=== PATIENT | female | born 1990 | race Caucasian/White ===

== ENCOUNTER 2016-03-01 14:30 | Emergency (ER) | payer OTHER ==
[2016-03-01 15:14] VITALS: BP 120/77
--- NOTE | 2016-03-01 15:40 | UC ---
Abdominal Pain Female HPI - HPI Summary HPI Summary: Generalized abd pain and cramping starting 3 days ago; vomited 5 or 6 times that first day, all "dark, bloody and gunky." Pt describes small dark brown specks like worms in her vomit. Also had 5-10 episodes of orange diarrhea that day. Vomiting and diarrhea continued for the next two days, with 3-4 episodes of hematemesis and at least 5 episodes of diarrhea per day. Today feeling much better, no vomiting or diarrhea, and abdominal pain is resolved. - History of Current Complaint Chief Complaint: UCGI Stated Complaint: ABDOMINAL PAIN Time Seen by Provider: 03/01/16 15:15 Hx Obtained From: Patient Hx Last Menstrual Period: 01/30/16 ?: No Onset/Duration: Sudden Onset, Lasting Days Timing: Constant Severity Initially: Moderate Severity Currently: None Location: Diffuse Radiates: No Character: Aching, Cramping Aggravating Factor(s): Nothing Alleviating Factor(s): Nothing Associated Signs and Symptoms: Positive: Nausea, Vomiting, Diarrhea Allergies/Adverse Reactions: Allergies Allergy/AdvReac Type Severity Reaction Status Date / Time Bee Venom Allergy Severe Anaphylatic Verified 03/01/16 15:05 Shock Tree Nuts Allergy Severe Rash and Verified 03/01/16 15:05 tongue swelling Amoxicillin Allergy Intermediate Rash Verified 03/01/16 15:05 Home Medications: Home Medications LORazepam TAB(*) [Ativan TAB(*)] 03/01/16 [History] Lisdexamfetamine Dimesylate [Vyvanse] 03/01/16 [History] PMH/Surg Hx/FS Hx/Imm Hx Respiratory History Of: Reports: Asthma - WILL BRING INHALERS, Pneumonia GI/ History Of: Reports: Ulcer Neurological History Of: Reports: Seizures Psychological History Of: Reports: Anxiety - ON MEDS, Depression - ON MEDS, Bipolar Disorder - Surgical History Surgical History: Yes Surgery Procedure, Year, and Place: Tonsillectomy 2004, [facility] - Family History Known Family History: Positive: Other - Schizophrenia, depression, alcohol abuse Family History: LEVEL 5 CAVEAT: UNABLE TO OBTAIN FHx - Social History Occupation: Disabled Lives: Alone Alcohol Use: None Alcohol Amount: stopped in december Substance Use Type: Marijuana Substance Use Comment - Amount & Last Used: RARELY Smoking Status (MU): Light Every Day Tobacco Smoker Type: Cigarettes Amount Used/How Often: PACK A DAY Length of Time of Smoking/Using Tobacco: 6YRS Have You Smoked in the Last Year: Yes Household Exposure Type: Cigarettes - Immunization History Most Recent Influenza Vaccination: 2013 Most Recent Tetanus Shot: unknown Most Recent Pneumonia Vaccination: none Review of Systems Constitutional: Chills Skin: Negative Eyes: Negative ENT: Negative Respiratory: Negative Cardiovascular: Negative Gastrointestinal: Abdominal Pain, Vomiting, Diarrhea Genitourinary: Negative Motor: Negative Neurovascular: Negative Musculoskeletal: Negative Neurological: Negative Psychological: Negative All Other Systems Reviewed And Are Negative: Yes Physical Exam Triage Information Reviewed: Yes Appearance: Well-Appearing, No Pain Distress, Well-Nourished Vital Signs: Initial Vital Signs Temp 99.4 F 03/01/16 15:08 Pulse 94 03/01/16 15:08 Resp 16 03/01/16 15:08 BP 120/77 03/01/16 15:08 Pulse Ox 99 03/01/16 15:08 Vital Signs Reviewed: Yes Eye Exam: Normal, Other - lower inner lids pink Eyes: Positive: Conjunctiva Clear ENT Exam: Normal ENT: Positive: Normal ENT inspection, Hearing grossly normal, Pharynx normal, TMs normal Neck exam: Normal Neck: Positive: Supple, Nontender, No Lymphadenopathy Respiratory Exam: Normal Respiratory: Positive: Chest non-tender, Lungs clear, Normal breath sounds, No respiratory distress, No accessory muscle use Cardiovascular: Positive: RRR - 90s on exam, No Murmur Abdomen Description: Positive: Nontender, No Organomegaly, Soft. Negative: CVA Tenderness (R), CVA Tenderness (L), Distended, Guarding, McBurney's Point Tenderness, Peritoneal Signs Bowel Sounds: Positive: Present Musculoskeletal Exam: Normal Neurological Exam: Normal Neurological: Positive: Alert, Muscle Tone Normal Psychological Exam: Other - poor eye contact, pt is very fidgity Skin Exam: Normal Abd Pain Female Course/Dx - Differential Dx/Diagnosis Provider Diagnoses: gastroenteritis. upper GI bleed Discharge - Discharge Plan Condition: Guarded Disposition: AGAINST MEDICAL ADVICE Patient Education Materials: Gastrointestinal Bleeding (ED), Gastroenteritis ( ED) Referrals: Asya Rivera MD [Primary Care Provider] - Additional Instructions: As we discussed, I cannot say whether you have had a dangerous amount of bleeding on physical exam alone, nor can I say whether you have an ongoing bleed in your stomach or intestines. If you have continued bleeding, this can be life-threatening in a short amount of time. I strongly encourage you to go to the hospital tonight for testing and blood work. If you don't go tonight, please call 911 at any time if you faint or have lightheadedness, heart palpatations, or severe abdominal pain.
== END 2016-03-01 15:44 | disposition left against medical advice (07) ==
LOC: UCEAST 14:30
DX: K52.9 Noninfective gastroenteritis and colitis, unspecified (principal); Z88.0 Allergy status to penicillin; F17.210 Nicotine dependence, cigarettes, uncomplicated
CPT/HCPCS: 99212; G0463

== ENCOUNTER 2016-06-21 14:30 | Emergency (ER) | payer OTHER ==
[2016-06-21 15:50] VITALS: BP 122/75
--- NOTE | 2016-06-21 16:17 | UC ---
Cardiac HPI - HPI Summary HPI Summary: Has had nasal congestion and cough for about two weeks, still coughing a lot. 3 days ago rolled over on couch and coughed and felt sudden stabbing pain in R later ribs near axilla. Has been feeling it with certain coughs and movements since then, and today the pain has moved more anterior. Pt wants to feel better and wants pain to go away. Asthma has been flaring lately, using albuterol 3-4 times per day, hasn't filled her rx for advair recently. - History of Current Complaint Chief Complaint: UCRespiratory Stated Complaint: RIB PAIN Time Seen by Provider: 06/21/16 15:52 Hx Obtained From: Patient Onset/Duration: Sudden Onset Timing: Constant Initial Severity: Moderate Current Severity: Moderate Chest Pain Location: Right Lateral Character: Sharp/Stabbing Aggravating: Position, Deep Breaths Alleviating: Rest, Position Associated Signs & Symptoms: Positive: SOB - wheezing, Cough. Negative: Numbness, Tingling, Weakness, Dizziness, Back Pain, Abdominal Pain - Allergy/Home Medications Allergies/Adverse Reactions: Allergies Allergy/AdvReac Type Severity Reaction Status Date / Time Bee Venom Allergy Severe Anaphylatic Verified 06/21/16 15:42 Shock Tree Nuts Allergy Severe Rash and Verified 06/21/16 15:42 tongue swelling Amoxicillin Allergy Intermediate Rash Verified 06/21/16 15:42 Home Medications: Home Medications Ibuprofen [Ibuprofen 200 MG] 400 mg PO Q6H PRN 06/21/16 [History Confirmed 06/21] PMH/Surg Hx/FS Hx/Imm Hx Respiratory History Of: Reports: Asthma, Pneumonia GI/ History Of: Reports: Ulcer Neurological History Of: Reports: Seizures Psychological History Of: Reports: Anxiety - ON MEDS, Depression - ON MEDS, Bipolar Disorder - Surgical History Surgical History: Yes Surgery Procedure, Year, and Place: Tonsillectomy 2004, [facility] - Family History Known Family History: Positive: Other - Schizophrenia, depression, alcohol abuse - Social History Alcohol Use: None Alcohol Amount: stopped in december Substance Use Type: None Substance Use Comment - Amount & Last Used: RARELY Smoking Status (MU): Light Every Day Tobacco Smoker Type: Cigarettes Amount Used/How Often: PACK A DAY Length of Time of Smoking/Using Tobacco: 6YRS Have You Smoked in the Last Year: Yes Household Exposure Type: Cigarettes - Immunization History Most Recent Influenza Vaccination: 2013 Most Recent Tetanus Shot: unknown Most Recent Pneumonia Vaccination: none Review of Systems Constitutional: Negative Skin: Negative Eyes: Negative ENT: Negative Respiratory: Cough, Other - R ribs pain with cough Cardiovascular: Negative Gastrointestinal: Negative Genitourinary: Negative Motor: Negative Neurovascular: Negative Musculoskeletal: Negative Neurological: Negative Psychological: Negative All Other Systems Reviewed And Are Negative: Yes Physical Exam Triage Information Reviewed: Yes Appearance: Well-Appearing, Well-Nourished, Pain Distress - with certain movements and coughing Vital Signs: Initial Vital Signs Temp 98.3 F 06/21/16 15:45 Pulse 71 06/21/16 15:45 Resp 16 06/21/16 15:45 BP 122/75 06/21/16 15:45 Pulse Ox 99 06/21/16 15:45 Vital Signs Reviewed: Yes Eye Exam: Normal Eyes: Positive: Conjunctiva Clear ENT: Positive: Hearing grossly normal, Nasal congestion, TMs normal Dental Exam: Normal Neck exam: Normal Neck: Positive: Supple, Nontender, No Lymphadenopathy Respiratory: Positive: Lungs clear, Normal breath sounds, No respiratory distress. Negative: Chest non-tender - R chest wall pain with palpation and coughs Cardiovascular Exam: Normal Cardiovascular: Positive: RRR, No Murmur Musculoskeletal Exam: Normal Musculoskeletal: Positive: Strength Intact, ROM Intact Neurological Exam: Normal Neurological: Positive: Alert Psychological Exam: Normal Skin Exam: Normal - Clinical Impression Provider Diagnoses: R chest wall pain Discharge - Discharge Plan Condition: Stable Disposition: HOME Prescriptions: Acetaminop/Codeine 30 MG TAB* [Tylenol/Codeine 30 MG TAB*] 1 - 2 tab PO BEDTIME PRN #10 tab MDD 2 PRN Reason: cough, pain Cyclobenzaprine TAB* [Flexeril 10 MG TAB*] 5 - 10 mg PO BID PRN #20 tab PRN Reason: Pain Indomethacin CAP* [Indocin CAP*] 50 mg PO TID PRN #30 cap PRN Reason: Pain Patient Education Materials: Chest Wall Pain (ED) Referrals: Asya Rivera MD [Primary Care Provider] - Additional Instructions: If you still have significant pain after a week, I recommend you see someone trained in osteopathic manipulation for your pain (this would include an osteopath or a chiropractor). If you develop fever or trouble breathing, please come back right away. PLEASE FILL YOUR PRESCRIPTION FOR ADVAIR AND START USING IT AGAIN!
== END 2016-06-21 16:30 | disposition home or self-care (01) ==
LOC: UCEAST 14:30
DX: R07.89 Other chest pain (principal); F31.9 Bipolar disorder, unspecified; F41.9 Anxiety disorder, unspecified; J45.909 Unspecified asthma, uncomplicated; Z88.0 Allergy status to penicillin
CPT/HCPCS: 99212; G0463

== ENCOUNTER → 2016-07-14 18:06 | Emergency (ER) | payer OTHER ==
[~2016-07-14 18:06] MED LIST: HYDROcodone/ACETAMIN 5-325 MG* 1 TAB PO ONE; LORazepam INJ* 2 MG/ML 1 ML VIAL IM ONE; LORazepam INJ* 2 MG/ML 1 ML VIAL ONE
[2016-07-14 18:40] VITALS: BP 139/72
--- NOTE | 2016-07-14 19:47 | RAD ---
Indication: Head injury. CT of the brain was performed without IV contrast. Ventricular structures are midline. No midline shift is noted. The extra-axial spaces are unremarkable. There is no evidence of intracranial mass or hemorrhage. No other high or low density lesions are identified. When compared to previous exam of October 03, 2013 no significant change is noted. There may BE low lying cerebellar tonsils noted. Mastoid air cells and paranasal sinuses are otherwise unremarkable. IMPRESSION: No intracranial mass or hemorrhage is noted.
--- NOTE | 2016-07-14 19:51 | RAD ---
Indication: Neck injury. CT of the cervical spine was obtained in the axial plane. Sagittal and coronal reconstructed images were obtained. Mastoid air cells and paranasal sinuses are unremarkable. The C1 ring is intact. No fractures noted. The remainder of the vertebral bodies appear normal in height. No evidence of compression fracture is noted. Disc spaces are well-preserved. Spinal canal appears to be intact. Lung apices are grossly unremarkable. IMPRESSION: No fracture of the cervical spine is noted.
--- NOTE | 2016-07-14 21:13 | RAD ---
Indication: Left shoulder pain and injury. 4 views of left shoulder demonstrates no fracture. No other bone or joint abnormality is identified. IMPRESSION: Unremarkable left shoulder.
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
== END | disposition home or self-care (01) ==
LOC: ED 18:06
DX: S09.90XA Unspecified injury of head, initial encounter (principal); S50.312A Abrasion of left elbow, initial encounter; S40.212A Abrasion of left shoulder, initial encounter; S80.212A Abrasion, left knee, initial encounter; S80.211A Abrasion, right knee, initial encounter; S00.91XA Abrasion of unspecified part of head, initial encounter; V19.9XXA Pedal cyclist (driver) (passenger) injured in unspecified traffic accident, initial encounter; Y93.9 Activity, unspecified; Y92.9 Unspecified place or not applicable; Y99.9 Unspecified external cause status; F17.210 Nicotine dependence, cigarettes, uncomplicated
CPT/HCPCS: 70450; 72125; 96372; 99282; J2060

== ENCOUNTER 2016-07-22 09:13 | Emergency (ER) | payer OTHER ==
[2016-07-22 09:34] VITALS: BP 124/72
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
== END 2016-07-22 09:59 | disposition home or self-care (01) ==
LOC: UCEAST 09:13
DX: M25.512 Pain in left shoulder (principal); S80.212A Abrasion, left knee, initial encounter; S80.211A Abrasion, right knee, initial encounter; S50.312A Abrasion of left elbow, initial encounter; X58.XXXA Exposure to other specified factors, initial encounter; Y93.9 Activity, unspecified; Y92.9 Unspecified place or not applicable; G40.909 Epilepsy, unspecified, not intractable, without status epilepticus; J45.909 Unspecified asthma, uncomplicated; F41.9 Anxiety disorder, unspecified; F31.9 Bipolar disorder, unspecified; Z88.1 Allergy status to other antibiotic agents; Z91.030 Bee allergy status; Z91.018 Allergy to other foods; F17.210 Nicotine dependence, cigarettes, uncomplicated
CPT/HCPCS: 99211; G0463

== ENCOUNTER 2016-10-11 17:59 | Inpatient (IN) | payer MEDICAID, OTHER ==
[2016-10-11 19:12] LABS: Urine Bacteria Absent (Absent); Urine Bilirubin Negative (Negative); Urine Glucose Negative (Negative); Urine Nitrite Negative (Negative)
[2016-10-11 19:18] LABS: Benzodiazepine Urine Screen None Detected (None Detect)
[2016-10-11 20:04] LABS: Hematocrit 39 % (35-47); Mean Corpuscular HGB Conc 33 g/dl (31-36); Mean Corpuscular Hemoglobin 31 pg (27-31); Mean Corpuscular Volume 94 fL (80-97); Mean Platelet Volume 9 um3 (7.4-10.4); Red Blood Count 4.17 10^6/ul (4.0-5.4); Red Cell Distribution Width 13 % (10.5-15); White Blood Count 7.2 10^3/ul (3.5-10.8)
[2016-10-11 20:22] LABS: ALT 8 U/L (7-52); AST 15 U/L (13-39); Albumin 4.6 g/dL (3.2-5.2); Alkaline Phosphatase 40 U/L (34-104); Anion Gap 6 mmol/L (2-11); BUN/Creatinine Ratio 12.3 (8-20); Blood Urea Nitrogen 9 mg/dL (6-24); CO2 Carbon Dioxide 27 mmol/L (22-32); Calcium 9.1 mg/dL (8.6-10.3); Chloride 105 mmol/L (101-111); EGFR African American 123.9 (>60); EGFR Non-African American 96.4 (>60); Globulin 2.2 g/dL (2-4); Glucose 75 mg/dL (70-100); Potassium 3.4 mmol/L (3.5-5.0); Sodium 138 mmol/L (133-145); Total Protein 6.8 g/dL (6.4-8.9)
[2016-10-11 20:48] LABS: Acetaminophen < 15 mcg/mL; Alcohol < 10 mg/dL (<10); Salicylate < 2.50 mg/dL (<30)
[2016-10-11] MEDS ORDERED: Mouth Piece, Nicotine* 1 EACH CARTRIDGE ONE (20:55)
[2016-10-11] MEDS ORDERED: Nicotine Inhaler* 10 MG AMP ONE (20:56)
[2016-10-11 20:58] LABS: TSH (Thyroid Stimulating Horm) 1.48 mcIU/mL (0.34-5.60)
[2016-10-11] MEDS ORDERED: Mouth Piece, Nicotine* 1 EACH CARTRIDGE INH ONE (21:00)
[2016-10-11] MEDS ORDERED: Nicotine Inhaler* 10 MG AMP INH ONE (21:00)
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
[2016-10-12] MEDS ORDERED: diPHENhydraMINE PO* 50 MG PO ONE (02:15)
[2016-10-12] MEDS ORDERED: diPHENhydraMINE PO* 50 MG ONE (02:18)
[2016-10-12] MEDS ORDERED: Mouth Piece, Nicotine* 1 EACH CARTRIDGE INH ONE (10:45)
[2016-10-12] MEDS: Venlafaxine EXT RELEASE CAP* 75 MG PO SCH (11:32)
[2016-10-12] MEDS: Nicotine Inhaler* 10 MG AMP INH PRN ×2 (11:32→15:47)
[2016-10-12] MEDS: Nicotine GUM* 2 MG PO PRN (11:33)
[2016-10-12] MEDS ORDERED: Mouth Piece, Nicotine* 1 EACH CARTRIDGE ONE (15:48)
[2016-10-12] MEDS: traZODone TAB* 50 MG TAB PO SCH (20:34)
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
[2016-10-13] MEDS: Venlafaxine EXT RELEASE CAP* 75 MG PO SCH (08:40)
[2016-10-13] MEDS: Nicotine Inhaler* 10 MG AMP INH PRN ×3 (08:41→17:44)
[2016-10-13] MEDS: Nicotine GUM* 2 MG PO PRN ×3 (08:41→17:44)
--- NOTE | 2016-10-13 11:01 | PN ---
Subjective - Subjective Subjective: Patient reports she feels "sad, I think." She expressed being worried that she will "never be successful at anything." She endorses hopelessness/helplessness and guilt. She reports that her primary sense of failure comes from relationships. Patient reports she isn't good enough for stable people and that she tends to push others away when uncomfortable sharing her feelings. Notified of nml EKG and would like to restart vyvanse for adhd and propranolol for anxiety. Multiple staff noted she playfully attempts to leave locked doors when people are coming and going. She states she wants to "go outside." Encouraged to remain safe and will reassess staff pass in treatment team tomorrow. Objective - Appearance Appearance: Thin Framed Dysmorphic Features: Yes Hygiene: Normal Grooming: Fairly Well Kept - Behavior Psychomotor Activities: Abnormal-Increased - hyperactivity Exhibits Abnormal Movement: Yes - Attitude and Relatedness Attitude and Relatedness: Cooperative Eye Contact: Fair - Speech Quality: Unpressured Latencies: Normal Quantity: Appropriate - Mood Patient's Decription of Mood: "Sad" - Affect Observed Affect: Depressed Affect Consistent with: Dysphoria - Thought Process Patient's Thought Process: Coherent, Circumstantial Thought Content: Yes Passive Wish, Yes Suicidal Planning, Yes Paranoid Ideation, No Homicidal Ideation - Sensorium Experiencing Hallucinations: No, Sensorium is Clear Type of Hallucinations: Visual: No, Auditory: No, Command: No - Level of Consciousness Level of Consciousness: Alert Orientation: Yes Intact, Yes Orientated to Time, Yes Orientated to Place, Yes Orientated to Person - Impulse Control Impulse Control: Poor - Insight and Judgement Insight and Judgement: Fair - Group Participation Particating in Group Activities: Yes - Medication Management Medication Management Adherence: Yes Assessment - Assessment Merits Inpatient Hospitalization: For Immediate Safety, For Stabilization, Pending Safe DC Plan Inpatient DSM-IV Dx: I: major depressive d/o, severe, recurrent; social phobia; ADHD, combined presentation; alcohol use d/o, in early remission; cannabis use d /o. II: deferred. III: hx TBI, seizures, asthma, tourette's. IV: stressors r/ t social isolation, impact of substance use, legal involvement. V: 50 Clinical Impression: Marion Giron" is a 26yo female with a history of MDD and polysubstance use. She is expressing active SI and depressive sx. She is frustrated with herself for poor relationship skills and lack of sense of success in society. She merits hospitalization for immediate safety and stabilization. Plan - Plan Treatment Plan: Name: MARION DOS SANTOS Birthdate: 1990 [id number] Continue effexor XR and trazodone. EKG NSR, will start propranolol 20mg BID prn anxiety and vyvanse 20mg qam for ADHD. Decrease observation to q30 min and continue therapeutic milieu, individual and group psychoeducation. Medications: Current Medications Nicotine (Nicotine Inhaler*) 10 mg INH Q2H PRN PRN Reason: CRAVING Last Admin: 10/13/16 08:41 Dose: 10 mg Nicotine Polacrilex (Nicotine Gum*) 2 mg PO Q2H PRN PRN Reason: CRAVING Last Admin: 10/13/16 08:41 Dose: 2 mg Trazodone HCl (Desyrel Tab*) 75 mg PO BEDTIME ALEX Last Admin: 10/12/16 20:34 Dose: 75 mg Venlafaxine HCl (Effexor Xr Cap*) 75 mg PO DAILY ALEX Last Admin: 10/13/16 08:40 Dose: 75 mg
[2016-10-13] MEDS: Sulfamethox/Trimethoprim DS 800/160* TAB PO SCH ×2 (12:15→20:28)
[2016-10-13] MEDS: Propranolol TAB* 20 MG PO PRN (12:16)
--- NOTE | 2016-10-13 15:55 | PN ---
[facility]: Group Therapy Note - Service Type Service Type: [id number] Group Psychotherapy - Group Participation Patient Participating in Group: Yes Level of Group Participation: Attentive, Spontaneously Participate Relatedness to Group: Well Related
[2016-10-13] MEDS: traZODone TAB* 50 MG TAB PO SCH (20:28)
[2016-10-14] MEDS: Lisdexamfetamine(NF) 10 MG CAP PO SCH (07:31)
[2016-10-14] MEDS: Venlafaxine EXT RELEASE CAP* 75 MG PO SCH (07:31)
[2016-10-14] MEDS: Nicotine Inhaler* 10 MG AMP INH PRN ×2 (07:31→13:52)
[2016-10-14] MEDS: Propranolol TAB* 20 MG PO PRN (07:35)
[2016-10-14] MEDS: Sulfamethox/Trimethoprim DS 800/160* TAB PO SCH ×2 (09:20→21:14)
[2016-10-14] MEDS ORDERED: hydrOXYzine HCL TAB* 50 MG PO PRN (13:53)
--- NOTE | 2016-10-14 14:01 | PN ---
Subjective - Subjective Service Type: 62941 Hosp care 15 min low complexity Subjective: Patient presents as dysphoric and reports her mood as laltiy." She expresses frustrations with living in [place], being on probation and poor relationship skills. She states that her feelings are hurt when others [peers] talk about her. She endorses depressed mood, hopelessness/helplessness. She reports vague SI. She reports much improvement in executive functioning due to vyvanse. she reports wanting to continue despite increase in tics. Will utilize guanfacine for tics and impulse control. She requests zyrtec for seasonal allergies and endorses continued anxiety. She is receptive to suggestion of prn hydroxyzine for both of the above. Objective - Appearance Appearance: Thin Framed Dysmorphic Features: Yes Hygiene: Normal Grooming: Well Kept - Behavior Psychomotor Activities: Abnormal-Increased - tics: mouth, neck and facial; grunts Exhibits Abnormal Movement: Yes - Attitude and Relatedness Attitude and Relatedness: Cooperative Eye Contact: Poor - Speech Quality: Unpressured Latencies: Normal Quantity: Appropriate - Mood Patient's Decription of Mood: "Sad" - Affect Observed Affect: Depressed Affect Consistent with: Dysphoria - Thought Process Patient's Thought Process: Coherent, Goal Directed Thought Content: Yes Passive Wish, Yes Suicidal Planning, No Homicidal Ideation, No Paranoid Ideation - Sensorium Experiencing Hallucinations: No, Sensorium is Clear Type of Hallucinations: Visual: No, Auditory: No, Command: No - Level of Consciousness Level of Consciousness: Alert Orientation: No Intact, No Orientated to Time, No Orientated to Place, No Orientated to Person - Impulse Control Impulse Control: Impaired - Insight and Judgement Insight and Judgement: Good - Group Participation Particating in Group Activities: Yes - Medication Management Medication Management Adherence: Yes Assessment - Assessment Merits Inpatient Hospitalization: For Immediate Safety, For Stabilization, Consolidate Improvements, For Discharge Planning Inpatient DSM-IV Dx: I: major depressive d/o, severe, recurrent; social phobia; ADHD, combined presentation; alcohol use d/o, in early remission; cannabis use d /o. II: deferred. III: hx TBI, seizures, asthma, tourette's. IV: stressors r/ t social isolation, impact of substance use, legal involvement. V: 50 Clinical Impression: Marion Giron" is a 26yo female with a history of MDD and polysubstance use. She is expressing active SI and depressive sx. She is frustrated with herself for poor relationship skills and lack of sense of success in society. She merits hospitalization for immediate safety and stabilization. Plan - Plan Treatment Plan: Name: MARION DOS SANTOS Birthdate: 1990 [id number] Continue previous medications, increase effexor XR to 87.5mg. Add guanfacine for tourrette's and impulse control. Add hydroxyzine prn for anxiety and seasonal allergies. Continue effexor XR and trazodone. Continue 30min checks, allow staff pass and comfort room use. Continue therapeutic milieu, individual and group psychoeducation. Continued Medication Management: Different Medication Medications: Current Medications Guanfacine HCl (Tenex Tab*) 1 mg PO BID [facility] Hydroxyzine HCl (Atarax Tab*) 50 mg PO Q6H PRN PRN Reason: AGITATION/ANXIETY Lisdexamfetamine Dimesylate (Vyvanse(Nf)) 20 mg PO DAILY [facility] Last Admin: 10/14/16 07:31 Dose: 20 mg Nicotine (Nicotine Inhaler*) 10 mg INH Q2H PRN PRN Reason: CRAVING Last Admin: 10/14/16 13:52 Dose: 10 mg Nicotine Polacrilex (Nicotine Gum*) 2 mg PO Q2H PRN PRN Reason: CRAVING Last Admin: 10/13/16 17:44 Dose: 2 mg Propranolol HCl (Inderal Tab*) 20 mg PO BID PRN PRN Reason: ANXIETY Last Admin: 10/14/16 07:35 Dose: 20 mg Trazodone HCl (Desyrel Tab*) 75 mg PO BEDTIME [facility] Last Admin: 10/13/16 20:28 Dose: 75 mg Trimethoprim/Sulfamethoxazole (Bactrim Ds 800/160 Tab*) 1 tab PO BID [facility] Last Admin: 10/14/16 09:20 Dose: 1 tab Venlafaxine HCl (Effexor Xr Cap*) 87.5 mg PO DAILY [facility] - Discharge Plan Discharge Plan: Outpatient Follow Up Outpatient Program: [facility]
[2016-10-14] MEDS ORDERED: EPINEPHrine AMP 1 MG/ML SUBCUT PRN (16:18)
[2016-10-14] MEDS: guanFACINE TAB* 1 MG PO SCH (21:12)
[2016-10-14] MEDS: traZODone TAB* 50 MG TAB PO SCH (21:12)
[2016-10-15] MEDS: Lisdexamfetamine(NF) 10 MG CAP PO SCH (10:23)
[2016-10-15] MEDS: Sulfamethox/Trimethoprim DS 800/160* TAB PO SCH ×2 (10:23→21:07)
[2016-10-15] MEDS: guanFACINE TAB* 1 MG PO SCH ×2 (10:24→21:07)
[2016-10-15] MEDS: Venlafaxine EXT RELEASE CAP* 75 MG PO SCH (10:24)
[2016-10-15] MEDS: Venlafaxine EXT RELEASE CAP* 37.5 MG PO SCH (10:26)
[2016-10-15] MEDS: Nicotine Inhaler* 10 MG AMP INH PRN ×3 (10:41→21:10)
[2016-10-15] MEDS: Ibuprofen TAB* 600 MG PO PRN (12:56)
[2016-10-15] MEDS: Propranolol TAB* 20 MG PO PRN (12:56)
[2016-10-15] MEDS: Nicotine GUM* 2 MG PO PRN ×2 (12:57→16:19)
[2016-10-15] MEDS ORDERED: Bisacodyl SUPP* 10 MG SUPP PR ONE (17:30)
[2016-10-15] MEDS: traZODone TAB* 50 MG TAB PO SCH (21:07)
[2016-10-16] MEDS: Lisdexamfetamine(NF) 10 MG CAP PO SCH (09:37)
[2016-10-16] MEDS: Venlafaxine EXT RELEASE CAP* 75 MG PO SCH (09:37)
[2016-10-16] MEDS: Sulfamethox/Trimethoprim DS 800/160* TAB PO SCH ×2 (09:37→20:56)
[2016-10-16] MEDS: Venlafaxine EXT RELEASE CAP* 37.5 MG PO SCH (09:38)
[2016-10-16] MEDS: guanFACINE TAB* 1 MG PO SCH ×2 (09:39→20:56)
[2016-10-16] MEDS ORDERED: Mouth Piece, Nicotine* 1 EACH CARTRIDGE ONE (09:40)
[2016-10-16] MEDS: Nicotine GUM* 2 MG PO PRN (09:40)
[2016-10-16] MEDS: Nicotine Inhaler* 10 MG AMP INH PRN ×4 (09:40→16:38)
[2016-10-16] MEDS: Ibuprofen TAB* 600 MG PO PRN (11:30)
--- NOTE | 2016-10-16 13:26 | PN ---
Subjective - Subjective Service Type: 76066 Hosp care 15 min low complexity Subjective: Marion reports of ongoing depression, crying all the time, feeling angry a lot and suicidal. Thought about suicide this morning. Sleeping much better on current meds. Says her current meds are helping and her crying has been a lot less. Eating better as well. Somewhat guarded but not evidence of paranoia. Unable to support self with current finances and has been a source of stress. Objective - Appearance Appearance: Thin Framed Dysmorphic Features: No Hygiene: Normal Grooming: Well Kept - Behavior Psychomotor Activities: Abnormal-Increased Exhibits Abnormal Movement: Yes - Attitude and Relatedness Attitude and Relatedness: Guarded Eye Contact: Fair - Speech Quality: Unpressured Latencies: Normal Quantity: Terse - Mood Patient's Decription of Mood: "Angry" - Affect Observed Affect: Depressed Affect Consistent with: Dysphoria - Thought Process Patient's Thought Process: Coherent, Goal Directed Thought Content: Yes Passive Wish, No Suicidal Planning, No Homicidal Ideation, No Paranoid Ideation - Sensorium Experiencing Hallucinations: No, Sensorium is Clear Type of Hallucinations: Visual: No, Auditory: No, Command: No - Level of Consciousness Level of Consciousness: Alert Orientation: Yes Intact, Yes Orientated to Time, Yes Orientated to Place, Yes Orientated to Person - Impulse Control Impulse Control: Intact - Insight and Judgement Insight and Judgement: Poor - Group Participation Particating in Group Activities: No - Medication Management Medication Management Adherence: Yes Assessment - Assessment Merits Inpatient Hospitalization: For Immediate Safety, For Stabilization, Pending Safe DC Plan Inpatient DSM-IV Dx: I: major depressive d/o, severe, recurrent; social phobia; ADHD, combined presentation; alcohol use d/o, in early remission; cannabis use d /o. II: deferred. III: hx TBI, seizures, asthma, tourette's. IV: stressors r/ t social isolation, impact of substance use, legal involvement. V: 50 Clinical Impression: Appears to be improving on current meds. Plan - Plan Treatment Plan: Name: MARION DOS SANTOS Birthdate: 1990 [id number] Continued Medication Management: Continue Outpt Medication Medications: Current Medications Guanfacine HCl (Tenex Tab*) 1 mg PO BID [facility] Last Admin: 10/16/16 09:39 Dose: Not Given Hydroxyzine HCl (Atarax Tab*) 50 mg PO Q6H PRN PRN Reason: AGITATION/ANXIETY Last Admin: 10/14/16 17:25 Dose: 50 mg Ibuprofen (Motrin Tab*) 600 mg PO Q6H PRN PRN Reason: PAIN Last Admin: 10/16/16 11:30 Dose: 600 mg Lisdexamfetamine Dimesylate (Vyvanse(Nf)) 20 mg PO DAILY [facility] Last Admin: 10/16/16 09:37 Dose: 20 mg Nicotine (Nicotine Inhaler*) 10 mg INH Q2H PRN PRN Reason: CRAVING Last Admin: 10/16/16 11:32 Dose: 10 mg Nicotine Polacrilex (Nicotine Gum*) 2 mg PO Q2H PRN PRN Reason: CRAVING Last Admin: 10/16/16 09:40 Dose: 2 mg Propranolol HCl (Inderal Tab*) 20 mg PO BID PRN PRN Reason: ANXIETY Last Admin: 10/15/16 12:56 Dose: 20 mg Trazodone HCl (Desyrel Tab*) 75 mg PO BEDTIME [facility] Last Admin: 10/15/16 21:07 Dose: 75 mg Trimethoprim/Sulfamethoxazole (Bactrim Ds 800/160 Tab*) 1 tab PO BID [facility] Last Admin: 10/16/16 09:37 Dose: 1 tab Venlafaxine HCl (Effexor Xr Cap*) 75 mg PO DAILY [facility] Last Admin: 10/16/16 09:37 Dose: 75 mg Venlafaxine HCl (Effexor Xr Cap*) 37.5 mg PO DAILY [facility] Last Admin: 10/16/16 09:38 Dose: 37.5 mg - Discharge Plan Discharge Plan: Outpatient Follow Up Outpatient Program: [facility]
[2016-10-16] MEDS ORDERED: Magnesium Hydroxide LIQ* 30 ML UDC PO PRN (13:51)
[2016-10-16] MEDS: Propranolol TAB* 20 MG PO PRN (14:36)
[2016-10-16] MEDS: traZODone TAB* 50 MG TAB PO SCH (20:56)
[2016-10-17] MEDS: Lisdexamfetamine(NF) 10 MG CAP PO SCH (08:26)
[2016-10-17] MEDS: Sulfamethox/Trimethoprim DS 800/160* TAB PO SCH ×2 (08:26→20:37)
[2016-10-17] MEDS: Venlafaxine EXT RELEASE CAP* 75 MG PO SCH (08:26)
[2016-10-17] MEDS: guanFACINE TAB* 1 MG PO SCH ×2 (08:26→20:37)
[2016-10-17] MEDS: Cetirizine* 10 MG TAB PO SCH (08:26)
[2016-10-17] MEDS: Nicotine Inhaler* 10 MG AMP INH PRN ×4 (08:27→18:39)
[2016-10-17] MEDS: Venlafaxine EXT RELEASE CAP* 37.5 MG PO SCH (08:28)
[2016-10-17] MEDS: Ibuprofen TAB* 600 MG PO PRN ×2 (08:28→20:38)
--- NOTE | 2016-10-17 11:18 | PN ---
Subjective - Subjective Subjective: Patient presents as dysphoric. She reports milieu is a source of stress and that other patients are engaging in emotional bullying. Per staff, she broke a cd in the comfort room and superficially cut herself on her left forearm. She reports to me that "it got to be too much" in regards to interactions from peers. She continues to endorse hopelessness in regards to psychosocial stressors. Patient reports lightheadness likely r/t propranolol. She states hydroxyzine is not helpful and that she does not like gabapentin. Objective - Appearance Appearance: Thin Framed Dysmorphic Features: Yes Hygiene: Normal Grooming: Well Kept - Behavior Psychomotor Activities: Normal Exhibits Abnormal Movement: No - Attitude and Relatedness Attitude and Relatedness: Withdrawn Eye Contact: Poor - Speech Quality: Unpressured Latencies: Normal Quantity: Appropriate - Mood Patient's Decription of Mood: "Fine" - Affect Observed Affect: Depressed Affect Consistent with: Dysphoria - Thought Process Patient's Thought Process: Circumstantial - interactions with others Thought Content: No Passive Wish, No Suicidal Planning, No Homicidal Ideation, No Paranoid Ideation - Sensorium Experiencing Hallucinations: No, Sensorium is Clear Type of Hallucinations: Visual: No, Auditory: No, Command: No - Level of Consciousness Level of Consciousness: Alert Orientation: Yes Intact, Yes Orientated to Time, Yes Orientated to Place, Yes Orientated to Person - Impulse Control Impulse Control: Tenuous - Insight and Judgement Insight and Judgement: Fair - Group Participation Particating in Group Activities: Yes - Medication Management Medication Management Adherence: Yes Assessment - Assessment Merits Inpatient Hospitalization: For Immediate Safety, For Stabilization, Consolidate Improvements, For Discharge Planning Inpatient DSM-IV Dx: I: major depressive d/o, severe, recurrent; social phobia; ADHD, combined presentation; alcohol use d/o, in early remission; cannabis use d /o. II: deferred. III: hx TBI, seizures, asthma, tourette's. IV: stressors r/ t social isolation, impact of substance use, legal involvement. V: 50 Clinical Impression: Marion Giron" is a 26yo female with a history of MDD and polysubstance use. She expresses desire for discharge but is demonstrating depressive sx and is hesitant to return to outpatient services. She merits hospitalization for immediate safety and stabilization. Plan - Plan Treatment Plan: Name: MARION DOS SANTOS Birthdate: 1990 [id number] Continue previous medications. Hold propranolol due to hypotension. Continue hydroxyzine prn for anxiety and seasonal allergies. Continue q15 min checks and hold staff pass and comfort room use. Continue therapeutic milieu, individual and group psychoeducation. Continued Medication Management: Different Medication Medications: Current Medications Cetirizine HCl (Zyrtec*) 10 mg PO QAM [facility] Last Admin: 10/17/16 08:26 Dose: 10 mg Guanfacine HCl (Tenex Tab*) 1 mg PO BID [facility] Last Admin: 10/17/16 08:26 Dose: 1 mg Hydroxyzine HCl (Atarax Tab*) 50 mg PO Q6H PRN PRN Reason: AGITATION/ANXIETY Last Admin: 10/14/16 17:25 Dose: 50 mg Ibuprofen (Motrin Tab*) 600 mg PO Q6H PRN PRN Reason: PAIN Last Admin: 10/17/16 08:28 Dose: 600 mg Lisdexamfetamine Dimesylate (Vyvanse(Nf)) 20 mg PO DAILY [facility] Last Admin: 10/17/16 08:26 Dose: 20 mg Magnesium Hydroxide (Milk Of Magnesia Liq*) 30 ml PO DAILY PRN PRN Reason: CONSTIPATION Nicotine (Nicotine Inhaler*) 10 mg INH Q2H PRN PRN Reason: CRAVING Last Admin: 10/17/16 08:27 Dose: 10 mg Nicotine Polacrilex (Nicotine Gum*) 2 mg PO Q2H PRN PRN Reason: CRAVING Last Admin: 10/16/16 09:40 Dose: 2 mg Propranolol HCl (Inderal Tab*) 20 mg PO BID PRN PRN Reason: ANXIETY Last Admin: 10/16/16 14:36 Dose: 20 mg Trazodone HCl (Desyrel Tab*) 75 mg PO BEDTIME [facility] Last Admin: 10/16/16 20:56 Dose: 75 mg Trimethoprim/Sulfamethoxazole (Bactrim Ds 800/160 Tab*) 1 tab PO BID [facility] Last Admin: 10/17/16 08:26 Dose: 1 tab Venlafaxine HCl (Effexor Xr Cap*) 75 mg PO DAILY [facility] Last Admin: 10/17/16 08:26 Dose: 75 mg Venlafaxine HCl (Effexor Xr Cap*) 37.5 mg PO DAILY [facility] Last Admin: 10/17/16 08:28 Dose: 37.5 mg - Discharge Plan Discharge Plan: Outpatient Follow Up Outpatient Program: [facility]
[2016-10-17] MEDS: Nicotine GUM* 2 MG PO PRN ×2 (11:21→18:39)
--- NOTE | 2016-10-17 13:23 | PN ---
MHU: Group Therapy Note - Service Type Service Type: [id number] Group Psychotherapy - Cognitive Behavioral Group Therapy ( CBT):Patient was attentive and participatory in CBT programming this morning, and remained in good behavioral control. Patient expressed positive insights regarding relevant treatment interventions and goals.
[2016-10-17] MEDS: traZODone TAB* 50 MG TAB PO SCH (20:37)
[2016-10-18 08:11] VITALS: BP 100/46
[2016-10-18] MEDS: Sulfamethox/Trimethoprim DS 800/160* TAB PO SCH (09:16)
[2016-10-18] MEDS: Cetirizine* 10 MG TAB PO SCH (09:16)
[2016-10-18] MEDS: Lisdexamfetamine(NF) 10 MG CAP PO SCH (09:17)
[2016-10-18] MEDS: Venlafaxine EXT RELEASE CAP* 75 MG PO SCH (09:17)
[2016-10-18] MEDS: guanFACINE TAB* 1 MG PO SCH (09:18)
[2016-10-18] MEDS: Venlafaxine EXT RELEASE CAP* 37.5 MG PO SCH (09:18)
[2016-10-18] MEDS: Nicotine GUM* 2 MG PO PRN (11:24)
[2016-10-18] MEDS: Nicotine Inhaler* 10 MG AMP INH PRN (11:24)
[2016-10-18] MEDS: Propranolol TAB* 20 MG PO PRN (11:25)
--- NOTE | 2016-10-18 11:26 | PN ---
MHU: Group Therapy Note - Service Type Service Type: [id number] Group Psychotherapy - Cognitive Behavioral Group Therapy ( CBT):Patient was attentive and participatory in CBT programming this morning, and remained in good behavioral control. Patient expressed positive insights regarding relevant treatment interventions and goals.
[2016-10-18] MEDS ORDERED: Mirtazapine TAB* 15 MG PO PRN (13:02)
--- NOTE | 2016-10-18 15:59 | DS ---
CC: [facility], Dr. Robbins and Zoran Del Cid* DATE OF ADMISSION: 10/12/2016. DATE OF DISCHARGE: 10/18/2016. SUPERVISING PSYCHIATRIST: Dr. Howard Motley* (dictated by KIKO Henry) . DISCHARGE DIAGNOSES: AXIS I: Major depressive disorder, moderate, recurrent; ADHD, combined presentation; alcohol use disorder in early remission; marijuana use disorder. AXIS II: Deferred. AXIS III: No active medical problem. AXIS IV: Stressors related to interpersonal relationships, housing, financial strain, and transportation. AXIS V: 55. CONDITION AT TIME OF DISCHARGE: Improved. Meeta reports eagerness for discharge. She denies suicidal ideation. She needs SIB urges. 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 She states that she needs to have an evaluation from [facility] in [place] in order to do so. She states that she has friends who can help her with transportation. She also has a case checker, Matilde, who is willing to help, pending availability. The patient also reports she is eager to see her dog, Vicki, who is being cared for by her friend currently. Meeta is hesitant to return to the [facility] group at [facility]. She agrees to discuss this further with staff there. She will be seeing Dr. Robbins within the next month. MENTAL STATUS EXAM: The patient is a thin-framed, well-groomed female, apparent age. She is cooperative with interview. She is alert and oriented times three. Concentration is good. Memory is 3/3. Her mood is "okay." Affect constricted. Speech is soft and articulate. Her formal thought is logical, goal-directed, coherent. Content of thought is negative for AH, VH, SI or HI. She denies SIB urges. Her insight is fair. Judgment is fair. Fund of knowledge is good. INSTRUCTIONS GIVEN TO THE PATIENT: Medications are as follows: Cetirizine 10 mg p.o. q.a.m.; Guanfacine 1 mg p.o. b.i.d.; Hydroxyzine 50 mg p.o. q.6 hours prn anxiety or agitation; Vyvanse 20 mg p.o. q.a.m.; Venlafaxine 75 mg p.o. q.a.m. and 37.5 mg p.o. q.a.m. for a total of 112.5 mg daily; Propranolol 20 mg daily prn anxiety. Trazodone was discontinued and will be replaced by Mirtazapine 15 mg p.o. at bedtime. She will continue her course of Bactrim DS 800/160 p.o. b.i.d. times 5 more days. These prescriptions were electronically sent to the [facility] in [place] per patient's request. Her diet is regular. Her activity is ambulation as tolerated. She declined tobacco cessation assistance. There are no pending labs or diagnostic studies at the time of discharge. As stated above, she will follow-up with [facility] and she also has case management. HOSPITAL COURSE: A. Reason for admission: The patient presented to the emergency room due to increasing depression, anxiety, and medication noncompliance. She had thoughts of suicide with a plan to jump off of a bridge. B. Psychiatric treatment rendered: The patient was admitted to the Behavioral Services Unit on voluntary status. She was full code status. She was placed on 15 minute checks for safety. Outpatient medications were reinstated including Effexor XR 75 mg and Trazodone 75 mg. She was agreeable to obtain an EKG and this was normal sinus rhythm. Then trialed Vyvanse 20 mg for ADHD and Propranolol for social anxiety. She responded well to these medications. She is noted to have an increase in motor tics and does have a history of Tourette' s disorder. She was agreeable to Guanfacine 1 mg b.i.d. for both ADHD symptoms and tic disorder. Marion was present on the unit, participated in groups. She expressed much frustration with other female peers. She identified that they were bullying her. She was also frustrated at her perception of some people malingering. On Monday the , during the evening shift, the patient was utilizing the comfort room and she broke a CD disc, scratched herself on her left forearm. Over the weekend, once this was noticed, she was placed back again on 15 minute checks and comfort room use was on hold. She was given a behavioral chain analysis and continued to be assessed for safety. The past two days she has defined SIB urges or SI. She attributed her self-injury due to the milieu. Due to apparent increasing stressors related to hospitalization , it was decided by treatment team that she is appropriate for discharge. Meeta reported restless leg syndrome related to Trazodone. She agreed to discontinue this medication and trial Mirtazapine upon discharge. She reported much improvement in executive functioning and agreed to continue Vyvanse and Guanfacine. Her adherence to Effexor will be questionable. She states understanding of potential side effects of abrupt withdraw of this medication. Her case checker, Matilde, was present on the unit to pick her up and take her home. Meeta states that she is planning to spend time with a friend who is caring for her dog and may ask this person to transport her to [place] for the [facility] assessment. FAUZIA QUEVEDO NP [id number]/[facility] #: [id number] ZENAIDA
== END 2016-10-18 13:45 | disposition home or self-care (01) | DRG 751 ==
LOC: ED 17:59 → BSU 10-12 06:39
PROVIDERS: ADMIT Psychiatry & Neurology Psychiatry; ATTEND Psychiatry & Neurology Psychiatry
DX: F33.1 Major depressive disorder, recurrent, moderate (principal); R45.851 Suicidal ideations; F95.2 Tourette's disorder; F90.2 Attention-deficit hyperactivity disorder, combined type; F12.10 Cannabis abuse, uncomplicated; F17.210 Nicotine dependence, cigarettes, uncomplicated; J45.909 Unspecified asthma, uncomplicated; G40.909 Epilepsy, unspecified, not intractable, without status epilepticus; Z79.899 Other long term (current) drug therapy; Z81.8 Family history of other mental and behavioral disorders; Z87.820 Personal history of traumatic brain injury; Z91.14 Patient's other noncompliance with medication regimen; F10.10 Alcohol abuse, uncomplicated
CPT/HCPCS: 36415; 80053; 80307; 80320; 80329; 81003; 81015; 84443; 84702; 85025; 87086; 90853; 93005; 99222; 99231; 99238; A9270-GY; G0480

== ENCOUNTER 2017-05-15 11:36 | Day surgery (SDC) | payer MEDICAID ==
[~2017-05-15 11:36] MED LIST changes: +Buffered Lidocaine 0.9% SYRIN* 5 ML/SYR SYRINGE INTRADERM ONE; -HYDROcodone/ACETAMIN 5-325 MG* 1 TAB PO ONE; -LORazepam INJ* 2 MG/ML 1 ML VIAL IM ONE; -LORazepam INJ* 2 MG/ML 1 ML VIAL ONE; +Sodium Citrate/Citric Acid* 15 ML UDC PO ONE
[2017-05-15] MEDS ORDERED: Sodium Citrate/Citric Acid* 15 ML UDC ONE ×2 (11:50)
[2017-05-15] MEDS ORDERED: Clindamycin 900 MG IVPREMIX(* 900 MG/50 ML SDV IV ONE ×2 (11:50)
[2017-05-15] MEDS ORDERED: Buffered Lidocaine 0.9% SYRIN* 5 ML/SYR SYRINGE ONE ×2 (11:51)
[2017-05-15] MEDS ORDERED: Bupivacaine 0.25% SDV* 30 ML ONE (15:53)
[2017-05-15] MEDS ORDERED: Lidocaine 1% MPF wEPI 200,000* 30 ML SDV ONE ×2 (15:53)
[2017-05-15] MEDS ORDERED: fentaNYL* 50 MCG/ML 2 ML VIAL (100 MCG VIAL) ONE ×2 (16:12)
[2017-05-15] MEDS ORDERED: Midazolam* 1 MG/ML 2 ML VIAL (2 MG) ONE ×4 (16:12→17:15)
[2017-05-15] MEDS ORDERED: ROPIVACAINE 5 MG/ML 30 ML BTL (0.5%) ONE ×2 (16:12)
[2017-05-15] MEDS ORDERED: Propofol* 10 MG/ML 20 ML BTL IV PUSH ONE ×4 (16:13→18:17)
[2017-05-15] MEDS ORDERED: Phenylephrine INJ* 10 MG/ML 1 ML VIAL (10 MG) ONE ×2 (19:13→19:33)
[2017-05-15] MEDS ORDERED: fentaNYL* 50 MCG/ML 2 ML VIAL (100 MCG VIAL) IV PRN (20:12)
[2017-05-15] MEDS ORDERED: DiMENhydriNATE IV* 50 MG/ML VIAL IV PUSH PRN (20:12)
[2017-05-15] MEDS ORDERED: Ketorolac INJ* 30 MG/ML 1 ML VIAL IV PRN (20:12)
[2017-05-15] MEDS ORDERED: Naloxone* 0.4 MG/ML 1 ML VIAL IV PRN (20:12)
[2017-05-15 20:44] VITALS: BP 111/65
[2017-05-15] MEDS ORDERED: DiMENhydriNATE IV* 50 MG/ML VIAL ONE ×2 (20:46)
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
== END 2017-05-15 21:24 | disposition home or self-care (01) ==
LOC: OR 11:36
PROVIDERS: ATTEND Orthopaedic Surgery Hand Surgery
DX: S46.012A Strain of muscle(s) and tendon(s) of the rotator cuff of left shoulder, initial encounter (principal); X58.XXXA Exposure to other specified factors, initial encounter; F90.9 Attention-deficit hyperactivity disorder, unspecified type; J45.909 Unspecified asthma, uncomplicated; Z88.1 Allergy status to other antibiotic agents; F17.200 Nicotine dependence, unspecified, uncomplicated
CPT/HCPCS: 81025; A9270-GY; J1240; J2001; J2250; J2704; J2795; J3010

== ENCOUNTER 2017-06-09 21:09 | Emergency (ER) | payer MEDICAID ==
[2017-06-09 22:07] LABS: ABS Basophils 0 10^3/ul (0-0.2); ABS Eosinophils 0 10^3/ul (0-0.6); ABS Lymphocytes 2.7 10^3/ul (1.0-4.8); ABS Monocytes 0.6 10^3/ul (0-0.8); ABS Neutrophils 5.3 10^3/ul (1.5-7.7); ABS Nucleated RBC 0 10^3/ul; Eosinophil % 0.4 % (0-6); Hematocrit 38 % (35-47); Hemoglobin 13.2 g/dl (12.0-16.0); Lymphocyte % 31.4 % (25-47); Mean Corpuscular HGB Conc 34 g/dl (31-36); Mean Corpuscular Hemoglobin 32 pg (27-31); Mean Corpuscular Volume 94 fL (80-97); Nucleated Red Blood Cells % 0; Platelet Count 304 10^3/ul (150-450); Red Cell Distribution Width 13 % (10.5-15); White Blood Count 8.7 10^3/ul (3.5-10.8)
[2017-06-09 22:29] LABS: EGFR Non-African American 87.3 (>60)
[2017-06-10 02:43] VITALS: BP 0/0
--- NOTE | 2017-06-10 04:32 | ED ---
Navjot Christie Tecjoon, scribed for Jaswinder Benites MD on 06/09/17 at 2205 . Psychiatric Complaint - HPI Summary HPI Summary: This patient is a 27 year old female presenting to [facility] with a psychiatric complaint for the past few weeks. Patient presents voluntarily for a MHE. Patient states that shes feeling overwhelmed and is unsure where to turn. Patient states that her medications arent helping and are exacerbating the problems. Patient states that SI is a lingering thought, but does not have any specific plans. Patient denies HI. Patient has a hx of Tourettes, ADHD, anxiety, depression. - History Of Current Complaint Chief Complaint: EDMentalHealth Time Seen by Provider: 06/09/17 21:46 Hx Obtained From: Patient Hx Last Menstrual Period: "Last week" Onset/Duration: Still Present Timing: Constant Severity Currently: Moderate Character: Anxious Aggravating Factor(s): Nothing Alleviating Factor(s): Nothing Has Suicidal: Reports: Thoughts. Denies: With A Plan Has Homicidal: Denies: Thoughts - Allergies/Home Medications Allergies/Adverse Reactions: Allergies Allergy/AdvReac Type Severity Reaction Status Date / Time Tree Nuts Allergy Severe Rash and Verified 06/09/17 21:34 tongue swelling amoxicillin Allergy Rash Verified 06/09/17 21:34 bee venom protein (honey bee) Allergy anaphylactic Verified 06/09/17 21:34 shock Home Medications: Home Medications Amino Acids [Amino Acid] 1 each PO DAILY 06/09/17 [History Confirmed 06/09/17] Dextroamphetamine/Amphetamine [Mydayis 25 mg] 1 cap PO QAM 06/09/17 [History Confirmed 06/09/17] Fluticasone HFA 110 mcg(NF) [Flovent HFA 110 mcg(NF)] 1 puff INH BID 06/09/17 [ History Confirmed 06/09/17] Ibuprofen TAB* [Motrin TAB* 800 MG] 800 mg PO TID PRN 06/09/17 [History Confirmed 06/09/17] Ipratropium 0.5MG/2.5ML NEB* [Atrovent 0.5 MG NEB.VERONICA*] 0.5 mg INH Q6H PRN 06/09 [History Confirmed 06/09/17] Melatonin (NF) [Meladox] 5 mg PO DAILY 06/09/17 [History Confirmed 06/09/17] cloNIDine TAB* [Catapres 0.1 MG TAB*] 0.1 mg PO BID 06/09/17 [History Confirmed 06/09/17] PMH/Surg Hx/FS Hx/Imm Hx Previously Healthy: No Endocrine/Hematology History: Denies: Hx Diabetes Cardiovascular History: Reports: Hx Hypotension - s/p O/D of clonidine. Denies: Hx Hypertension, Hx Pacemaker/ICD, Other Cardiovascular Problems/ Disorders Respiratory History: Reports: Hx Asthma - ROUTINE AND PRN INHALER FOR, Hx Pneumonia GI History: Reports: Hx Ulcer - HX OF IN THE PAST Denies: Other GI Disorders History: Denies: Hx Renal Disease Musculoskeletal History: Reports: Hx Back Problems - Chronic lower back pain Sensory History: Reports: Hx Contacts or Glasses - GLASSES Denies: Hx Hearing Aid Opthamlomology History: Reports: Hx Contacts or Glasses - GLASSES Neurological History: Reports: Hx Headaches, Hx Seizures - HX OF - LAST 5 YEARS AGO, Other Neuro Impairments/Disorders - TOURETTE'S SYNDROME Psychiatric History: Reports: Hx Anxiety - ON MEDICATION FOR/ AND SEES A THERAPIST, Hx Attention Deficit Hyperactivity Disorder, Hx Depression - ON MEDICATION FOR/ AND SEES A THERAPIST, Hx Panic Disorder, Hx Post Traumatic Stress Disorder, Hx Inpatient Treatment, Hx Community Mental Health Tx, Hx Bipolar Disorder, Hx Suicide Attempt, Hx of Violent Episodes Against Others, Hx Substance Abuse - ETOH Denies: Hx Eating Disorder - Surgical History Surgery Procedure, Year, and Place: Tonsillectomy 2004, [facility]. LEFT INDEX FINGER REPAIR 11/2015 Hx Anesthesia Reactions: No - Immunization History Date of Tetanus Vaccine: unk Date of Influenza Vaccine: unk Infectious Disease History: No Infectious Disease History: Denies: History Other Infectious Disease, Traveled Outside the in Last 30 Days - Family History Known Family History: Positive: Other - Schizophrenia, depression, alcohol abuse - Social History Alcohol Use: None Alcohol Amount: stopped in december Hx Substance Use: Yes Substance Use Type: Reports: Marijuana Substance Use Comment - Amount & Last Used: yesterday, unknown amount Hx Tobacco Use: Yes Smoking Status (MU): Current Some Day Smoker Type: Cigarettes Amount Used/How Often: X 11 YEARS Length of Time of Smoking/Using Tobacco: 6YRS Have You Smoked in the Last Year: Yes Review of Systems Negative: Fever Psychological: Other - SI Positive: Anxious, Other - hostile All Other Systems Reviewed And Are Negative: Yes Physical Exam - Summary Physical Exam Summary: Appearance: Well appearing, no pain distress Skin: warm, dry, reflects adequate perfusion Head/face: normal Eyes: EOMI, MICHELLE ENT: normal Neck: supple, non-tender Respiratory: CTA, breath sounds present Cardiovascular: RRR, pulses symmetrical Abdomen: non-tender, soft Bowel Sounds: present Musculoskeletal: LUE shoulder immobilizer, 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0) g/dl Hct 38 (35-47) % MCV 94 (80-97) fL MCH 32 H (27-31) pg MCHC 34 (31-36) g/dl RDW 13 (10.5-15) % Plt Count 304 (150-450) 10^3/ul MPV 8.0 (7.4-10.4) um3 Neut % (Auto) 60.8 (38-83) % Lymph % (Auto) 31.4 (25-47) % Walker % (Auto) 6.8 (0-7) % Eos % (Auto) 0.4 (0-6) % Baso % (Auto) 0.6 (0-2) % Absolute Neuts (auto) 5.3 (1.5-7.7) 10^3/ul Absolute Lymphs (auto) 2.7 (1.0-4.8) 10^3/ul Absolute Monos (auto) 0.6 (0-0.8) 10^3/ul Absolute Eos (auto) 0 (0-0.6) 10^3/ul Absolute Basos (auto) 0 (0-0.2) 10^3/ul Absolute Nucleated RBC 0 10^3/ul Nucleated RBC % 0 Sodium 137 L (139-145) mmol/L Potassium 3.3 L (3.5-5.0) mmol/L Chloride 100 L (101-111) mmol/L Carbon Dioxide 30 (22-32) mmol/L Anion Gap 7 (2-11) mmol/L BUN 5 L (6-24) mg/dL Creatinine 0.79 (0.51-0.95) mg/dL Est GFR ( Amer) 112.3 (>60) Est GFR (Non-Af Amer) 87.3 (>60) BUN/Creatinine Ratio 6.3 L (8-20) Glucose 84 (70-100) mg/dL Calcium 9.4 (8.6-10.3) mg/dL Total Bilirubin 0.40 (0.2-1.0) mg/dL AST 16 (13-39) U/L ALT 11 (7-52) U/L Alkaline Phosphatase 38 (34-104) U/L Total Protein 7.2 (6.4-8.9) g/dL Albumin 4.9 (3.2-5.2) g/dL Globulin 2.3 (2-4) g/dL Albumin/Globulin Ratio 2.1 (1-3) TSH 4.20 (0.34-5.60) mcIU/mL Beta HCG, Quant < 0.60 mIU/mL Salicylates < 2.50 (<30) mg/dL Acetaminophen < 15 mcg/mL Serum Alcohol < 10 (<10) mg/dL Result Diagrams: 06/09/17 21:58 06/09/17 21:58 Lab Statement: Any lab studies that have been ordered have been reviewed, and results considered in the medical decision making process. Course/Dx - Course Course Of Treatment: pt very difficult at times with staff. Cleared medically and crisis eval performed. Pt wants meds adjusted, but she was cleared for discharge home by psychiatrist. She denies SI at d/c. She still would like meds adjusted but is referred by to her treating doctors, as crisis informed her that adjustments would have to be made by her tx psychiatrist. - Differential Dx/Clinical Impression Provider Diagnosis: Adjustment disorder with anxiety, Mood disorder, Tourette's Discharge - Sign-Out/Discharge Documenting (check all that apply): Discharge - Discharge Plan Condition: Stable Disposition: HOME Patient Education Materials: Mood Disorders (ED) Referrals: Asya Rivera MD [Primary Care Provider] - The documentation as recorded by the Navjot barber Tecjoon accurately reflects the service I personally performed and the decisions made by me, Jaswinder Benites MD.
== END 2017-06-10 00:30 | disposition home or self-care (01) ==
LOC: ED 21:09
DX: F41.9 Anxiety disorder, unspecified (principal); F39 Unspecified mood [affective] disorder; F95.2 Tourette's disorder; Z72.0 Tobacco use
CPT/HCPCS: 36415; 80053; 80320; 80329; 84443; 84702; 85025; 99285; G0480

== ENCOUNTER 2017-06-10 10:43 | Inpatient (IN) | payer MEDICAID ==
--- NOTE | 2017-06-10 11:28 | ED ---
Psychiatric Complaint - HPI Summary HPI Summary: Patient here with suicidal ideations. She reports she was seen here in ED last night and does not feel her evaluation went very well. She is back today as her intermittent suicidal ideations have settled in on her thoughts of [place] [facility] she [facility]. She states multiple factors have lead up to her feeling this way - she does not elaborate. Her chart indicates previous attempts and multiple mental health d/o's including ETOH abuse, anxiety, depression. She also has Tourette's syndrome. Recently, she had surgery on her left side rotator cuff 1 month ago w/ Dr. Stern - reports she's only taking ibuprofen at this time for pain control - has reduced from 800mg to 600mg. Other than SI, no medical complaints. - History Of Current Complaint Hx Obtained From: Patient, Family/Docent Coordinator - mom is present but does not contribute to HPI Hx Last Menstrual Period: "Last week" <Cinthya Luna - Last Filed: 06/12/17 07:20> <Sreedhar Bautista - Last Filed: 06/12/17 08:09> - History Of Current Complaint Chief Complaint: EDMentalHealth Time Seen by Provider: 06/10/17 10:55 - Allergies/Home Medications Allergies/Adverse Reactions: Allergies Allergy/AdvReac Type Severity Reaction Status Date / Time Tree Nuts Allergy Severe Rash and Verified 06/10/17 10:50 tongue swelling amoxicillin Allergy Rash Verified 06/10/17 10:50 bee venom protein (honey bee) Allergy anaphylactic Verified 06/10/17 10:50 shock PMH/Surg Hx/FS Hx/Imm Hx Previously Healthy: Yes Endocrine/Hematology History: Denies: Hx Diabetes Cardiovascular History: Reports: Hx Hypotension - s/p O/D of clonidine. Denies: Hx Hypertension, Hx Pacemaker/ICD, Other Cardiovascular Problems/ Disorders Respiratory History: Reports: Hx Asthma - ROUTINE AND PRN INHALER FOR, Hx Pneumonia GI History: Reports: Hx Ulcer - HX OF IN THE PAST Denies: Other GI Disorders History: Denies: Hx Renal Disease Musculoskeletal History: Reports: Hx Back Problems - Chronic lower back pain, Hx Tendonitis - Lt rotator cuff surgery w/ Dr. Stern 05/24/2017 Sensory History: Reports: Hx Contacts or Glasses - GLASSES Denies: Hx Hearing Aid Opthamlomology History: Reports: Hx Contacts or Glasses - GLASSES Neurological History: Reports: Hx Headaches, Hx Seizures - HX OF - LAST 5 YEARS AGO, Other Neuro Impairments/Disorders - TOURETTE'S SYNDROME Psychiatric History: Reports: Hx Anxiety - ON MEDICATION FOR/ AND SEES A THERAPIST, Hx Attention Deficit Hyperactivity Disorder, Hx Depression - ON MEDICATION FOR/ AND SEES A THERAPIST, Hx Panic Disorder, Hx Post Traumatic Stress Disorder, Hx Inpatient Treatment, Hx Community Mental Health Tx, Hx Bipolar Disorder, Hx Suicide Attempt, Hx of Violent Episodes Against Others, Hx Substance Abuse - ETOH Denies: Hx Eating Disorder - Surgical History Surgery Procedure, Year, and Place: Tonsillectomy 2004, [facility]. LEFT INDEX FINGER REPAIR 11/2015 Hx Anesthesia Reactions: No - Immunization History Date of Tetanus Vaccine: unk Date of Influenza Vaccine: unk Infectious Disease History: No Infectious Disease History: Denies: History Other Infectious Disease, Traveled Outside the in Last 30 Days - Family History Known Family History: Positive: Other - Schizophrenia, depression, alcohol abuse - Social History Lives: With Family Alcohol Use: None Alcohol Amount: stopped in december Hx Substance Use: Yes Substance Use Type: Reports: Marijuana Substance Use Comment - Amount & Last Used: yesterday, unknown amount Hx Tobacco Use: Yes Smoking Status (MU): Current Some Day Smoker Type: Cigarettes Amount Used/How Often: X 11 YEARS Length of Time of Smoking/Using Tobacco: 6YRS Have You Smoked in the Last Year: Yes <Cinthya Luna - Last Filed: 06/12/17 07:20> Review of Systems Negative: Chest Pain Negative: Shortness Of Breath Negative: Abdominal Pain Positive: no symptoms reported Positive: Arthralgia, Myalgia - Lt shoulder s/p surgery - improving Skin: Negative Neurological: Negative Psychological: Other - SI w/ plan All Other Systems Reviewed And Are Negative: Yes <Cinthya Luna - Last Filed: 06/12/17 07:20> Physical Exam Triage Information Reviewed: Yes Vital Signs On Initial Exam: Initial Vitals Temp Pulse Resp BP Pulse Ox 97.7 F 79 16 113/78 99 06/10/17 10:46 06/10/17 10:46 06/10/17 10:46 06/10/17 10:46 06/10/17 10:46 Vital Signs Reviewed: Yes Appearance: Positive: Well-Appearing, Thin Skin: Positive: Warm, Skin Color Reflects Adequate Perfusion, Dry Head/Face: Positive: Normal Head/Face Inspection Eyes: Positive: Normal, EOMI, Conjunctiva Clear ENT: Positive: Normal ENT inspection, Hearing grossly normal, Pharynx normal - mucosa moist Respiratory/Lung Sounds: Positive: Clear to Auscultation, Breath Sounds Present Cardiovascular: Positive: Normal, RRR, S1, S2. Negative: Murmur, Rub Abdomen Description: Positive: Nontender, Soft Bowel Sounds: Positive: Present Musculoskeletal: Positive: Strength/ROM Intact, Limited @ - Lt UE (wearing sling ) Neurological: Positive: Alert, Oriented to Person Place, Time, CN Intact II-III , Other - occasional jerking movements Psychiatric: Positive: Other - SI w/ plan -calm, cooperative, walks about the room and appears curious/distracted by need to move <Cinthya Luna - Last Filed: 06/12/17 07:20> Vital Signs On Initial Exam: Initial Vitals Temp Pulse Resp BP Pulse Ox 97.7 F 79 16 113/78 99 06/10/17 10:46 06/10/17 10:46 06/10/17 10:46 06/10/17 10:46 06/10/17 10:46 <Sreedhar Bautista - Last Filed: 06/12/17 08:09> Diagnostics - Vital Signs Vital Signs Temp Pulse Resp BP Pulse Ox 06/10/17 10:46 97.7 F 79 16 113/78 99 <Cinthya Luna - Last Filed: 06/12/17 07:20> - Vital Signs Vital Signs Temp Pulse Resp BP Pulse Ox 06/10/17 10:46 97.7 F 79 16 113/78 99 - Laboratory Lab Results: Lab Results 06/10/17 06/10/17 Range/Units 11:14 11:14 Urine Color Yellow Urine Appearance Clear Urine pH 7.0 (5-9) Ur Specific [place] 1.003 L (1.010-1.030) Urine Protein Negative (Negative) Urine Ketones Negative (Negative) Urine Blood 1+ A (Negative) Urine Nitrate Negative (Negative) Urine Bilirubin Negative (Negative) Urine Urobilinogen Negative (Negative) Ur Leukocyte Esterase Negative (Negative) Urine WBC (Auto) Absent (Absent) Urine RBC (Auto) Trace(0-2/hpf) (Absent) Ur Squamous Epith Cells Present A (Absent) Urine Bacteria Absent (Absent) Urine Glucose Negative (Negative) Urine Opiates Screen None detected (None Detect) Ur Barbiturates Screen None detected (None Detect) Ur Phencyclidine Scrn None detected (None Detect) Ur Amphetamines Screen Presumptive positive A (None Detect) U Benzodiazepines Scrn None detected (None Detect) Urine Cocaine Screen None detected (None Detect) U Cannabinoids Screen Presumptive positive A (None Detect) Lab Statement: Any lab studies that have been ordered have been reviewed, and results considered in the medical decision making process. <Sreedhar Bautista - Last Filed: 06/12/17 08:09> Course/Dx - Course Course Of Treatment: MHE informed me pt will be admitted here to [facility]. <Cinthya Luna - Last Filed: 06/12/17 07:20> <Sreedhar Bautista - Last Filed: 06/12/17 08:09> - Differential Dx/Clinical Impression Provider Diagnosis: Suicidal ideation Discharge - Sign-Out/Discharge Documenting (check all that apply): Discharge - Billing Disposition and Condition Condition: STABLE [place] [facility] [place] <Cinthya Luna - Last Filed: 06/12/17 07:20> - Billing Disposition and Condition Condition: STABLE Disposition: [facility] [place] <Sreedhar Bautista - Last Filed: 06/12/17 08:09> - Discharge Plan Condition: Stable Disposition: ADMITTED TO [facility]
[2017-06-10 11:32] LABS: Urine Appearance Clear; Urine Blood 1+ (Negative); Urine Color Yellow; Urine Ketones Negative (Negative); Urine Protein Negative (Negative); Urine Specific Gravity 1.003 (1.010-1.030); Urine Urobilinogen Negative (Negative)
[2017-06-10] MEDS ORDERED: Mouth Piece, Nicotine* 1 EACH CARTRIDGE INH PRN (11:46)
[2017-06-10] MEDS ORDERED: Mouth Piece, Nicotine* 1 EACH CARTRIDGE ONE (11:51)
[2017-06-10] MEDS: Nicotine Inhaler* 10 MG AMP INH ONE (11:54)
[2017-06-10] MEDS ORDERED: Ibuprofen TAB* 600 MG PO ONE (13:46)
[2017-06-10] MEDS ORDERED: Nicotine Inhaler* 10 MG AMP ONE (16:17)
[2017-06-10] MEDS ORDERED: LORazepam TAB(*) 1 MG ONE (21:10)
[2017-06-10] MEDS ORDERED: Haloperidol TAB* 2 MG ONE (21:11)
[2017-06-10] MEDS: cloNIDine TAB* 0.1 MG PO SCH (22:44)
[2017-06-10] MEDS: Divalproex DR TAB(*) 500 MG PO SCH (22:44)
[2017-06-10] MEDS: Mometasone 220 MCG MDI INH SCH (23:48)
[2017-06-11] MEDS: Albuterol HFA INHALER* 8 gm MDI INH SCH ×2 (07:27→11:01)
[2017-06-11] MEDS ORDERED: Ibuprofen TAB* 800 MG PO ONE (07:50)
[2017-06-11] MEDS: Ibuprofen TAB* 800 MG PO PRN ×3 (08:24→20:53)
[2017-06-11] MEDS: cloNIDine TAB* 0.1 MG PO SCH ×2 (08:25→20:50)
[2017-06-11] MEDS: Divalproex DR TAB(*) 500 MG PO SCH (08:26)
[2017-06-11] MEDS ORDERED: Albuterol HFA INHALER* 8 gm MDI INH PRN (15:30)
[2017-06-11] MEDS ORDERED: Mouth Piece, Nicotine* 1 EACH CARTRIDGE ONE (15:41)
[2017-06-11] MEDS ORDERED: Nicotine Inhaler* 10 MG AMP ONE (15:42)
[2017-06-11] MEDS: Nicotine Inhaler* 10 MG AMP INH ONE (15:43)
[2017-06-11] MEDS ORDERED: Haloperidol TAB* 1 MG PO ONE (15:46)
[2017-06-11] MEDS: Nicotine Inhaler* 10 MG AMP INH PRN (17:38)
[2017-06-11] MEDS: Mometasone 220 MCG MDI INH SCH (18:58)
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
[2017-06-11] MEDS: OXcarbazepine TAB(*) 300 MG PO SCH (20:51)
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
[2017-06-12] MEDS: Albuterol HFA INHALER* 8 gm MDI INH SCH (01:00)
[2017-06-12] MEDS ORDERED: Haloperidol TAB* 1 MG PO SCH (09:00)
[2017-06-12] MEDS: cloNIDine TAB* 0.1 MG PO SCH ×2 (09:49→19:48)
[2017-06-12] MEDS: Nicotine Inhaler* 10 MG AMP INH PRN ×3 (09:49→18:39)
[2017-06-12] MEDS: OXcarbazepine TAB(*) 300 MG PO SCH ×2 (09:49→19:48)
[2017-06-12] MEDS: Ibuprofen TAB* 800 MG PO PRN (09:50)
[2017-06-12] MEDS ORDERED: LORazepam TAB(*) 0.5 MG PO ONE (13:00)
[2017-06-12] MEDS: Nicotine GUM* 2 MG PO PRN ×2 (13:34→18:40)
--- NOTE | 2017-06-12 15:57 | PN ---
Subjective - Subjective Date of Service: 06/12/17 Service Type: 86281 Hosp care 35 min high complexity Subjective: Yadira is having a difficult time today. She feels unheard and is struggling with the diagnosis of bipolar disorder that was given to her this weekend. My suspicion is that PTSD is a more fitting diagnosis, although there could possibly be underlying bipolar disorder. Objective - Appearance Appearance: Healthy Appearing Dysmorphic Features: No Hygiene: Normal Grooming: Fairly Well Kept - Behavior Psychomotor Activities: Abnormal-Increased Exhibits Abnormal Movement: Yes - Attitude and Relatedness Attitude and Relatedness: Needy Eye Contact: Good - Speech Quality: Pressured Latencies: Normal Quantity: Copious - Mood Patient's Decription of Mood: "Terrible" - Affect Observed Affect: Labile Affect Consistent with: Dysphoria - Thought Process Patient's Thought Process: Coherent Thought Content: No Passive Wish, No Suicidal Planning, No Homicidal Ideation, No Paranoid Ideation - Sensorium Experiencing Hallucinations: No, Sensorium is Clear Type of Hallucinations: Visual: No, Auditory: No, Command: No - Level of Consciousness Level of Consciousness: Agitated Orientation: Yes Intact, Yes Orientated to Time, Yes Orientated to Place, Yes Orientated to Person - Impulse Control Impulse Control: Poor - Insight and Judgement Insight and Judgement: Impaired - Additional Observations Comments: Yadira is irritable and volatile. She feels unheard and is in pain due to recent surgery. Assessment - Assessment Merits Inpatient Hospitalization: For Immediate Safety Inpatient DSM-V Dx: F43.12 Clinical Impression: Yadira is a 27-y.o. woman who is highly reactive and under significant stress that she is generally unable to handle at this time. Plan - Plan Treatment Plan: Name: KARINE DOS SANTOS Birthdate: 1990 [id number] Medications: Current Medications Albuterol (Ventolin Hfa Inhaler*) 1 puff INH QID PRN PRN Reason: SHORTNESS OF BREATH Clonidine HCl (Catapres Tab*) 0.1 mg PO BID [facility] Last Admin: 06/12/17 09:49 Dose: 0.1 mg Device (Nicotine Mouth Piece*) 1 each INH .USE WITH NICOTROL PRN PRN Reason: CRAVING Last Admin: 06/10/17 11:54 Dose: 1 each Haloperidol (Haldol Tab*) 1 mg PO BEDTIME [facility] Ibuprofen (Motrin Tab*) 800 mg PO TID PRN PRN Reason: PAIN Last Admin: 06/12/17 09:50 Dose: 800 mg Mometasone Furoate (Asmanex 220 Mcg Mdi *) 1 puff INH QPM [facility] Last Admin: 06/11/17 18:58 Dose: 1 puff Nicotine (Nicotine Inhaler*) 10 mg INH Q2H PRN PRN Reason: CRAVING Last Admin: 06/12/17 13:18 Dose: 10 mg Nicotine Polacrilex (Nicotine Gum*) 2 mg PO Q2H PRN PRN Reason: CRAVING Last Admin: 06/12/17 13:34 Dose: 2 mg Oxcarbazepine (Trileptal Tab(*)) 300 mg PO BID [facility] Last Admin: 06/12/17 09:49 Dose: 300 mg - Discharge Plan Discharge Plan: Outpatient Follow Up Outpatient Program: [facility] Additional Comments: Yadira will discuss her stressors and difficulties. We may hold a family meeting with her mother, with whom she is having significant conflicts.
[2017-06-12] MEDS: Mometasone 220 MCG MDI INH SCH (18:37)
[2017-06-12] MEDS: LORazepam TAB(*) 1 MG PO SCH (19:48)
[2017-06-12] MEDS: Haloperidol TAB* 1 MG PO SCH (19:48)
[2017-06-13] MEDS: Nicotine Inhaler* 10 MG AMP INH PRN ×3 (07:37→16:57)
[2017-06-13] MEDS: Ibuprofen TAB* 800 MG PO PRN ×2 (07:38→13:56)
[2017-06-13] MEDS: ARNICARE TOPICAL PRN (08:54)
[2017-06-13] MEDS: OXcarbazepine TAB(*) 300 MG PO SCH ×3 (09:56→20:23)
[2017-06-13] MEDS: cloNIDine TAB* 0.1 MG PO SCH ×3 (09:56→20:21)
--- NOTE | 2017-06-13 13:46 | PN ---
Subjective - Subjective Date of Service: 06/13/17 Service Type: 10513 Hosp care 35 min high complexity Subjective: Yadira is having a difficult day. She has been in the [place] shouting and kicking things, generally because things are not going the way she wants them to. She advocated for a family meeting and then when her mom arrived disagreed with her mother and shouted at her. Objective - Appearance Appearance: Thin Framed Dysmorphic Features: No Hygiene: Normal Grooming: Disheveled - Behavior Psychomotor Activities: Abnormal-Increased Exhibits Abnormal Movement: Yes - Attitude and Relatedness Attitude and Relatedness: Child Like Eye Contact: Good - Speech Quality: Pressured Latencies: Normal Quantity: Copious - Mood Patient's Decription of Mood: "Upset" - Affect Observed Affect: Labile Affect Consistent with: Dysphoria - Thought Process Patient's Thought Process: Tangential Thought Content: Yes Passive Wish, Yes Suicidal Planning, No Homicidal Ideation, No Paranoid Ideation - Sensorium Experiencing Hallucinations: No, Sensorium is Clear Type of Hallucinations: Visual: No, Auditory: No, Command: No - Level of Consciousness Level of Consciousness: Agitated Orientation: Yes Intact, Yes Orientated to Time, Yes Orientated to Place, Yes Orientated to Person - Impulse Control Impulse Control: Impaired - Insight and Judgement Insight and Judgement: Poor - Group Participation Particating in Group Activities: Yes - Medication Management Medication Management Adherence: Yes - Additional Observations Comments: Yadira is irritable and volatile. She feels unheard and is in pain due to recent surgery. Today has been a difficult day and she has been loud, labile, tearful at times while also occasionally offering smiles and a small amount of laughter. Assessment - Assessment Merits Inpatient Hospitalization: For Immediate Safety Inpatient DSM-V Dx: F43.12 Clinical Impression: Yadira is a 27-y.o. woman who is highly reactive and under significant stress that she is generally unable to handle at this time. She believes the world would be better off without her. She is not able to be dissuaded. Plan - Plan Treatment Plan: Name: KARINE DOS SANTOS Birthdate: 1990 [id number] Continued Medication Management: Continue Outpt Medication Medications: Current Medications Albuterol (Ventolin Hfa Inhaler*) 1 puff INH QID PRN PRN Reason: SHORTNESS OF BREATH Clonidine HCl (Catapres Tab*) 0.1 mg PO BID [facility] Last Admin: 06/13/17 11:30 Dose: 0.1 mg Device (Nicotine Mouth Piece*) 1 each INH .USE WITH NICOTROL PRN PRN Reason: CRAVING Last Admin: 06/10/17 11:54 Dose: 1 each Haloperidol (Haldol Tab*) 1 mg PO BEDTIME [facility] Last Admin: 06/12/17 19:48 Dose: 1 mg Ibuprofen (Motrin Tab*) 800 mg PO TID PRN PRN Reason: PAIN Last Admin: 06/13/17 07:38 Dose: 800 mg Lorazepam (Ativan Tab(*)) 1 mg PO BEDTIME ALEX Last Admin: 06/12/17 19:48 Dose: 1 mg Lorazepam (Ativan Tab(*)) 0.5 mg PO Q4H PRN PRN Reason: AGITATION Mometasone Furoate (Asmanex 220 Mcg Mdi *) 1 puff INH QPM [facility] Last Admin: 06/12/17 18:37 Dose: 1 puff Nicotine (Nicotine Inhaler*) 10 mg INH Q2H PRN PRN Reason: CRAVING Last Admin: 06/13/17 07:37 Dose: 10 mg Nicotine Polacrilex (Nicotine Gum*) 2 mg PO Q2H PRN PRN Reason: CRAVING Last Admin: 06/12/17 18:40 Dose: 2 mg Arnicare Cream 1 dose TOPICAL QID PRN PRN Reason: PAIN Last Admin: 06/13/17 08:54 Dose: 1 dose Oxcarbazepine (Trileptal Tab(*)) 300 mg PO BID [facility] Last Admin: 06/13/17 11:30 Dose: 300 mg - Discharge Plan Discharge Plan: Outpatient Follow Up Outpatient Program: [facility] Additional Comments: Yadira will discuss her stressors and difficulties. We will hold a family meeting with her mother tomorrow 06/13/2017 at 12:30, with whom she is having significant conflicts. Also invited is Selma Mosqueda, her nurse and therapist at [facility]. Yadira vehemently denies wanting to go to [facility].
[2017-06-13] MEDS: Mometasone 220 MCG MDI INH SCH (16:56)
[2017-06-13] MEDS: Nicotine GUM* 2 MG PO PRN (16:57)
[2017-06-13] MEDS: LORazepam TAB(*) 1 MG PO SCH (20:20)
[2017-06-13] MEDS: Haloperidol TAB* 1 MG PO SCH (20:21)
[2017-06-14] MEDS: OXcarbazepine TAB(*) 300 MG PO SCH ×2 (08:14→20:00)
[2017-06-14] MEDS: cloNIDine TAB* 0.1 MG PO SCH ×2 (08:14→19:59)
[2017-06-14] MEDS: Nicotine Inhaler* 10 MG AMP INH PRN ×3 (08:21→15:54)
[2017-06-14] MEDS: Nicotine GUM* 2 MG PO PRN ×3 (09:47→18:25)
[2017-06-14] MEDS: ARNICARE TOPICAL PRN (10:00)
--- NOTE | 2017-06-14 11:17 | PN ---
MHU: Group Therapy Note - Service Type Service Type: 08183 Group Psychotherapy - Cognitive Behavioral Group Therapy ( CBT):Patient attended CBT programming this morning and presented with flat affect that did not vary with discussion. Although responsive to direct prompts to respond to questions, patient did not engage in spontaneous conversation. Afterwards, Marion expressed resentment about being singled out of the group in context of discussion addressing impulisivity. She personalized this discussion to the point of becoming angry and resentful of this screenplay writer, exhibiting mild behavioral agitation.
[2017-06-14] MEDS: Ibuprofen TAB* 800 MG PO PRN ×2 (14:14→18:24)
[2017-06-14] MEDS: LORazepam TAB(*) 0.5 MG PO PRN (15:54)
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
[2017-06-14] MEDS: Mometasone 220 MCG MDI INH SCH (17:48)
[2017-06-14] MEDS: Haloperidol TAB* 1 MG PO SCH (19:59)
[2017-06-14] MEDS: LORazepam TAB(*) 1 MG PO SCH (19:59)
--- NOTE | 2017-06-14 20:14 | RAD ---
INDICATION: Increased pain and edema right hand. TECHNIQUE: 4 views of the right hand were obtained. FINDINGS: The bones are in normal alignment. No fracture is seen. Joint spaces appear maintained. IMPRESSION: NO EVIDENCE FOR FRACTURE.
[2017-06-15] MEDS: Nicotine Inhaler* 10 MG AMP INH PRN ×2 (08:54→16:30)
[2017-06-15] MEDS: Ibuprofen TAB* 800 MG PO PRN (08:57)
[2017-06-15] MEDS: OXcarbazepine TAB(*) 300 MG PO SCH ×2 (09:09→11:08)
[2017-06-15] MEDS: cloNIDine TAB* 0.1 MG PO SCH ×2 (09:09→11:05)
[2017-06-15] MEDS: ARNICARE TOPICAL PRN (10:07)
[2017-06-15] MEDS: Nicotine GUM* 2 MG PO PRN ×2 (11:07→17:19)
--- NOTE | 2017-06-15 13:11 | PN ---
MHU: Group Therapy Note - Service Type Service Type: 16157 Group Psychotherapy - Cognitive Behavioral Group Therapy ( CBT):Patient was attentive and participatory in CBT programming this morning, and remained in good behavioral control. Patient expressed positive insights regarding relevant treatment interventions and goals.
[2017-06-15] MEDS: FLUoxetine CAP* 20 MG PO SCH (13:31)
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
[2017-06-15] MEDS: LORazepam TAB(*) 0.5 MG PO PRN (17:19)
[2017-06-15] MEDS: Mometasone 220 MCG MDI INH SCH (17:20)
[2017-06-16] MEDS: cloNIDine TAB* 0.1 MG PO SCH ×2 (00:40→10:04)
[2017-06-16] MEDS: OXcarbazepine TAB(*) 300 MG PO SCH ×3 (00:40→13:10)
[2017-06-16] MEDS: LORazepam TAB(*) 1 MG PO SCH (00:40)
[2017-06-16] MEDS: Haloperidol TAB* 1 MG PO SCH (00:40)
[2017-06-16 07:51] VITALS: BP 111/74
[2017-06-16] MEDS: FLUoxetine CAP* 20 MG PO SCH (10:04)
[2017-06-16] MEDS: Nicotine Inhaler* 10 MG AMP INH PRN (10:06)
[2017-06-16] MEDS: ARNICARE TOPICAL PRN (13:02)
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
== END 2017-06-16 15:45 | disposition home or self-care (01) | DRG 755 ==
LOC: ED 10:43 → BSU 14:47
PROVIDERS: ADMIT Psychiatry & Neurology Psychiatry; ATTEND Psychiatry & Neurology Psychiatry
DX: F43.12 Post-traumatic stress disorder, chronic (principal); R45.851 Suicidal ideations; F95.2 Tourette's disorder; M54.5 Low back pain; J45.909 Unspecified asthma, uncomplicated; M25.512 Pain in left shoulder; F10.10 Alcohol abuse, uncomplicated; F12.10 Cannabis abuse, uncomplicated; Z87.820 Personal history of traumatic brain injury; Z81.8 Family history of other mental and behavioral disorders; Z88.1 Allergy status to other antibiotic agents; Z91.030 Bee allergy status; Z91.018 Allergy to other foods; F17.210 Nicotine dependence, cigarettes, uncomplicated
CPT/HCPCS: 36415; 80307; 81003; 81015; 90853; 99222; 99233; 99238; 99284; A9270-GY

== ENCOUNTER 2017-06-24 00:02 | Inpatient (IN) | payer MEDICAID ==
[2017-06-24 00:54] LABS: ABS Basophils 0 10^3/ul (0-0.2); ABS Eosinophils 0.1 10^3/ul (0-0.6); ABS Monocytes 0.7 10^3/ul (0-0.8); ABS Neutrophils 6.6 10^3/ul (1.5-7.7); ABS Nucleated RBC 0 10^3/ul; Eosinophil % 0.6 % (0-6); Hematocrit 36 % (35-47); Hemoglobin 12.4 g/dl (12.0-16.0); Lymphocyte % 28.7 % (25-47); Mean Corpuscular HGB Conc 34 g/dl (31-36); Mean Corpuscular Hemoglobin 32 pg (27-31); Mean Corpuscular Volume 93 fL (80-97); Mean Platelet Volume 7.9 um3 (7.4-10.4); Nucleated Red Blood Cells % 0; Platelet Count 257 10^3/ul (150-450); Red Blood Count 3.85 10^6/ul (4.0-5.4); Red Cell Distribution Width 12 % (10.5-15); White Blood Count 10.5 10^3/ul (3.5-10.8)
[2017-06-24 01:04] LABS: Urine Appearance Cloudy; Urine Blood Negative (Negative); Urine Color Yellow; Urine Ketones Negative (Negative); Urine Protein Negative (Negative); Urine Specific Gravity 1.012 (1.010-1.030); Urine Urobilinogen Negative (Negative)
[2017-06-24 01:10] LABS: EGFR Non-African American 88.6 (>60)
[2017-06-24] MEDS ORDERED: Acetaminophen TAB* 325 MG PO PRN (05:17)
[2017-06-24] MEDS ORDERED: Al Hydrox/Mg Hydrox/Simet LIQ* 30 ML UDC PO PRN (05:17)
[2017-06-24] MEDS ORDERED: Ipratropium 0.5MG/2.5ML NEB* 0.5 MG/2.5 ML NEB.SOLN INH PRN (05:21)
[2017-06-24] MEDS ORDERED: Albuterol HFA INHALER* 8 gm MDI INH PRN (05:28)
[2017-06-24] MEDS ORDERED: Haloperidol TAB* 1 MG PO ONE (08:30)
[2017-06-24] MEDS: FLUoxetine CAP* 10 MG PO SCH (08:30)
[2017-06-24] MEDS: Vitamin THERAPEUTIC TAB PO SCH (08:30)
[2017-06-24] MEDS: [UNRECOGNIZED DRUG - OTHER] PO SCH (08:30)
[2017-06-24] MEDS ORDERED: Haloperidol INJ IV/IM* 5 MG/ML AMP IM PRN (08:30)
[2017-06-24] MEDS ORDERED: Haloperidol INJ IV/IM* 5 MG/ML AMP ONE (08:39)
[2017-06-24] MEDS ORDERED: Haloperidol TAB* 1 MG ONE (08:39)
--- NOTE | 2017-06-24 08:54 | ED ---
New Christie Tiffany, scribed for Chanel Gonzalez MD on 06/24/17 at 0038 . Psychiatric Complaint - HPI Summary HPI Summary: The patient is a 27 year old female voluntarily presenting to [facility] accompanied by mother with a chief complaint of suicidal ideation since today. Symptoms aggravated by "general everyday encounters." Symptoms alleviated by nothing. Patient reports left shoulder pain rated 5/10 in severity. Also reports a plan to commit suicide by jumping [place] the [place]. States that people are "making her crazy." Uses marijuana daily, denies EtOH. Pt was recently DC'd from [facility]. - History Of Current Complaint Chief Complaint: EDMentalHealth Time Seen by Provider: 06/24/17 00:24 Hx Obtained From: Patient, Family/Speech And Language Tutor - mother Hx Last Menstrual Period: "Last week" ?: No Onset/Duration: Still Present Timing: Constant Severity Initially: Moderate Severity Currently: Moderate Character: Depressed - suicidal Aggravating Factor(s): Drug Use, Other - "general everyday encounters" Alleviating Factor(s): Nothing Associated Signs And Symptoms: Positive: Sleep Disturbance, Social Withdrawal Related History: Positive For: Prior Psychiatric Issues Has Suicidal: Reports: Thoughts, With A Plan - Jumping into [place] - Risk Factor(s) Completed Suicide Risk Factors: White [place]uvian, Past Suicide Attempt - Allergies/Home Medications Allergies/Adverse Reactions: Allergies Allergy/AdvReac Type Severity Reaction Status Date / Time Tree Nuts Allergy Severe Rash and Verified 06/24/17 00:34 tongue swelling amoxicillin Allergy Rash Verified 06/24/17 00:34 bee venom protein (honey bee) Allergy anaphylactic Verified 06/24/17 00:34 shock PMH/Surg Hx/FS Hx/Imm Hx Previously Healthy: No Endocrine/Hematology History: Denies: Hx Diabetes Cardiovascular History: Denies: Hx Hypertension, Hx Pacemaker/ICD, Other Cardiovascular Problems/ Disorders Respiratory History: Reports: Hx Asthma - ROUTINE AND PRN INHALER FOR, Hx Pneumonia GI History: Reports: Hx Ulcer - HX OF IN THE PAST Denies: Other GI Disorders History: Denies: Hx Renal Disease Musculoskeletal History: Reports: Hx Back Problems - Chronic lower back pain, Hx Tendonitis - Lt rotator cuff surgery w/ Dr. Stern 05/24/2017, Other Musculoskeletal History - shoulder surg Sensory History: Reports: Hx Contacts or Glasses - GLASSES Denies: Hx Hearing Aid Opthamlomology History: Reports: Hx Contacts or Glasses - GLASSES Neurological History: Reports: Hx Headaches, Hx Seizures - HX OF - LAST 5 YEARS AGO, Other Neuro Impairments/Disorders - TOURETTE'S SYNDROME Psychiatric History: Reports: Hx Anxiety - ON MEDICATION FOR/ AND SEES A THERAPIST, Hx Attention Deficit Hyperactivity Disorder, Hx Depression - ON MEDICATION FOR/ AND SEES A THERAPIST, Hx Panic Disorder, Hx Post Traumatic Stress Disorder, Hx Inpatient Treatment, Hx Community Mental Health Tx, Hx Bipolar Disorder, Hx Suicide Attempt, Hx of Violent Episodes Against Others, Hx Substance Abuse - ETOH, marijuana Denies: Hx Eating Disorder - Surgical History Surgery Procedure, Year, and Place: Tonsillectomy 2004, [facility]. LEFT INDEX FINGER REPAIR 11/2015. L shoulder on May 15, 2017 Hx Anesthesia Reactions: No - Immunization History Date of Tetanus Vaccine: unk Date of Influenza Vaccine: unk Infectious Disease History: No Infectious Disease History: Denies: History Other Infectious Disease, Traveled Outside the in Last 30 Days - Family History Known Family History: Positive: Other - Schizophrenia, depression, alcohol abuse - Social History Alcohol Use: None Alcohol Amount: stopped in december 2015 Hx Substance Use: Yes Substance Use Type: Reports: Marijuana - Every evening Hx Tobacco Use: Yes Smoking Status (MU): Current Some Day Smoker Type: Cigarettes Amount Used/How Often: X 11 YEARS Length of Time of Smoking/Using Tobacco: 6YRS Have You Smoked in the Last Year: Yes Review of Systems Constitutional: Negative Cardiovascular: Negative Respiratory: Negative Gastrointestinal: Negative Positive: Other - Left shoulder pain rated 5/10 Skin: Negative Neurological: Negative Positive: Other - Suicidal ideation with a plan All Other Systems Reviewed And Are Negative: Yes Physical Exam - Summary Physical Exam Summary: Appearance: well-appearing, mild pain distress, Well-nourished. Patient was cooperative. Her thoughts were coherent. She has multiple tattoos and piercings. Still voicing SI Skin: Warm, color reflects adequate perfusion Head: Normal Head/Face inspection, atraumatic Eyes: Conjunctiva clear, PERRL, EOMI ENT: Normal inspection Neck: Supple, no nodes, no JVD. Respiratory: Lungs clear, Normal breath sounds, no respiratory distress Cardio: RRR, No murmur, pulses normal, brisk capillary refill Abdomen: soft, nontender Bowel sounds: present Musculoskeletal: Strength Intact/ ROM intact. No calf tenderness. No edema. Psychological: depressed, intermittent eye contact Neuro: Alert, muscle tone normal, no focal deficit Triage Information Reviewed: Yes Vital Signs On Initial Exam: Initial Vitals Temp Pulse Resp BP Pulse Ox 98.5 F 76 16 119/69 100 06/24/17 00:05 06/24/17 00:05 06/24/17 00:05 06/24/17 00:05 06/24/17 00:05 Vital Signs Reviewed: Yes Diagnostics - Vital Signs Vital Signs Temp Pulse Resp BP Pulse Ox 06/24/17 00:05 98.5 F 76 16 119/69 100 - Laboratory Lab Results: Lab Results 06/23/17 06/23/17 06/24/17 Range/Units 23:45 23:45 00:52 WBC 10.5 (3.5-10.8) 10^3/ul RBC 3.85 L (4.0-5.4) 10^6/ul Hgb 12.4 (12.0-16.0) g/dl Hct 36 (35-47) % MCV 93 (80-97) fL MCH 32 H (27-31) pg MCHC 34 (31-36) g/dl RDW 12 (10.5-15) % Plt Count 257 (150-450) 10^3/ul MPV 7.9 (7.4-10.4) um3 Neut % (Auto) 63.5 (38-83) % Lymph % (Auto) 28.7 (25-47) % Johnston % (Auto) 6.8 (0-7) % Eos % (Auto) 0.6 (0-6) % Baso % (Auto) 0.4 (0-2) % Absolute Neuts (auto) 6.6 (1.5-7.7) 10^3/ul Absolute Lymphs (auto) 3.0 (1.0-4.8) 10^3/ul Absolute Monos (auto) 0.7 (0-0.8) 10^3/ul Absolute Eos (auto) 0.1 (0-0.6) 10^3/ul Absolute Basos (auto) 0 (0-0.2) 10^3/ul Absolute Nucleated RBC 0 10^3/ul Nucleated RBC % 0 Sodium 137 L (139-145) mmol/L Potassium 3.7 (3.5-5.0) mmol/L Chloride 103 (101-111) mmol/L Carbon Dioxide 28 (22-32) mmol/L Anion Gap 6 (2-11) mmol/L BUN 11 (6-24) mg/dL Creatinine 0.78 (0.51-0.95) mg/dL Est GFR ( Amer) 113.9 (>60) Est GFR (Non-Af Amer) 88.6 (>60) BUN/Creatinine Ratio 14.1 (8-20) Glucose 85 (70-100) mg/dL Calcium 9.2 (8.6-10.3) mg/dL Total Bilirubin 0.40 (0.2-1.0) mg/dL AST 15 (13-39) U/L ALT 9 (7-52) U/L Alkaline Phosphatase 33 L (34-104) U/L Total Protein 6.1 L (6.4-8.9) g/dL Albumin 4.3 (3.2-5.2) g/dL Globulin 1.8 L (2-4) g/dL Albumin/Globulin Ratio 2.4 (1-3) TSH 3.47 (0.34-5.60) mcIU/mL Beta HCG, Quant < 0.60 mIU/mL Urine Color Urine Appearance Urine pH (5-9) Ur Specific [place] (1.010-1.030) Urine Protein (Negative) Urine Ketones (Negative) Urine Blood (Negative) Urine Nitrate (Negative) Urine Bilirubin (Negative) Urine Urobilinogen (Negative) Ur Leukocyte Esterase (Negative) Urine Glucose (Negative) Salicylates < 2.50 (<30) mg/dL Urine Opiates Screen None detected (None Detect) Acetaminophen < 15 mcg/mL Ur Barbiturates Screen None detected (None Detect) Ur Phencyclidine Scrn None detected (None Detect) Ur Amphetamines Screen Presumptive positive A (None Detect) U Benzodiazepines Scrn None detected (None Detect) Urine Cocaine Screen None detected (None Detect) U Cannabinoids Screen Presumptive positive A (None Detect) Serum Alcohol < 10 (<10) mg/dL 06/24/17 Range/Units 00:52 WBC (3.5-10.8) 10^3/ul RBC (4.0-5.4) 10^6/ul Hgb (12.0-16.0) g/dl Hct (35-47) % MCV (80-97) fL MCH (27-31) pg MCHC (31-36) g/dl RDW (10.5-15) % Plt Count (150-450) 10^3/ul MPV (7.4-10.4) um3 Neut % (Auto) (38-83) % Lymph % (Auto) (25-47) % Johnston % (Auto) (0-7) % Eos % (Auto) (0-6) % Baso % (Auto) (0-2) % Absolute Neuts (auto) (1.5-7.7) 10^3/ul Absolute Lymphs (auto) (1.0-4.8) 10^3/ul Absolute Monos (auto) (0-0.8) 10^3/ul Absolute Eos (auto) (0-0.6) 10^3/ul Absolute Basos (auto) (0-0.2) 10^3/ul Absolute Nucleated RBC 10^3/ul Nucleated RBC % Sodium (139-145) mmol/L Potassium (3.5-5.0) mmol/L Chloride (101-111) mmol/L Carbon Dioxide (22-32) mmol/L Anion Gap (2-11) mmol/L BUN (6-24) mg/dL Creatinine (0.51-0.95) mg/dL Est GFR ( Amer) (>60) Est GFR (Non-Af Amer) (>60) BUN/Creatinine Ratio (8-20) Glucose (70-100) mg/dL Calcium (8.6-10.3) mg/dL Total Bilirubin (0.2-1.0) mg/dL AST (13-39) U/L ALT (7-52) U/L Alkaline Phosphatase (34-104) U/L Total Protein (6.4-8.9) g/dL Albumin (3.2-5.2) g/dL Globulin (2-4) g/dL Albumin/Globulin Ratio (1-3) TSH (0.34-5.60) mcIU/mL Beta HCG, Quant mIU/mL Urine Color Yellow Urine Appearance Cloudy Urine pH 7.0 (5-9) Ur Specific [place] 1.012 (1.010-1.030) Urine Protein Negative (Negative) Urine Ketones Negative (Negative) Urine Blood Negative (Negative) Urine Nitrate Negative (Negative) Urine Bilirubin Negative (Negative) Urine Urobilinogen Negative (Negative) Ur Leukocyte Esterase Negative (Negative) Urine Glucose Negative (Negative) Salicylates (<30) mg/dL Urine Opiates Screen (None Detect) Acetaminophen mcg/mL Ur Barbiturates Screen (None Detect) Ur Phencyclidine Scrn (None Detect) Ur Amphetamines Screen (None Detect) U Benzodiazepines Scrn (None Detect) Urine Cocaine Screen (None Detect) U Cannabinoids Screen (None Detect) Serum Alcohol (<10) mg/dL Result Diagrams: 06/23/17 23:45 06/23/17 23:45 Lab Statement: Any lab studies that have been ordered have been reviewed, and results considered in the medical decision making process. - EKG 01:06 Cardiac Rate: NL EKG Rhythm: Sinus Rhythm - [address] Segment: Non-Specific Ectopy: None EKG Interpretation: nml AVIVCT, nml QTc, and nml axis EKG Comparison: No Significant Change - No changes from 10/12/16 Re-Evaluation - Re-Evaluation First Eval Re-Evaluation Time: 01:40 Change: Unchanged Comment: remains cooperative. Mother is with her. Course/Dx - Course Course Of Treatment: Allergies noted. High blood pressure noted. Patients medications reviewed this visit. Patient is medically cleared for [facility] at 01:41. At 02:55, Song from Mental Health said Dr. Mike will admit the patient for suicidal ideation. Patient and mother are agreeable to this plan. - Differential Dx/Clinical Impression Differential Diagnosis/HQI/PQRI: Positive: Bipolar Disorder, Depression, Suicidal Ideation Provider Diagnosis: Suicidal ideation Discharge - Sign-Out/Discharge Documenting (check all that apply): Discharge/Admit/Transfer - admit [facility] - Discharge Plan Condition: Stable Disposition: [facility] - Billing Disposition and Condition Condition: STABLE Disposition: [facility] The documentation as recorded by the New barber Tiffany accurately reflects the service I personally performed and the decisions made by , Chanel Gonzalez MD.
[2017-06-24] MEDS ORDERED: Ibuprofen TAB* 800 MG PO PRN (15:28)
[2017-06-24] MEDS ORDERED: OLANzapine TAB*ODT* 5 MG ONE (15:43)
[2017-06-24] MEDS: Nicotine Inhaler* 10 MG AMP INH PRN (15:50)
[2017-06-24] MEDS ORDERED: Mouth Piece, Nicotine* 1 EACH CARTRIDGE INH ONE (16:00)
[2017-06-24] MEDS ORDERED: Mometasone 220 MCG MDI INH SCH (18:00)
--- NOTE | 2017-06-24 19:43 | HP ---
HISTORY AND PHYSICAL: DATE OF ADMISSION: 06/24/17 IDENTIFYING DATA: Marion is a 27-year-old mentally disabled female who was just discharg ed from this unit last week, presented to the emergency room, brought in by local police for evaluati on of suicidal ideation and plan. CHIEF COMPLAINT: "I just did not want to be alive anymore at that time." HISTORY OF PRESENT ILLNESS: The patient with known history of multiple prior psychiatric hospitaliza tions with her last hospitalization here on 06/10/17 was discharged back to her home in [place]. Last night, she was picked up by the local police because she was disorganized in her behavior and threatened [place]. During the assessment, she reported that she has been e xperiencing trouble with everybody in the community. Since her discharge from here, she was extremel y anxious and having ups and downs in her mood and was planning to kill herself. Her stressors as e mentions are mostly emotional, financial, and inability to cope with the society in general. She t hinks because of her awkwardness, people in general do not like her. Since her admission early in morning on the unit, she had exhibited some disorganized behavior and early in the morning, she was pounding on the doors and guan requiring stat medication. Otherwise, she is denying any psychotic s ymptoms including delusions or hallucinations. She is ambivalent about self-harm at this time, altho ugh she just reported to the ER doctor and the vulcanizing press operator that she wanted to kill herself by jumping o [place] the [place]. PAST PSYCHIATRIC HISTORY: Remarkable for numerous hospitalizations since April 2013. She was hospit alized here on 06/10/17 and many other times before that. She also has a history of being hospitaliz ed at [facility]. She was diagnosed with ADHD, depression, bip olar disorder, anxiety disorder, substance use disorder, and so on. She was tried on numerous medica tions including Ritalin, Adderall, bupropion, Strattera, doxepin, Remeron, Cymbalta, Zoloft, Depakote , Abilify, Antabuse, Campral, naltrexone and so on. She has a history of overdose and self-mutilatio n. Her current psychiatric followup is at [facility] and she sees Dr. Mikal muhammad. PAST MEDICAL AND SURGICAL HISTORY: Remarkable for low back pain, history of minor head injuries, hea daches, and chronic asthma. She had shoulder rotator cuff repair early this month. FAMILY PSYCHIATRIC HISTORY: According to the patient, her grandfather was diagnosed with schizophren ia and had received ECT. She also reports that her mother had numerous nervous breakdowns and her si ster, Riana, has anorexia nervosa. SOCIAL AND PERSONAL HISTORY: Marion lives in her own apartment in [facility] and has a do g. 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 She has an extensive history of drug and alcohol use, especially use of marijuana on daily basis. PHYSICAL EXAMINATION GENERAL APPEARANCE: At the time of evaluation, Marion was not in any physical distress. Her appea lynne was appropriately dressed, neatly groomed, thin-framed female who was a little restle ss, but cooperative with the evaluation and examination. VITAL SIGNS: Her vitals show a blood pressure of 119/69, pulse 76, respirations 16, temperature 98.5 degrees Fahrenheit. HEENT: Head: Normocephalic/atraumatic. Eyes: Conjunctivae clear. EOMI, PERRLA. Nose: Clear. Ea rs: Clean with intact tympanic membranes bilaterally. NECK: Supple with midline trachea. No lymph nodes or enlarged thyroid gland. No JVD. CHEST: Lungs are clear. Breath sounds clear bilaterally. CARDIOVASCULAR: Heart rate regular with S1 and S2 only. No murmurs. ABDOMEN: Flat, but soft. No tenderness or organomegaly. Bowel sounds present. MUSCULOSKELETAL: Intact range of movement. STRENGTH: Adequate. LABORATORY DATA: Labs included CBC with differential, CMP, urinalysis, and tox screen. CBC shows a WBC count of 10.5, hemoglobin 12.4, hematocrit 36, platelet count 257, rest unremarkable. CMP shows a sodium of 137, potassium 3.7, chloride 103, carbon dioxide 28, BUN 11, creatinine 0.78. GFR 88.6. test negative. Tox screen negative for salicylates, acetaminophen, and serum alcohol. Ur inalysis unremarkable. No report on UDS available at this time. However, she reports of daily marij uana use. MENTAL STATUS EXAMINATION: Marion is a thin-framed, short stature white female who is appropriatel y dressed, fairly groomed with fair personal hygiene. She makes intermittent eye contact, fidgety an d restless, but cooperated with the interview throughout. Her speech is moderately pressured. There are visible abnormal jerky movements of upper torso mainly. Describes her mood as upset. Observed affect is dysphoric. Denies any delusions, hallucinations, or homicidal ideations. However, ambival ent about will to live, but denies any active plan to hurt herself at this time. Her intelligence ap peared to be average as evidenced by her vocabulary and fund of knowledge. Memory functions are inta ct in all spheres. Attention, concentration also appears to be intact. Insight and judgement impair ed. SUMMARY: This 27-year-old mentally disabled female with different prior psychiatric hospit alizations and multiple inpatient hospitalizations was brought in to the emergency room by the police in the context of a suicidal threat by attempting to jump [place] the [place]. DIAGNOSTIC IMPRESSION: MENTAL HEALTH DIAGNOSIS: 1. Unspecified mood disorder, rule out bipolar disorder. 2. History of attention-deficit hyperactivity disorder. 3. Substance use disorder, mainly alcohol use disorder and cannabis use disorder. PHYSICAL HEALTH DIAGNOSES: 1. History of head injury. 2. Seizure disorder. 3. Asthma. 4. Tourette syndrome. TREATMENT PLAN: Marion will remain hospitalized on the behavioral science unit for her protection and stabilization of acute symptoms. Her code status will remain full while on the unit. Supportive milieu, individual and group therapy will be initiated and she will be encouraged to attend. I will continue all her discharge medications except for stimulants at this time and we will defer that to her assigned psychiatrist here. However, I have a little reservation about prescribing her any stimu lant as that could be a destabilizing factor given the fact that she has a history of substance use d isorder as well as her mood dysregulation. Marion might do better with one or the other major mood stabilizers if she is willing to take it. However, this will be up to her assigned psychiatrist on the unit to adjust or add any medications as required. [id number]/[facility] #: [id number]
[2017-06-24] MEDS: cloNIDine TAB* 0.1 MG PO SCH (20:15)
[2017-06-24] MEDS: CMCS: Melatonin (NF) 3 MG TAB PO SCH (20:15)
[2017-06-24] MEDS: LORazepam TAB(*) 0.5 MG PO PRN (20:23)
[2017-06-24] MEDS: Mometasone 220 MCG MDI INH SCH (21:09)
[2017-06-25] MEDS: Nicotine Inhaler* 10 MG AMP INH PRN (09:07)
[2017-06-25] MEDS: cloNIDine TAB* 0.1 MG PO SCH (09:08)
[2017-06-25] MEDS: FLUoxetine CAP* 10 MG PO SCH (09:08)
[2017-06-25] MEDS: Vitamin THERAPEUTIC TAB PO SCH (09:08)
[2017-06-25] MEDS: [UNRECOGNIZED DRUG - OTHER] PO SCH (09:10)
[2017-06-25] MEDS ORDERED: Haloperidol INJ IV/IM* 5 MG/ML AMP ONE (11:52)
[2017-06-25] MEDS ORDERED: Haloperidol TAB* 5 MG ONE (11:52)
[2017-06-25] MEDS ORDERED: OLANzapine TAB*ODT* 5 MG ONE (12:45)
[2017-06-26] MEDS: Nicotine Inhaler* 10 MG AMP INH PRN ×4 (07:29→19:08)
[2017-06-26] MEDS: OLANzapine TAB*ODT* 5 MG PO SCH (08:58)
[2017-06-26] MEDS: FLUoxetine CAP* 10 MG PO SCH (08:58)
[2017-06-26] MEDS: [UNRECOGNIZED DRUG - OTHER] PO SCH (08:58)
[2017-06-26] MEDS: Vitamin THERAPEUTIC TAB PO SCH (08:58)
[2017-06-26] MEDS: cloNIDine TAB* 0.1 MG PO SCH ×3 (08:58→20:08)
--- NOTE | 2017-06-26 14:32 | PN ---
Subjective - Subjective Date of Service: 06/26/17 Service Type: 05518 Hosp care 35 min high complexity Subjective: Yadira had a difficult weekend, displaying many disruptive behaviors and apparently irritating and engaging negatively with others. Rather than taking a punitive approach, Renee Landaverde, Yadira, and I developed a behavior modification plan to offer incentives to remaining in control. Objective - Appearance Appearance: Healthy Appearing Dysmorphic Features: No Hygiene: Normal Grooming: Fairly Well Kept - Behavior Psychomotor Activities: Abnormal-Increased Exhibits Abnormal Movement: Yes - Attitude and Relatedness Attitude and Relatedness: Cooperative Eye Contact: Fair - Speech Quality: Pressured Latencies: Normal Quantity: Appropriate - Mood Patient's Decription of Mood: "Okay" - Affect Observed Affect: Expansive Affect Consistent with: Dysphoria - Thought Process Patient's Thought Process: Coherent Thought Content: No Passive Wish, No Suicidal Planning, No Homicidal Ideation, No Paranoid Ideation - Sensorium Experiencing Hallucinations: No, Sensorium is Clear Type of Hallucinations: Visual: No, Auditory: No, Command: No - Level of Consciousness Level of Consciousness: Alert Orientation: Yes Intact, Yes Orientated to Time, Yes Orientated to Place, Yes Orientated to Person - Impulse Control Impulse Control: Impaired - Insight and Judgement Insight and Judgement: Fair - Group Participation Particating in Group Activities: Yes - Medication Management Medication Management Adherence: Yes - Additional Observations Comments: Yadira is exhibiting abnormal movements as a result of Tourette's disorder. Her hair is not as well kept as usual. Assessment - Assessment Merits Inpatient Hospitalization: For Immediate Safety Inpatient DSM-V Dx: F33.1 Clinical Impression: Yadira's moods shift and she is impulsive. She may not meet full diagnostic criteria for bipolar disorder. Plan - Plan Treatment Plan: Name: KARINE DOS SANTOS Birthdate: 1990 [id number] Medications: Current Medications Acetaminophen (Tylenol Tab*) 650 mg PO Q4H PRN PRN Reason: PAIN or TEMP > 101 F Al Hydrox/Mg Hydrox/Simethicone (Maalox Plus*) 30 ml PO Q4H PRN PRN Reason: INDIGESTION Albuterol (Ventolin Hfa Inhaler*) 1 puff INH TID PRN PRN Reason: SHORTNESS OF BREATH Clonidine HCl (Catapres Tab*) 0.1 mg PO BID ALEX Last Admin: 06/26/17 08:58 Dose: 0.1 mg Fluoxetine HCl (Prozac Cap*) 10 mg PO QAM [facility] Last Admin: 06/26/17 08:58 Dose: 10 mg Ibuprofen (Motrin Tab*) 800 mg PO TID PRN PRN Reason: PAIN Last Admin: 06/26/17 08:57 Dose: 800 mg Ipratropium Franklin (Atrovent 0.5 Mg Neb.Stephanie*) 0.5 mg INH Q6H PRN PRN Reason: SOB/WHEEZING Lorazepam (Ativan Tab(*)) 0.5 mg PO BEDTIME PRN PRN Reason: ANXIETY Last Admin: 06/24/17 20:23 Dose: 0.5 mg Melatonin (Melatonin (Nf)) 3 mg PO BEDTIME [facility] Last Admin: 06/26/17 00:00 Dose: Not Given Mometasone Furoate (Asmanex 220 Mcg Mdi *) 1 puff INH QPM [facility] Last Admin: 06/26/17 00:00 Dose: Not Given Multivitamins (Theragran Tab*) 1 tab PO DAILY [facility] Last Admin: 06/26/17 08:58 Dose: 1 tab Nicotine (Nicotine Inhaler*) 10 mg INH Q2H PRN PRN Reason: CRAVING Last Admin: 06/26/17 12:10 Dose: 10 mg Nicotine Polacrilex (Nicotine Gum*) 2 mg PO Q2H PRN PRN Reason: CRAVING Amino Acid (Supplement) 1 dose PO DAILY [facility] Last Admin: 06/26/17 08:58 Dose: Not Given Olanzapine (Zyprexa * Tab Odt) 5 mg PO DAILY [facility] Last Admin: 06/26/17 08:58 Dose: Not Given - Discharge Plan Discharge Plan: Outpatient Follow Up Outpatient Program: [facility] Additional Comments: Yadira is willing to continue trying Zyprexa at night with the understanding that this may prove to be a temporary solution to her impulsivity problem.
[2017-06-26] MEDS: Nicotine GUM* 2 MG PO PRN ×2 (15:48→19:09)
[2017-06-26] MEDS: CMCS: Melatonin (NF) 3 MG TAB PO SCH ×2 (20:08)
[2017-06-26] MEDS: LORazepam TAB(*) 0.5 MG PO PRN (20:08)
[2017-06-26] MEDS: Mometasone 220 MCG MDI INH SCH ×2 (22:24)
[2017-06-27 08:23] VITALS: BP 140/70
[2017-06-27] MEDS: Vitamin THERAPEUTIC TAB PO SCH (09:27)
[2017-06-27] MEDS: OLANzapine TAB*ODT* 5 MG PO SCH (09:27)
[2017-06-27] MEDS: FLUoxetine CAP* 10 MG PO SCH (09:27)
[2017-06-27] MEDS: cloNIDine TAB* 0.1 MG PO SCH (09:27)
[2017-06-27] MEDS: [UNRECOGNIZED DRUG - OTHER] PO SCH (09:28)
[2017-06-27] MEDS: Nicotine GUM* 2 MG PO PRN (09:29)
[2017-06-27] MEDS: Nicotine Inhaler* 10 MG AMP INH PRN (09:30)
--- NOTE | 2017-06-27 11:35 | PN ---
MHU: Group Therapy Note - Service Type Service Type: [id number] Group Psychotherapy - Cognitive Behavioral Group Therapy ( CBT):Patient was attentive and participatory in CBT programming this morning, and remained in good behavioral control. Patient expressed positive insights regarding relevant treatment interventions and goals.
--- NOTE | 2017-06-27 22:52 | DS ---
DISCHARGE SUMMARY: DATE OF ADMISSION: 06/24/17 DATE OF DISCHARGE: 06/27/17 PROVIDER: Arlen Baca NP in Psychiatry. SUPERVISING PHYSICIAN: Dr. Howard Motley.* (DICTATED BY ARLEN BACA NP ) MENTAL HEALTH DIAGNOSES: Include: 1. Mood disorder, not otherwise specified. 2. Attention deficit hyperactivity disorder. 3. Anxiety disorder. 4. Tourette's syndrome. PHYSICAL HEALTH DIAGNOSES: Include: 1. History of head injury. 2. Seizure disorder. 3. Asthma. CONDITION AT THE TIME OF DISCHARGE: Improved, psychiatrically cleared, more stable. Participated in groups, social with some peers. Her mom, Bee, was agreeable to discharge. She has done well here psychiatrically once the weekend was over and more structure was in place. She tolerated Zyprexa well. She will attend [facility]. MENTAL STATUS EXAM: At the time of discharge, the patient is calm, cooperative , makes fair eye contact, alert and oriented x3. Her grooming is adequate. Her speech is pressured. Thought processes are logical. She is not psychotic. She is not delusional. She denies AH, VH, SI, and HI. Insight and judgment are fair. Impulse control is fair. She is willing to follow up and she is urged to do so. DISCHARGE INSTRUCTIONS TO THE PATIENT: A. Medications: 1. Albuterol inhaler t.i.d. p.r.n. shortness of breath. 2. Clonidine 0.1 b.i.d. 3. Fluoxetine 20 mg q.a.m. 4. Ibuprofen 800 mg t.i.d. p.r.n. pain in shoulder. 5. Ipratropium bromide 0.5 mg inhaled q.6 hours p.r.n. shortness of breath or wheezing. 6. Lorazepam 0.5 mg p.o. at bedtime p.r.n. anxiety and insomnia. 7. Melatonin 3 mg p.o. at bedtime. 8. Mometasone 1 puff. 9. Nicotine gum 2 mg p.o. q.2 hours p.r.n. craving. 10. Zyprexa ODT 5 mg p.o. daily q.h.s. B. Diet is regular. C. Activities: As tolerated. Please stop smoking. You have a referral to the Smokers' Quitline at 000-564-1585. There are add-on tests pending at the time of discharge, which are hemoglobin A1c and a lipid panel. D. Followup care: There are appointments with [facility]. She is going back to [place] on and will have an appointment with Dr. Robbins following that. E. Substance abuse followup: Substance abuse treatment and medication were offered. HOSPITAL COURSE: Part A: The patient with a known history of multiple prior psychiatric hospitalizations with her last hospitalization here on 06/10/17, was discharged back to her home in [place]. Last night, she was picked by the local police because she was disorganized in her behavior and threatened to jump [place] the [place]. During the assessment, she reported that she has been experiencing trouble with everybody in the community. Since her discharge from here, she was extremely anxious and having ups and downs in her mood and was planning to kill herself. Her stressors as she mentioned are mostly emotional, financial, and inability to cope with the society in general. She thinks because of her awkwardness, people in general do not like her. Since her admission early in the morning on the unit, she had exhibited some disorganized behavior and early in the morning, she was pounding on the doors and guan requiring stat medication. Otherwise, she is denying any psychotic symptoms including delusions or hallucinations. She is ambivalent about self- harm at this time, although she just reported to the ER doctor and the airdox fitter that she wants to kill herself by jumping off the [place] in [place]. Part B: Psychiatric treatment was rendered. The patient was admitted to the adult behavioral unit and placed on 15-minute checks for safety. Johnny did not do well on the unit on the weekend, but did improve from Monday in to Monday. She did attend groups. She interacted with some peers well. She tolerated the additional Zyprexa that we started. She had self stopped the medication we started at last admission, which was Trileptal. She has add-on tests for her HA1c and her lipid panel. I did meet with her mother and her mother is agreeable along with Johnny and with me that discharge is appropriate. It is important to note that some of her behaviors are very likely due to a lack of impulse control perhaps resulting from a series of head injury she had in her earlier 20s and according to her mom that continued to occur when she does things like jumping off of stuff for fun or riding her bicycle in a reckless fashion. She does smoke cannabis, but it does not seem that that substance is causing the mood disorder. It seems like that might be inherent to Johnny's biology. She is improved over the time when she arrived and she is still easily agitated and overwhelmed. Nevertheless, due to her ability to improve on the outside better than on the inside of this unit once her immediate crisis is over, we are discharging her to her mother and to go home. ARLEN BACA, [place]ERRA [id number]/[facility] #: [id number] ZENAIDA
== END 2017-06-27 13:00 | disposition home or self-care (01) | DRG 753 ==
LOC: ED 00:02 → BSU 02:40
PROVIDERS: ADMIT Psychiatry & Neurology Psychiatry; ATTEND Psychiatry & Neurology Psychiatry
DX: F39 Unspecified mood [affective] disorder (principal); F33.1 Major depressive disorder, recurrent, moderate; R45.851 Suicidal ideations; F90.1 Attention-deficit hyperactivity disorder, predominantly hyperactive type; F41.9 Anxiety disorder, unspecified; F95.2 Tourette's disorder; G40.909 Epilepsy, unspecified, not intractable, without status epilepticus; J45.909 Unspecified asthma, uncomplicated; F17.210 Nicotine dependence, cigarettes, uncomplicated; F12.10 Cannabis abuse, uncomplicated; Z81.8 Family history of other mental and behavioral disorders; Z87.828 Personal history of other (healed) physical injury and trauma
CPT/HCPCS: 36415; 80053; 80061; 80307; 80320; 80329; 81003; 83036; 84443; 84702; 85025; 90853; 93005; 99222; 99233; 99238; 99285; A9270-GY; G0480; J1630

== ENCOUNTER 2017-12-07 09:25 | Day surgery (SDC) | payer MEDICAID, OTHER ==
[~2017-12-07 09:25] MED LIST changes: +Clindamycin 900 MG/D5W BAG(*) 900 MG/50 ML BAG IVPB ONE; +Dexamethasone IV* 4 MG/ML 1 ML (4 MG) IV SLOW PU ONE; +Dexamethasone IV* 4 MG/ML 1 ML (4 MG) ONE; +Famotidine IV* 10 MG/ML 2 ML (20 mg) IV ONE; +Famotidine IV* 10 MG/ML 2 ML (20 mg) ONE; -Sodium Citrate/Citric Acid* 15 ML UDC PO ONE
[2017-12-07] MEDS ORDERED: Lidocaine 2% PF * 5 ML VIAL ONE (09:27)
[2017-12-07] MEDS ORDERED: fentaNYL* 50 MCG/ML 2 ML VIAL (100 MCG VIAL) ONE (09:27)
[2017-12-07] MEDS ORDERED: Propofol* 10 MG/ML 20 ML BTL IV PUSH ONE (09:27)
[2017-12-07] MEDS ORDERED: Midazolam* 1 MG/ML 5 ML VIAL (5 MG) ONE (09:28)
[2017-12-07] MEDS ORDERED: DiMENhydriNATE IV* 50 MG/ML VIAL IV PUSH PRN (09:35)
[2017-12-07] MEDS ORDERED: Acetaminophen TAB* 325 MG PO PRN (09:35)
[2017-12-07] MEDS ORDERED: fentaNYL* 50 MCG/ML 2 ML VIAL (100 MCG VIAL) IV PRN (09:35)
[2017-12-07] MEDS ORDERED: Naloxone* 0.4 MG/ML 1 ML VIAL IV PRN (09:35)
[2017-12-07] MEDS ORDERED: oxyCODONE/Acetamin 5/325 MG* TAB PO PRN (09:35)
[2017-12-07] MEDS ORDERED: Bupivacaine 0.25% SDV* 30 ML ONE (10:21)
[2017-12-07] MEDS ORDERED: EPHEDrine (Pressors)* 50 MG/ML VIAL ONE (10:26)
[2017-12-07] MEDS ORDERED: Succinylcholine* 20 MG/ML 10 ML VIAL ONE (10:28)
[2017-12-07 11:55] VITALS: BP 123/68
--- NOTE | 2017-12-08 05:17 | OP ---
OPERATIVE REPORT: DATE OF OPERATION: 12/07/17 - SCOTTIE DATE OF : [birth year] SURGEON: Ilia Stern MD CONSUMER EXPERIENCE CONSULTANT: COLE Caban ANESTHESIOLOGIST: Dr. Poole. ANESTHESIA: General. PRE-OP DIAGNOSIS: Left index finger proximal phalanx, symptomatic hardware, status post ORIF on 12/21/15. POST-OP DIAGNOSIS: Left index finger proximal phalanx, symptomatic hardware, status post ORIF on 12/21/15. OPERATIVE PROCEDURE: Removal of deep left index finger plate and screws, proximal phalanx. INDICATIONS: Marion had this fracture fixed 12/21/15. It healed well. She has full motion. The plate bothers her particularly with weather changes. We talked about risks and benefits including risk of stiffness. She wants to proceed. ESTIMATED BLOOD LOSS: 2 mL. COMPLICATIONS: None. FINDINGS: See above and below. DESCRIPTION OF PROCEDURE: Marion was seen in the preoperative holding area. The correct side, site, and procedure were identified. We came back to the operating room where the arm was prepped and draped in the usual fashion. A time-out was performed. I began by exsanguinating the arm with the Esmarch and the tourniquet was inflated to 250 mmHg. I reopened the prior curvilinear incision over the dorsum of the left index finger. Full thickness flaps were raised off the peritenon. The extensor tendon was incised along the prior longitudinal split. The 4-0 Prolene sutures that were there were removed. The plate was exposed. The 2 screws proximal and 2 screws distal were removed and the plate was removed. I then turned by attention to the lag screw, which was a little overgrown. The osteotome was used to remove the overgrown bone. I removed the bone out of the head of the screw so that I could see the cruciform grooves for the screwdriver. The lag screw was then removed. Everything was looking good at this point. All the rough bony edges were removed with a rongeur. The extensor tendon was reapproximated with 4-0 Prolene suture with the knots buried. Skin was closed with 4-0 nylon. The wounds were dressed. A digital block was performed with 0.25% Marcaine and Alumafoam splint was applied. Tourniquet was deflated. The finger pinked up immediately. She was taken to the recovery room in stable condition. [id number]/[facility] #: [id number] ZENAIDA
--- NOTE | 2017-12-12 13:00 | RAD ---
INDICATION: Removal of fixation plate COMPARISONS: None relevant TECHNIQUE: Fluoroscopy was provided for a surgical procedure. Total fluoroscopy time is: 13 seconds FINDINGS: Spot images demonstrate postsurgical change to the second proximal phalanx IMPRESSION: FLUOROSCOPY WAS PROVIDED FOR A SURGICAL PROCEDURE CPT II Codes: G9500
== END 2017-12-07 11:58 | disposition home or self-care (01) ==
LOC: OREAST 09:25
PROVIDERS: ATTEND Orthopaedic Surgery Hand Surgery
DX: T84.84XA Pain due to internal orthopedic prosthetic devices, implants and grafts, initial encounter (principal); Y83.1 Surgical operation with implant of artificial internal device as the cause of abnormal reaction of the patient, or of later complication, without mention of misadventure at the time of the procedure; Z72.0 Tobacco use; J45.909 Unspecified asthma, uncomplicated; D64.9 Anemia, unspecified; F95.2 Tourette's disorder; F31.9 Bipolar disorder, unspecified
CPT/HCPCS: 76000; 81025; 88300; J0330; J1100; J2250; J2704; J3010

== ENCOUNTER 2018-01-02 14:19 | Inpatient (IN) | payer OTHER ==
--- OUTSIDE RECORDS SUMMARY | 2018-01-02 14:46 | XMS REPORT ---
:1990 Author Organization [facility] Care Team Providers Name Role Phone Anibal Sinha Unavailable Unavailable PROBLEMS Unknown Problems ALLERGIES Substance Reaction Event Type Date Status Bees anaphylaxis Non Drug Allergy Sep, Active Amoxicillin Unknown Non Drug Allergy Sep, Active ENCOUNTERS Encounter Location Date Diagnosis [place] [id number] Feb, [address] [address] 08 Feb, [address] [address] Sep, [address] [address] Sep, [address] [address] Sep, [address] [address] Jul, [address] [address] Jul, IMMUNIZATIONS No Known Immunizations SOCIAL HISTORY Never Assessed REASON FOR REFERRAL FUNCTIONAL STATUS PLAN OF CARE VITAL SIGNS MEDICATIONS Medication Instructions Dosage Frequency Start Date End Date Duration Status Ativan Active EPINEPHrine Active (Anaphylaxis) Albuterol Active Zyprexa Active Prozac Active PROCEDURES Procedure Date Ordered Result Body Site RESIN COMPOS - 2 SURFACES POSTERIOR Oct 10, 2017 Occ Guard by Report Oct 10, 2017 RESULTS No Results REASON FOR VISIT Insurance Providers [facility] Health Member Patient Patient Patient Patient Patient Subscriber Subscriber Subscriber Group Insurance Plan Plan Plan Plan ID Relationship Address Phone Name Date of ID Name Date of No Type Insurance Insurance Insurance Coverage to Subscriber Address Phone Name Dates Guy [phone] Guy Schultz [id number] Medicaid [place] [address] Medicaid [facility] [id number] Medical Medicaid [id number] [phone] Medicaid self [place] [id number] [address]rap [facility] [address] [place] [address] Guy [phone] Rennert self [place] [id number] Medicaid [id number] [place] [address] [employer] MEDICAL (GENERAL) HISTORY Type Description Date Medical History asthma Medical History depression Medical History mood disorder Medical History anxiety
--- OUTSIDE RECORDS SUMMARY | 2018-01-02 14:46 | XMS REPORT ---
:1990 Author Organization [facility] Care Team Providers Name Role Phone Anibal Sinha Unavailable Unavailable PROBLEMS Unknown Problems ALLERGIES No Information ENCOUNTERS Encounter Location Date Diagnosis [address] [address] 08 Feb, [address] [address] 08 Feb, [address] [address] Sep, [address] [address] Sep, [address] [address] 07 Sep, [address] [address] Jul, [address] [address] Jul, IMMUNIZATIONS No Known Immunizations SOCIAL HISTORY Never Assessed REASON FOR REFERRAL FUNCTIONAL STATUS PLAN OF CARE VITAL SIGNS MEDICATIONS Medication Instructions Dosage Frequency Start Date End Date Duration Status Ativan Active Albuterol Active EPINEPHrine Active (Anaphylaxis) Prozac Active Zyprexa Active PROCEDURES Procedure Date Ordered Result Body Site Complete Contract Procedure Oct 17, 2017 RESULTS No Results REASON FOR VISIT [facility] Insurance Providers [facility] Member Patient Patient Patient Patient Patient Subscriber Subscriber Subscriber Group Insurance Plan Plan Plan Plan ID Relationship Address Phone Name Date of ID Name Date of No Type Insurance Insurance Insurance Coverage to Subscriber Address Phone Name Dates Medicaid [id number] [phone] Medicaid self [place] [id number] Wrap [facility] [address] [place] [address] Guy [phone] Gene [employer] self [place] [id number] Medicaid [place] 47 Medicaid [facility] [id number] Medical Gene [employer]ry [phone] Guy self [place] [id number] Medicaid [id number] Medicaid [facility] [address] [place] MEDICAL (GENERAL) HISTORY Type Description Date Medical History asthma Medical History depression Medical History mood disorder Medical History anxiety
--- OUTSIDE RECORDS SUMMARY | 2018-01-02 14:46 | XMS REPORT ---
:1990 Author Organization [facility] Care Team Providers Name Role Phone Anibal Sinha Unavailable Unavailable PROBLEMS Unknown Problems ALLERGIES No Information ENCOUNTERS Encounter Location Date Diagnosis [address] [address] 08 Feb, [address] [address] 08 Feb, [address] [address] Sep, [address] [address] 14 Sep, [address] [address] 07 Sep, [address] [address] Jul, [address] [address] Jul, IMMUNIZATIONS No Known Immunizations SOCIAL HISTORY Never Assessed REASON FOR REFERRAL FUNCTIONAL STATUS PLAN OF CARE VITAL SIGNS MEDICATIONS Medication Instructions Dosage Frequency Start Date End Date Duration Status EPINEPHrine Active (Anaphylaxis) Ativan Active Prozac Active Zyprexa Active Albuterol Active PROCEDURES Procedure Date Ordered Result Body Site PANORAMIC FILM SEE ALSO CODE [id number] Oct 03, 2017 RESIN COMPOS - 3 SURFACES POSTERIOR Oct 03, 2017 RESULTS No Results REASON FOR VISIT Insurance Providers [facility] Health Member Patient Patient Patient Patient Patient Subscriber Subscriber Subscriber Group Insurance Plan Plan Plan Plan ID Relationship Address Phone Name Date of ID Name Date of No Type Insurance Insurance Insurance Coverage to Subscriber Address Phone Name Dates Guy [phone] Guy neli Schultz [id number] Medicaid [place] [address] [place] [address] Medical Medicaid [address] [phone] Medicaid self [place] [id number] Wrap [facility] [address] [place] [address] Guy [phone] Guy self [place] [id number] Medicaid [id number] Medicaid [place] [facility] [id number] [employer] MEDICAL (GENERAL) HISTORY Type Description Date Medical History asthma Medical History depression Medical History mood disorder Medical History anxiety
--- OUTSIDE RECORDS SUMMARY | 2018-01-02 14:46 | XMS REPORT ---
:1990 External Reference #:[id number] [facility] Address [address] [place] [address] Phone [phone] Care Team Providers Name Role Phone Tera Moser MD Primary Care Physician Unavailable Payers Type Date Identification Numbers Payment Provider Subscriber Commercial Policy Number: [id number] Guy Ruizw PayID: [id number] [address] [place] [address] Commercial Expires: Policy Number: [employer] Karine Rey Presley 2017 [id number] Medicaid PayID: [id number] [address] [address] [place] [address] Medigap Part B Effective: Policy Number: [employer] Presley 2015 [id number] Ppo/Epo Expires: 2016 Group Number: [id number] [address] PayID: [id number] [place] [address] Medigap Part B Effective: Policy Number: Inc[employer] Aisha [employer]Presley 2006 [id number] Expires: 2015 Group Number: CST [id number] PayID: [place] [address] Problems Date Description Provider Status Onset: 06/23/2008 Attention deficit hyperactivity Joselo Fried, Active disorder, predominantly inattentive M.D.,FACP type Onset: 06/23/2008 Extrinsic asthma without status Joselo Fried Active asthmaticus Homer,FACP Onset: 06/23/2008 Anemia due to chronic blood loss Joselo Fried Active Homer,FACP Onset: 06/23/2008 Vitamin D deficiency Joselo Fried Active Homer,FACP Onset: 12/21/2015 Disp fx of prox phalanx of l idx Ilia Stern MD Active fngr, 7thD Onset: 05/17/2016 Repeated concussion Rosalinda Villareal M.D. Active Onset: 05/17/2016 Rickie de la Tourette's syndrome Rosalinda Villareal M.D. Active Onset: 05/17/2016 Adult attention deficit Rosalinda Villareal M.D. Active hyperactivity disorder Onset: 01/27/2017 Closed traumatic dislocation Ilia Stern MD Active acromioclavicular joint Onset: 01/27/2017 Glenoid labrum tear Ilia Stern MD Active Onset: 03/21/2017 Traumatic rupture of rotator cuff Ilia Stern MD Active Family History Date Family Member(s) Problem(s) Comments General Heart Disease General Cancer Father Mental Illness PTSD, schizophrenia First Sister Epilepsy Paternal Uncles Diabetes, Non Insulin Dependent Text Input 3 cousins in same family, with type 1 diabetes Social History Type Date Description Comments Marital Status Significant Other boyfriend, not sexually active Lives With Alone General no kids, never Cigarette Use currently smokes 1/2 Pack since age 14 Daily ETOH Use Denies alcohol use Recreational Drug Use Regularly uses Marijuana daily Smoking Heavy tobacco smoker (more than 10 cigarettes/day) Exercise Type/Frequency Exercises regularly Currently Active Patient is currently not has been in past sexually active Allergies, Adverse Reactions, Alerts Date Description Reaction Status Severity Comments 06/23/2008 Amoxicillin active rash Medications Medication Date Status Form Strength Qnty SIG Indications Ordering Provider Tramadol HCL 12/07 Active Tablets 50mg 30tab 1-2 s tablets Jarred by jesus MARIANO every 6 hours as needed pain Sling And Swathe 05/16 Active Misc 1unit Dispense Ilia Shoulderimmobil s 1 Small Jarred or Osvaldo MARIANO to fit patient. Ibuprofen 05/16 Active Tablets 800mg 90tab take one s tablet by jesus Stern MD three times a day as needed for pain Ipratropium Active Solution 0.5-2.5(3 prn Unknown Gibson/Albuterol / )mg/3ML Sulfate Symbicort Active Ativan Active Prozac Active Unknown Mydayis Active Hydrocodone-Acetamin 05/15 Hx Tablets 5-325mg 30tab 1 or 2 Ilia s tabs by Jarrde, - mouth 05/15 every - hours as needed for pain Tramadol HCL 05/15 Hx Tablets 50mg 42tab 1-2 s tablets Stern, - by mouth 06/26 every 6 hours as needed pain. max 6 per day Percocet 05/15 Hx Tablets 5-325mg 30tab 1-2 tabs s every -, - hours as 06/26 for pain. max of 6 tabs per day [place] 12/09 Hx Tablets 5-325mg 30tab one to s two tabs Stern, - by mouth 05/16 every - hours as needed pain Adderall XR 06/23 Hx Caps ER 30mg 90cap 1 tab bid Joselo 24HR Carmen Roy M.D.,[facility] 08/11 Ferrousul 06/23 Hx Tablets 325mg 30tab 1 po qd 280.0 Carmen Hernandez M.D.,[facility] 08/11 Vitamin D 06/23 Hx Capsules 1000Unit 90cap po qd 268.9 Joselo Carmen Borrego M.D.,[facility] 08/11 Albuterol Hx Aerosol 90mcg/Act 1unit 2 puffs s prn - 12/05 Ativan Hx Tablets 1mg 1 by / mouth - twice a 12/05 day needed anxiety Effexor XR Hx Caps ER 75mg 1 by /0000 24HR mouth - every day 12/05 Prozac Hx Capsules 10mg 1 by Unknown /0000 mouth - every day 12/05 Vyvanse 00/00 Hx Capsules 40mg 1 by Unknown /0000 mouth - every day 11/27 Omeprazole 00/00 Hx Capsules 10mg 1 by Unknown /0000 DR mouth - every day 12/05 Lexapro 00/ Hx 20mg 1/2 tab Unknown / qam and 1 - tab qpm 11/27 Clonidine HCL 00/00 Hx Unknown /0000 - 05/16 Adderall 00/00 Hx Tablets 10mg 1 by Unknown /0000 mouth qpm - 11/27 Melatonin 00 Hx Capsules 5mg 1 by Unknown /0000 mouth - every 11/27 night Advil 00 Hx Capsules 200mg as needed Unknown / - 11/27 Gabapentin 00 Hx Tablets 600mg tid Rosendo, /0000 Carmen Long MD 11/27 Medications Administered in Office Medication Date Status Form Strength Qnty SIG Indications Ordering Provider Celestone 3 mg Administered Injection Ilia and 3mg 017 MD Jarred Vital Signs Date Vital Result Comment 12/20/2017 Height 65 inches 5'5" Weight 125.00 lb Heart Rate 75 /min BP Systolic 122 mmHg BP Diastolic 79 mmHg Respiratory Rate 16 /min BMI (Body Mass Index) 20.8 kg/m2 11/14/2017 Height 65 inches 5'5" Weight 120.00 lb Heart Rate 72 /min Respiratory Rate 16 /min Body Temperature 99.4 F Pain Level 0 BMI (Body Mass Index) 20.0 kg/m2 08/18/2017 Height 65 inches 5'5" Heart Rate 75 /min BP Systolic 108 mmHg BP Diastolic 70 mmHg Respiratory Rate 16 /min Body Temperature 98.4 F Pain Level 4 06/27/2017 Height 65 inches 5'5" Weight 120.00 lb Heart Rate 68 /min BP Systolic 110 mmHg BP Diastolic 65 mmHg Body Temperature 97.8 F Pain Level 4 BMI (Body Mass Index) 20.0 kg/m2 05/26/2017 Height 65 inches 5'5" Heart Rate 76 /min BP Systolic 128 mmHg BP Diastolic 80 mmHg Respiratory Rate 16 /min Body Temperature 98.3 F Pain Level 7 05/05/2017 Height 65 inches 5'5" Weight 121.00 lb Heart Rate 79 /min BP Systolic 110 mmHg BP Diastolic 74 mmHg Respiratory Rate 14 /min Body Temperature 97.9 F Pain Level 5 BMI (Body Mass Index) 20.1 kg/m2 03/21/2017 Height 65 inches 5'5" Weight 135.00 lb Heart Rate 82 /min Respiratory Rate 14 /min Body Temperature 98.5 F Pain Level 3 BMI (Body Mass Index) 22.5 kg/m2 01/27/2017 Height 65 inches 5'5" Weight 135.00 lb per pt Heart Rate 80 /min reg BP Systolic Sitting 114 mmHg Rue, reg cuff BP Diastolic Sitting 80 mmHg Rue, reg cuff Respiratory Rate 16 /min Body Temperature 99.2 F tympanic Pain Level 7 left shoulder BMI (Body Mass Index) 22.5 kg/m2 07/27/2016 Height 65 inches 5'5" Weight 135.00 lb Heart Rate 103 /min BP Systolic 134 mmHg BP Diastolic 83 mmHg Respiratory Rate 16 /min BMI (Body Mass Index) 22.5 kg/m2 05/17/2016 Height 65 inches 5'5" Weight 140.00 lb Heart Rate 76 /min BP Systolic Sitting 118 mmHg BP Diastolic Sitting 80 mmHg Respiratory Rate 14 /min BMI (Body Mass Index) 23.3 kg/m2 01/12/2016 Height 65 inches 5'5" Weight 135.00 lb Pain Level 0 BMI (Body Mass Index) 22.5 kg/m2 12/21/2015 Heart Rate 71 /min BP Systolic 128 mmHg BP Diastolic 81 mmHg Pain Level 5 12/07/2015 Height 65 inches 5'5" Weight 135.00 lb Heart Rate 70 /min BP Systolic 124 mmHg BP Diastolic 56 mmHg BMI (Body Mass Index) 22.5 kg/m2 09/02/2015 Height 65 inches 5'5" Weight 135.00 lb Respiratory Rate 16 /min Pain Level 3 BMI (Body Mass Index) 22.5 kg/m2 08/13/2015 Height 65 inches 5'5" Weight 135.00 lb Heart Rate 79 /min BP Systolic 119 mmHg BP Diastolic 79 mmHg Pain Level 6 BMI (Body Mass Index) 22.5 kg/m2 06/23/2008 Height 64 inches 5'4" Weight 136.00 lb Heart Rate 84 /min BP Systolic Sitting 110 mmHg BP Diastolic Sitting 60 mmHg BMI (Body Mass Index) 23.3 kg/m2 Height Percentile 46 % Weight Percentile 71st Results Test Date Test Result H/L Range Note Laboratory test 12/07/2017 Surgical Pathology SEE RESULT BELOW 1, 2 finding Laboratory test 05/17/2016 TSH (Thyroid Stim 0.76 mcIU/mL 0.34-5.60 3 finding Horm) Free T4 (Free Thyroxine) 0.69 ng/dL 0.61-1.12 4 Vitamin B12 437 pg/mL 180-914 5 Folic Acid (Folate) 9.22 ng/mL >3.99 6 Urine Microscopic 04/27/2013 Urine WBC None Seen None Seen Urine RBC 2+ (>3-10 /hpf) None Seen Urine Mucus Present /lpf Absent Urine Epithelial Cells 1+ Squamous /hpf None Seen Bacteria Urine None Seen None Seen Laboratory test 04/27/2013 Urine Negative Negative 7 finding Urine Drug SCR ED & 04/27/2013 Amphetamine Ur Screen None Detected None Detect Pain Clinic Barbiturates Urine Screen None Detected None Detect Benzodiazepine Urine Screen None Detected None Detect Urine Cannabinoids Screen Presumptive Posi <SEE NOTE> None Detect 8 Urine Cocaine Screen None Detected None Detect Urine Opiates Screen None Detected None Detect Urine Phencyclidine Screen None Detected None Detect 9 Laboratory test finding 04/27/2013 Acetaminophen < 15 g/mL 10 Alcohol 61 mg/dL High <10 Salicylate < 2.50 mg/dL <30 Urinalysis 04/27/2013 Urine Color Yellow Urine Appearance Clear Urine Specific [place] 1.020 1.010-1.030 Urine Esterase Negative Negative Urine Nitrate Negative Negative Urine Urobilinogen Negative E.U./dL Negative Urine Protein Negative mg/dL Negative Urine pH 5.0 5-9 Urine Blood Trace Negative Urine Ketones Negative mg/dL Negative Urine Bilirubin Negative Negative Urine Glucose Negative mg/dL Negative Laboratory test finding 04/27/2013 TSH (Thyroid Stimulating 3.03 IU/mL 0.34-5.60 Horm) Comp Metabolic Panel 04/27/2013 Sodium 140 mmol/L 133-145 Potassium 4.1 mmol/L 3.7-5.6 Chloride 106 mmol/L 101-111 Co2 Carbon Dioxide 26 mmol/L 22-32 Anion Gap 8 mmol/L 2-11 Glucose 75 mg/dL 70-100 Blood Urea Nitrogen 12 mg/dL 6-24 Creatinine 0.82 mg/dL 0.51-0.95 BUN/Creatinine Ratio 14.6 8-20 Calcium 9.6 mg/dL 8.6-10.3 Total Protein 7.4 g/dL 6.4-8.9 Albumin 5.2 g/dL 3.2-5.2 Globulin 2.2 g/dL 2-4 Albumin/Globulin Ratio 2.4 1-3 Total Bilirubin 0.30 mg/dL 0.2-1.0 Alkaline Phosphatase 43 U/L 34-104 Alt 13 U/L 7-52 Ast 22 U/L 13-39 Egfr Non- 86.4 >60 Egfr 111.1 >60 11 CBC Auto Diff 04/27/2013 White Blood Count 7.6 10^3/uL 4.8-10.8 Red Blood Count 4.46 10^6/uL 4.0-5.4 Hemoglobin 14.4 g/dL 12.0-16.0 Hematocrit 42 % 35-47 Mean Corpuscular Volume 94 fL 80-97 Mean Corpuscular Hemoglobin 32 pg High 27-31 Mean Corpuscular HGB Conc 35 g/dL 31-36 Red Cell Distribution Width 13 % 10.5-15 Platelet Count 261 10^3/uL 150-450 Mean Platelet Volume 8 um3 7.4-10.4 Abs Neutrophils 5.0 10^3/uL 1.5-7.7 Abs Lymphocytes 2.2 10^3/uL 1.0-4.8 Abs Monocytes 0.4 10^3/uL 0-0.8 Abs Eosinophils 0 10^3/uL 0-0.6 Abs Basophils 0 10^3/uL 0-0.2 Abs Nucleated RBC 0 10^3/uL Granulocyte % 66.0 % 38-83 Lymphocyte % 28.4 % 25-47 Monocyte % 4.8 % 1-9 Eosinophil % 0.4 % 0-6 Basophil % 0.4 % 0-2 Nucleated Red Blood Cells % 0 Laboratory test finding 06/23/2008 Hemoglobin A1c 4.9 Low 5-7 1 [id number] 2 SEE RESULT BELOW Name: KARINE DOS SANTOS : [address]: Ilia Stern MD Acct: [id number] Unit: [id number] AGE: 27 Location: [facility] Re12/07/17 SEX: F Status: [facility] [place] SPEC: [id number] PRANAV: 12/07/[address] [facility] [address]: lIia Stern MD REQ: [id number] RECD: 12/07/17 STATUS: SOUT _ ORDERED: LEVEL 1 COMMENTS: [id number] FINAL DIAGNOSIS Index finger, left, hardware removal: Foreign body (orthopedic hardware) (gross diagnosis) PRE-OPERATIVE DIAGNOSIS Painful hardware left index finger; 1 plate, 5 screws GROSS DESCRIPTION The specimen is received fresh labeled, Explanted Hardware Left Index Finger : 1 Plate and 5 Screws, and consists of a 2.8 by up to 0.7 x 0.1 cm wolff metallic irregular to elongated plate with multiple circular holes. Received separately in the same container are three silver and two gold metallic threaded Hooks-headed screws ranging from 0.6 x 0.2 cm to 1.0 x 0.2 cm. Per established hospital medical staff protocol, no tissue is submitted. Gross only. Signed by and Reported on: Zenobia Das MD 12/08/17 1341 END OF REPORT DEPARTMENT OF PATHOLOGY, [address] [place] [address] John Huff M.D. Director [facility] # [id number] 3 Copy Result to: TERA MOSER ([id number]) 4 Copy Result to: TERA MOSER ([id number]) 5 Normal Range 180 to 914 Indeterminate Range 145 to 180 Deficient Range <145 6 Copy Result to: TERA MOSER ([id number]) 7 If is still suspected, please repeat test after 48 to 72 hours. This test detects intact HCG only and is indicated for the early detection of . 8 Presumptive Positive 9 The urine specimen was tested at the listed cutoffs: Drug class test level (ng/ml) Amphetamines 300 Barbituates 200 Benzodiazepine metabolites 200 Cocaine metabolites 300 Cannabinoids 25 Opiates 200 Pcp 25 This is a screening procedure. Positive results are not confirmed. Specimen was received without chain of custody. Results should be used for medical purposes only. 10 Therapeutic concentration: <50 ug/mL Toxic concentration: >120 ug/mL 11 Because ethnic data is not always readily available, this report includes an eGFR for both -Americans and non- Americans. The National Kidney Disease Education Program (NKDEP) does not endorse the use of the MDRD equation for patients that are not between the ages of 18 and 70, are , have extremes of body size, muscle mass, or nutritional status, or are non- or non-. According to the National Kidney Foundation, irrespective of diagnosis, the stage of the disease is based on the level of kidney function: Stage Description GFR(mL/min/1.73 m(2)) 1 Kidney damage with normal or decreased GFR 90 2 Kidney damage with mild decrease in GFR 60-89 3 Moderate decrease in GFR 30-59 4 Severe decrease in GFR 15-29 5 Kidney failure <15 (or dialysis) Procedures Date CPT Code Description Status 12/07/2017 Removal Implant Deep Wire,Screw Nail,[place] Or Plate Completed 12/07/2017 Removal Implant Deep Wire,Screw Nail,[place] Or Plate Completed 05/15/2017 36317 Arthroscopy Shoulder Debridement Limited Completed 05/15/2017 17946 Arthroscopy Shoulder Debridement Limited Completed 05/15/2017 77993 Repair Ruptured Musculotendinous Cuff Open, Chronic Completed 05/15/2017 26715 Repair Ruptured Musculotendinous Cuff Open, Chronic Completed 01/27/2017 58573 Inject/Drain Joint/Bursa Major W/O US Completed 10/13/2016 37322 EKG, Interpretation Only Completed 12/10/2015 44555 Open TX Of Phalngeal Shaft FX Completed 12/10/2015 54912 Open TX Of Phalngeal Shaft FX Completed 11/23/2015 22710 Closed TX Phalanx finger/thumb shaft w/o manipulation Completed 11/19/2015 14342 EKG, Interpretation Only Completed Encounters Type Date Location Provider CPT E/M Dx Office Visit 11/14/2017 [place] [address] S46.092D 2:00p [facility] T84.84xD Office Visit 08/18/2017 1:00p [place] [address] S46.092D [facility] Office Visit 06/11/2017 8:20a [facility] Samantha Crump, [address] M25.512 [facility] F90.9 Office Visit 03/21/2017 3:00p [place] [address] S46.092A [facility] Office Visit 01/27/2017 2:15p [place] [address] S43.102A [facility] S43.432A Office Visit 07/27/2016 1:00p [place] [address] S43.102A [facility] Office Visit 05/17/2016 11:00a [facility] Rosalinda Villareal, [address] F31.9 Services Of Sofi [facility] F90.9 F95.2 S06.0x9D Office Visit 12/07/2015 9:45a [facility] [place] [facility], [address] S62.611A [facility] Office Visit 11/20/2015 1:26p [facility] Ass, Rehan Story, [address]1530 T46.5x2A Hospitalists F31.9 F90.2 Office Visit 11/19/2015 1:26p [facility] 82651 T46.5x2A issa Mondragon II, M.D. Hospitalists F90.2 F31.9 Office Visit 09/02/2015 1:00p [facility] Ilia Rousseau, [address] S93.401D Of Re [facility] Office Visit 08/13/2015 10:00a [facility] Ilia Rousseau, [address]9079 S93.401A Of Julian [facility] Office Visit 06/23/2008 11:00a DO Not Use [facility], [address] 250.03 Kandace Coronel,[facility] 314.00 493.00 280.0 268.9 Plan of Care Future Appointment(s):01/17/2018 10:15 am - Ilia Stern MD at [facility]12/20/2017 - Ilia Stern MDT84.84xA Pain due to internal orthopedic prosth dev/laura, inForeign Therapy:Physical TherapyFollow up:Follow up : 4 weeks
[2018-01-02 15:09] LABS: ABS Basophils 0 10^3/ul (0-0.2); ABS Eosinophils 0 10^3/ul (0-0.6); ABS Lymphocytes 2.4 10^3/ul (1.0-4.8); ABS Monocytes 0.5 10^3/ul (0-0.8); ABS Neutrophils 4.4 10^3/ul (1.5-7.7); ABS Nucleated RBC 0 10^3/ul; Eosinophil % 0.6 % (0-6); Hematocrit 39 % (35-47); Hemoglobin 13.2 g/dl (12.0-16.0); Lymphocyte % 32.6 % (25-47); Mean Corpuscular HGB Conc 34 g/dl (31-36); Mean Corpuscular Hemoglobin 32 pg (27-31); Mean Corpuscular Volume 93 fL (80-97); Mean Platelet Volume 7.8 fL (7.4-10.4); Nucleated Red Blood Cells % 0.1; Platelet Count 270 10^3/ul (150-450); Red Blood Count 4.16 10^6/ul (4.00-5.40); Red Cell Distribution Width 13 % (10.5-15); White Blood Count 7.4 10^3/ul (3.5-10.8)
[2018-01-02 15:35] LABS: EGFR Non-African American 84.8 (>60)
[2018-01-02 15:47] LABS: Urine Appearance Clear; Urine Blood Negative (Negative); Urine Color Yellow; Urine Ketones Trace (Negative); Urine Protein Negative (Negative); Urine Specific Gravity 1.019 (1.010-1.030); Urine Urobilinogen Negative (Negative)
[2018-01-02] MEDS ORDERED: Mouth Piece, Nicotine* 1 EACH CARTRIDGE INH ONE (16:00)
[2018-01-02] MEDS: Nicotine Inhaler* 10 MG AMP INH PRN ×3 (16:05→21:29)
--- NOTE | 2018-01-02 17:15 | ED ---
Psychiatric Complaint - HPI Summary HPI Summary: Patient is a 27-year-old female with history of anxiety and depression presenting to the ED with few weeks of worsening suicidal ideation. She denies any homicidal ideation or self-harm or cutting. Patient states she met with her counselor today and her counselor sent her to the ED for further evaluation. She endorsed the thought of planning to kill herself by hanging from her wrists and a barn and/or dying by fire. She admits this to her counselor, however on arrival, she is denying this. She is stating she is not having homicidal or suicidal thoughts, however her impulses have been worsening and she feels she does not want to do something she will regret. She remains on her Ativan and Prozac as prescribed. She has good outpatient follow-up. She denies any physical symptoms and or recent illness. - History Of Current Complaint Chief Complaint: EDMentalHealth Time Seen by Provider: 01/02/18 14:38 Hx Obtained From: Patient Hx Last Menstrual Period: "Last week" ?: No Onset/Duration: Sudden Onset Timing: Constant Severity Initially: Moderate Severity Currently: Moderate Character: Depressed, Anxious Aggravating Factor(s): Nothing Alleviating Factor(s): Nothing Associated Signs And Symptoms: Positive: Negative Related History: Positive For: Prior Psychiatric Issues Has Suicidal: Reports: Thoughts - Risk Factor(s) Completed Suicide Risk Factors: Negative - Allergies/Home Medications Allergies/Adverse Reactions: Allergies Allergy/AdvReac Type Severity Reaction Status Date / Time Tree Nuts Allergy Severe Rash and Verified 01/02/18 14:41 tongue swelling amoxicillin Allergy Rash Verified 01/02/18 14:41 bee venom protein (honey bee) Allergy Anaphylatic Verified 01/02/18 14:42 Shock PMH/Surg Hx/FS Hx/Imm Hx Previously Healthy: Yes Endocrine/Hematology History: Reports: Hx Anemia Denies: Hx Diabetes Cardiovascular History: Reports: Hx Hypotension - s/p O/D of clonidine. Denies: Hx Hypertension, Hx Pacemaker/ICD, Other Cardiovascular Problems/ Disorders Respiratory History: Reports: Hx Asthma, Hx Pneumonia GI History: Reports: Hx Ulcer - reports couple years ago Denies: Other GI Disorders History: Reports: Other Problems/Disorders - hx of frequent UTI's - last 4 months ago Denies: Hx Renal Disease Musculoskeletal History: Reports: Hx Back Problems - Chronic lower back pain, Hx Tendonitis - Lt rotator cuff surgery w/ Dr. Stern 05/24/2017, Other Musculoskeletal History - left shoulder rotator cuff repaired, left index finger fx Sensory History: Reports: Hx Contacts or Glasses - glasses Denies: Hx Hearing Aid Opthamlomology History: Reports: Hx Contacts or Glasses - glasses Neurological History: Reports: Hx Headaches, Hx Seizures - reports last one in 2014, Other Neuro Impairments/Disorders - tourette's, adhd, reports concussions x5, ptsd Psychiatric History: Reports: Hx Anxiety, Hx Attention Deficit Hyperactivity Disorder, Hx Depression, Hx Panic Disorder, Hx Post Traumatic Stress Disorder, Hx Inpatient Treatment, Hx Community Mental Health Tx, Hx Bipolar Disorder, Hx Suicide Attempt, Hx of Violent Episodes Against Others, Hx Substance Abuse - ETOH, marijuana Denies: Hx Eating Disorder - Surgical History Surgery Procedure, Year, and Place: Tonsil[place] 2004, [place], [place] [facility] [place] [facility] [place] Anesthesia Reactions: No - Immunization History Date of Tetanus Vaccine: unk Date of Influenza Vaccine: unk Hx Pertussis Vaccination: No Immunizations Up to Date: Yes Infectious Disease History: No Infectious Disease History: Denies: History Other Infectious Disease, Traveled Outside the in Last 30 Days - Family History Known Family History: Positive: Other - Schizophrenia, depression, alcohol abuse - Social History Occupation: Employed Full-time Lives: With Family Alcohol Use: None Alcohol Amount: hx alcohol abuse in past - reports none in one year 10 months Hx Substance Use: Yes Substance Use Type: Reports: Marijuana Substance Use Comment - Amount & Last Used: reports marijuana 3x week - hx drug abuse in past - reports last used 2013 Hx Tobacco Use: Yes Smoking Status (MU): Former Smoker Type: Cigarettes Amount Used/How Often: reports 2 cigs a day currently, down from 1/2-1ppd for 10 yrs Length of Time of Smoking/Using Tobacco: 6YRS Have You Smoked in the Last Year: Yes Review of Systems Constitutional: Negative Negative: Fever, Chills, Fatigue, Skin Diaphoresis Negative: Palpitations, Chest Pain Negative: Shortness Of Breath, Cough Genitourinary: Negative Positive: no symptoms reported, see HPI Negative: Arthralgia, Myalgia Skin: Negative Neurological: Negative Positive: Anxious, Depressed All Other Systems Reviewed And Are Negative: Yes Physical Exam Triage Information Reviewed: Yes Vital Signs On Initial Exam: Initial Vitals Temp Pulse Resp BP Pulse Ox 98.0 F 87 15 127/76 100 01/02/18 14:38 01/02/18 14:38 01/02/18 14:38 01/02/18 14:38 01/02/18 14:38 Vital Signs Reviewed: Yes Appearance: Positive: Well-Appearing, Well-Nourished Skin: Positive: Warm, Skin Color Reflects Adequate Perfusion Head/Face: Positive: Normal Head/Face Inspection Eyes: Positive: EOMI, MICHELLE, Conjunctiva Clear Neck: Positive: Supple, No Lymphadenopathy Respiratory/Lung Sounds: Positive: Clear to Auscultation, Breath Sounds Present Cardiovascular: Positive: RRR, Pulses are Symmetrical in both Upper and Lower Extremities Musculoskeletal: Positive: Normal, Strength/ROM Intact Neurological: Positive: Speech Normal Psychiatric: Positive: Anxious, Depressed AVPU Assessment: Alert Diagnostics - Vital Signs Vital Signs Temp Pulse Resp BP Pulse Ox 01/02/18 16:59 98.9 F 82 16 126/72 99 01/02/18 14:38 98.0 F 87 15 127/76 100 - Laboratory Lab Results: Lab Results 01/02/18 01/02/18 01/02/18 Range/Units 15:03 15:03 15:30 WBC 7.4 (3.5-10.8) 10^3/ul RBC 4.16 (4.00-5.40) 10^6/ul Hgb 13.2 (12.0-16.0) g/dl Hct 39 (35-47) % MCV 93 (80-97) fL MCH 32 H (27-31) pg MCHC 34 (31-36) g/dl RDW 13 (10.5-15) % Plt Count 270 (150-450) 10^3/ul MPV 7.8 (7.4-10.4) fL Neut % (Auto) 60.1 (38-83) % Lymph % (Auto) 32.6 (25-47) % Highland % (Auto) 6.3 (0-7) % Eos % (Auto) 0.6 (0-6) % Baso % (Auto) 0.4 (0-2) % Absolute Neuts (auto) 4.4 (1.5-7.7) 10^3/ul Absolute Lymphs (auto) 2.4 (1.0-4.8) 10^3/ul Absolute Monos (auto) 0.5 (0-0.8) 10^3/ul Absolute Eos (auto) 0 (0-0.6) 10^3/ul Absolute Basos (auto) 0 (0-0.2) 10^3/ul Absolute Nucleated RBC 0 10^3/ul Nucleated RBC % 0.1 Sodium 136 (135-145) mmol/L Potassium 3.5 (3.5-5.0) mmol/L Chloride 103 (101-111) mmol/L Carbon Dioxide 27 (22-32) mmol/L Anion Gap 6 (2-11) mmol/L BUN 11 (6-24) mg/dL Creatinine 0.81 (0.51-0.95) mg/dL Est GFR ( Amer) 102.6 (>60) Est GFR (Non-Af Amer) 84.8 (>60) BUN/Creatinine Ratio 13.6 (8-20) Glucose 96 (70-100) mg/dL Calcium 9.5 (8.6-10.3) mg/dL Total Bilirubin 0.70 (0.2-1.0) mg/dL AST 17 (13-39) U/L ALT 10 (7-52) U/L Alkaline Phosphatase 41 (34-104) U/L Total Protein 6.8 (6.4-8.9) g/dL Albumin 4.7 (3.2-5.2) g/dL Globulin 2.1 (2-4) g/dL Albumin/Globulin Ratio 2.2 (1-3) TSH 2.32 (0.34-5.60) mcIU/mL Urine Color Yellow Urine Appearance Clear Urine pH 5.0 (5-9) Ur Specific [place] 1.019 (1.010-1.030) Urine Protein Negative (Negative) Urine Ketones Trace A (Negative) Urine Blood Negative (Negative) Urine Nitrate Negative (Negative) Urine Bilirubin Negative (Negative) Urine Urobilinogen Negative (Negative) Ur Leukocyte Esterase Negative (Negative) Urine Glucose Negative (Negative) Urine Ascorbic Acid * A (Negative) Salicylates < 2.50 (<30) mg/dL Urine Opiates Screen (None Detect) Acetaminophen < 15 mcg/mL Ur Barbiturates Screen (None Detect) Ur Phencyclidine Scrn (None Detect) Ur Amphetamines Screen (None Detect) U Benzodiazepines Scrn (None Detect) Urine Cocaine Screen (None Detect) U Cannabinoids Screen (None Detect) Serum Alcohol < 10 (<10) mg/dL 01/02/18 Range/Units 15:30 WBC (3.5-10.8) 10^3/ul RBC (4.00-5.40) 10^6/ul Hgb (12.0-16.0) g/dl Hct (35-47) % MCV (80-97) fL MCH (27-31) pg MCHC (31-36) g/dl RDW (10.5-15) % Plt Count (150-450) 10^3/ul MPV (7.4-10.4) fL Neut % (Auto) (38-83) % Lymph % (Auto) (25-47) % Highland % (Auto) (0-7) % Eos % (Auto) (0-6) % Baso % (Auto) (0-2) % Absolute Neuts (auto) (1.5-7.7) 10^3/ul Absolute Lymphs (auto) (1.0-4.8) 10^3/ul Absolute Monos (auto) (0-0.8) 10^3/ul Absolute Eos (auto) (0-0.6) 10^3/ul Absolute Basos (auto) (0-0.2) 10^3/ul Absolute Nucleated RBC 10^3/ul Nucleated RBC % Sodium (135-145) mmol/L Potassium (3.5-5.0) mmol/L Chloride (101-111) mmol/L Carbon Dioxide (22-32) mmol/L Anion Gap (2-11) mmol/L BUN (6-24) mg/dL Creatinine (0.51-0.95) mg/dL Est GFR ( Amer) (>60) Est GFR (Non-Af Amer) (>60) BUN/Creatinine Ratio (8-20) Glucose (70-100) mg/dL Calcium (8.6-10.3) mg/dL Total Bilirubin (0.2-1.0) mg/dL AST (13-39) U/L ALT (7-52) U/L Alkaline Phosphatase (34-104) U/L Total Protein (6.4-8.9) g/dL Albumin (3.2-5.2) g/dL Globulin (2-4) g/dL Albumin/Globulin Ratio (1-3) TSH (0.34-5.60) mcIU/mL Urine Color Urine Appearance Urine pH (5-9) Ur Specific [place] (1.010-1.030) Urine Protein (Negative) Urine Ketones (Negative) Urine Blood (Negative) Urine Nitrate (Negative) Urine Bilirubin (Negative) Urine Urobilinogen (Negative) Ur Leukocyte Esterase (Negative) Urine Glucose (Negative) Urine Ascorbic Acid (Negative) Salicylates (<30) mg/dL Urine Opiates Screen None detected (None Detect) Acetaminophen mcg/mL Ur Barbiturates Screen None detected (None Detect) Ur Phencyclidine Scrn None detected (None Detect) Ur Amphetamines Screen Presumptive positive A (None Detect) U Benzodiazepines Scrn None detected (None Detect) Urine Cocaine Screen None detected (None Detect) U Cannabinoids Screen Presumptive positive A (None Detect) Serum Alcohol (<10) mg/dL Result Diagrams: 01/02/18 15:03 01/02/18 15:03 Lab Statement: Any lab studies that have been ordered have been reviewed, and results considered in the medical decision making process. Course/Dx - Course Course Of Treatment: During the course of treatment, the patient is evaluated for an [facility] evaluation for suicidal thoughts. She denies any homicidal thoughts. She states she would like to by fire, however while she admitted that to her counselor, she denies this to provider. Discussed with the patient for approximately 20 minutes regarding her symptomology. She would like a mental health evaluation and I feel this is necessary. She will be on 15 minute checks. - Differential Dx/Clinical Impression Differential Diagnosis/HQI/PQRI: Positive: Anxiety, Depression Provider Diagnosis: Suicidal ideation Discharge - Sign-Out/Discharge Documenting (check all that apply): Sign-Out Patient Signing out patient TO: Zenobia Mora - Discharge Plan Condition: Stable Referrals: Asya Rivera MD [Primary Care Provider] - - Billing Disposition and Condition Condition: STABLE
--- NOTE | 2018-01-02 19:07 | ED ---
Progress - Progress Note Progress Note: patient signed out by amara pending MHE. patient was admitted by mental health. - Consult/PCP Time Called: 14:38 Course/Dx - Course Course Of Treatment: During the course of treatment, the patient is evaluated for an [facility] evaluation for suicidal thoughts. She denies any homicidal thoughts. She states she would like to by fire, however while she admitted that to her counselor, she denies this to provider. Discussed with the patient for approximately 20 minutes regarding her symptomology. She would like a mental health evaluation and I feel this is necessary. She will be on [address] morales as is voluntary admission after mental health evualution. - Diagnoses Provider Diagnoses: Depression Discharge - Sign-Out/Discharge Documenting (check all that apply): Patient Departure, Receiving Sign-Out Receiving patient FROM: Amara Russo - Discharge Plan Condition: Stable [facility] Referrals: Asya Rivera MD [Primary Care Provider] - - Billing Disposition and Condition Condition: STABLE Disposition[place] [facility] [place]
[2018-01-02] MEDS ORDERED: Acetaminophen TAB* 325 MG PO PRN (22:47)
[2018-01-02] MEDS ORDERED: Al Hydrox/Mg Hydrox/Simet LIQ* 30 ML UDC PO PRN (22:48)
[2018-01-03] MEDS: FLUoxetine CAP* 20 MG PO SCH (09:48)
[2018-01-03] MEDS: Cetirizine* 10 MG TAB PO SCH (09:48)
[2018-01-03] MEDS: Amphetamine MIXED SALT TAB* 10 MG TAB PO SCH (09:48)
[2018-01-03] MEDS: Albuterol HFA INHALER* 8 gm MDI INH SCH ×3 (09:49→21:16)
[2018-01-03] MEDS: Multivitamins/Minerals TAB PO SCH (09:49)
[2018-01-03] MEDS: Nicotine Inhaler* 10 MG AMP INH PRN (15:02)
--- NOTE | 2018-01-03 17:25 | PN ---
MHU: Group Therapy Note - Service Type Service Type: [id number] Group Psychotherapy - Medication Education Group: Patient attended group and presented with flat affect that did not vary with discussion.
[2018-01-03] MEDS ORDERED: PTO:EPINEPHrine PEN ADULT(NF) 0.3 MG SYRINGE IM PRN (18:15)
--- NOTE | 2018-01-03 20:16 | HP ---
HISTORY AND PHYSICAL: DATE OF ADMISSION: 01/02/18 PROVIDER: Arlen Baca NP, in Psychiatry. SUPERVISING PHYSICIAN: Howard Motley MD * (DICTATED BY ARLEN BACA NP ) JUSTIFICATION FOR ADMISSION: The patient is in need of 24-hour supervision and care secondary to suicidal ideation and planning. CHIEF COMPLAINT: "I'm just sick of feeling the way I feel, I feel terrible like nothing is ever going to jha out." HISTORY OF PRESENT ILLNESS: The patient is a 27-year-old single white female with a history of depressive disorder, impulse control disorder and multiple brain injuries, who arrives, brought in by her mom and is here on a voluntary status following calling her mom and telling her that after 3-1/2 weeks of thinking that things were going wrong, she is afraid that she is no longer safe. Marion goes by the name, Yadira. She states "I just don't have a lot of hope." She feels overwhelmed by the fact that things continue to pile up on each other. She is unable to describe exactly what things are piling up. She does still go to [employer] [facility]. She states she does not feel like she is part of the [employer] family. Her dog, Vicki, is still doing well. Nevertheless, 3-1/ 2 weeks ago, things began to feel much more wrong than they did before. She is bothered by politics. She is considering leaving the country, but cannot at this point because she cannot get a passport due to legal problems. She has considered [facility] and [place] as possible locations. She has lost interest in things, although when she is talking with us, she does paint and play with paint. She feels pretty terrible most of the time. She has lower energy, in fact is able to sit still, which is unusual for Yadira. She is unable to concentrate, but this may be a typical finding for her. She is experiencing what looks to be some psychomotor retardation in comparison to her baseline. She is certainly suicidal at this time. PAST PSYCHIATRIC HISTORY: Yadira has had many hospitalizations since April 2013. She was hospitalized most recently here at [facility] on and she has been hospitalized many other times before that. She has a history of being [facility]. She has been diagnosed with ADHD, depression, bipolar disorder, anxiety disorder, substance use disorder, and so on. She has been tried on numerous medications including Ritalin, Adderall, bupropion, Strattera, doxepin , Remeron, Cymbalta, Zoloft, Depakote, Abilify, Antabuse, Campral, naltrexone, and so on. She has a history of overdose and self-mutilation. She is currently followed at the [facility] where she sees Dr. Robbins. Her primary provider there is , RN. PAST MEDICAL HISTORY: She has some low back pain, history of multiple head injuries. She gets headaches now and she has chronic asthma. PAST SURGICAL HISTORY: She also in May had shoulder rotator cuff repair. FAMILY HISTORY: According to Yadira, her grandfather was diagnosed with schizophrenia and received ECT. She also reports that her mom had many nervous breakdowns and that her sister, Riana, has anorexia nervosa. SOCIAL HISTORY: Yadira lives in her own apartment in [place] that she recently moved. She has a dog named Vicki. 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 She has an extensive history of drug and alcohol use, especially use of marijuana previously on a daily basis. REVIEW OF SYSTEMS: The patient reports feeling alert. She denies shortness of breath, heat or cold intolerance, chest pain or abdominal pain. She denies neurological symptoms. She denies fevers or changes in weight. PHYSICAL EXAMINATION VITAL SIGNS: On 01/02/18 at 2030, temperature was 98.8, pulse 74, respirations 16, O2 sat on room air 100%, blood pressure 104/66. For further exam data, please see emergency department records. LABORATORY DATA: Most data are within normal limits. Exceptions include MCH that is high at 32, trace ketones in urine and ascorbic acid present, amphetamines and cannabinoids are also present. Amphetamines can be accounted for by the recent addition of Adderall and cannabinoids are due to her marijuana consumption. MENTAL STATUS EXAMINATION: This is a slim woman who appears younger than her stated age. She has long brown hair and is wearing tinted wire-framed glasses. She is managing to sit very still. She is calm and cooperative. Her speech is of a normal rate, tone, and volume, although it is staccato. Her mood appears to be dysthymic. She has a full range of affect. Her thought processes are sequential and logical. She is free of delusions. She is not homicidal at this time. She is suicidal at this time. She denies auditory and visual hallucinations. Her insight is fair. Her judgment is poor. She is alert and oriented x3. DIAGNOSES: Hoffman I: Impulse control disorder, depressive disorder. Hoffman II: Deferred. IMPRESSION: Yadira is a 27-year-old woman who has a long history of psychiatric hospitalizations, most recently in May and now December. She has between 3 and 5 plans for suicide, all of which are lethal, which include things like hanging herself, burning herself alive and jumping from a bridge into a gorge. PLAN: The patient is admitted to the adult behavioral health unit and placed on q.15-minute checks for her own safety. She is encouraged to participate in supportive milieu, individual, and group therapies. Estimated length of stay is 5 to 7 days. We will titrate medications to efficacy and monitor for mood and thought content. Discharge planning will include family involvement and outpatient providers. ARLEN BACA, SIERRA [id number]/CPS #: [id number] ZENAIDA
[2018-01-03] MEDS ORDERED: LORazepam TAB(*) 0.5 MG ONE (21:31)
[2018-01-03] MEDS ORDERED: LORazepam TAB(*) 0.5 MG PO ONE (22:00)
[2018-01-04] MEDS: Cetirizine* 10 MG TAB PO SCH (08:16)
[2018-01-04] MEDS: Amphetamine MIXED SALT TAB* 10 MG TAB PO SCH (08:17)
[2018-01-04] MEDS: FLUoxetine CAP* 20 MG PO SCH (08:17)
[2018-01-04] MEDS: Multivitamins/Minerals TAB PO SCH (08:17)
[2018-01-04] MEDS: Nicotine GUM* 2 MG PO PRN ×2 (08:17→12:36)
[2018-01-04] MEDS: Nicotine Inhaler* 10 MG AMP INH PRN ×2 (08:17→12:36)
[2018-01-04] MEDS: Albuterol HFA INHALER* 8 gm MDI INH SCH ×4 (08:19→20:11)
[2018-01-04] MEDS ORDERED: Mouth Piece, Nicotine* 1 EACH CARTRIDGE ONE (08:21)
[2018-01-04] MEDS ORDERED: hydrOXYzine HCL TAB* 50 MG PO PRN (10:39)
--- NOTE | 2018-01-04 15:20 | PN ---
Subjective - Subjective Date of Service: 01/04/18 Service Type: 50257 Hosp care 35 min high complexity Subjective: Yadira and I discussed medications this morning and she was willing to start lithium, which I had intended to start the day before. Later in the day, she was heard with her voice raised. Eventually she calmed down, but remained tearful and went to her room. When I spoke to her in her room and asked specifically if she wants to end her life, she states, "I don't want to be alive." She is despairing over the state of the world, about how she can't fix anything, and about how the world is a cruel place. She has not completely lost the sense of humor she uses as a defense, but she uses it ruefully and struggles to be able to see anything positive in her world. Objective - Appearance Appearance: Thin Framed Dysmorphic Features: No Hygiene: Normal Grooming: Fairly Well Kept - Behavior Psychomotor Activities: Normal Exhibits Abnormal Movement: No - Attitude and Relatedness Attitude and Relatedness: Regressed Eye Contact: Poor - Speech Quality: Unpressured Latencies: Short Quantity: Terse - Mood Patient's Decription of Mood: "Terrible" - Affect Observed Affect: Tearful Affect Consistent with: Dysphoria - Thought Process Patient's Thought Process: Coherent, Impoverished Thought Content: Yes Suicidal Planning, No Passive Wish, No Homicidal Ideation, No Paranoid Ideation - Sensorium Experiencing Hallucinations: No, Sensorium is Clear Type of Hallucinations: Visual: No, Auditory: No, Command: No - Level of Consciousness Level of Consciousness: Agitated Orientation: Yes Intact, Yes Orientated to Time, Yes Orientated to Place, Yes Orientated to Person - Impulse Control Impulse Control: Poor - Insight and Judgement Insight and Judgement: Fair - Group Participation Particating in Group Activities: No Assessment - Assessment Merits Inpatient Hospitalization: For Immediate Safety Inpatient DSM-V Dx: F63.9 Clinical Impression: Marion Basurto" is a 27-year-old woman who is brought to the hospital by her mom after Yadira confided that she had several lethal plans to end her life. These detailed plans that included burning herself alive, hanging herself, and jumping from a bridge into a gorge. The onset of this was 3.5 weeks ago. These kinds of plans and their periodic recurrence are common for Yadira. Plan - Plan Treatment Plan: Name: MARION DOS SANTOS Birthdate: 1990 [id number] Continued Medication Management: Different Medication Medications: Current Medications Acetaminophen (Tylenol Tab*) 650 mg PO Q4H PRN PRN Reason: PAIN OR TEMPERATURE >101 Al Hydrox/Mg Hydrox/Simethicone (Maalox Plus*) 30 ml PO Q4H PRN PRN Reason: INDIGESTION Albuterol (Ventolin Hfa Inhaler*) 1 puff INH TID [facility] Last Admin: 01/04/18 09:27 Dose: 1 puff Amphetamine/Dextroamphetamine (Adderall Tab*) 10 mg PO DAILY [facility] Last Admin: 01/04/18 08:17 Dose: 10 mg Cetirizine HCl (Zyrtec*) 10 mg PO DAILY [facility] Last Admin: 01/04/18 08:16 Dose: 10 mg Epinephrine HCl (Epipen Adult(Nf)) 0.3 mg IM DAILY PRN PRN Reason: ALLERGIC REACTION Fluoxetine HCl (Prozac Cap*) 20 mg PO DAILY [facility] Last Admin: 01/04/18 08:17 Dose: 20 mg Hydroxyzine HCl (Atarax Tab*) 50 mg PO Q4H PRN PRN Reason: ANXIETY Hungry Horse Carbonate (Hungry Horse Carbonate Er Tab*) 450 mg PO BEDTIME [facility] Multivitamins/Minerals (Theragran/Minerals Tab*) 1 tab PO DAILY [facility] Last Admin: 01/04/18 08:17 Dose: 1 tab Nicotine (Nicotine Inhaler*) 10 mg INH Q2H PRN PRN Reason: CRAVING Last Admin: 01/04/18 12:36 Dose: 10 mg Nicotine Polacrilex (Nicotine Gum*) 2 mg PO Q2H PRN PRN Reason: CRAVING Last Admin: 01/04/18 12:36 Dose: 2 mg - Discharge Plan Additional Comments: Yadira is difficult to interact with at this time. This difficulty is impeding plans for Sameh and her discharge. At this time, however, the plans she has to suicide are overwhelmingly dangerous and immediate discharge is extremely unlikely.
[2018-01-04] MEDS ORDERED: Lithium Carbonate ER* 450 MG TAB.ER ONE (16:18)
[2018-01-04] MEDS: Lithium Carbonate ER* 450 MG TAB.ER PO SCH ×2 (16:18→20:11)
[2018-01-05] MEDS: Nicotine GUM* 2 MG PO PRN ×2 (08:04→15:26)
[2018-01-05] MEDS: Nicotine Inhaler* 10 MG AMP INH PRN ×3 (08:04→15:24)
[2018-01-05 08:11] VITALS: BP 102/65
[2018-01-05] MEDS: Albuterol HFA INHALER* 8 gm MDI INH SCH ×4 (10:02→21:45)
[2018-01-05] MEDS: Amphetamine MIXED SALT TAB* 10 MG TAB PO SCH (10:03)
[2018-01-05] MEDS: FLUoxetine CAP* 20 MG PO SCH (10:03)
[2018-01-05] MEDS: Cetirizine* 10 MG TAB PO SCH (10:03)
[2018-01-05] MEDS: Multivitamins/Minerals TAB PO SCH (10:03)
[2018-01-05] MEDS: Ibuprofen TAB* 600 MG PO PRN (11:21)
--- NOTE | 2018-01-05 13:56 | PN ---
Subjective - Subjective Date of Service: 01/05/18 Service Type: 71768 Hosp care 25 min moderate complexity Subjective: Yadira is struggling in the hospital environment. She is antagonistic with the nursing staff, calling them names and offering rude hand gestures. In private conversation, Yadira is tearful and upset. At times she will share her thoughts and at other times she is quiet and tearful. Her suicidal thoughts continue to come. She states she has a new plan that she is considering and she will not share whether it is in the hospital. Objective - Appearance Appearance: Healthy Appearing, Thin Framed Dysmorphic Features: No Hygiene: Normal Grooming: Fairly Well Kept - Behavior Psychomotor Activities: Abnormal-Increased Exhibits Abnormal Movement: No - Attitude and Relatedness Attitude and Relatedness: Irritable Eye Contact: Fair - Speech Quality: Pressured Latencies: Normal Quantity: Appropriate - Mood Patient's Decription of Mood: "Terrible" - Affect Observed Affect: Labile Affect Consistent with: Dysphoria - Thought Process Patient's Thought Process: Coherent Thought Content: Yes Suicidal Planning, No Passive Wish, No Homicidal Ideation, No Paranoid Ideation - Sensorium Experiencing Hallucinations: No, Sensorium is Clear Type of Hallucinations: Visual: No, Auditory: No, Command: No - Level of Consciousness Level of Consciousness: Agitated Orientation: Yes Intact, Yes Orientated to Time, Yes Orientated to Place, Yes Orientated to Person - Impulse Control Impulse Control: Poor - Insight and Judgement Insight and Judgement: Impaired - Group Participation Particating in Group Activities: No - Medication Management Medication Management Adherence: Yes Assessment - Assessment Merits Inpatient Hospitalization: For Immediate Safety Inpatient DSM-V Dx: F63.9 Clinical Impression: Marion Basurto" is a 27-year-old woman who is brought to the hospital by her mom after Yadira confided that she had several lethal plans to end her life. These detailed plans that included burning herself alive, hanging herself, and jumping from a bridge into a gorge. The onset of this was 3.5 weeks ago. These kinds of plans and their periodic recurrence are common for Yadira. Plan - Plan Treatment Plan: Name: MARION DOS SANTOS Birthdate: 1990 [id number] Medications: Current Medications Acetaminophen (Tylenol Tab*) 650 mg PO Q4H PRN PRN Reason: PAIN OR TEMPERATURE >101 Al Hydrox/Mg Hydrox/Simethicone (Maalox Plus*) 30 ml PO Q4H PRN PRN Reason: INDIGESTION Albuterol (Ventolin Hfa Inhaler*) 1 puff INH TID [facility] Last Admin: 01/05/18 10:02 Dose: 1 puff Amphetamine/Dextroamphetamine (Adderall Tab*) 10 mg PO DAILY [facility] Last Admin: 01/05/18 10:03 Dose: 10 mg Cetirizine HCl (Zyrtec*) 10 mg PO DAILY [facility] Last Admin: 01/05/18 10:03 Dose: 10 mg Epinephrine HCl (Epipen Adult(Nf)) 0.3 mg IM DAILY PRN PRN Reason: ALLERGIC REACTION Fluoxetine HCl (Prozac Cap*) 20 mg PO DAILY [facility] Last Admin: 01/05/18 10:03 Dose: 20 mg Hydroxyzine HCl (Atarax Tab*) 50 mg PO Q4H PRN PRN Reason: ANXIETY Last Admin: 01/04/18 20:11 Dose: 50 mg Ibuprofen (Motrin Tab*) 600 mg PO Q6H PRN PRN Reason: PAIN Last Admin: 01/05/18 11:21 Dose: 600 mg [place] Carbonate ([place] Carbonate Er Tab*) 450 mg PO BEDTIME [facility] Last Admin: 01/04/18 20:11 Dose: Not Given Lorazepam (Ativan Tab(*)) 1 mg PO Q4H PRN PRN Reason: Anxiety/Agitation Multivitamins/Minerals (Theragran/Minerals Tab*) 1 tab PO DAILY [facility] Last Admin: 01/05/18 10:03 Dose: 1 tab Nicotine (Nicotine Inhaler*) 10 mg INH Q2H PRN PRN Reason: CRAVING Last Admin: 01/05/18 11:12 Dose: 10 mg Nicotine Polacrilex (Nicotine Gum*) 2 mg PO Q2H PRN PRN Reason: CRAVING Last Admin: 01/05/18 08:04 Dose: 2 mg - Discharge Plan Discharge Plan: Outpatient Follow Up Additional Comments: At this time, the plans she has to suicide are overwhelmingly dangerous and immediate discharge is extremely unlikely. [place] has been added to reduce suicidal ideation and increase mood stability. Over the weekend, Ativan has been added to allow Sameh to manage her anxiety. This is not planned to continue outpatient.
[2018-01-05] MEDS: LORazepam TAB(*) 1 MG PO PRN ×2 (16:37→20:43)
[2018-01-05] MEDS: Lithium Carbonate ER* 450 MG TAB.ER PO SCH ×2 (17:31→21:46)
[2018-01-06] MEDS: Cetirizine* 10 MG TAB PO SCH (07:42)
[2018-01-06] MEDS: Albuterol HFA INHALER* 8 gm MDI INH SCH ×3 (07:42→19:43)
[2018-01-06] MEDS: Multivitamins/Minerals TAB PO SCH (07:42)
[2018-01-06] MEDS: Amphetamine MIXED SALT TAB* 10 MG TAB PO SCH (07:42)
[2018-01-06] MEDS: FLUoxetine CAP* 20 MG PO SCH (07:42)
[2018-01-06] MEDS: Nicotine Inhaler* 10 MG AMP INH PRN ×4 (07:44→18:09)
[2018-01-06] MEDS: Nicotine GUM* 2 MG PO PRN (10:07)
[2018-01-06] MEDS: LORazepam TAB(*) 1 MG PO PRN ×2 (10:58→18:09)
[2018-01-06] MEDS: Lithium Carbonate ER* 450 MG TAB.ER PO SCH ×2 (18:09→19:43)
[2018-01-07] MEDS: Amphetamine MIXED SALT TAB* 10 MG TAB PO SCH (10:43)
[2018-01-07] MEDS: Albuterol HFA INHALER* 8 gm MDI INH SCH ×3 (10:43→22:28)
[2018-01-07] MEDS: Multivitamins/Minerals TAB PO SCH (10:43)
[2018-01-07] MEDS: FLUoxetine CAP* 20 MG PO SCH (10:43)
[2018-01-07] MEDS: Cetirizine* 10 MG TAB PO SCH (10:43)
[2018-01-07] MEDS: Nicotine Inhaler* 10 MG AMP INH PRN ×3 (10:44→19:01)
[2018-01-07] MEDS: Nicotine GUM* 2 MG PO PRN ×2 (10:44→13:28)
[2018-01-07] MEDS: Ibuprofen TAB* 600 MG PO PRN (12:15)
[2018-01-07] MEDS: LORazepam TAB(*) 1 MG PO PRN ×2 (13:28→18:21)
[2018-01-07] MEDS: Lithium Carbonate ER* 450 MG TAB.ER PO SCH ×2 (18:21→22:27)
--- NOTE | 2018-01-07 20:04 | PN ---
Subjective - Subjective Date of Service: 01/07/18 Service Type: [id number] Hosp care 15 min low complexity Subjective: " I am beyond repair" Marion reports. Says her mood has been bad because of the way she is being treated by staffs on the unit. Pacing the unit, tense but in good mood control. Objective - Appearance Appearance: Thin Framed Hygiene: Mal-odorous Grooming: Disheveled - Behavior Psychomotor Activities: Abnormal-Increased Exhibits Abnormal Movement: No - Attitude and Relatedness Attitude and Relatedness: Hostile Eye Contact: Poor - Speech Quality: Pressured Latencies: Short Quantity: Copious - Mood Patient's Decription of Mood: "Terrible" - Affect Observed Affect: Tense Affect Consistent with: Dysphoria - Thought Process Patient's Thought Process: Coherent, Circumstantial Thought Content: No Passive Wish, No Suicidal Planning, No Homicidal Ideation, No Paranoid Ideation - Sensorium Experiencing Hallucinations: No, Sensorium is Clear Type of Hallucinations: Visual: No, Auditory: No, Command: No - Level of Consciousness Level of Consciousness: Alert Orientation: Yes Intact, Yes Orientated to Time, Yes Orientated to Place, Yes Orientated to Person - Impulse Control Impulse Control: Poor - Insight and Judgement Insight and Judgement: Impaired - Group Participation Particating in Group Activities: No - Medication Management Medication Management Adherence: Yes Assessment - Assessment Merits Inpatient Hospitalization: For Immediate Safety, For Stabilization, Pending Safe DC Plan Inpatient DSM-V Dx: F63.9 Clinical Impression: Marion Basurto" is a 27-year-old woman who is brought to the hospital by her mom after Yadira confided that she had several lethal plans to end her life. These detailed plans that included burning herself alive, hanging herself, and jumping from a bridge into a gorge. The onset of this was 3.5 weeks ago. These kinds of plans and their periodic recurrence are common for Yadira. Plan - Plan Treatment Plan: Name: MARINO DOS SANTOS Birthdate: 1990 [id number] Continued Medication Management: Continue Outpt Medication Medications: Current Medications Acetaminophen (Tylenol Tab*) 650 mg PO Q4H PRN PRN Reason: PAIN OR TEMPERATURE >101 Al Hydrox/Mg Hydrox/Simethicone (Maalox Plus*) 30 ml PO Q4H PRN PRN Reason: INDIGESTION Albuterol (Ventolin Hfa Inhaler*) 1 puff INH TID [facility] Last Admin: 01/07/18 13:34 Dose: Not Given Amphetamine/Dextroamphetamine (Adderall Tab*) 10 mg PO DAILY [facility] Last Admin: 01/07/18 10:43 Dose: 10 mg Cetirizine HCl (Zyrtec*) 10 mg PO DAILY [facility] Last Admin: 01/07/18 10:43 Dose: 10 mg Epinephrine HCl (Epipen Adult(Nf)) 0.3 mg IM DAILY PRN PRN Reason: ALLERGIC REACTION Fluoxetine HCl (Prozac Cap*) 20 mg PO DAILY [facility] Last Admin: 01/07/18 10:43 Dose: 20 mg Hydroxyzine HCl (Atarax Tab*) 50 mg PO Q4H PRN PRN Reason: ANXIETY Last Admin: 01/04/18 20:11 Dose: 50 mg Ibuprofen (Motrin Tab*) 600 mg PO Q6H PRN PRN Reason: PAIN Last Admin: 01/07/18 12:15 Dose: 600 mg [place] Carbonate ([place] Carbonate Er Tab*) 450 mg PO BEDTIME [facility] Last Admin: 01/07/18 18:21 Dose: 450 mg Lorazepam (Ativan Tab(*)) 1 mg PO Q4H PRN PRN Reason: Anxiety/Agitation Last Admin: 01/07/18 18:21 Dose: 1 mg Multivitamins/Minerals (Theragran/Minerals Tab*) 1 tab PO DAILY [facility] Last Admin: 01/07/18 10:43 Dose: 1 tab Nicotine (Nicotine Inhaler*) 10 mg INH Q2H PRN PRN Reason: CRAVING Last Admin: 01/07/18 19:01 Dose: 10 mg Nicotine Polacrilex (Nicotine Gum*) 2 mg PO Q2H PRN PRN Reason: CRAVING Last Admin: 01/07/18 13:28 Dose: 2 mg - Discharge Plan Discharge Plan: Outpatient Follow Up Outpatient Program: [facility]
--- NOTE | 2018-01-07 20:11 | PN ---
Subjective - Subjective Date of Service: 01/07/18 Service Type: [id number] Hosp care 15 min low complexity Subjective: Cristobal continues to report that he is cursed and his psychiatrist and therapist at [facility] understands that. He hears multiple friendly voices having conversations which is also due to the same reason. He doesn't want to take medicine for voices. He and his outpatient psychiatrist wants only Lorazepam. Objective - Appearance Appearance: Obese Dysmorphic Features: No Hygiene: Normal Grooming: Fairly Well Kept - Behavior Psychomotor Activities: Normal Exhibits Abnormal Movement: No - Attitude and Relatedness Attitude and Relatedness: Dismissive Eye Contact: Fair - Speech Quality: Unpressured Latencies: Normal Quantity: Appropriate - Mood Patient's Decription of Mood: "Great" - Affect Observed Affect: Fair - Thought Process Patient's Thought Process: Coherent, Disorganized, Circumstantial Thought Content: No Passive Wish, No Suicidal Planning, No Homicidal Ideation, No Paranoid Ideation - Sensorium Type of Hallucinations: Visual: No, Auditory: Yes, Command: No - Level of Consciousness Level of Consciousness: Alert Orientation: Yes Intact, Yes Orientated to Time, Yes Orientated to Place, Yes Orientated to Person - Impulse Control Impulse Control: Intact - Insight and Judgement Insight and Judgement: Impaired - Group Participation Particating in Group Activities: Yes - Medication Management Medication Management Adherence: No Assessment - Assessment Merits Inpatient Hospitalization: For Immediate Safety, For Stabilization, For Ongoing Evaluation Inpatient DSM-V Dx: F63.9 Clinical Impression: Marion Basurto" is a 27-year-old woman who is brought to the hospital by her mom after Yadira confided that she had several lethal plans to end her life. These detailed plans that included burning herself alive, hanging herself, and jumping from a bridge into a gorge. The onset of this was 3.5 weeks ago. These kinds of plans and their periodic recurrence are common for Yadira. Plan - Plan Treatment Plan: Name: MARION DOS SANTOS Birthdate: 1990 [id number] Continued Medication Management: Start Medication - Antipsychotic Medications: Current Medications Acetaminophen (Tylenol Tab*) 650 mg PO Q4H PRN PRN Reason: PAIN OR TEMPERATURE >101 Al Hydrox/Mg Hydrox/Simethicone (Maalox Plus*) 30 ml PO Q4H PRN PRN Reason: INDIGESTION Albuterol (Ventolin Hfa Inhaler*) 1 puff INH TID [facility] Last Admin: 01/07/18 13:34 Dose: Not Given Amphetamine/Dextroamphetamine (Adderall Tab*) 10 mg PO DAILY [facility] Last Admin: 01/07/18 10:43 Dose: 10 mg Cetirizine HCl (Zyrtec*) 10 mg PO DAILY [facility] Last Admin: 01/07/18 10:43 Dose: 10 mg Epinephrine HCl (Epipen Adult(Nf)) 0.3 mg IM DAILY PRN PRN Reason: ALLERGIC REACTION Fluoxetine HCl (Prozac Cap*) 20 mg PO DAILY [facility] Last Admin: 01/07/18 10:43 Dose: 20 mg Hydroxyzine HCl (Atarax Tab*) 50 mg PO Q4H PRN PRN Reason: ANXIETY Last Admin: 01/04/18 20:11 Dose: 50 mg Ibuprofen (Motrin Tab*) 600 mg PO Q6H PRN PRN Reason: PAIN Last Admin: 01/07/18 12:15 Dose: 600 mg [place] Carbonate ([place] Carbonate Er Tab*) 450 mg PO BEDTIME [facility] Last Admin: 01/07/18 18:21 Dose: 450 mg Lorazepam (Ativan Tab(*)) 1 mg PO Q4H PRN PRN Reason: Anxiety/Agitation Last Admin: 01/07/18 18:21 Dose: 1 mg Multivitamins/Minerals (Theragran/Minerals Tab*) 1 tab PO DAILY [facility] Last Admin: 01/07/18 10:43 Dose: 1 tab Nicotine (Nicotine Inhaler*) 10 mg INH Q2H PRN PRN Reason: CRAVING Last Admin: 01/07/18 19:01 Dose: 10 mg Nicotine Polacrilex (Nicotine Gum*) 2 mg PO Q2H PRN PRN Reason: CRAVING Last Admin: 01/07/18 13:28 Dose: 2 mg - Discharge Plan Additional Comments: Consider TOO
[2018-01-08] MEDS: Albuterol HFA INHALER* 8 gm MDI INH SCH (08:14)
[2018-01-08] MEDS: Multivitamins/Minerals TAB PO SCH (08:15)
[2018-01-08] MEDS: Amphetamine MIXED SALT TAB* 10 MG TAB PO SCH (08:15)
[2018-01-08] MEDS: FLUoxetine CAP* 20 MG PO SCH (08:15)
[2018-01-08] MEDS: Cetirizine* 10 MG TAB PO SCH (08:15)
[2018-01-08] MEDS ORDERED: Mouth Piece, Nicotine* 1 EACH CARTRIDGE ONE (08:17)
[2018-01-08] MEDS: Nicotine Inhaler* 10 MG AMP INH PRN ×2 (08:18→10:14)
[2018-01-08] MEDS: Nicotine GUM* 2 MG PO PRN (09:47)
--- NOTE | 2018-01-09 08:46 | DS ---
DISCHARGE SUMMARY: DATE OF ADMISSION: 01/02/18 DATE OF DISCHARGE: 01/08/18 PROVIDER: Arlen Baca NP, in psychiatry. SUPERVISING PHYSICIAN: Dr. Howard Motley. DIAGNOSES: [place] I: Depressive disorder, anxiety disorder, attention deficit hyperactivity disorder, Tourette's, history of traumatic brain injury. [place] II: Cluster B traits. CONDITION AT THE TIME OF DISCHARGE: Mildly improved, psychiatrically cleared and stable. She participated in a few groups and was social with select peers. Her mother is agreeable to discharge. She struggled here, but did manage to stay in behavioral control. She tolerated lithium, which was a new addition. She will attend [facility] program and will also meet with her therapist, Song Ramirez. MENTAL STATUS EXAM: At the time of discharge, Yadira is delighted to leave. She is cooperative and makes fair eye contact. She is alert and oriented x3. Her grooming is adequate. Her speech pace is rapid. Her thought processes are logical. She is not psychotic or delusional. She denies AH, VH, SI, and HI. Her insight and judgment are fair to good. She is willing to follow up and she is urged to go back to the [facility] program for social stability. DISCHARGE INSTRUCTIONS TO THE PATIENT: A. Medications: 1. Albuterol inhaler 1 puff inhalation t.i.d. for shortness of breath or wheezing. 2. Amphetamine Mixed Salts 10 mg p.o. daily. 3. Zyrtec 10 mg daily. 4. Fluoxetine 20 mg daily. 5. [place] ER 450 mg daily. 6. Lorazepam 0.5 mg at bedtime. B. Diet is regular. C. Activities as tolerated. Yadira is a smoker, but she has declined a referal to the [place]uit [place] at this time. If she decides to access this free service in the future, she can contact the Quit Line at [phone]. There are no studies pending at the time of discharge. D. Followup care. She has an appointment with Song Ramirez and she is also welcome to go to the [facility] program on Monday. E. Substance abuse followup is not indicated. HOSPITAL COURSE: Part A: Chief complaint. "I am just sick of feeling the way I feel, I feel terrible like nothing is ever going to jha out." The patient is a 27-year-old single white female with a history of depressive disorder, impulse control disorder, and multiple brain injuries who arrives brought in by her mom and is here on a voluntary status following calling her mom and telling her that after 3-1/2 weeks of thinking that things were going wrong, she is afraid she is no longer safe. Marion goes by the name Yadira. She states "I just don't have a lot of hope." She feels overwhelmed by the fact that things continue to pile up on each other. She is unable to describe exactly what things are piling up. She does still go to [facility] programming. She states she does not feel like she is part of the [facility] family. Her dog, Vicki, is still doing well. Nevertheless, 3-1/2 weeks ago, things began to feel much more wrong than they did before. She is bothered by politics. She is considering leaving the country, but cannot at this point because she cannot get a passport due to legal problems. She has considered [facility] and [place] as possible locations. She has lost interest in things, although when she is talking with us she does paint and play with paint. She feels pretty terrible most of the time. She has lower energy, in fact is able to sit still which is unusual for Yadira. She is unable to concentrate, but this may be a typical finding for her. She has experienced what looks to be some psychomotor retardation in comparison to her baseline. She is certainly suicidal at this time. Part B: Psychiatric treatment was rendered. Yadira was admitted to the adult behavioral unit and placed on 15-minute checks for safety. Yadira did not adjust to the unit and in fact was quite adversarial with the unit staff with the exception of Song Ramirez, a few others, and myself. Yadira while she tried to work through her frustrations, she became, over the course of days, more and more angry with the staff beginning to call them names and giving them rude hand signals. The lithium she states is doing nothing but when informed that it would take time for it to work, she agreed that she would take it a bit longer. She did self-injure by scratching the top of her left arm with her finger nails and she complained that that made her arm sting a few days later; it was dressed and treated. She is no longer able to tolerate the hospital setting and so she will be discharged. She agreed to discuss what her plans for the immediate future would be. She was able to state that she would spend time with her dog, that she would go back to [facility] at least a few times and that she would meet with Song Ramirez. She asserts that she will never come back here and that does indicate to me that she has future plans to stay alive and that she is going to avoid being here. ARLEN BACA, [place] [id number]/[facility] #: [id number] ZENAIDA
== END 2018-01-08 10:45 | disposition home or self-care (01) | DRG 758 ==
LOC: ED 14:19 → BSU 21:06
PROVIDERS: ADMIT Psychiatry & Neurology Psychiatry; ATTEND Psychiatry & Neurology Psychiatry
DX: F63.9 Impulse disorder, unspecified (principal); R45.851 Suicidal ideations; F95.2 Tourette's disorder; F32.9 Major depressive disorder, single episode, unspecified; F41.9 Anxiety disorder, unspecified; F90.9 Attention-deficit hyperactivity disorder, unspecified type; F17.210 Nicotine dependence, cigarettes, uncomplicated; J45.998 Other asthma; M54.5 Low back pain; F12.90 Cannabis use, unspecified, uncomplicated; Z87.820 Personal history of traumatic brain injury; Z81.8 Family history of other mental and behavioral disorders; Z79.899 Other long term (current) drug therapy
CPT/HCPCS: 36415; 80053; 80061; 80307; 80320; 80329; 81003; 83036; 84443; 85025; 90853; 99222; 99231; 99232; 99233; 99238; 99284; A9270-GY; G0480

== ENCOUNTER 2018-03-16 17:08 | Inpatient (IN) | payer OTHER ==
--- OUTSIDE RECORDS SUMMARY | 2018-03-16 17:43 | XMS REPORT ---
:1990 Author Organization Elvis [facility] Dental Care Team Providers Name Role Phone Marion Syed Unavailable Unavailable PROBLEMS Unknown Problems ALLERGIES Substance Reaction Event Type Date Status Bees anaphylaxis Non Drug Allergy Feb, Active Amoxicillin Unknown Non Drug Allergy Feb, Active ENCOUNTERS Encounter Location Date Diagnosis [address] Aug, [address] Mar, [address] Feb, [address] Feb, [address] Feb, [address] Jan, [address], [place] [address] Elvis [facility] [address] Elvis Sears, [place], [facility] [address] Sep, [address] Sep, [address] Sep, [address] Jul, [address] Jul, [address] IMMUNIZATIONS No Known Immunizations SOCIAL HISTORY Never Assessed REASON FOR REFERRAL FUNCTIONAL STATUS PLAN OF CARE Activity Details Follow Up 6 Months Reason:prophy/exp VITAL SIGNS MEDICATIONS Medication Instructions Dosage Frequency Start Date End Date Duration Status Ativan Not-Taking Haldol Active Zyprexa Not-Taking Prozac Active EPINEPHrine Active (Anaphylaxis) Albuterol Active PROCEDURES Procedure Date Ordered Result Body Site PROPHYLAXIS - ADULT 13yrs and older Mar 06, 2018 Caries Risk Assess and Doc Low Risk Mar 06, 2018 RESULTS No Results REASON FOR VISIT cleaning Insurance Providers [facility] Member Patient Patient Patient Patient Patient Subscriber Subscriber Subscriber Group Insurance Plan Plan Plan Plan ID Relationship Address Phone Name Date of ID Name Date of No Type Insurance Insurance Insurance Coverage to Subscriber Address Phone Name Dates Medicaid [id number] [phone] Medicaid self Marion [id number] Wrap [facility] [address] [place] [address] [phone] Guy self Marion [id number] Medicaid [place] 47 Medicaid [facility] [id number] Medical [place] [address] [phone] [place] self Marion [id number] Medicaid [id number] Medicaid [facility] [id number] [place] MEDICAL (GENERAL) HISTORY Type Description Date Medical History asthma Medical History depression Medical History mood disorder Medical History anxiety
--- OUTSIDE RECORDS SUMMARY | 2018-03-16 17:44 | XMS REPORT ---
:1990 Author Organization [facility] Care Team Providers Name Role Phone Anibal Sinha Unavailable Unavailable PROBLEMS Unknown Problems ALLERGIES No Information ENCOUNTERS Encounter Location Date Diagnosis [address] Aug, [address] Mar, [address] Feb, [address] Feb, [address] Feb, [address] Jan, [address], [place] [address], [place], [facility] [address] Sep, [address] Sep, [address] Sep, [address] Jul, [address] Jul, [address] IMMUNIZATIONS No Known Immunizations SOCIAL HISTORY Never Assessed REASON FOR REFERRAL FUNCTIONAL STATUS PLAN OF CARE VITAL SIGNS MEDICATIONS Medication Instructions Dosage Frequency Start Date End Date Duration Status Ativan Active Zyprexa Active Prozac Active EPINEPHrine Active (Anaphylaxis) Albuterol Active PROCEDURES Procedure Date Ordered Result Body Site PERIODIC ORAL EXAMINATION Mar 06, 2018 RESULTS No Results REASON FOR VISIT Insurance Providers [facility] Member Patient Patient Patient Patient Patient Subscriber Subscriber Subscriber Group Insurance Plan Plan Plan Plan ID Relationship Address Phone Name Date of ID Name Date of No Type Insurance Insurance Insurance Coverage to Subscriber Address Phone Name Dates Guy [phone] [place] self Marion [id number] Medicaid [id number] [facility] [address] [facility] Medicaid [id number] [phone] Medicaid self Marion [id number] [address]rap [facility] [address] [place] [address] [place] [phone] [place] self Marion [id number] Medicaid [place] 47 Medicaid [facility] [id number] Medical MEDICAL (GENERAL) HISTORY Type Description Date Medical History asthma Medical History depression Medical History mood disorder Medical History anxiety
[2018-03-16 18:46] LABS: ABS Basophils 0 10^3/ul (0-0.2); ABS Eosinophils 0.1 10^3/ul (0-0.6); ABS Lymphocytes 2.4 10^3/ul (1.0-4.8); ABS Monocytes 0.6 10^3/ul (0-0.8); ABS Neutrophils 4.9 10^3/ul (1.5-7.7); ABS Nucleated RBC 0 10^3/ul; Eosinophil % 0.9 %; Hematocrit 40 % (35-47); Hemoglobin 13.5 g/dl (12.0-16.0); Mean Corpuscular HGB Conc 34 g/dl (31-36); Mean Corpuscular Hemoglobin 31 pg (27-31); Mean Corpuscular Volume 92 fL (80-97); Mean Platelet Volume 7.7 fL (7.4-10.4); Nucleated Red Blood Cells % 0.1; Platelet Count 240 10^3/ul (150-450); Red Cell Distribution Width 13 % (10.5-15)
[2018-03-16 19:05] LABS: ALT 8 U/L (7-52); AST 18 U/L (13-39); Albumin/Globulin Ratio 2.2 (1-3); Alkaline Phosphatase 41 U/L (34-104); Anion Gap 5 mmol/L (2-11); BUN/Creatinine Ratio 13.7 (8-20); Blood Urea Nitrogen 10 mg/dL (6-24); CO2 Carbon Dioxide 28 mmol/L (22-32); Calcium 9.5 mg/dL (8.6-10.3); Chloride 104 mmol/L (101-111); EGFR Non-African American 95.6 (>60); Globulin 2.3 g/dL (2-4); Glucose 72 mg/dL (70-100); Magnesium 2.1 mg/dL (1.9-2.7); Potassium 3.8 mmol/L (3.5-5.0); Sodium 137 mmol/L (135-145); Total Protein 7.3 g/dL (6.4-8.9)
[2018-03-16 19:09] LABS: Acetaminophen < 15 mcg/mL; Alcohol < 10 mg/dL (<10); Salicylate < 2.50 mg/dL (<30)
[2018-03-16 19:10] LABS: HCG Pregnancy < 0.60 mIU/mL
[2018-03-16 19:24] LABS: TSH (Thyroid Stimulating Horm) 3.61 mcIU/mL (0.34-5.60)
--- NOTE | 2018-03-16 19:59 | ED ---
Psychiatric Complaint - HPI Summary HPI Summary: This patient is a 27 year old F presenting to [facility] with a chief complaint of SI with a plan since 2 weeks ago. Patient says that she has many plans, including falling onto the train tracks, dosing herself in gasoline and lighting a match, overdosing on her medications, and driving a car at a high speed into a tree. Patient denies any recent stress but, per triage note, a family member recently overdosed and triggered these thoughts. The patient rates the pain 0/10 in severity. Symptoms aggravated by nothing. Symptoms alleviated by nothing. FHx of SI. Hx of OD, outpatient tx, self-harm, and previous suicide attempt. Patient takes Haldol, Prozac, and Ativan. - History Of Current Complaint Chief Complaint: [facility] Time Seen by Provider: 03/16/18 19:37 Hx Obtained From: Patient Hx Last Menstrual Period: "Last week" Onset/Duration: Gradual Onset, Lasting Weeks - 2 weeks, Still Present Timing: Constant Severity Initially: Moderate Severity Currently: Moderate Aggravating Factor(s): Nothing Alleviating Factor(s): Nothing Related History: Positive For: Prior Psychiatric Issues Has Suicidal: Reports: Thoughts, With A Plan, Has Prior Attempt(s) - Allergies/Home Medications Allergies/Adverse Reactions: Allergies Allergy/AdvReac Type Severity Reaction Status Date / Time Tree Nuts Allergy Severe Rash and Verified 03/16/18 17:26 tongue swelling amoxicillin Allergy Rash Verified 03/16/18 17:26 bee venom protein (honey bee) Allergy Anaphylatic Verified 03/16/18 17:26 Shock PMH/Surg Hx/FS Hx/Imm Hx Endocrine/Hematology History: Reports: Hx Anemia Denies: Hx Diabetes Cardiovascular History: Reports: Hx Hypotension - s/p O/D of clonidine. Denies: Hx Hypertension, Hx Pacemaker/ICD, Other Cardiovascular Problems/ Disorders Respiratory History: Reports: Hx Asthma, Hx Pneumonia GI History: Reports: Hx Ulcer - reports couple years ago Denies: Other GI Disorders History: Reports: Other Problems/Disorders - hx of frequent UTI's - last 4 months ago Denies: Hx Renal Disease Musculoskeletal History: Reports: Hx Back Problems - Chronic lower back pain, Hx Tendonitis, Other Musculoskeletal History - left shoulder rotator cuff repaired, left index finger fx Sensory History: Reports: Hx Contacts or Glasses Denies: Hx Hearing Aid Opthamlomology History: Reports: Hx Contacts or Glasses Neurological History: Reports: Hx Headaches, Hx Seizures - reports last one in 2014, Other Neuro Impairments/Disorders - tourette's, adhd, reports concussions x5, ptsd Psychiatric History: Reports: Hx Anxiety, Hx Attention Deficit Hyperactivity Disorder, Hx Depression, Hx Panic Disorder, Hx Post Traumatic Stress Disorder, Hx Inpatient Treatment, Hx Community Mental Health Tx, Hx Bipolar Disorder, Hx Suicide Attempt, Hx of Violent Episodes Against Others, Hx Substance Abuse Denies: Hx Eating Disorder - Surgical History Surgery Procedure, Year, and Place: Tonsillect[place] 2005, [place] [facility] [place]ator [place] [facility] [place] Anesthesia Reactions: No - Immunization History Date of Tetanus Vaccine: unk Date of Influenza Vaccine: unk Infectious Disease History: No Infectious Disease History: Denies: History Other Infectious Disease, Traveled Outside the in Last 30 Days - Family History Known Family History: Positive: Other - Schizophrenia, depression, alcohol abuse - Social History Alcohol Use: None Alcohol Amount: hx alcohol abuse in past - reports none in one year 10 months Hx Substance Use: Yes Substance Use Type: Reports: Marijuana Substance Use Comment - Amount & Last Used: reports marijuana 3x week - hx drug abuse in past - reports last used 2013 Hx Tobacco Use: Yes Smoking Status (MU): Current Every Day Smoker Type: Cigarettes Amount Used/How Often: reports 2 cigs a day currently, down from 1/2-1ppd for 10 yrs Length of Time of Smoking/Using Tobacco: 6YRS Have You Smoked in the Last Year: Yes Review of Systems Negative: Epistaxis Negative: Chest Pain Negative: Cough Negative: Vomiting Psychological: Other - SI with plans All Other Systems Reviewed And Are Negative: Yes Physical Exam - Summary Physical Exam Summary: VITAL SIGNS: Reviewed. GENERAL: Patient is a well-developed and nourished FEMALE who is lying comfortable in the stretcher. Patient is not in any acute respiratory distress. HEAD AND FACE: No signs of trauma. No ecchymosis, hematomas or skull depressions. No sinus tenderness. EYES: PERRLA, EOMI x 2, No injected conjunctiva, no nystagmus. EARS: Hearing grossly intact. Ear canals and tympanic membranes are within normal limits. MOUTH: Oropharynx within normal limits. NECK: Supple, trachea is midline, no adenopathy, no JVD, no carotid bruit, no c- spine tenderness, neck with full ROM. CHEST: Symmetric, no tenderness at palpation LUNGS: Clear to auscultation bilaterally. No wheezing or crackles. CVS: Regular rate and rhythm, S1 and S2 present, no murmurs or gallops appreciated. ABDOMEN: Soft, non-tender. No signs of distention. No rebound no guarding, and no masses palpated. Bowel sounds are normal. EXTREMITIES: FROM in all major joints, no edema, no cyanosis or clubbing. NEURO: Alert and oriented x 3. No acute neurological deficits. Speech is normal and follows commands. SKIN: Dry and warm PSYCH: Suicidal ideations Triage Information Reviewed: Yes Vital Signs On Initial Exam: Initial Vitals Temp Pulse Resp BP Pulse Ox 99.1 F 91 16 134/76 99 03/16/18 17:22 03/16/18 17:22 03/16/18 17:22 03/16/18 17:22 03/16/18 17:22 Vital Signs Reviewed: Yes Diagnostics - Vital Signs Vital Signs Temp Pulse Resp BP Pulse Ox 03/16/18 17:22 99.1 F 91 16 134/76 99 - Laboratory Lab Results: Lab Results 03/16/18 03/16/18 Range/Units 18:39 18:39 WBC 8.0 (3.5-10.8) 10^3/ul RBC 4.30 (4.00-5.40) 10^6/ul Hgb 13.5 (12.0-16.0) g/dl Hct 40 (35-47) % MCV 92 (80-97) fL MCH 31 (27-31) pg MCHC 34 (31-36) g/dl RDW 13 (10.5-15) % Plt Count 240 (150-450) 10^3/ul MPV 7.7 (7.4-10.4) fL Neut % (Auto) 61.2 % Lymph % (Auto) 30.0 % Sheridan % (Auto) 7.4 % Eos % (Auto) 0.9 % Baso % (Auto) 0.5 % Absolute Neuts (auto) 4.9 (1.5-7.7) 10^3/ul Absolute Lymphs (auto) 2.4 (1.0-4.8) 10^3/ul Absolute Monos (auto) 0.6 (0-0.8) 10^3/ul Absolute Eos (auto) 0.1 (0-0.6) 10^3/ul Absolute Basos (auto) 0 (0-0.2) 10^3/ul Absolute Nucleated RBC 0 10^3/ul Nucleated RBC % 0.1 Sodium 137 (135-145) mmol/L Potassium 3.8 (3.5-5.0) mmol/L Chloride 104 (101-111) mmol/L Carbon Dioxide 28 (22-32) mmol/L Anion Gap 5 (2-11) mmol/L BUN 10 (6-24) mg/dL Creatinine 0.73 (0.51-0.95) mg/dL Est GFR ( Amer) 115.7 (>60) Est GFR (Non-Af Amer) 95.6 (>60) BUN/Creatinine Ratio 13.7 (8-20) Glucose 72 (70-100) mg/dL Calcium 9.5 (8.6-10.3) mg/dL Magnesium 2.1 (1.9-2.7) mg/dL Total Bilirubin 0.40 (0.2-1.0) mg/dL AST 18 (13-39) U/L ALT 8 (7-52) U/L Alkaline Phosphatase 41 (34-104) U/L Total Protein 7.3 (6.4-8.9) g/dL Albumin 5.0 (3.2-5.2) g/dL Globulin 2.3 (2-4) g/dL Albumin/Globulin Ratio 2.2 (1-3) TSH 3.61 (0.34-5.60) mcIU/mL Beta HCG, Quant < 0.60 mIU/mL Salicylates < 2.50 (<30) mg/dL Acetaminophen < 15 mcg/mL Serum Alcohol < 10 (<10) mg/dL Result Diagrams: 03/16/18 18:39 03/16/18 18:39 Lab Statement: Any lab studies that have been ordered have been reviewed, and results considered in the medical decision making process. Course/Dx - Course Course Of Treatment: This patient is a 27 year old F presenting to [facility] with a chief complaint of SI with a plan since 2 weeks ago. Patient says that she has many plans. FHx of SI. Hx of OD, outpatient tx, self-harm, and previous suicide attempt. Test results with no significant abnormalities. We discussed patient care with Dr. Mike, psychiatrist, and they recommended admitting the patient to [facility]. Dx unspecified depressive disorder. Patient will be admitted to [facility]. The patient is agreeable with this plan. - Differential Dx/Clinical Impression Provider Diagnosis: Major depressive disorder, recurrent, unspecified - Physician Notifications Discussed Care Of Patient With: Karin Mike Time Discussed With Above Provider: 22:25 Instructed by Provider To: Admit As Inpatient Discharge - Sign-Out/Discharge Documenting (check all that apply): Patient Departure - admit to [facility] - Discharge Plan Condition: Stable Disposition: PSYCHIATRIC FACILITY-[facility] Referrals: Asya Rivera MD [Primary Care Provider] - - Attestation Statements Document Initiated by Scribe: Yes Documenting Scribe: Zenobia Jacobs Provider For Whom Scribe is Documenting (Include Credential): Ramses Mcguire MD Scribe Attestation: Zenobia Christie, scribed for Ramses Mcguire MD on 03/16/18 at 2226. Status of Scribe Document: Ready
[2018-03-17] MEDS ORDERED: Al Hydrox/Mg Hydrox/Simet LIQ* 30 ML UDC PO PRN (01:40)
[2018-03-17] MEDS ORDERED: Acetaminophen TAB* 325 MG PO PRN (01:40)
[2018-03-17] MEDS ORDERED: Nicotine GUM* 2 MG PO PRN (01:41)
[2018-03-17] MEDS ORDERED: Mouth Piece, Nicotine* 1 EACH CARTRIDGE INH PRN (01:42)
[2018-03-17] MEDS: Nicotine PATCH 14 MG/24 HR* PATCH TRANSDERM SCH (14:15)
[2018-03-17] MEDS: FLUoxetine CAP* 20 MG PO SCH (14:15)
[2018-03-17] MEDS: Multivitamins/Minerals TAB PO SCH (14:15)
--- NOTE | 2018-03-17 16:41 | HP ---
HISTORY AND PHYSICAL: DATE OF ADMISSION: 03/17/18 IDENTIFYING DATA: Marion is a 27-year-old, never , childless, female with known h istory of mental illness and repeated hospitalizations here on behavioral science unit, had her last hospitalization in December of last year. She came back to the emergency room almost under similar ci rcumstances of feeling depressed and suicidal. CHIEF COMPLAINT: "I'm just tired with my life and want to end it." HISTORY OF PRESENT ILLNESS: As mentioned earlier, the patient has been experiencing worsening of her depressive symptoms over the past several weeks and was not feeling safe at home. She thought about ending her life because she gets panicked all the time and she does not want to go through it all an ymore. In her opinion, there is not going to be any end to her feelings of panicky and anxious sympt oms. She was thinking about running across the street or to be hit by a car; however, during today's evaluation once again she continues to have suicidal thoughts, but there is no plan to do anything o n this unit because she thinks people are watching her here, she cannot do anything even if she wants to. She reports that she feels sad all the time, unmotivated, helpless and hopeless. She has a his tory of going through these episodes and calling her mom, leaving her messages that she was going to commit suicide resulting in hospitalization. Marion reports that she still goes to [facility] and continues to take her medications as prescribed. PAST PSYCHIATRIC HISTORY: Marion has had multiple hospitalizations since April of 2013. Most of er hospitalizations were in this hospital and she was also hospitalized at [facility] well as [facility]. She was variably diagnosed with ADHD, depression, bipolar disorder, a nxiety disorder, substance use disorder, and so on. She was tried on medications such as Ritalin, Ad derall, bupropion, Strattera, doxepin, Remeron, Cymbalta, Zoloft, Depakote, Abilify, Antabuse, Campra l, naltrexone, and so on. She also has a history of overdose and self-mutilation. She goes to [facility] and sees Dr. Robbins and she also has a therapist. PAST MEDICAL HISTORY: Remarkable for low back pain, history of multiple head injuries, and chronic h eadache. She also suffers from bronchial asthma. FAMILY HISTORY: According to collaterals, her grandfather was diagnosed with schizophrenia and recei zack ECT. She also reported that her mom had many nervous breakdowns, so did her sister, Riana. PERSONAL AND SOCIAL HISTORY: Marion lives in her own apartment in [place]. She has a dog, Opi e. 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 However, every thing did not go as planned because of her head injuries. Although she has an extensive history of d rug and alcohol use, she denies using anything other than marijuana on regular basis. There was no U DS done on this admission to support any of her drug use or rule that out this time. PHYSICAL EXAMINATION GENERAL: At the time of examination, she was comfortably lying in her bed and denies any symptoms of physical distress. VITAL SIGNS: All within normal limits with a blood pressure of 134/76, pulse 91, respirations 16, pu lse ox 99% on room air. Physical exam was offered. Marion declined it as she was in bed and feels uncomfortable any man to uching her. However, she does not appear to be in any physical distress. LABORATORY DATA: Labs done in the emergency room were all unremarkable. Her WBC count was 8 with h emoglobin 13.5, hematocrit 40, platelet count 240. Rest of the report was unremarkable including her comprehensive metabolic profile, which shows a sodium level of 137, potassium 3.8, chloride 104, car bon dioxide 28, BUN 10, creatinine 0.73. Rest of the report appears to be unremarkable. MENTAL STATUS EXAMINATION: Marion is a thin-framed, healthy-appearing, short- stature fe male, who is alert and oriented to time, place, and person. At the time of examination, she was lyin g in bed. She describes her mood as "okay." Observed affect appeared to be somewhat dysphoric. Spee ch was normal in all spheres. There was no evidence of thought, perceptual or psychomotor disturbanc es, although she said she is still suicidal. She denies any active plan at this time. Her intelligen ce appears to be average as evidenced by her vocabulary and fund of knowledge. Memory functions are intact in all spheres. Her insight and judgement appear to be fair. SUMMARY: This 27-year-old female with known history of mental illness presents to the [facility] room complaining of feeling depressed and suicidal with plans to run in front of traffic to [place] herself. DIAGNOSTIC IMPRESSION: MENTAL HEALTH DIAGNOSES: 1. Unspecified depressive disorder. 2. Rule out major depressive disorder. 3. Impulse control disorder by history. 4. Rule out bipolar disorder. PHYSICAL HEALTH DIAGNOSES: 1. History of head injury. 2. Asthma. TREATMENT PLAN: For Marion's history of self-harming behavior in the past and inability to control her impulses, she will remain hospitalized on the unit for her safety and rapid stabilization of dep ressive symptoms. I do not have any plan to change any medications she is taking outpatient basis an d we will defer that to her assigned psychiatrist on the unit. While on the unit, she will be monito red very closely. Supportive milieu, individual, and group therapy will be initiated and she will be encouraged to participate. [id number]/[facility] #: [id number]
[2018-03-17 17:31] LABS: Urine Appearance Cloudy; Urine Bilirubin NEG (Negative); Urine Blood NEG (Negative); Urine Color Yellow; Urine Glucose NEG (Negative); Urine Ketones NEG (Negative); Urine Nitrite NEG (Negative); Urine Protein NEG (Negative); Urine Urobilinogen NEG (Negative)
[2018-03-17 17:34] LABS: Barbiturates Urine Screen None Detected (None Detect); Benzodiazepine Urine Screen None Detected (None Detect); Urine Cannabinoids Screen Presumptive Positive (None Detect)
[2018-03-17 18:16] LABS: Urine Bacteria 1+ (Absent); Urine Red Blood Cell Trace(0-2/hpf) (Absent); Urine White Blood Cell Trace(0-5/hpf) (Absent)
[2018-03-17] MEDS: Haloperidol TAB* 5 MG PO SCH (22:05)
[2018-03-17] MEDS: Nicotine Patch Removal NOTE PATCH OFF SCH (22:05)
[2018-03-18 07:39] LABS: HDL Cholesterol 58.8 mg/dL
[2018-03-18] MEDS: Multivitamins/Minerals TAB PO SCH (11:01)
[2018-03-18] MEDS: Nicotine PATCH 14 MG/24 HR* PATCH TRANSDERM SCH (11:01)
[2018-03-18] MEDS: FLUoxetine CAP* 20 MG PO SCH (11:01)
[2018-03-18] MEDS: Nicotine Inhaler* 10 MG AMP INH PRN ×2 (16:03→18:41)
[2018-03-18] MEDS: Haloperidol TAB* 5 MG PO SCH ×2 (18:40→19:40)
[2018-03-18] MEDS: Nicotine Patch Removal NOTE PATCH OFF SCH (19:41)
[2018-03-19] MEDS: Nicotine Inhaler* 10 MG AMP INH PRN ×3 (08:29→17:30)
[2018-03-19] MEDS: Nicotine PATCH 14 MG/24 HR* PATCH TRANSDERM SCH (08:29)
[2018-03-19] MEDS: Multivitamins/Minerals TAB PO SCH (08:30)
[2018-03-19] MEDS: FLUoxetine CAP* 20 MG PO SCH (08:30)
[2018-03-19 09:18] VITALS: BP 104/56
[2018-03-19] MEDS: Phenazopyridine TAB* 100 MG PO SCH ×2 (12:53→17:29)
[2018-03-19] MEDS: Sulfamethox/Trimethoprim DS 800/160* TAB PO SCH ×2 (12:53→22:37)
--- NOTE | 2018-03-19 14:56 | PN ---
Subjective - Subjective Date of Service: 03/19/18 Service Type: 15063 Hosp care 25 min moderate complexity Subjective: Yadira stole a screwdriver this afternoon from the construction workers cart. She denied having taken this, but almost immediately returned it to staff. Yadira is ambivalent about taking medication but is agreeing to do so while on the unit. Despite reports of Yadira having appeared stable while at [facility], she reports otherwise. Objective - Appearance Appearance: Thin Framed Dysmorphic Features: No Hygiene: Normal Grooming: Fairly Well Kept - Behavior Psychomotor Activities: Abnormal-Increased Exhibits Abnormal Movement: Yes - Attitude and Relatedness Attitude and Relatedness: Child Like Eye Contact: Fair - Speech Quality: Pressured Latencies: Normal Quantity: Appropriate - Mood Patient's Decription of Mood: "Fine" - Affect Observed Affect: Fair Affect Consistent with: Euthymia - Thought Process Patient's Thought Process: Coherent, Goal Directed, Loose Associations, Circumstantial Thought Content: Yes Passive Wish, Yes Suicidal Planning, No Homicidal Ideation, No Paranoid Ideation - Sensorium Experiencing Hallucinations: No, Sensorium is Clear Type of Hallucinations: Visual: No, Auditory: No, Command: No - Level of Consciousness Level of Consciousness: Alert Orientation: Yes Intact, Yes Orientated to Time, Yes Orientated to Place, Yes Orientated to Person - Impulse Control Impulse Control: Poor - Insight and Judgement Insight and Judgement: Poor - Group Participation Particating in Group Activities: Yes - Medication Management Medication Management Adherence: Yes Assessment - Assessment Merits Inpatient Hospitalization: For Immediate Safety Clinical Impression: Yadira is a 27 year old single white female with a history of multiple TBI's and impulse control difficulties who comes to the hospital, for another repeat visit , on a voluntary status after voicing worsening impulsivity and multiple lethal suicide plans. Plan - Plan Treatment Plan: Name: KARINE DOS SANTOS Birthdate: 1990 [id number] Continued Medication Management: Continue Outpt Medication Medications: Current Medications Acetaminophen (Tylenol Tab*) 650 mg PO Q4H PRN PRN Reason: PAIN; OR TEMP >101 Al Hydrox/Mg Hydrox/Simethicone (Maalox Plus*) 30 ml PO Q4H PRN PRN Reason: INDIGESTION Device (Nicotine Mouth Piece*) 1 each INH ONCE PRN PRN Reason: CRAVING Last Admin: 03/18/18 12:31 Dose: 1 each Fluoxetine HCl (Prozac Cap*) 40 mg PO DAILY [facility] Last Admin: 03/19/18 08:30 Dose: 40 mg Haloperidol (Haldol Tab*) 5 mg PO BEDTIME [facility] Last Admin: 03/18/18 19:40 Dose: Not Given Multivitamins/Minerals (Theragran/Minerals Tab*) 1 tab PO DAILY [facility] Last Admin: 03/19/18 08:30 Dose: 1 tab Nicotine (Nicotine Inhaler*) 10 mg INH Q2H PRN PRN Reason: CRAVING Last Admin: 03/19/18 14:34 Dose: 10 mg Nicotine (Nicotine Patch 14 Mg/24 Hr*) 1 patch TRANSDERM DAILY [facility] Last Admin: 03/19/18 08:29 Dose: 1 patch Nicotine Polacrilex (Nicotine Gum*) 2 mg PO Q2H PRN PRN Reason: CRAVING Pharmacy Profile Note (Nicotine Patch Removal Note*) 1 note PATCH OFF 2100 [facility] Last Admin: 03/18/18 19:41 Dose: 1 note Phenazopyridine HCl (Pyridium Tab*) 100 mg PO TID [facility] Last Admin: 03/19/18 12:53 Dose: 100 mg Trimethoprim/Sulfamethoxazole (Bactrim Ds 800/160 Tab*) 1 tab PO BID [facility] Stop: 03/26/18 09:00 Last Admin: 03/19/18 12:53 Dose: 1 tab - Discharge Plan Discharge Plan: Outpatient Follow Up Outpatient Program: [facility] Additional Comments: Continue Haldol Sameh shows some insight into medication adherence showing some level of stability.
[2018-03-19] MEDS ORDERED: hydrOXYzine HCL TAB* 50 MG PO PRN (18:10)
[2018-03-19] MEDS: Haloperidol TAB* 5 MG PO SCH ×2 (18:51→22:39)
[2018-03-19] MEDS: Nicotine Patch Removal NOTE PATCH OFF SCH (22:39)
[2018-03-20] MEDS: Nicotine Inhaler* 10 MG AMP INH PRN ×2 (09:13→11:11)
[2018-03-20] MEDS: Multivitamins/Minerals TAB PO SCH (09:14)
[2018-03-20] MEDS: Nicotine PATCH 14 MG/24 HR* PATCH TRANSDERM SCH (09:14)
[2018-03-20] MEDS: FLUoxetine CAP* 20 MG PO SCH (09:14)
[2018-03-20] MEDS: Sulfamethox/Trimethoprim DS 800/160* TAB PO SCH (09:14)
[2018-03-20] MEDS: Phenazopyridine TAB* 100 MG PO SCH ×2 (09:14→13:11)
== END 2018-03-20 13:00 | disposition home or self-care (01) | DRG 754 ==
LOC: ED 17:08 → BSU 03-17 01:03
PROVIDERS: ADMIT Psychiatry & Neurology Psychiatry; ATTEND Psychiatry & Neurology Psychiatry
DX: F32.9 Major depressive disorder, single episode, unspecified (principal); F63.9 Impulse disorder, unspecified; F31.9 Bipolar disorder, unspecified; F90.9 Attention-deficit hyperactivity disorder, unspecified type; F41.9 Anxiety disorder, unspecified; M54.5 Low back pain; R51 Headache; J45.909 Unspecified asthma, uncomplicated; Z87.820 Personal history of traumatic brain injury; Z81.8 Family history of other mental and behavioral disorders
CPT/HCPCS: 36415; 80053; 80061; 80307; 80320; 80329; 81003; 81015; 83036; 83735; 84443; 84702; 85025; 87086; 99222; 99232; 99285; A9270-GY; G0480

== ENCOUNTER 2018-05-11 17:02 | Inpatient (IN) | payer OTHER ==
--- NOTE | 2018-05-11 17:35 | ED ---
Psychiatric Complaint - HPI Summary HPI Summary: The patient is a 28 y/o F presenting to [facility] accompanied by mother with a chief complaint of SI with a plant to jump off a bridge for the last two weeks but worsening the last four days. She has hx of depression and anxiety, which are supposed to be managed with medications, but she doesn't think they are working. She additionally reports changes in appetite since onset and self harm last night where she cut an 'X' shape into her right forearm. - History Of Current Complaint Chief Complaint: EDMentalHealth Time Seen by Provider: 05/11/18 17:23 Hx Obtained From: Patient Hx Last Menstrual Period: "Last week" Onset/Duration: Gradual Onset, Lasting Days - lasting for two weeks but worsenig in last four days, Still Present Timing: Days Severity Initially: Mild Severity Currently: Moderate Character: Depressed, Anxious Aggravating Factor(s): Nothing Alleviating Factor(s): Nothing Associated Signs And Symptoms: Positive: Appetite Change Related History: Positive For: Prior Psychiatric Issues - depression and anxiety Has Suicidal: Reports: Thoughts, With A Plan - jumping off of bridge Has Homicidal: Denies: Thoughts - Allergies/Home Medications Allergies/Adverse Reactions: Allergies Allergy/AdvReac Type Severity Reaction Status Date / Time Tree Nuts Allergy Severe Rash and Verified 05/11/18 17:09 tongue swelling amoxicillin Allergy Rash Verified 05/11/18 17:09 bee venom protein (honey bee) Allergy Anaphylatic Verified 05/11/18 17:09 Shock PMH/Surg Hx/FS Hx/Imm Hx Endocrine/Hematology History: Reports: Hx Anemia Denies: Hx Diabetes Cardiovascular History: Reports: Hx Hypotension - s/p O/D of clonidine. Denies: Hx Hypertension, Hx Pacemaker/ICD, Other Cardiovascular Problems/ Disorders Respiratory History: Reports: Hx Asthma, Hx Pneumonia GI History: Reports: Hx Ulcer - reports couple years ago Denies: Other GI Disorders History: Reports: Other Problems/Disorders - hx of frequent UTI's - last 4 months ago Denies: Hx Renal Disease Musculoskeletal History: Reports: Hx Back Problems - Chronic lower back pain, Hx Tendonitis, Other Musculoskeletal History - left shoulder rotator cuff repaired, left index finger fx Sensory History: Reports: Hx Contacts or Glasses Denies: Hx Hearing Aid Opthamlomology History: Reports: Hx Contacts or Glasses Neurological History: Reports: Hx Headaches, Hx Seizures - reports last one in 2014, Other Neuro Impairments/Disorders - tourette's, adhd, reports concussions x5, ptsd Psychiatric History: Reports: Hx Anxiety, Hx Attention Deficit Hyperactivity Disorder, Hx Depression, Hx Panic Disorder, Hx Post Traumatic Stress Disorder, Hx Inpatient Treatment, Hx Community Mental Health Tx, Hx Bipolar Disorder, Hx Suicide Attempt, Hx of Violent Episodes Against Others, Hx Substance Abuse Denies: Hx Eating Disorder, Hx Schizophrenia, Other Psychiatric Issues/ Disorders - Surgical History Surgery Procedure, Year, and Place: Tonsillectomy 2005, [place], [place]. left index finger fx repair 2016 - [facility] [place]. left shoulder rotator cuff repair 2018 - [facility] [place] Hx Anesthesia Reactions: No - Immunization History Date of Tetanus Vaccine: unk Date of Influenza Vaccine: unk Infectious Disease History: No Infectious Disease History: Denies: History Other Infectious Disease, Traveled Outside the in Last 30 Days - Family History Known Family History: Positive: Other - Schizophrenia, depression, alcohol abuse - Social History Alcohol Use: None Alcohol Amount: hx alcohol abuse in past - reports none in one year 10 months Hx Substance Use: Yes Substance Use Type: Reports: Marijuana Substance Use Comment - Amount & Last Used: reports marijuana 3x week - hx drug abuse in past - reports last used 2013 Hx Tobacco Use: Yes Smoking Status (MU): Current Every Day Smoker Type: Cigarettes Amount Used/How Often: reports 2 cigs a day currently, down from 1/2-1ppd for 10 yrs Length of Time of Smoking/Using Tobacco: 6YRS Have You Smoked in the Last Year: Yes Review of Systems Positive: Other - changes in appetite Positive: Other - laceration in shape of 'X' on right forearm Positive: Anxious, Depressed, Other - thoughts of SI with plan of jumping off bridge All Other Systems Reviewed And Are Negative: Yes Physical Exam - Summary Physical Exam Summary: VITAL SIGNS: Reviewed. GENERAL: Patient is a well-developed and nourished female who is lying comfortable in the stretcher. Patient is not in any acute respiratory distress. HEAD AND FACE: No signs of trauma. No ecchymosis, hematomas or skull depressions. No sinus tenderness. EYES: PERRLA, EOMI x 2, No injected conjunctiva, no nystagmus. EARS: Hearing grossly intact. Ear canals and tympanic membranes are within normal limits. MOUTH: Oropharynx within normal limits. NECK: Supple, trachea is midline, no adenopathy, no JVD, no carotid bruit, no c- spine tenderness, neck with full ROM. CHEST: Symmetric, no tenderness at palpation LUNGS: Clear to auscultation bilaterally. No wheezing or crackles. CVS: Regular rate and rhythm, S1 and S2 present, no murmurs or gallops appreciated. ABDOMEN: Soft, non-tender. No signs of distention. No rebound no guarding, and no masses palpated. Bowel sounds are normal. EXTREMITIES: FROM in all major joints, no edema, no cyanosis or clubbing. NEURO: Alert and oriented x 3. No acute neurological deficits. Speech is normal and follows commands. SKIN: Dry and warm. Laceration in 'X' shape on right forearm measuring 3cm by 3 cm, inflicted last night more than 12 hours ago, no sutures. PSYCH: Depressed, quiet, and reports suicidal thoughts with a plan. No homicidal thoughts or plan. No signs of psychosis or pressure speech. No tangential speech. Triage Information Reviewed: Yes Vital Signs On Initial Exam: Initial Vitals Temp Pulse Resp BP Pulse Ox 98.4 F 91 16 132/91 99 05/11/18 17:05 05/11/18 17:05 05/11/18 17:05 05/11/18 17:05 05/11/18 17:05 Vital Signs Reviewed: Yes Diagnostics - Vital Signs Vital Signs Temp Pulse Resp BP Pulse Ox 05/11/18 17:05 98.4 F 91 16 132/91 99 - Laboratory Result Diagrams: 05/11/18 17:27 05/11/18 17:27 Lab Statement: Any lab studies that have been ordered have been reviewed, and results considered in the medical decision making process. Course/Dx - Course Assessment/Plan: Blood work w/o a significant abnormality. She is medically cleared. She is awaiting for a MHE. Patient is hemodynamically stable and A+O x 3. Patient will be signed out to Dr. Jones to follow-up the mental health evaluation recommendation. - Differential Dx/Clinical Impression Differential Diagnosis/HQI/PQRI: Positive: Anxiety, Depression, Suicidal Ideation Provider Diagnosis: Depression Discharge - Sign-Out/Discharge Documenting (check all that apply): Sign-Out Patient Signing out patient TO: Esvin Jones - Patient is a sign-out to Dr. Esvin Jones MD, from Dr. Narendra Maria MD, at change of shift at 22:00 pending MHE and disposition. Patient Received Moderate/Deep Sedation with Procedure: No - Discharge Plan Referrals: Zenobia Meléndez MD [Primary Care Provider] - - Attestation Statements Document Initiated by Andres: Yes Documenting Scribe: Eva Vazquez Provider For Whom Zamzamibe is Documenting (Include Credential): Dr. Narendra Maria MD Scribe Attestation: I, Eva Vazquez, scribed for Dr. Narendra Maria MD on 05/11/18 at 2133. Scribe Documentation Reviewed: Yes Provider Attestation: The documentation as recorded by the Eva barber accurately reflects the service I personally performed and the decisions made by me, Dr. Narendra Maria MD Status of Scribe Document: Ready
[2018-05-11 17:41] LABS: ABS Basophils 0 10^3/ul (0-0.2); ABS Eosinophils 0 10^3/ul (0-0.6); ABS Lymphocytes 2.5 10^3/ul (1.0-4.8); ABS Monocytes 0.5 10^3/ul (0-0.8); ABS Neutrophils 4.9 10^3/ul (1.5-7.7); ABS Nucleated RBC 0 10^3/ul; Eosinophil % 0.3 %; Hematocrit 39 % (33-41); Hemoglobin 13.1 g/dL (12.0-16.0); Lymphocyte % 31.9 %; Mean Corpuscular HGB Conc 34 g/dL (31-36); Mean Corpuscular Hemoglobin 31 pg (27-31); Mean Corpuscular Volume 92 fL (80-97); Mean Platelet Volume 7.9 fL (7.4-10.4); Nucleated Red Blood Cells % 0.1; Platelet Count 265 10^3/uL (150-450); Red Blood Count 4.23 10^6 /uL (3.70-4.87); Red Cell Distribution Width 13 % (10.5-15); White Blood Count 7.9 10^3/uL (3.5-10.8)
[2018-05-11 17:56] LABS: ALT 10 U/L (7-52); AST 20 U/L (13-39); Albumin/Globulin Ratio 2.3 (1-3); Alkaline Phosphatase 44 U/L (34-104); Anion Gap 9 mmol/L (2-11); BUN/Creatinine Ratio 8.6 (8-20); Blood Urea Nitrogen 7 mg/dL (6-24); CO2 Carbon Dioxide 25 mmol/L (22-32); Calcium 9.7 mg/dL (8.6-10.3); Chloride 102 mmol/L (101-111); EGFR African American 101.9 (>60); EGFR Non-African American 84.2 (>60); Globulin 2.2 g/dL (2-4); Glucose 92 mg/dL (70-100); Potassium 3.6 mmol/L (3.5-5.0); Sodium 136 mmol/L (135-145); Total Protein 7.2 g/dL (6.4-8.9)
[2018-05-11 17:57] LABS: Barbiturates Urine Screen None Detected (None Detect); Benzodiazepine Urine Screen None Detected (None Detect); Urine Cannabinoids Screen Presumptive Positive (None Detect)
[2018-05-11 17:59] LABS: Urine Appearance Clear; Urine Bilirubin Negative (Negative); Urine Blood Negative (Negative); Urine Color Straw; Urine Glucose Negative (Negative); Urine Ketones 1+ (Negative); Urine Nitrite Negative (Negative); Urine Protein Negative (Negative); Urine Specific Gravity 1.006 (1.010-1.030); Urine Urobilinogen Negative (Negative)
[2018-05-11 18:44] LABS: Acetaminophen < 15 mcg/mL; Alcohol < 10 mg/dL (<10); Salicylate < 2.50 mg/dL (<30)
[2018-05-11 18:58] LABS: TSH (Thyroid Stimulating Horm) 2.82 mcIU/mL (0.34-5.60)
--- NOTE | 2018-05-11 23:06 | ED ---
Progress - Progress Note Progress Note: Sign-out from Dr. Maria at [address] Jones pending MHE. Per Dr. Greene, E is admitting the patient with a diagnosis of unspecified depressive disorder. - Consult/PCP Time Called: 20:30 Course/Dx - Course Course Of Treatment: Sign-out from Dr. Maria at [address] Jones pending MHE. Per Dr. Greene, E is admitting the patient with a diagnosis of unspecified depressive disorder. - Diagnoses Provider Diagnoses: Major depressive disorder, recurrent, unspecified Discharge - Sign-Out/Discharge Documenting (check all that apply): Patient Departure - Admission Receiving patient FROM: Narendra Maria Patient Received Moderate/Deep Sedation with Procedure: No - Discharge Plan Condition: Guarded Disposition: [facility]ATRIC FACILITY[facility] [place] - Billing Disposition and Condition Condition: GUARDED Disposition: Psychiatric Facility [facility] [place] - Attestation Statements Document Initiated by Andres: Yes Documenting Scribe: Ilia Johnson Provider For Whom Andres is Documenting (Include Credential): Esvin Jones MD Scribe Attestation: Ilia Christie scribed for Esvin Jones MD on 05/12/18 at 2018. Scribe Documentation Reviewed: Yes Provider Attestation: The documentation as recorded by the Ilia barber accurately reflects the service I personally performed and the decisions made by Esvin zavaleta MD Status of Scribe Document: Viewed
[2018-05-11] MEDS ORDERED: Acetaminophen TAB* 325 MG PO PRN (23:10)
[2018-05-11] MEDS ORDERED: Al Hydrox/Mg Hydrox/Simet LIQ* 30 ML UDC PO PRN (23:11)
[2018-05-11] MEDS ORDERED: LORazepam TAB(*) 0.5 MG PO PRN (23:11)
[2018-05-11] MEDS ORDERED: Mouth Piece, Nicotine* 1 EACH CARTRIDGE INH PRN (23:12)
[2018-05-11] MEDS: Nicotine Inhaler* 10 MG AMP INH PRN (23:50)
[2018-05-12] MEDS ORDERED: Haloperidol TAB* 5 MG ONE (00:01)
[2018-05-12] MEDS: FLUoxetine CAP* 20 MG PO SCH (13:12)
[2018-05-12] MEDS: Cetirizine* 10 MG TAB PO SCH (13:12)
[2018-05-12] MEDS: Multivitamins/Minerals TAB PO SCH (13:13)
[2018-05-12] MEDS: Haloperidol TAB* 5 MG PO SCH (20:59)
[2018-05-12] MEDS: Nicotine Inhaler* 10 MG AMP INH PRN (21:01)
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
[2018-05-13] MEDS ORDERED: Albuterol HFA INHALER* 8 gm MDI INH PRN (12:42)
[2018-05-13] MEDS: FLUoxetine CAP* 20 MG PO SCH (14:12)
[2018-05-13] MEDS: Cetirizine* 10 MG TAB PO SCH (14:12)
[2018-05-13] MEDS: Multivitamins/Minerals TAB PO SCH (14:12)
[2018-05-13] MEDS: Nicotine Inhaler* 10 MG AMP INH PRN (19:55)
[2018-05-13] MEDS: Haloperidol TAB* 5 MG PO SCH (19:56)
[2018-05-14 08:02] LABS: HDL Cholesterol 58.3 mg/dL
[2018-05-14] MEDS: Multivitamins/Minerals TAB PO SCH (09:46)
[2018-05-14] MEDS: Cetirizine* 10 MG TAB PO SCH (09:46)
[2018-05-14] MEDS: FLUoxetine CAP* 20 MG PO SCH (09:46)
[2018-05-14] MEDS: Nicotine Inhaler* 10 MG AMP INH PRN (13:03)
--- NOTE | 2018-05-14 14:09 | PN ---
Subjective - Subjective Date of Service: 05/14/18 Service Type: 24826 Hosp care 25 min moderate complexity Subjective: Yadira is very unhappy and very anxious. She feels like she can't breathe and motions to her neck and chest. She states she does not feel isolated or under stimulated. Instead, she states that somehow over the last two weeks she started sinking into a depression and anxiety that she can't find a reason for. Objective - Appearance Appearance: Healthy Appearing Dysmorphic Features: No Hygiene: Normal Grooming: Fairly Well Kept - Behavior Psychomotor Activities: Normal Exhibits Abnormal Movement: No - Attitude and Relatedness Attitude and Relatedness: Cooperative Eye Contact: Fair - Speech Quality: Unpressured Latencies: Normal Quantity: Terse - Mood Patient's Decription of Mood: "Terrible" - Affect Observed Affect: Depressed Affect Consistent with: Dysphoria - Thought Process Patient's Thought Process: Coherent, Circumstantial Thought Content: Yes Passive Wish, Yes Suicidal Planning, No Homicidal Ideation, No Paranoid Ideation - Sensorium Experiencing Hallucinations: No, Sensorium is Clear Type of Hallucinations: Visual: No, Auditory: No, Command: No - Level of Consciousness Level of Consciousness: Alert Orientation: Yes Intact, Yes Orientated to Time, Yes Orientated to Place, Yes Orientated to Person - Impulse Control Impulse Control: Poor - Insight and Judgement Insight and Judgement: Fair - Group Participation Particating in Group Activities: Yes - Medication Management Medication Management Adherence: Yes Assessment - Assessment Merits Inpatient Hospitalization: For Immediate Safety Inpatient DSM-V Dx: F33.1 Clinical Impression: Yadira is a 28-year-old single white female with a history of depression and Tourette's who comes to the hospital after continuing and worsening thoughts of suicide with a plan, among others, to jump from an abandonded train trestle. Plan - Plan Treatment Plan: Name: KARINE DOS SANTOS Birthdate: 1990 [id number] Continued Medication Management: Different Medication Medications: Current Medications Acetaminophen (Tylenol Tab*) 650 mg PO Q4H PRN PRN Reason: PAIN; OR TEMP>101 Last Admin: 05/13/18 19:22 Dose: 650 mg Al Hydrox/Mg Hydrox/Simethicone (Maalox Plus*) 30 ml PO Q4H PRN PRN Reason: INDIGESTION Albuterol (Ventolin Hfa Inhaler*) 1 puff INH Q4H PRN PRN Reason: SOB/WHEEZING Alprazolam (Xanax Tab*) 0.5 mg PO TID [facility] Cetirizine HCl (Zyrtec*) 10 mg PO DAILY [facility] Last Admin: 05/14/18 09:46 Dose: Not Given Device (Nicotine Mouth Piece*) 1 each INH .USE W/ CARTRIDGE PRN PRN Reason: WITHDRAWAL - NICOTINE Last Admin: 05/11/18 23:51 Dose: 1 each Fluoxetine HCl (Prozac Cap*) 40 mg PO DAILY [facility] Last Admin: 05/14/18 09:46 Dose: Not Given Haloperidol (Haldol Tab*) 5 mg PO BEDTIME [facility] Last Admin: 05/13/18 19:56 Dose: 5 mg Lorazepam (Ativan Tab(*)) 0.5 mg PO DAILY PRN PRN Reason: ANXIETY Last Admin: 05/12/18 00:00 Dose: 0.5 mg Multivitamins/Minerals (Theragran/Minerals Tab*) 1 tab PO DAILY [facility] Last Admin: 05/14/18 09:46 Dose: Not Given Nicotine (Nicotine Inhaler*) 10 mg INH Q2H PRN PRN Reason: CRAVING Last Admin: 05/14/18 13:03 Dose: 10 mg Nicotine Polacrilex (Nicotine Gum*) 2 mg PO Q2H PRN PRN Reason: CRAVING - Discharge Plan Discharge Plan: Outpatient Follow Up Outpatient Program: [facility] Additional Comments: Yadira Will continue her stay at [facility] and will start Xanax 0.5 mg TID to reduce anxiety that is causing her to have somatic complaints.. She states Ativan and Klonopin both affect her memory negatively. Her history in the outpatient setting substantiates this as well as bolstering evidence for benzodiazepine efficacy. Continue Haldol and Prozac.
[2018-05-14] MEDS: ALPRAZolam TAB* 0.5 MG PO SCH ×2 (14:24→22:14)
[2018-05-14] MEDS: Haloperidol TAB* 5 MG PO SCH (22:14)
[2018-05-15] MEDS: Nicotine Inhaler* 10 MG AMP INH PRN ×3 (08:14→20:19)
[2018-05-15] MEDS: Cetirizine* 10 MG TAB PO SCH (08:15)
[2018-05-15] MEDS: FLUoxetine CAP* 20 MG PO SCH (08:15)
[2018-05-15] MEDS: ALPRAZolam TAB* 0.5 MG PO SCH ×3 (08:15→20:19)
[2018-05-15] MEDS: Multivitamins/Minerals TAB PO SCH (08:15)
--- NOTE | 2018-05-15 11:11 | PN ---
BSU: Group Therapy Note - Service Type Service Type: [id number] Group Psychotherapy - Cognitive Behavioral Group Therapy ( CBT):Patient was attentive and participatory in CBT programming this morning, and remained in good behavioral control. Patient expressed positive insights regarding relevant treatment interventions and goals.
[2018-05-15] MEDS: Nicotine GUM* 2 MG PO PRN (12:42)
[2018-05-15] MEDS ORDERED: Escitalopram * 5 MG TAB PO ONE (14:00)
--- NOTE | 2018-05-15 16:43 | PN ---
Subjective - Subjective Date of Service: 05/15/18 Service Type: [id number] Hosp care 15 min low complexity Subjective: Yadira reports that she is taking only Xanax because Haldol makes her feel bad and Prozac doesn't work. She states she self-lowreed the Haldol to 2.5 mg in the outpatient setting and when things started getting bad, she stopped the Prozac herself. She is therefore more distant from possibly helpful treatment than had been anticipated. She is agreeable to taking a lowered dose of Haldol and a different SSRI. Objective - Appearance Appearance: Healthy Appearing Dysmorphic Features: No Hygiene: Normal Grooming: Fairly Well Kept - Behavior Psychomotor Activities: Normal - Attitude and Relatedness Attitude and Relatedness: Withdrawn Eye Contact: Fair - Speech Quality: Unpressured Latencies: Normal Quantity: Terse - Mood Patient's Decription of Mood: "Terrible" - Affect Observed Affect: Depressed Affect Consistent with: Dysphoria - Thought Process Patient's Thought Process: Coherent Thought Content: Yes Passive Wish, Yes Suicidal Planning, No Homicidal Ideation, No Paranoid Ideation - Sensorium Experiencing Hallucinations: No, Sensorium is Clear Type of Hallucinations: Visual: No, Auditory: No, Command: No - Level of Consciousness Level of Consciousness: Alert Orientation: Yes Intact, Yes Orientated to Time, Yes Orientated to Place, Yes Orientated to Person - Impulse Control Impulse Control: Impaired - Insight and Judgement Insight and Judgement: Poor - Group Participation Particating in Group Activities: Yes - Medication Management Medication Management Adherence: Yes Assessment - Assessment Merits Inpatient Hospitalization: For Immediate Safety Inpatient DSM-V Dx: F33.1 Clinical Impression: Yadira is a 28-year-old single white female with a history of depression and Tourette's who comes to the hospital after continuing and worsening thoughts of suicide with a plan, among others, to jump from an abandonded train trestle. Plan - Plan Treatment Plan: Name: KARINE DOS SANTOS Birthdate: 1990 [id number] Continued Medication Management: Different Medication Medications: Current Medications Acetaminophen (Tylenol Tab*) 650 mg PO Q4H PRN PRN Reason: PAIN; OR TEMP>101 Last Admin: 05/13/18 19:22 Dose: 650 mg Al Hydrox/Mg Hydrox/Simethicone (Maalox Plus*) 30 ml PO Q4H PRN PRN Reason: INDIGESTION Albuterol (Ventolin Hfa Inhaler*) 1 puff INH Q4H PRN PRN Reason: SOB/WHEEZING Alprazolam (Xanax Tab*) 0.5 mg PO TID [facility] Last Admin: 05/15/18 13:09 Dose: 0.5 mg Cetirizine HCl (Zyrtec*) 10 mg PO DAILY [facility] Last Admin: 05/15/18 08:15 Dose: Not Given Device (Nicotine Mouth Piece*) 1 each INH .USE W/ CARTRIDGE PRN PRN Reason: WITHDRAWAL - NICOTINE Last Admin: 05/11/18 23:51 Dose: 1 each Escitalopram Oxalate (Lexapro *) 15 mg PO DAILY [facility] Haloperidol (Haldol Tab*) 4 mg PO BEDTIME [facility] Lorazepam (Ativan Tab(*)) 0.5 mg PO DAILY PRN PRN Reason: ANXIETY Last Admin: 05/12/18 00:00 Dose: 0.5 mg Multivitamins/Minerals (Theragran/Minerals Tab*) 1 tab PO DAILY [facility] Last Admin: 05/15/18 08:15 Dose: Not Given Nicotine (Nicotine Inhaler*) 10 mg INH Q2H PRN PRN Reason: CRAVING Last Admin: 05/15/18 12:42 Dose: 10 mg Nicotine Polacrilex (Nicotine Gum*) 2 mg PO Q2H PRN PRN Reason: CRAVING Last Admin: 05/15/18 12:42 Dose: 2 mg - Discharge Plan Discharge Plan: Outpatient Follow Up Outpatient Program: [facility] Additional Comments: Yadira Will continue her stay at [facility] and will start Xanax 0.5 mg TID to reduce anxiety that is causing her to have somatic complaints.. She states Ativan and Klonopin both affect her memory negatively. Her history in the outpatient setting substantiates this as well as bolstering evidence for benzodiazepine efficacy. Continue Haldol and Prozac. 05/15/18 Drop Haldol to 4 mg Start Lexapro 5 mg today and 15 mg tomorrow.
[2018-05-15] MEDS ORDERED: Haloperidol TAB* 2 MG PO SCH (21:00)
[2018-05-15] MEDS ORDERED: Haloperidol TAB* 5 MG PO ONE (22:12)
[2018-05-15] MEDS ORDERED: Haloperidol TAB* 5 MG ONE (22:41)
[2018-05-16] MEDS: Nicotine Inhaler* 10 MG AMP INH PRN ×2 (08:52→17:30)
[2018-05-16] MEDS: Escitalopram * 10 MG TAB PO SCH (08:52)
[2018-05-16] MEDS: Nicotine GUM* 2 MG PO PRN ×3 (08:55→17:30)
[2018-05-16] MEDS: Multivitamins/Minerals TAB PO SCH (09:35)
[2018-05-16] MEDS: Cetirizine* 10 MG TAB PO SCH (09:35)
[2018-05-16] MEDS: ALPRAZolam TAB* 0.5 MG PO SCH ×2 (09:45→14:54)
[2018-05-16 11:06] VITALS: BP 109/69
--- NOTE | 2018-05-16 13:06 | PN ---
Subjective - Subjective Date of Service: 05/16/18 Service Type: 62991 Hosp care 25 min moderate complexity Subjective: Yadira is eager to leave. She states the suicidal ideation is gone and that she no longer feels like jumping from the bridge. She does llike feeling less anxious courtesy of the Xanax. We discussed that this would not be a medication for discharge. Rather, we will change to Valium and use it once per day as needed. In an odd exchange, Yadira revealed herself to be very sensitive to a tone of voice rather than the content of the conversation. She rallied from this admirably, however. Objective - General Observations Appearance: Well Groomed Appears Stated Age: Yes Stature: WNL Posture: WNL Eye Contact: Average Behavior/Activity: WNL - Interaction Observations Attitude Towards Examiner: Cooperative, Anxious, Defensive Stated Mood: Dysphoric, Irritable Affect: Blunted Speech Pattern/Tone: Clear Thought Process: Coherent Perception: WNL Thought Content: WNL Hallucination Type: None Delusion Type: None - Cognitive Function Orientation: A&O x 4 Level of Consciousness: Awake, Alert, Appropriate Cognition: WNL Insight: WNL Judgment Within Normal Limits: Yes Ability to Make Reasonable Decisions: Mildly Impaired - Medication Compliance Cooperative with Inpatient Medication Regimen: Yes - Group Participation Participates in Group Activities: Partial Assessment - Assessment Merits Inpatient Hospitalization: For Immediate Safety, For Discharge Planning Inpatient DSM-V Dx: F33.1 Clinical Impression: Yadira is a 28-year-old single white female with a history of depression and Tourette's who comes to the hospital after continuing and worsening thoughts of suicide with a plan, among others, to jump from an abandonded train trestle. Plan - Plan Treatment Plan: Name: KARINE DOS SANTOS Birthdate: 1990 [id number] Continued Medication Management: Different Medication Medications: Current Medications Acetaminophen (Tylenol Tab*) 650 mg PO Q4H PRN PRN Reason: PAIN; OR TEMP>101 Last Admin: 05/13/18 19:22 Dose: 650 mg Al Hydrox/Mg Hydrox/Simethicone (Maalox Plus*) 30 ml PO Q4H PRN PRN Reason: INDIGESTION Albuterol (Ventolin Hfa Inhaler*) 1 puff INH Q4H PRN PRN Reason: SOB/WHEEZING Alprazolam (Xanax Tab*) 0.5 mg PO TID [facility] Last Admin: 05/16/18 09:45 Dose: Not Given Cetirizine HCl (Zyrtec*) 10 mg PO DAILY [facility] Last Admin: 05/16/18 09:35 Dose: Not Given Device (Nicotine Mouth Piece*) 1 each INH .USE W/ CARTRIDGE PRN PRN Reason: WITHDRAWAL - NICOTINE Last Admin: 05/11/18 23:51 Dose: 1 each Escitalopram Oxalate (Lexapro *) 15 mg PO DAILY [facility] Last Admin: 05/16/18 08:52 Dose: 15 mg Haloperidol (Haldol Tab*) 4 mg PO BEDTIME [facility] Last Admin: 05/15/18 22:44 Dose: Not Given Lorazepam (Ativan Tab(*)) 0.5 mg PO DAILY PRN PRN Reason: ANXIETY Last Admin: 05/12/18 00:00 Dose: 0.5 mg Multivitamins/Minerals (Theragran/Minerals Tab*) 1 tab PO DAILY [facility] Last Admin: 05/16/18 09:35 Dose: Not Given Nicotine (Nicotine Inhaler*) 10 mg INH Q2H PRN PRN Reason: CRAVING Last Admin: 05/16/18 08:52 Dose: 10 mg Nicotine Polacrilex (Nicotine Gum*) 2 mg PO Q2H PRN PRN Reason: CRAVING Last Admin: 05/16/18 12:04 Dose: 2 mg - Discharge Plan Discharge Plan: Outpatient Follow Up Outpatient Program: [facility] Additional Comments: Yadira Will continue her stay at [facility] and will start Xanax 0.5 mg TID to reduce anxiety that is causing her to have somatic complaints.. She states Ativan and Klonopin both affect her memory negatively. Her history in the outpatient setting substantiates this as well as bolstering evidence for benzodiazepine efficacy. Continue Haldol and Prozac. 05/15/18 Drop Haldol to 4 mg Start Lexapro 5 mg today and 15 mg tomorrow. 05/16/18 Change Haldol to 2.5 mg Keep Lexapro at 15 mg Change from Xanax to Valium and reduce frequency
[2018-05-16] MEDS: Diazepam TAB(*) 5 MG PO SCH (20:09)
[2018-05-16] MEDS ORDERED: Haloperidol TAB* 5 MG PO SCH (21:00)
[2018-05-17] MEDS: Diazepam TAB(*) 5 MG PO SCH (08:08)
[2018-05-17] MEDS: Escitalopram * 10 MG TAB PO SCH (08:08)
[2018-05-17] MEDS: Nicotine Inhaler* 10 MG AMP INH PRN (08:08)
[2018-05-17] MEDS: Multivitamins/Minerals TAB PO SCH (09:55)
[2018-05-17] MEDS: Cetirizine* 10 MG TAB PO SCH (09:55)
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
== END 2018-05-17 11:13 | disposition home or self-care (01) | DRG 751 ==
LOC: ED 17:02 → BSU 05-12 00:43
PROVIDERS: ADMIT Psychiatry & Neurology Psychiatry; ATTEND Psychiatry & Neurology Psychiatry
PROC: GZHZZZZ Group Psychotherapy (ICD-10-PCS; principal; 2018-05-15)
DX: F33.2 Major depressive disorder, recurrent severe without psychotic features (principal); R45.851 Suicidal ideations; F95.2 Tourette's disorder; G89.29 Other chronic pain; F90.9 Attention-deficit hyperactivity disorder, unspecified type; M54.5 Low back pain; F12.20 Cannabis dependence, uncomplicated; J45.909 Unspecified asthma, uncomplicated; F17.210 Nicotine dependence, cigarettes, uncomplicated; Z62.810 Personal history of physical and sexual abuse in childhood; F43.10 Post-traumatic stress disorder, unspecified; F60.89 Other specific personality disorders; F41.0 Panic disorder [episodic paroxysmal anxiety]; Z88.0 Allergy status to penicillin; Z91.030 Bee allergy status; Z91.018 Allergy to other foods; Z81.8 Family history of other mental and behavioral disorders; Z86.74 Personal history of sudden cardiac arrest; Z87.820 Personal history of traumatic brain injury; Z87.440 Personal history of urinary (tract) infections; Z91.5 Personal history of self-harm
CPT/HCPCS: 36415; 80053; 80061; 80307; 80320; 80329; 81003; 83036; 84443; 85025; 90853; 99222; 99231; 99232; 99238; 99285; A9270-GY; G0480

== ENCOUNTER 2018-07-03 09:52 | Inpatient (IN) | payer OTHER ==
--- NOTE | 2018-07-03 10:47 | ED ---
Psychiatric Complaint - HPI Summary HPI Summary: Pt. is a 28 y.o female who presents to the ER for depression and suicidal ideation for several days. Pt. has been admitted to the [facility] numerous times in the past. Currently taking haldol, lexapro, and valium which she states she has been taking daily as rx. Pt. states she has numerous suicidal plans. She denies any recent attempts. Denies drug or ETOH use today. Symptoms are severe in severity. No current modifying factors. - History Of Current Complaint Chief Complaint: EDSuicidal Time Seen by Provider: 07/03/18 10:12 Hx Obtained From: Patient Hx Last Menstrual Period: "Last week" - Allergies/Home Medications Allergies/Adverse Reactions: Allergies Allergy/AdvReac Type Severity Reaction Status Date / Time Tree Nuts Allergy Severe Rash and Verified 05/12/18 01:44 tongue swelling amoxicillin Allergy Rash Verified 05/12/18 01:44 bee venom protein (honey bee) Allergy Anaphylatic Verified 05/12/18 01:44 Shock Home Medications: Home Medications Escitalopram * [Lexapro *] 20 mg PO DAILY 07/03/18 [History Confirmed 07/03/18] Lisdexamfetamine(NF) [Vyvanse(NF)] 20 mg PO DAILY 07/03/18 [History Confirmed ] Prazosin CAP* [Minipress CAP*] 1 mg PO DAILY 07/03/18 [History Confirmed ] PMH/Surg Hx/FS Hx/Imm Hx Previously Healthy: Yes Endocrine/Hematology History: Reports: Hx Anemia Denies: Hx Diabetes Cardiovascular History: Reports: Hx Hypotension - s/p O/D of clonidine. Denies: Hx Hypertension, Hx Pacemaker/ICD, Other Cardiovascular Problems/ Disorders Respiratory History: Reports: Hx Asthma, Hx Pneumonia GI History: Reports: Hx Ulcer - reports couple years ago Denies: Other GI Disorders History: Reports: Other Problems/Disorders - hx of frequent UTI's - last 4 months ago Denies: Hx Renal Disease Musculoskeletal History: Reports: Hx Back Problems - Chronic lower back pain, Hx Tendonitis, Other Musculoskeletal History - left shoulder rotator cuff repaired, left index finger fx Sensory History: Reports: Hx Contacts or Glasses - Eyeglasses with patient Denies: Hx Hearing Aid Opthamlomology History: Reports: Hx Contacts or Glasses - Eyeglasses with patient Neurological History: Reports: Hx Headaches, Hx Seizures - reports last one in 2014, Other Neuro Impairments/Disorders - tourette's, adhd, reports concussions x5, ptsd Psychiatric History: Reports: Hx Anxiety, Hx Attention Deficit Hyperactivity Disorder, Hx Depression, Hx Panic Disorder, Hx Post Traumatic Stress Disorder, Hx Inpatient Treatment, Hx Community Mental Health Tx, Hx Bipolar Disorder, Hx Suicide Attempt, Hx of Violent Episodes Against Others, Hx Substance Abuse Denies: Hx Eating Disorder, Hx Schizophrenia, Other Psychiatric Issues/ Disorders - Surgical History Surgery Procedure, Year, and Place: Tonsillectomy 2005, [place], [place]. left index finger fx repair 2016 - [facility] [place]. left shoulder rotator cuff repair 2018 - [facility] [place] Hx Anesthesia Reactions: No - Immunization History Date of Tetanus Vaccine: unk Date of Influenza Vaccine: unk Infectious Disease History: No Infectious Disease History: Denies: History Other Infectious Disease, Traveled Outside the in Last 30 Days - Family History Known Family History: Positive: Other - Schizophrenia, depression, alcohol abuse - Social History Occupation: Unemployed Lives: With Family Alcohol Use: None Alcohol Amount: hx alcohol abuse in past - reports none in one year 10 months Hx Substance Use: Yes Substance Use Type: Reports: Marijuana Substance Use Comment - Amount & Last Used: reports marijuana 3x week - hx drug abuse in past - reports last used 2013 Hx Tobacco Use: Yes Smoking Status (MU): Heavy Every Day Tobacco Smoker Type: Cigarettes Amount Used/How Often: reports 2 cigs a day currently, down from 1/2-1ppd for 10 yrs Length of Time of Smoking/Using Tobacco: 6YRS Have You Smoked in the Last Year: Yes Review of Systems Cardiovascular: Negative Respiratory: Negative Gastrointestinal: Negative Neurological: Negative Positive: Depressed, Other - SI All Other Systems Reviewed And Are Negative: Yes Physical Exam Triage Information Reviewed: Yes Vital Signs On Initial Exam: Initial Vitals Temp Pulse Resp BP Pulse Ox 98.9 F 78 18 114/75 99 07/03/18 10:07/03/18 10:00 07/03/18 10:00 07/03/18 10:07/03/18 10:00 Vital Signs Reviewed: Yes Appearance: Positive: Well-Appearing - Pt. sitting on end of bed in NAD. Anxious. Poor eye contact. Disheveled. manager relationship present. Skin: Positive: Warm, Dry Head/Face: Positive: Normal Head/Face Inspection Eyes: Positive: Normal, EOMI Neck: Positive: Supple Neurological: Positive: Normal, Alert, Oriented to Person Place, Time, CN Intact II-III Psychiatric: Positive: Anxious Diagnostics - Vital Signs Vital Signs Temp Pulse Resp BP Pulse Ox 07/03/18 10:00 98.9 F 78 18 114/75 99 - Laboratory Lab Statement: Any lab studies that have been ordered have been reviewed, and results considered in the medical decision making process. Course/Dx - Course Assessment/Plan: Pt. presenting for SI. She is medical cleared for MHE. On constant observation. Pt. underwent MHE and psychiatrist was consulted. Pt. will be admitted voluntarily to the [facility]. - Differential Dx/Clinical Impression Differential Diagnosis/HQI/PQRI: Positive: Acute Psychosis, Suicidal Ideation Provider Diagnosis: Depression Discharge - Sign-Out/Discharge Documenting (check all that apply): Patient Departure Patient Received Moderate/Deep Sedation with Procedure: No - Discharge Plan Condition: Stable [facility] [place]: Zenobia Meléndez MD [Primary Care Provider] - - Billing Disposition and Condition Condition: STABLE Disposition: [facility]
[2018-07-03 11:30] LABS: ABS Lymphocytes 1.7 10^3/ul (1.0-4.8); ABS Monocytes 0.4 10^3/ul (0-0.8); ABS Neutrophils 4.2 10^3/ul (1.5-7.7); Eosinophil % 0.7 %; Hematocrit 40 % (35-47); Hemoglobin 13.4 g/dL (12.0-16.0); Lymphocyte % 26.3 %; Mean Corpuscular HGB Conc 34 g/dL (31-36); Mean Corpuscular Hemoglobin 31 pg (27-31); Mean Corpuscular Volume 93 fL (80-97); Mean Platelet Volume 8.2 fL (7.4-10.4); Nucleated Red Blood Cells % 0.1; Platelet Count 250 10^3/uL (150-450); Red Blood Count 4.25 10^6 /uL (3.70-4.87); Red Cell Distribution Width 13 % (10.5-15); White Blood Count 6.3 10^3/uL (3.5-10.8)
[2018-07-03 11:33] LABS: Urine Appearance Cloudy; Urine Bilirubin Negative (Negative); Urine Blood Negative (Negative); Urine Color Yellow; Urine Glucose Negative (Negative); Urine Ketones Trace (Negative); Urine Nitrite Negative (Negative); Urine Protein Negative (Negative); Urine Specific Gravity 1.024 (1.010-1.030); Urine Urobilinogen Negative (Negative)
[2018-07-03 11:35] LABS: Urine Benzodiazepine Screen Presumptive Positive (None Detect); Urine Opiates Screen None Detected (None Detect)
[2018-07-03 11:54] LABS: ALT 8 U/L (7-52); AST 17 U/L (13-39); Albumin 4.8 g/dL (3.2-5.2); Albumin/Globulin Ratio 2.3 (1-3); Alcohol < 10 mg/dL (<10); Alkaline Phosphatase 40 U/L (34-104); Anion Gap 3 mmol/L (2-11); BUN/Creatinine Ratio 17.7 (8-20); Blood Urea Nitrogen 14 mg/dL (6-24); CO2 Carbon Dioxide 29 mmol/L (22-32); Calcium 9.6 mg/dL (8.6-10.3); Chloride 105 mmol/L (101-111); EGFR African American 104.9 (>60); EGFR Non-African American 86.7 (>60); Globulin 2.1 g/dL (2-4); Glucose 98 mg/dL (70-100); Potassium 4.2 mmol/L (3.5-5.0); Salicylate < 2.50 mg/dL (<30); Sodium 137 mmol/L (135-145); Total Protein 6.9 g/dL (6.4-8.9)
[2018-07-03 12:09] LABS: Acetaminophen 1 mcg/mL
[2018-07-03] MEDS ORDERED: Acetaminophen TAB* 325 MG PO PRN (12:44)
[2018-07-03] MEDS ORDERED: Al Hydrox/Mg Hydrox/Simet LIQ* 30 ML UDC PO PRN (12:44)
[2018-07-03] MEDS ORDERED: Albuterol HFA INHALER* 8 gm MDI INH PRN (12:45)
[2018-07-03] MEDS: Nicotine* 2MG (FRUIT FLAVOR) GUM PO PRN (16:13)
--- NOTE | 2018-07-03 17:07 | HP ---
H&P (Free Text) History and Physical: Justification for admission: Immediate Safety. CC " I was thinking of jumping off the train bridge" The patient was admitted to the BSU after being evaluated for suicidal ideation with a plan to jump off a train embankment in [place]. [place] thought about who would take care of her dog and decided not to jump. She reported feeling depressed lately and having persistent thoughts of suicide. She has a jan friend that lives in [place] that she talks to once a week. She isolates herself and doesnt like to be around people She denied access to firearms or stockpiles of medications. She reported poor sleep and appetite The patient denied homicidal ideation intent or plan.The patient denied auditory and/ or visual hallucinations. MDD Reported feeling depressed. Reported having diminished interests which were found to be enjoyable in the past. Reported having crying spells , feeling empty inside, feelings of hopelessness and worthlessness.Reported interruption of sleep or feeling tired throughout the day and loss of energy and lack of motivation to complete tasks, and decreased concentration. She reported recurrent thoughts of . Anxiety Reported having symptoms of anxiety such as having times where heart feels that it is beating out of chest , sweaty palms, or shallow breathing. Denied having uncomfortable or intrusive thoughts. Reported feeling restless, high strung, or worrying too much most of the time. Bipolar Denied symptoms of alivia such as having many ideas at once. Denied increased talkativeness where no one can interrupt. Denied feeling irritable most of the time while having an persistent abundance of energy most of the day without the use of energy drinks, stimulants, or recreational drug use. Denied an increase in intensity in goal directed activities. Denied having the decreased need to sleep for days , having prolonged elevated heighted mood , or feeling on top of the world. Denied impulsive risky sexual encounters. Denied spending money recklessly , going on spending sprees wiping out savings. Denied impulsively traveling out of town or country, having super fisher, and unrealistic wealth or fame. Psychosis Does not endorse hearing things that other people do not hear or seeing things other people do not see. Denied feeling that TV is making references. Denied feeling that people are spying , following , or reading their thoughts. Phobias: Patient denied having excessive fear of a particular thing or situation. Eating disorders: Patient denied having excessive eating habits or feelings of guilt after eating. Denied repeated episodes of self induced vomiting after eating. PTSD Experiences flashbacks, nightmares and avoidance of a prior traumatic event. PAST PSYCHIATRIC HISTORY: Prior Diagnosis : ADHD, Major Depressive Disorder, substance use disorder. History of past Psychiatric Hospitalizations: Multiple psychiatric admissions since April 2013 at [facility]. History of past suicide/homicide attempts : Multiple past suicide attempts 5x. History of self mutilation . First suicide attempt occurred on a bridge in [place] at the age of 20 and was pulled off by police. She reports having attempted suicide on another occasion by taking 2 bottles of pills and an entire bottle of Mr. Carlito grady 750 mL. She also reports having had a long laceration on her left forearm as a suicide attempt in the past. She estimates that she has had about 5 suicide attempts in her life. Denied past homicidal incidents. Outpatient follow-up: Dr. Robbins at [facility] in the [facility] program. Medications: Past trials of medications include Ritalin, adderall, vyvanse wellbutrin, strattera , doxepin, remeron, cymbalta, depakote, abilify, antabuse, naltrexone. Vyvanse 20mg daily, diazepam 5mg BID. Guardianship: None. FAMILY HISTORY: - Suicide: Cousin from suicide - Mental illness: Grandfather has a history of schizophrenia with ECT treatment. Mother and sister have had many "nervous break downs" - Substance abuse: Denied substance abuse among family members. SUBSTANCE ABUSE HISTORY: Denied using alcohol for last 2 years. Denied heroin and cocaine other illicit substances. Past history of abusing pain pills last use 4 years ago. Smokes tobacco 1/3 PPD. Cannabis use 5 x week. SOCIAL HISTORY: Single no children. She lives in a apartment in [place]. 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 - Legal history: 2 DWIs - service history: Denied PAST MEDICAL HISTORY: Chronic lower back pain and multiple head injuries from skiing accidents.Recurrent headaches. She was diagnosed in the past with Tourette's syndrome and asthma. She reports that she is still occasionally has difficulties with Tourette's syndrome tics. She reports a history of 2 seizures and having had syncopal episodes as well. She denies any cardiac problems. She reports her only surgical history is a tonsillectomy and recent repair of left shoulder rotator cuff. - Allergies: Denied drug or other allergies. Physical Exam: Please see ED note Mental Status Exam on Admission APPEARANCE : 28 year old female who appears stated age. Patient has multiple tattoos and piercings. BEHAVIOR: Cooperative , calm EYE CONTACT: Fair PSYCHOMOTOR ACTIVITY: No psychomotor agitation or retardation. MOVEMENTS: No abnormal movements observed. SPEECH : Normal rate, rhythm, volume and tone. MOOD : "Sad " AFFECT : Type is depressed. Range is restricted, depth is shallow THOUGHT PROCESS: formulated and organized in a logical, linear goal directed manner. No flight of ideas , neologism (made up words) , perseveration , tangential , loose associations , or circumstantiality. THOUGHT CONTENT: no delusions, obsessions, phobias or preoccupations. PERCEPTION: No current auditory or visual hallucinations. Doesnt appear to be responding to internal cues. No evidence of depersonalization , de-realization, or illusions SUICIDALITY Recent suicidal ideation with intent and plan. HOMICIDALITY Denied homicidal ideation, intent or plan. Insight/judgment: Poor insight and judgment ORIENTATION: Oriented to self, location, and time. Diagnosis on Admission: ADHD, Major Depressive Disorder,severe. Assessment: 28 year old female with history of ADHD, Major Depressive Disorder, and history of substance use disorder presented with suicidal ideation with plan to jump off of train track embankment in [facility]. Plan #Admit to BSU, Q15 minute observation. Start regular diet. Encourage participation in activities on the milieu. #Patient evaluated in ED and was determined by the emergency room Physician to be medically fit for admission to the BSU. # Justification for Admission: For immediate safety per outlined in the [place] Mental Hygiene Code. # Voluntary admission. The patient requires inpatient admission at this time to assure safety, receive treatment and work toward stabilization. # Labs ordered: CBC, CMP, UDS, TSH, HBA1c, TSH, Toxicology screen, Urine analysis, and lipid profile. B-HCG was ordered and results are negative. # Obtain collateral information once release is signed. # Collaboration with Social Work to assist with disposition and after care. # WAFER SUBSTRATE TESTER confirmed Rx of 20 mg daily of vyvanse last dispensed on 06/27/18 will increase to 30mg daily. Tobacco use disorder: nicotine supplement offered and put in place, declined smoking cessation resources. #Goals before discharge include: eradicate suicidal ideation The risks, benefits, and alternative treatment options were discussed as well as of the risks of refusing treatment. After this discussion and an acknowledgement of this understanding was made. A risk/ benefit assessment of treatment was considered and discussed with the patient. When comparing the risks of treatment with the dangers of not receiving treatment, the benefits of treatment outweigh the treatment risks at this time. Risks of suicidal ideation , behavioral changes, dystonia, movement disorders, cardiac conduction changes , serotonin syndrome, metabolic risks and NMS were among some of the risks discussed. Acetaminophen (Tylenol Tab*) 650 mg PO Q4H PRN PRN Reason: for pain; or Temp >101 F Al Hydrox/Mg Hydrox/Simethicone (Maalox Plus*) 30 ml PO Q4H PRN PRN Reason: INDIGESTION Albuterol (Ventolin Hfa Inhaler*) 1 puff INH Q4H PRN PRN Reason: SOB/WHEEZING Cetirizine HCl (Zyrtec*) 10 mg PO DAILY [facility]; Protocol Escitalopram Oxalate (Lexapro *) 20 mg PO DAILY [facility] Hydroxyzine HCl (Atarax Tab*) 50 mg PO Q6H PRN PRN Reason: ANXIETY Last Admin: 07/04/18 03:22 Dose: 50 mg Nicotine Polacrilex (Nicotine Gum*) 2 mg PO Q2H PRN PRN Reason: CRAVING Last Admin: 07/03/18 16:13 Dose: 2 mg Prazosin HCl (Minipress Cap*) 1 mg PO BEDTIME [facility] Last Admin: 07/04/18 00:34 Dose: Not Given Vital Signs Temp Pulse Resp BP Pulse Ox 97.1 F 56 16 90/51 100 07/04/18 08:00 07/04/18 08:00 07/04/18 08:00 07/04/18 08:00 07/04/18 08:00 Sodium 137 mmol/L (135-145) 07/03/18 11:16 Potassium 4.2 mmol/L (3.5-5.0) 07/03/18 11:16 BUN 14 mg/dL (6-24) 07/03/18 11:16 Creatinine 0.79 mg/dL (0.51-0.95) 07/03/18 11:16 Hemoglobin A1c 4.8 % (4.0-5.6) 07/04/18 07:28 Calcium 9.6 mg/dL (8.6-10.3) 07/03/18 11:16 AST 17 U/L (13-39) 07/03/18 11:16 ALT 8 U/L (7-52) 07/03/18 11:16 Triglycerides 54 mg/dL 07/04/18 07:28 Cholesterol 145 mg/dL 07/04/18 07:28 LDL Cholesterol 78 mg/dL 07/04/18 07:28
[2018-07-03] MEDS: hydrOXYzine HCL TAB* 50 MG PO PRN (17:09)
[2018-07-04] MEDS: Prazosin CAP* 1 MG PO SCH ×2 (00:34→22:10)
[2018-07-04] MEDS: hydrOXYzine HCL TAB* 50 MG PO PRN (03:22)
[2018-07-04 08:18] LABS: Cholesterol 145 mg/dL; HDL Cholesterol 56.1 mg/dL; LDL Cholesterol 78 mg/dL; Triglycerides 54 mg/dL
[2018-07-04] MEDS: Cetirizine* 10 MG TAB PO SCH (10:00)
[2018-07-04] MEDS: Escitalopram * 20 MG TABLET PO SCH (10:00)
--- NOTE | 2018-07-04 12:00 | PN ---
Subjective - Subjective Date of Service: 07/04/18 Service Type: 40451 Hosp care 35 min high complexity Subjective: CC: " I am tired" The patient was admitted to the B[facility] after being evaluated for suicidal ideation with a plan to jump off a train embankment in [place]. She was found to have a metal stick yesterday and snuck into a storage room. She identifies her dog as a suicidal protective factor. She is not attending groups. Objective - General Observations Appears Stated Age: Yes Stature: WNL, Thin Posture: WNL Eye Contact: Average Behavior/Activity: WNL, Impulsive - Interaction Observations Attitude Towards Examiner: Anxious Stated Mood: Dysphoric Affect: Blunted Speech Pattern/Tone: Clear Thought Process: Coherent Thought Process: Lethality: Suicidal Planning Hallucination Type: None Delusion Type: None - Cognitive Function Orientation: A&O x 4 Level of Consciousness: Awake Judgment Within Normal Limits: No Ability to Make Reasonable Decisions: Mildly Impaired - Medication Compliance Cooperative with Inpatient Medication Regimen: Yes - Group Participation Participates in Group Activities: No Assessment - Assessment Merits Inpatient Hospitalization: For Immediate Safety Clinical Impression: 28 year old female with history of ADHD, Major Depressive Disorder, and history of substance use disorder presented with suicidal ideation with plan to jump off of train track embankment in [facility]. Plan - Plan Treatment Plan: Name: KARINE DOS SANTOS Birthdate: 1990 [id number] # Q15 minute observation. #Encourage participation in activities on the milieu. # The patient requires inpatient admission at this time to assure safety, receive treatment and work toward stabilization. # Collaboration with Social Work. #Goals before discharge include: Eradicate suicidal ideation, Safety plan. Vital Signs 07/03/18 07/03/18 07/03/18 12:45 12:49 13:52 Temperature 98.4 F 98.4 F Pulse Rate 82 82 Respiratory 16 16 16 Rate Blood Pressure 98/53 98/53 (mmHg) O2 Sat by Pulse 99 99 Oximetry 07/04/18 07/04/18 08:00 11:53 Temperature 97.1 F Pulse Rate 56 Respiratory 16 16 Rate Blood Pressure 90/51 (mmHg) O2 Sat by Pulse 100 Oximetry Sodium 137 mmol/L (135-145) 07/03/18 11:16 Potassium 4.2 mmol/L (3.5-5.0) 07/03/18 11:16 BUN 14 mg/dL (6-24) 07/03/18 11:16 Creatinine 0.79 mg/dL (0.51-0.95) 07/03/18 11:16 Hemoglobin A1c 4.8 % (4.0-5.6) 07/04/18 07:28 Calcium 9.6 mg/dL (8.6-10.3) 07/03/18 11:16 AST 17 U/L (13-39) 07/03/18 11:16 ALT 8 U/L (7-52) 07/03/18 11:16 Triglycerides 54 mg/dL 07/04/18 07:28 Cholesterol 145 mg/dL 07/04/18 07:28 LDL Cholesterol 78 mg/dL 07/04/18 07:28 Continued Medication Management: Continue Outpt Medication Medications: Current Medications Acetaminophen (Tylenol Tab*) 650 mg PO Q4H PRN PRN Reason: for pain; or Temp >101 F Al Hydrox/Mg Hydrox/Simethicone (Maalox Plus*) 30 ml PO Q4H PRN PRN Reason: INDIGESTION Albuterol (Ventolin Hfa Inhaler*) 1 puff INH Q4H PRN PRN Reason: SOB/WHEEZING Cetirizine HCl (Zyrtec*) 10 mg PO DAILY [facility]; Protocol Last Admin: 07/04/18 10:00 Dose: Not Given Escitalopram Oxalate (Lexapro *) 20 mg PO DAILY [facility] Last Admin: 07/04/18 10:00 Dose: Not Given Hydroxyzine HCl (Atarax Tab*) 50 mg PO Q6H PRN PRN Reason: ANXIETY Last Admin: 07/04/18 03:22 Dose: 50 mg Nicotine Polacrilex (Nicotine Gum*) 2 mg PO Q2H PRN PRN Reason: CRAVING Last Admin: 07/03/18 16:13 Dose: 2 mg Prazosin HCl (Minipress Cap*) 1 mg PO BEDTIME [facility] Last Admin: 07/04/18 00:34 Dose: Not Given - Discharge Plan Discharge Plan: Inpatient Hospitalization
[2018-07-04 12:32] LABS: HCG Pregnancy < 0.60 mIU/mL
[2018-07-04] MEDS ORDERED: OLANzapine TAB* 5 MG PO ONE (13:48)
[2018-07-04] MEDS ORDERED: OLANzapine TAB*ODT* 5 MG ONE (13:51)
[2018-07-04] MEDS: busPIRone TAB* 10 MG PO SCH ×2 (14:22→22:10)
[2018-07-04] MEDS: Nicotine Patch Removal NOTE PATCH OFF SCH (22:21)
[2018-07-05] MEDS: Cetirizine* 10 MG TAB PO SCH (09:22)
[2018-07-05] MEDS: Escitalopram * 20 MG TABLET PO SCH (09:22)
[2018-07-05] MEDS: Lisdexamfetamine(NF) 10 MG CAP PO SCH (09:22)
[2018-07-05] MEDS: busPIRone TAB* 10 MG PO SCH ×3 (09:22→20:22)
[2018-07-05] MEDS: Nicotine PATCH 14 MG/24 HR* PATCH TRANSDERM SCH (09:23)
[2018-07-05] MEDS: Nicotine* 2MG (FRUIT FLAVOR) GUM PO PRN ×4 (09:25→17:38)
--- NOTE | 2018-07-05 10:09 | PN ---
Subjective - Subjective Date of Service: 07/05/18 Service Type: 45296 Hosp care 35 min high complexity Subjective: CC: " I don't want to talk" The patient was approached on many occasions and stated that she doesnt want to talk. According to nursing report she refused medications and has been in bed most of the day. She has not been attending groups. Yesterday she became disruptive and began to yell. Objective - General Observations Appears Stated Age: Yes Stature: Thin Posture: WNL Eye Contact: Avoidant Behavior/Activity: Impulsive - Interaction Observations Attitude Towards Examiner: Uncooperative, Evasive Stated Mood: Dysphoric Affect: Restricted Thought Process: Impoverished Thought Content: Depressive Thought Process: Lethality: Passive Wish Hallucination Type: Denies Delusion Type: Denies - Cognitive Function Orientation: A&O x 4 Level of Consciousness: Awake Judgment Within Normal Limits: No Ability to Make Reasonable Decisions: Moderately Impaired - Medication Compliance Cooperative with Inpatient Medication Regimen: No - Group Participation Participates in Group Activities: No Assessment - Assessment Clinical Impression: 28 year old female with history of ADHD, Major Depressive Disorder, and history of substance use disorder presented with suicidal ideation with plan to jump off of train track embankment in [facility]. Plan - Plan Treatment Plan: Name: KARINE DOS SANTOS Birthdate: 1990 [id number] # Q15 minute observation. #Encourage participation in activities on the milieu. # The patient requires inpatient admission at this time to assure safety, receive treatment and work toward stabilization. # Collaboration with Social Work. #72 hour notice #Collateral with therapist indicate she is not at her baseline #Patient is unable to contract for safety #Goals before discharge include: Eradicate suicidal ideation, Safety plan. Sodium 137 mmol/L (135-145) 07/03/18 11:16 Potassium 4.2 mmol/L (3.5-5.0) 07/03/18 11:16 BUN 14 mg/dL (6-24) 07/03/18 11:16 Creatinine 0.79 mg/dL (0.51-0.95) 07/03/18 11:16 Hemoglobin A1c 4.8 % (4.0-5.6) 07/04/18 07:28 Calcium 9.6 mg/dL (8.6-10.3) 07/03/18 11:16 AST 17 U/L (13-39) 07/03/18 11:16 ALT 8 U/L (7-52) 07/03/18 11:16 Triglycerides 54 mg/dL 07/04/18 07:28 Cholesterol 145 mg/dL 07/04/18 07:28 LDL Cholesterol 78 mg/dL 07/04/18 07:28 Laboratory Results - last 24 hr 07/04/18 07:28 Triglycerides 54 Cholesterol 145 LDL Cholesterol 78 HDL Cholesterol 56.1 Beta HCG, Quant < 0.60 Vital Signs Temp Pulse Resp BP Pulse Ox 98.2 F 78 15 103/64 100 07/05/18 07:42 07/05/18 07:42 07/05/18 07:42 07/05/18 07:42 07/05/18 07:42 Continued Medication Management: Start Medication Medications: Current Medications Acetaminophen (Tylenol Tab*) 650 mg PO Q4H PRN PRN Reason: for pain; or Temp >101 F Al Hydrox/Mg Hydrox/Simethicone (Maalox Plus*) 30 ml PO Q4H PRN PRN Reason: INDIGESTION Albuterol (Ventolin Hfa Inhaler*) 1 puff INH Q4H PRN PRN Reason: SOB/WHEEZING Buspirone HCl (Buspar Tab*) 10 mg PO TID [facility] Last Admin: 07/05/18 09:22 Dose: 10 mg Cetirizine HCl (Zyrtec*) 10 mg PO DAILY [facility]; Protocol Last Admin: 07/05/18 09:22 Dose: 10 mg Escitalopram Oxalate (Lexapro *) 20 mg PO DAILY [facility] Last Admin: 07/05/18 09:22 Dose: 20 mg Hydroxyzine HCl (Atarax Tab*) 50 mg PO Q6H PRN PRN Reason: ANXIETY Last Admin: 07/04/18 03:22 Dose: 50 mg Lisdexamfetamine Dimesylate (Vyvanse(Nf)) 30 mg PO DAILY [facility] Last Admin: 07/05/18 09:22 Dose: 30 mg Nicotine (Nicotine Patch 14 Mg/24 Hr*) 1 patch TRANSDERM DAILY@0800 [facility] Last Admin: 07/05/18 09:23 Dose: 1 patch Nicotine Polacrilex (Nicotine Gum*) 2 mg PO Q2H PRN PRN Reason: CRAVING Last Admin: 07/05/18 09:25 Dose: 2 mg Pharmacy Profile Note (Nicotine Patch Removal Note*) 1 note PATCH OFF 2100 [facility]CLUDES [facility] Last Admin: 07/04/18 22:21 Dose: Not Given Prazosin HCl (Minipress Cap*) 1 mg PO BEDTIME [facility]CLUDES [facility] Last Admin: 07/04/18 22:10 Dose: Not Given - Discharge Plan Discharge Plan: Inpatient Hospitalization
--- NOTE | 2018-07-05 11:01 | PN ---
BSU: Group Therapy Note - Service Type Service Type: 63950 Group Psychotherapy - Cognitive Behavioral Group Therapy ( CBT):Patient was attentive and participatory in CBT programming this morning, and remained in good behavioral control. Patient expressed positive insights regarding relevant treatment interventions and goals.
[2018-07-05] MEDS: Ibuprofen TAB* 400 MG PO PRN (11:54)
[2018-07-05] MEDS: hydrOXYzine HCL TAB* 50 MG PO PRN (17:52)
[2018-07-05] MEDS: Nicotine Patch Removal NOTE PATCH OFF SCH (20:23)
[2018-07-05] MEDS ORDERED: QUEtiapine TAB* 100 MG PO SCH (21:00)
[2018-07-05] MEDS ORDERED: Prazosin CAP* 1 MG PO SCH (21:00)
[2018-07-06] MEDS: Nicotine* 2MG (FRUIT FLAVOR) GUM PO PRN ×6 (07:19→20:02)
[2018-07-06] MEDS ORDERED: Venlafaxine EXT RELEASE CAP* 75 MG PO SCH (09:00)
[2018-07-06] MEDS: Lisdexamfetamine(NF) 10 MG CAP PO SCH (09:36)
[2018-07-06] MEDS: Nicotine PATCH 14 MG/24 HR* PATCH TRANSDERM SCH (09:36)
[2018-07-06] MEDS: Cetirizine* 10 MG TAB PO SCH (09:37)
--- NOTE | 2018-07-06 11:40 | PN ---
BSU: Group Therapy Note - Service Type Service Type: 35499 Group Psychotherapy - Cognitive Behavioral Group Therapy ( CBT):Patient was attentive and participatory in CBT programming this morning, and remained in good behavioral control. Patient expressed positive insights regarding relevant treatment interventions and goals.
[2018-07-06] MEDS: busPIRone TAB* 10 MG PO SCH ×3 (12:36→21:45)
--- NOTE | 2018-07-06 13:56 | PN ---
Subjective - Subjective Date of Service: 07/06/18 Service Type: 17637 Hosp care 35 min high complexity Subjective: Nursing Report: Patient was visible on unit, She is attending group activities. CC: "I am okay" Patient was seen and evaluated in the common room. The patient reported having anxiety. She fell this morning and scraped her leg. Vital signs were taken. She declined to have x ray. She reported trouble with falling asleep overnight. She is requesting staff pass. The patient reports attending and participating in day groups. Per nursing no behavioral issues or overnight events reported. Patient reported that he is tolerating medications without side effects. Objective - General Observations Appearance: Neat Appears Stated Age: Yes Stature: Thin Posture: WNL Eye Contact: Average Behavior/Activity: WNL - Interaction Observations Attitude Towards Examiner: Cooperative Stated Mood: Dysphoric Affect: Blunted Speech Pattern/Tone: Clear Thought Process: Coherent Perception: WNL Thought Content: WNL Thought Process: Lethality: Passive Wish Hallucination Type: None Delusion Type: None - Cognitive Function Orientation: A&O x 4 Level of Consciousness: Awake Cognition: WNL - Medication Compliance Cooperative with Inpatient Medication Regimen: Yes - Group Participation Participates in Group Activities: Yes Assessment - Assessment Merits Inpatient Hospitalization: For Immediate Safety Clinical Impression: 28 year old female with history of ADHD, Major Depressive Disorder, and history of substance use disorder presented with [facility] ideation [facility] Plan - Plan Treatment Plan: Name: KARINE DOS SANTOS Birthdate: 1990 [id number] # Q30 staff pass #Encourage participation in activities on the milieu. # The patient requires inpatient admission at this time to assure safety, receive treatment and work toward stabilization. # Collaboration with Social Work. #Retracted 72 hour notice Epi pen for bee allergy to have on staff pass, pharmacy verified #Increase effexor to 150mg daily decrease prazosin to 1mg qhs start ambien 5mg qhs #Goals before discharge include: Eradicate suicidal ideation, Safety plan. Sodium 137 mmol/L (135-145) 07/03/18 11:16 Potassium 4.2 mmol/L (3.5-5.0) 07/03/18 11:16 BUN 14 mg/dL (6-24) 07/03/18 11:16 Creatinine 0.79 mg/dL (0.51-0.95) 07/03/18 11:16 Hemoglobin A1c 4.8 % (4.0-5.6) 07/04/18 07:28 Calcium 9.6 mg/dL (8.6-10.3) 07/03/18 11:16 AST 17 U/L (13-39) 07/03/18 11:16 ALT 8 U/L (7-52) 07/03/18 11:16 Triglycerides 54 mg/dL 07/04/18 07:28 Cholesterol 145 mg/dL 07/04/18 07:28 LDL Cholesterol 78 mg/dL 07/04/18 07:28 Laboratory Results - last 24 hr 07/04/18 07:28 Triglycerides 54 Cholesterol 145 LDL Cholesterol 78 HDL Cholesterol 56.1 Beta HCG, Quant < 0.60 Vital Signs Temp Pulse Resp BP Pulse Ox 98.2 F 78 15 103/64 100 07/05/18 07:42 07/05/18 07:42 07/05/18 07:42 07/05/18 07:42 07/05/18 07:42 Continued Medication Management: Continue Outpt Medication Medications: Current Medications Al Hydrox/Mg Hydrox/Simethicone (Maalox Plus*) 30 ml PO Q4H PRN PRN Reason: INDIGESTION Albuterol (Ventolin Hfa Inhaler*) 1 puff INH Q4H PRN PRN Reason: SOB/WHEEZING Buspirone HCl (Buspar Tab*) 10 mg PO TID [facility] Last Admin: 07/06/18 12:36 Dose: Not Given Cetirizine HCl (Zyrtec*) 10 mg PO DAILY [facility]; Protocol Last Admin: 07/06/18 09:37 Dose: 10 mg Hydroxyzine HCl (Atarax Tab*) 50 mg PO Q6H PRN PRN Reason: ANXIETY Last Admin: 07/05/18 17:52 Dose: 50 mg Ibuprofen (Motrin Tab*) 400 mg PO Q6H PRN PRN Reason: HEADACHE/PAIN Last Admin: 07/05/18 11:54 Dose: 400 mg Lisdexamfetamine Dimesylate (Vyvanse(Nf)) 30 mg PO DAILY [facility] Last Admin: 07/06/18 09:36 Dose: 30 mg Nicotine (Nicotine Patch 14 Mg/24 Hr*) 1 patch TRANSDERM DAILY@0800 [facility] Last Admin: 07/06/18 09:36 Dose: 1 patch Nicotine Polacrilex (Nicotine Gum*) 2 mg PO Q2H PRN PRN Reason: CRAVING Last Admin: 07/06/18 12:12 Dose: 2 mg Pharmacy Profile Note (Nicotine Patch Removal Note*) 1 note PATCH OFF 2100 [facility] Last Admin: 07/05/18 20:23 Dose: 1 note Prazosin HCl (Minipress Cap*) 2 mg PO BEDTIME [facility] Last Admin: 07/05/18 20:22 Dose: 2 mg Venlafaxine HCl (Effexor Xr Cap*) 75 mg PO DAILY [facility] Last Admin: 07/06/18 09:37 Dose: 75 mg - Discharge Plan Discharge Plan: Inpatient Hospitalization
[2018-07-06] MEDS ORDERED: NON FORMULARY RESPIRATORY MED 1 DOSE MISC INH SCH (15:00)
[2018-07-06] MEDS ORDERED: EPINEPHRINE 0.3 MG IM PRN (15:00)
[2018-07-06] MEDS: hydrOXYzine HCL TAB* 50 MG PO PRN (16:52)
[2018-07-06] MEDS: Ibuprofen TAB* 400 MG PO PRN (16:52)
[2018-07-06] MEDS: Prazosin CAP* 1 MG PO SCH (20:00)
[2018-07-06] MEDS: Zolpidem TAB* 5 MG PO PRN (20:02)
[2018-07-06] MEDS: Nicotine Patch Removal NOTE PATCH OFF SCH (21:45)
[2018-07-07] MEDS: Nicotine PATCH 14 MG/24 HR* PATCH TRANSDERM SCH (08:48)
[2018-07-07] MEDS: Cetirizine* 10 MG TAB PO SCH (08:48)
[2018-07-07] MEDS: Nicotine* 2MG (FRUIT FLAVOR) GUM PO PRN ×5 (08:48→19:50)
[2018-07-07] MEDS: Venlafaxine EXT RELEASE CAP* 75 MG PO SCH (08:48)
[2018-07-07] MEDS: busPIRone TAB* 10 MG PO SCH ×3 (08:48→20:56)
[2018-07-07] MEDS: Lisdexamfetamine(NF) 10 MG CAP PO SCH (09:13)
--- NOTE | 2018-07-07 13:46 | PN ---
Subjective - Subjective Date of Service: 07/07/18 Service Type: 32049 Hosp care 15 min low complexity Subjective: Johnny is seen in weekend coverage for Dr. Jolly. The patient is laying in bed and has been seclusive most of the day per staff. She describes her current state as "pretty depressed" but she denies SI. She denies untoward effects of her medications and has no significant complaints at this time. Staff indicates that she has kept a low profile mostly this weekend and they deny any behavioral disturbances. I asked about the patient's foot, which she apparently injured on Monday but she denies that it is bothering her. Objective - General Observations Appearance: Well Groomed Appears Stated Age: Yes Stature: WNL Posture: WNL Eye Contact: Average Behavior/Activity: WNL - Interaction Observations Attitude Towards Examiner: Cooperative Stated Mood: Dysphoric Affect: Restricted Speech Pattern/Tone: Clear, Appropriate Thought Process: Coherent Perception: WNL Thought Content: WNL Hallucination Type: None Delusion Type: None - Cognitive Function Orientation: A&O x 4 Level of Consciousness: Awake Cognition: WNL Estimated Intelligence: Normal Insight: WNL Judgment Within Normal Limits: No Ability to Make Reasonable Decisions: Mildly Impaired - Medication Compliance Cooperative with Inpatient Medication Regimen: Yes - Group Participation Participates in Group Activities: No Assessment - Assessment Merits Inpatient Hospitalization: For Immediate Safety, For Stabilization Inpatient DSM-V Dx: F33.9 Clinical Impression: 28 year old female with history of ADHD, Major Depressive Disorder, and history of substance use disorder presented with suicidal ideation with plan to jump [place] of [place] in [facility]. BSU: Problem List - Patient Problems (1) MDD (major depressive disorder), recurrent episode Current Visit: Yes Status: Acute Priority: High Code(s): F33.9 - MAJOR DEPRESSIVE DISORDER, RECURRENT, UNSPECIFIED SNOMED Code(s): 640039315 Plan - Plan Treatment Plan: Name: KARINE DOS SANTOS Birthdate: 1990 [id number] # Q30 staff pass #Encourage participation in activities on the milieu. # The patient requires inpatient admission at this time to assure safety, receive treatment and work toward stabilization. # Collaboration with Social Work. #Retracted 72 hour notice Epi pen for bee allergy to have on staff pass, pharmacy verified #Increase effexor to 150mg daily decrease prazosin to 1mg qhs start ambien 5mg qhs #Goals before discharge include: Eradicate suicidal ideation, Safety plan. Sodium 137 mmol/L (135-145) 07/03/18 11:16 Potassium 4.2 mmol/L (3.5-5.0) 07/03/18 11:16 BUN 14 mg/dL (6-24) 07/03/18 11:16 Creatinine 0.79 mg/dL (0.51-0.95) 07/03/18 11:16 Hemoglobin A1c 4.8 % (4.0-5.6) 07/04/18 07:28 Calcium 9.6 mg/dL (8.6-10.3) 07/03/18 11:16 AST 17 U/L (13-39) 07/03/18 11:16 ALT 8 U/L (7-52) 07/03/18 11:16 Triglycerides 54 mg/dL 07/04/18 07:28 Cholesterol 145 mg/dL 07/04/18 07:28 LDL Cholesterol 78 mg/dL 07/04/18 07:28 Laboratory Results - last 24 hr 07/04/18 07:28 Triglycerides 54 Cholesterol 145 LDL Cholesterol 78 HDL Cholesterol 56.1 Beta HCG, Quant < 0.60 Vital Signs Temp Pulse Resp BP Pulse Ox 98.2 F 78 15 103/64 100 07/05/18 07:42 07/05/18 07:42 07/05/18 07:42 07/05/18 07:42 07/05/18 07:42 Continued Medication Management: Different Medication Medications: Current Medications Al Hydrox/Mg Hydrox/Simethicone (Maalox Plus*) 30 ml PO Q4H PRN PRN Reason: INDIGESTION Albuterol (Ventolin Hfa Inhaler*) 1 puff INH Q4H PRN PRN Reason: SOB/WHEEZING Buspirone HCl (Buspar Tab*) 10 mg PO TID [facility] Last Admin: 07/07/18 08:48 Dose: Not Given Cetirizine HCl (Zyrtec*) 10 mg PO DAILY [facility]; Protocol Last Admin: 07/07/18 08:48 Dose: 10 mg Epinephrine HCl (Epipen Adult(Nf)) 0.3 mg IM ONCE PRN PRN Reason: ALLERGIEC RXN Hydroxyzine HCl (Atarax Tab*) 50 mg PO Q6H PRN PRN Reason: ANXIETY Last Admin: 07/06/18 16:52 Dose: 50 mg Ibuprofen (Motrin Tab*) 400 mg PO Q6H PRN PRN Reason: HEADACHE/PAIN Last Admin: 07/06/18 16:52 Dose: 400 mg Lisdexamfetamine Dimesylate (Vyvanse(Nf)) 30 mg PO DAILY [facility] Last Admin: 07/07/18 09:13 Dose: 30 mg Nicotine (Nicotine Patch 14 Mg/24 Hr*) 1 patch TRANSDERM DAILY@0800 [facility] Last Admin: 07/07/18 08:48 Dose: 1 patch Nicotine Polacrilex (Nicotine Gum*) 2 mg PO Q2H PRN PRN Reason: CRAVING Last Admin: 07/07/18 11:34 Dose: 2 mg Pharmacy Profile Note (Nicotine Patch Removal Note*) 1 note PATCH OFF 2100 [facility] Last Admin: 07/06/18 21:45 Dose: 1 note Prazosin HCl (Minipress Cap*) 1 mg PO BEDTIME [facility] Last Admin: 07/06/18 20:00 Dose: 1 mg Venlafaxine HCl (Effexor Xr Cap*) 150 mg PO DAILY [facility] Last Admin: 07/07/18 08:48 Dose: 150 mg Zolpidem Tartrate (Ambien Tab*) 5 mg PO BEDTIME PRN PRN Reason: INSOMNIA Last Admin: 07/06/18 20:02 Dose: 5 mg - Discharge Plan Discharge Plan: Inpatient Hospitalization
[2018-07-07] MEDS: hydrOXYzine HCL TAB* 50 MG PO PRN (18:28)
[2018-07-07] MEDS ORDERED: LORazepam TAB(*) 1 MG ONE (18:51)
[2018-07-07] MEDS ORDERED: LORazepam TAB(*) 1 MG PO ONE (19:00)
[2018-07-07] MEDS: Prazosin CAP* 1 MG PO SCH (20:56)
[2018-07-07] MEDS: Zolpidem TAB* 5 MG PO PRN (20:57)
[2018-07-07] MEDS: Nicotine Patch Removal NOTE PATCH OFF SCH (21:50)
[2018-07-08] MEDS: Cetirizine* 10 MG TAB PO SCH (09:01)
[2018-07-08] MEDS: Lisdexamfetamine(NF) 10 MG CAP PO SCH (09:01)
[2018-07-08] MEDS: Venlafaxine EXT RELEASE CAP* 75 MG PO SCH (09:01)
[2018-07-08] MEDS: busPIRone TAB* 10 MG PO SCH ×3 (09:01→20:28)
[2018-07-08] MEDS: Nicotine PATCH 14 MG/24 HR* PATCH TRANSDERM SCH (09:01)
[2018-07-08] MEDS: hydrOXYzine HCL TAB* 50 MG PO PRN (13:30)
[2018-07-08] MEDS: Nicotine* 2MG (FRUIT FLAVOR) GUM PO PRN ×2 (13:30→19:04)
[2018-07-08] MEDS: Ibuprofen TAB* 400 MG PO PRN (14:07)
[2018-07-08] MEDS: Zolpidem TAB* 5 MG PO PRN (20:28)
[2018-07-08] MEDS: Prazosin CAP* 1 MG PO SCH (20:28)
[2018-07-08] MEDS: Nicotine Patch Removal NOTE PATCH OFF SCH (21:09)
[2018-07-09] MEDS: Nicotine PATCH 14 MG/24 HR* PATCH TRANSDERM SCH (09:06)
[2018-07-09] MEDS: Lisdexamfetamine(NF) 10 MG CAP PO SCH (09:07)
[2018-07-09] MEDS: Venlafaxine EXT RELEASE CAP* 75 MG PO SCH (09:07)
[2018-07-09] MEDS: Cetirizine* 10 MG TAB PO SCH (09:08)
[2018-07-09] MEDS: busPIRone TAB* 10 MG PO SCH ×3 (09:08→20:51)
[2018-07-09] MEDS: Nicotine* 2MG (FRUIT FLAVOR) GUM PO PRN ×3 (09:09→18:59)
--- NOTE | 2018-07-09 11:43 | PN ---
Subjective - Subjective Date of Service: 07/09/18 Service Type: 04071 Hosp care 25 min moderate complexity Subjective: Yadira is depressed and unhappy. She is characteristically physically active, but she is uncharacteristically down and sad, giving moderate to poor eye contact and sharing a sad and frustrated poem We did discuss the possibility of ECT for Yadira. She is agreeable to it and knows that it has a high success rate, which is appealing to her as she has tried many, many antidepressants and found them not useful to her. Yadira hasn't been sleeping well. Ativan has worked for her in the past in outpatient at 0.5 mg or 1 mg. Here in the hospital, 2 mg worked well when ordered for agitation, anxiety, and insomnia. We will use 1 mg for sleep and 0.5 mg for agitation and anxiety. Objective - General Observations Appearance: Neat, Well Groomed Appears Stated Age: Yes Stature: Thin Posture: Tense Eye Contact: Intermittent Behavior/Activity: Accelerated, Impulsive Behavior Comment: typical for Yadira - Interaction Observations Attitude Towards Examiner: Cooperative Stated Mood: Dysphoric, Irritable, Anxious Affect: Restricted Speech Pattern/Tone: Clear Thought Process: Coherent Perception: WNL Thought Content: Preoccupation/Ruminations, Obsessional, Depressive Thought Process: Lethality: Passive Wish, Suicidal Planning Hallucination Type: None Delusion Type: None - Cognitive Function Orientation: A&O x 4 Level of Consciousness: Awake, Alert, Appropriate Cognition: WNL Estimated Intelligence: Normal Insight: WNL Ability to Make Reasonable Decisions: Mildly Impaired - Medication Compliance Cooperative with Inpatient Medication Regimen: Yes - Group Participation Participates in Group Activities: Yes Assessment - Assessment Merits Inpatient Hospitalization: For Immediate Safety Inpatient DSM-V Dx: F33.9 Clinical Impression: 28 year old female with history of ADHD, Major Depressive Disorder, Tourette's disorder, and history of substance use disorder presented with suicidal ideation with plan to jump off of [facility] in [facility]. Plan - Plan Treatment Plan: Name: KARINE DOS SANTOS Birthdate: 1990 [id number] # Q30 staff pass #Encourage participation in activities on the milieu. # The patient requires inpatient admission at this time to assure safety, receive treatment and work toward stabilization. # Collaboration with Social Work. #Retracted 72 hour notice Epi pen for bee allergy to have on staff pass, pharmacy verified #Increase effexor to 150mg daily decrease prazosin to 1mg qhs start ambien 5mg qhs #Goals before discharge include: Eradicate suicidal ideation, Safety plan. Sodium 137 mmol/L (135-145) 07/03/18 11:16 Potassium 4.2 mmol/L (3.5-5.0) 07/03/18 11:16 BUN 14 mg/dL (6-24) 07/03/18 11:16 Creatinine 0.79 mg/dL (0.51-0.95) 07/03/18 11:16 Hemoglobin A1c 4.8 % (4.0-5.6) 07/04/18 07:28 Calcium 9.6 mg/dL (8.6-10.3) 07/03/18 11:16 AST 17 U/L (13-39) 07/03/18 11:16 ALT 8 U/L (7-52) 07/03/18 11:16 Triglycerides 54 mg/dL 07/04/18 07:28 Cholesterol 145 mg/dL 07/04/18 07:28 LDL Cholesterol 78 mg/dL 07/04/18 07:28 Laboratory Results - last 24 hr 07/04/18 07:28 Triglycerides 54 Cholesterol 145 LDL Cholesterol 78 HDL Cholesterol 56.1 Beta HCG, Quant < 0.60 Vital Signs Temp Pulse Resp BP Pulse Ox 98.2 F 78 15 103/64 100 07/05/18 07:42 07/05/18 07:42 07/05/18 07:42 07/05/18 07:42 07/05/18 07:42 07/09/18 Yadira will be referred to ECT. Quinton will be schedculed to help her sleep at night, and reduce agitation and anxiety PRN. A family meeting is planned for tomorrow with her mother. Yadira is in possession of a bag of pills that I would like her to discard, but she doesn't want to. That is to be worked on, too. Continued Medication Management: Different Medication Medications: Current Medications Al Hydrox/Mg Hydrox/Simethicone (Maalox Plus*) 30 ml PO Q4H PRN PRN Reason: INDIGESTION Albuterol (Ventolin Hfa Inhaler*) 1 puff INH Q4H PRN PRN Reason: SOB/WHEEZING Buspirone HCl (Buspar Tab*) 10 mg PO TID [facility] Last Admin: 07/09/18 09:08 Dose: Not Given Cetirizine HCl (Zyrtec*) 10 mg PO DAILY [facility]; Protocol Last Admin: 07/09/18 09:08 Dose: 10 mg Epinephrine HCl (Epipen Adult(Nf)) 0.3 mg IM ONCE PRN PRN Reason: ALLERGIEC RXN Hydroxyzine HCl (Atarax Tab*) 50 mg PO Q6H PRN PRN Reason: ANXIETY Last Admin: 07/08/18 13:30 Dose: 50 mg Ibuprofen (Motrin Tab*) 400 mg PO Q6H PRN PRN Reason: HEADACHE/PAIN Last Admin: 07/08/18 14:07 Dose: 400 mg Lisdexamfetamine Dimesylate (Vyvanse(Nf)) 30 mg PO DAILY [facility] Last Admin: 07/09/18 09:07 Dose: 30 mg Nicotine (Nicotine Patch 14 Mg/24 Hr*) 1 patch TRANSDERM DAILY@0800 [facility] Last Admin: 07/09/18 09:06 Dose: 1 patch Nicotine Polacrilex (Nicotine Gum*) 2 mg PO Q2H PRN PRN Reason: CRAVING Last Admin: 07/09/18 09:09 Dose: 2 mg Pharmacy Profile Note (Nicotine Patch Removal Note*) 1 note PATCH OFF 2100 [facility] Last Admin: 07/08/18 21:09 Dose: 1 note Prazosin HCl (Minipress Cap*) 1 mg PO BEDTIME [facility] Last Admin: 07/08/18 20:28 Dose: 1 mg Venlafaxine HCl (Effexor Xr Cap*) 150 mg PO DAILY [facility] Last Admin: 07/09/18 09:07 Dose: 150 mg Zolpidem Tartrate (Ambien Tab*) 5 mg PO BEDTIME PRN PRN Reason: INSOMNIA Last Admin: 07/08/18 20:28 Dose: 5 mg
[2018-07-09] MEDS: LORazepam TAB(*) 0.5 MG PO PRN ×2 (12:38→18:59)
[2018-07-09] MEDS: Ibuprofen TAB* 400 MG PO PRN (14:11)
[2018-07-09] MEDS: hydrOXYzine HCL TAB* 50 MG PO PRN (17:11)
[2018-07-09] MEDS: LORazepam TAB(*) 1 MG PO SCH (20:24)
[2018-07-09] MEDS: Prazosin CAP* 1 MG PO SCH (20:24)
[2018-07-09] MEDS: Nicotine Patch Removal NOTE PATCH OFF SCH (20:58)
[2018-07-10] MEDS: busPIRone TAB* 10 MG PO SCH ×4 (08:20→20:35)
[2018-07-10] MEDS: Lisdexamfetamine(NF) 10 MG CAP PO SCH (08:20)
[2018-07-10] MEDS: Cetirizine* 10 MG TAB PO SCH (08:20)
[2018-07-10] MEDS: Venlafaxine EXT RELEASE CAP* 75 MG PO SCH (08:20)
[2018-07-10] MEDS: Nicotine PATCH 14 MG/24 HR* PATCH TRANSDERM SCH (08:20)
[2018-07-10] MEDS: LORazepam TAB(*) 0.5 MG PO PRN (11:11)
[2018-07-10] MEDS: Nicotine* 2MG (FRUIT FLAVOR) GUM PO PRN ×3 (11:11→18:00)
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
[2018-07-10] MEDS ORDERED: LORazepam TAB(*) 1 MG ONE (13:53)
[2018-07-10] MEDS: hydrOXYzine HCL TAB* 50 MG PO PRN (18:00)
[2018-07-10] MEDS: LORazepam TAB(*) 1 MG PO PRN (18:28)
[2018-07-10] MEDS ORDERED: chlorproMAZINE TAB* 50 MG PO ONE (19:05)
[2018-07-10] MEDS ORDERED: chlorproMAZINE TAB* 50 MG ONE (19:09)
[2018-07-10] MEDS: Prazosin CAP* 1 MG PO SCH (20:34)
[2018-07-10] MEDS: Ibuprofen TAB* 400 MG PO PRN (20:34)
[2018-07-10] MEDS: LORazepam TAB(*) 1 MG PO SCH (20:34)
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
[2018-07-11] MEDS: busPIRone TAB* 10 MG PO SCH ×3 (09:55→20:50)
[2018-07-11] MEDS: Nicotine PATCH 14 MG/24 HR* PATCH TRANSDERM SCH (09:55)
[2018-07-11] MEDS: Lisdexamfetamine(NF) 10 MG CAP PO SCH (09:56)
[2018-07-11] MEDS: Venlafaxine EXT RELEASE CAP* 75 MG PO SCH (09:56)
[2018-07-11] MEDS: Cetirizine* 10 MG TAB PO SCH (09:56)
[2018-07-11] MEDS: LORazepam TAB(*) 1 MG PO PRN ×2 (11:58→17:46)
[2018-07-11] MEDS: Nicotine* 2MG (FRUIT FLAVOR) GUM PO PRN (12:33)
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
[2018-07-11] MEDS: Ibuprofen TAB* 400 MG PO PRN (17:45)
[2018-07-11] MEDS: LORazepam TAB(*) 1 MG PO SCH (20:50)
[2018-07-11] MEDS: Nicotine Patch Removal NOTE PATCH OFF SCH (20:50)
[2018-07-11] MEDS: Prazosin CAP* 1 MG PO SCH (20:50)
[2018-07-12] MEDS: Nicotine Patch Removal NOTE PATCH OFF SCH ×2 (02:56→21:19)
[2018-07-12] MEDS: Lisdexamfetamine(NF) 10 MG CAP PO SCH (09:25)
[2018-07-12] MEDS: Nicotine PATCH 14 MG/24 HR* PATCH TRANSDERM SCH (09:25)
[2018-07-12] MEDS: Venlafaxine EXT RELEASE CAP* 75 MG PO SCH (09:25)
[2018-07-12] MEDS: Cetirizine* 10 MG TAB PO SCH (09:25)
[2018-07-12] MEDS: busPIRone TAB* 10 MG PO SCH ×3 (09:26→21:17)
[2018-07-12] MEDS: Nicotine* 2MG (FRUIT FLAVOR) GUM PO PRN (09:58)
--- NOTE | 2018-07-12 11:49 | PN ---
BSU: Group Therapy Note - Service Type Service Type: 53473 Group Psychotherapy - Cognitive Behavioral Group Therapy ( CBT):Patient was attentive and participatory in CBT programming this morning, and remained in good behavioral control. Patient expressed positive insights regarding relevant treatment interventions and goals.
[2018-07-12] MEDS: LORazepam TAB(*) 1 MG PO PRN ×2 (13:31→19:35)
[2018-07-12] MEDS: LORazepam TAB(*) 1 MG PO SCH (21:18)
[2018-07-12] MEDS: Prazosin CAP* 1 MG PO SCH (21:18)
[2018-07-13] MEDS: Venlafaxine EXT RELEASE CAP* 75 MG PO SCH (08:35)
[2018-07-13] MEDS: Nicotine PATCH 14 MG/24 HR* PATCH TRANSDERM SCH (08:36)
[2018-07-13] MEDS: Lisdexamfetamine(NF) 10 MG CAP PO SCH (08:36)
[2018-07-13] MEDS: Cetirizine* 10 MG TAB PO SCH (08:36)
[2018-07-13] MEDS: busPIRone TAB* 10 MG PO SCH ×3 (08:38→22:39)
[2018-07-13] MEDS: Nicotine* 2MG (FRUIT FLAVOR) GUM PO PRN (08:51)
[2018-07-13] MEDS ORDERED: LORazepam INJ* 2 MG/ML 1 ML VIAL IM ONE ×2 (10:30)
[2018-07-13] MEDS ORDERED: Haloperidol INJ IV/IM* 5 MG/ML AMP IM ONE ×2 (10:30)
[2018-07-13] MEDS ORDERED: Lorazepam PYXIS KEY PRN (10:30)
[2018-07-13] MEDS ORDERED: Haloperidol INJ IV/IM* 5 MG/ML AMP IM PRN (10:30)
[2018-07-13] MEDS ORDERED: Haloperidol INJ IV/IM* 5 MG/ML AMP ONE (10:34)
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
[2018-07-13] MEDS: Prazosin CAP* 1 MG PO SCH ×2 (22:11→22:41)
[2018-07-13] MEDS: LORazepam TAB(*) 1 MG PO SCH ×2 (22:11→22:40)
[2018-07-13] MEDS: Nicotine Patch Removal NOTE PATCH OFF SCH (22:41)
[2018-07-14] MEDS: Venlafaxine EXT RELEASE CAP* 75 MG PO SCH (10:46)
[2018-07-14] MEDS: busPIRone TAB* 10 MG PO SCH ×3 (10:46→21:17)
[2018-07-14] MEDS: Cetirizine* 10 MG TAB PO SCH (10:46)
[2018-07-14] MEDS: Lisdexamfetamine(NF) 10 MG CAP PO SCH (10:46)
[2018-07-14] MEDS: Nicotine PATCH 14 MG/24 HR* PATCH TRANSDERM SCH (10:46)
[2018-07-14] MEDS: LORazepam TAB(*) 1 MG PO PRN (13:12)
[2018-07-14] MEDS: LORazepam TAB(*) 1 MG PO SCH (21:18)
[2018-07-14] MEDS: Nicotine Patch Removal NOTE PATCH OFF SCH (21:18)
[2018-07-14] MEDS: Prazosin CAP* 1 MG PO SCH (21:18)
[2018-07-15] MEDS: busPIRone TAB* 10 MG PO SCH ×3 (09:58→20:44)
[2018-07-15] MEDS: Venlafaxine EXT RELEASE CAP* 75 MG PO SCH (10:20)
[2018-07-15] MEDS: Lisdexamfetamine(NF) 10 MG CAP PO SCH (10:20)
[2018-07-15] MEDS: Cetirizine* 10 MG TAB PO SCH (10:20)
[2018-07-15] MEDS: Nicotine PATCH 14 MG/24 HR* PATCH TRANSDERM SCH (10:22)
[2018-07-15] MEDS: Nicotine* 2MG (FRUIT FLAVOR) GUM PO PRN ×2 (12:12→15:13)
[2018-07-15] MEDS: LORazepam TAB(*) 1 MG PO PRN (15:11)
[2018-07-15] MEDS: Prazosin CAP* 1 MG PO SCH (19:45)
[2018-07-15] MEDS: LORazepam TAB(*) 1 MG PO SCH (19:45)
[2018-07-15] MEDS: Nicotine Patch Removal NOTE PATCH OFF SCH (19:46)
[2018-07-16] MEDS: Venlafaxine EXT RELEASE CAP* 75 MG PO SCH (08:36)
[2018-07-16] MEDS: Nicotine* 2MG (FRUIT FLAVOR) GUM PO PRN ×3 (08:37→17:15)
[2018-07-16] MEDS: busPIRone TAB* 10 MG PO SCH (08:37)
[2018-07-16] MEDS: Lisdexamfetamine(NF) 10 MG CAP PO SCH (08:37)
[2018-07-16] MEDS: Nicotine PATCH 14 MG/24 HR* PATCH TRANSDERM SCH (08:37)
[2018-07-16] MEDS: Cetirizine* 10 MG TAB PO SCH (08:37)
[2018-07-16] MEDS: LORazepam TAB(*) 1 MG PO PRN ×2 (11:57→17:15)
[2018-07-16] MEDS ORDERED: LORazepam TAB(*) 1 MG PO ONE (14:02)
[2018-07-16] MEDS ORDERED: LORazepam TAB(*) 1 MG ONE (14:03)
--- NOTE | 2018-07-16 14:57 | PN ---
Subjective - Subjective Date of Service: 07/16/18 Service Type: [id number] Hosp care 35 min high complexity Subjective: Yadira had a difficult day in that she was introduced to the idea of going to [facility]. She managed it reasonably well. She did have feelings of wanting to act out, but she managed to keep things calm by going to bed and taking additional Ativan. The idea of clozapine was introduced and Yadira was not enthusiastic. In addition, we did not have recent enough CBC data to start clozapine. We will negotiate a blood draw if Yadira can be persuaded to take it. Yadira continues to endorse suicidal thoughts and stated she would end her life if discharged. Objective - General Observations Appearance: Neat, Well Groomed Appears Stated Age: Yes Stature: Thin Posture: WNL Eye Contact: Average Behavior/Activity: Accelerated, Peculiar, Agitated - Interaction Observations Attitude Towards Examiner: Cooperative, Anxious, Defensive, Hostile Stated Mood: Dysphoric, Angry Affect: Labile Speech Pattern/Tone: Clear Thought Process: Coherent, Tangential Perception: WNL Thought Content: Depressive, Self-Deprecatory Thought Process: Lethality: Passive Wish, Suicidal Planning Hallucination Type: None Delusion Type: None - Cognitive Function Orientation: A&O x 4 Level of Consciousness: Awake, Alert, Appropriate Cognition: WNL, Impaired Attention/Concentration Estimated Intelligence: Normal Insight: Mostly Blames Others for Problems Judgment Within Normal Limits: No Ability to Make Reasonable Decisions: Moderately Impaired - Medication Compliance Cooperative with Inpatient Medication Regimen: Partial - Group Participation Participates in Group Activities: Yes Assessment - Assessment Merits Inpatient Hospitalization: For Immediate Safety Inpatient DSM-V Dx: F33.9 Clinical Impression: 28 year old female with history of ADHD, Major Depressive Disorder, Tourette's disorder, and history of substance use disorder presented with suicidal ideation with plan to [facility]. Plan - Plan Treatment Plan: Name: KARINE DOS SANTOS Birthdate: 1990 [id number] # Q30 staff pass #Encourage participation in activities on the milieu. # The patient requires inpatient admission at this time to assure safety, receive treatment and work toward stabilization. # Collaboration with Social Work. #Retracted 72 hour notice Epi pen for bee allergy to have on staff pass, pharmacy verified #Increase effexor to 150mg daily decrease prazosin to 1mg qhs start ambien 5mg qhs #Goals before discharge include: Eradicate suicidal ideation, Safety plan. Sodium 137 mmol/L (135-145) 07/03/18 11:16 Potassium 4.2 mmol/L (3.5-5.0) 07/03/18 11:16 BUN 14 mg/dL (6-24) 07/03/18 11:16 Creatinine 0.79 mg/dL (0.51-0.95) 07/03/18 11:16 Hemoglobin A1c 4.8 % (4.0-5.6) 07/04/18 07:28 Calcium 9.6 mg/dL (8.6-10.3) 07/03/18 11:16 AST 17 U/L (13-39) 07/03/18 11:16 ALT 8 U/L (7-52) 07/03/18 11:16 Triglycerides 54 mg/dL 07/04/18 07:28 Cholesterol 145 mg/dL 07/04/18 07:28 LDL Cholesterol 78 mg/dL 07/04/18 07:28 Laboratory Results - last 24 hr 07/04/18 07:28 Triglycerides 54 Cholesterol 145 LDL Cholesterol 78 HDL Cholesterol 56.1 Beta HCG, Quant < 0.60 Vital Signs Temp Pulse Resp BP Pulse Ox 98.2 F 78 15 103/64 100 07/05/18 07:42 07/05/18 07:42 07/05/18 07:42 07/05/18 07:42 07/05/18 07:42 07/09/18 Yadira will be referred to ECT. Ativan will be schedculed to help her sleep at night, and reduce agitation and anxiety PRN. A family meeting is planned for tomorrow with her mother. Yadira is in possession of a bag of pills that I would like her to discard, but she doesn't want to. That is to be worked on, too. 07/11/18 Yadira's mother agreed to discard the bag of medications. Ativan PRN is increased to 2 mg. Has been accepted to ECT treatment. Dr. Oconnell notified of self injurious behavior. Await insurance precertification. 07/13/18 Yadira is not appropriate for ECT despite having been precertified. Sedating PRNs are in place for the weekend and may be used together or separately. She is staying the weekend, with plans to be made in the next week to determine next steps. Continued Medication Management: Different Medication Medications: Current Medications Al Hydrox/Mg Hydrox/Simethicone (Maalox Plus*) 30 ml PO Q4H PRN PRN Reason: INDIGESTION Albuterol (Ventolin Hfa Inhaler*) 1 puff INH Q4H PRN PRN Reason: SOB/WHEEZING Cetirizine HCl (Zyrtec*) 10 mg PO DAILY [facility]; Protocol Last Admin: 07/16/18 08:37 Dose: 10 mg Epinephrine HCl (Epipen Adult(Nf)) 0.3 mg IM ONCE PRN PRN Reason: ALLERGIEC RXN Hydroxyzine HCl (Atarax Tab*) 50 mg PO Q6H PRN PRN Reason: ANXIETY Last Admin: 07/10/18 18:00 Dose: 50 mg Ibuprofen (Motrin Tab*) 400 mg PO Q6H PRN PRN Reason: HEADACHE/PAIN Last Admin: 07/11/18 17:45 Dose: 400 mg Lisdexamfetamine Dimesylate (Vyvanse(Nf)) 30 mg PO DAILY [facility] Last Admin: 07/16/18 08:37 Dose: 30 mg Lorazepam (Ativan Tab(*)) 1 mg PO BEDTIME [facility] Last Admin: 07/15/18 19:45 Dose: 1 mg Lorazepam (Ativan Tab(*)) 2 mg PO Q4H PRN PRN Reason: Anxiety/agitation Last Admin: 07/16/18 11:57 Dose: 2 mg Miscellaneous (Ativan Pyxis Tejeda) 1 ea N/A .ATIVAN IV TEJEDA PRN PRN Reason: PYXIS TEJEDA Nicotine (Nicotine Patch 14 Mg/24 Hr*) 1 patch TRANSDERM DAILY@0800 [facility] Last Admin: 07/16/18 08:37 Dose: Not Given Nicotine Polacrilex (Nicotine Gum*) 2 mg PO Q2H PRN PRN Reason: CRAVING Last Admin: 07/16/18 11:40 Dose: 2 mg Pharmacy Profile Note (Nicotine Patch Removal Note*) 1 note PATCH OFF 2100 [facility] Last Admin: 07/15/18 19:46 Dose: Not Given Prazosin HCl (Minipress Cap*) 1 mg PO BEDTIME [facility] Last Admin: 07/15/18 19:45 Dose: 1 mg Venlafaxine HCl (Effexor Xr Cap*) 150 mg PO DAILY [facility] Last Admin: 07/16/18 08:36 Dose: 150 mg - Discharge Plan Discharge Plan: Consider Longer Term Tx
[2018-07-16] MEDS: Prazosin CAP* 1 MG PO SCH (19:40)
[2018-07-16] MEDS: LORazepam TAB(*) 1 MG PO SCH (19:40)
[2018-07-16] MEDS: Nicotine Patch Removal NOTE PATCH OFF SCH (19:41)
[2018-07-17] MEDS: Nicotine* 2MG (FRUIT FLAVOR) GUM PO PRN ×3 (08:35→13:12)
[2018-07-17] MEDS: Lisdexamfetamine(NF) 10 MG CAP PO SCH (08:35)
[2018-07-17] MEDS: Cetirizine* 10 MG TAB PO SCH (08:36)
[2018-07-17] MEDS: Venlafaxine EXT RELEASE CAP* 75 MG PO SCH (08:36)
[2018-07-17] MEDS: Nicotine PATCH 14 MG/24 HR* PATCH TRANSDERM SCH (08:37)
[2018-07-17 16:08] LABS: ABS Lymphocytes 2.2 10^3/ul (1.0-4.8); ABS Monocytes 0.7 10^3/ul (0-0.8); ABS Neutrophils 5.2 10^3/ul (1.5-7.7); Eosinophil % 0.6 %; Hematocrit 40 % (35-47); Hemoglobin 13.8 g/dL (12.0-16.0); Lymphocyte % 26.4 %; Mean Corpuscular HGB Conc 34 g/dL (31-36); Mean Corpuscular Hemoglobin 32 pg (27-31); Mean Corpuscular Volume 92 fL (80-97); Mean Platelet Volume 7.9 fL (7.4-10.4); Platelet Count 255 10^3/uL (150-450); Red Blood Count 4.36 10^6 /uL (3.70-4.87); Red Cell Distribution Width 13 % (10.5-15); White Blood Count 8.2 10^3/uL (3.5-10.8)
[2018-07-17] MEDS: LORazepam TAB(*) 1 MG PO PRN (17:01)
[2018-07-17] MEDS: LORazepam TAB(*) 1 MG PO SCH (20:49)
[2018-07-17] MEDS: Prazosin CAP* 1 MG PO SCH (20:49)
[2018-07-17] MEDS: CloZAPine TAB* 25 MG TAB PO SCH (20:51)
[2018-07-17] MEDS ORDERED: CloZAPine TAB* 25 MG TAB PO SCH (21:00)
[2018-07-17] MEDS: Nicotine Patch Removal NOTE PATCH OFF SCH (22:06)
[2018-07-18] MEDS: Nicotine PATCH 14 MG/24 HR* PATCH TRANSDERM SCH (09:57)
[2018-07-18] MEDS: Lisdexamfetamine(NF) 10 MG CAP PO SCH (10:00)
[2018-07-18] MEDS: Venlafaxine EXT RELEASE CAP* 75 MG PO SCH (10:01)
[2018-07-18] MEDS: Cetirizine* 10 MG TAB PO SCH (10:01)
[2018-07-18] MEDS: CloZAPine TAB* 25 MG TAB PO SCH ×2 (10:01→19:43)
--- NOTE | 2018-07-18 13:58 | PN ---
Subjective - Subjective Date of Service: 07/18/18 Service Type: [id number] Hosp care 15 min low complexity Subjective: Yadira is found in bed. She's tired today and feels like she will fall when she stands up. She reasonably ascribes this problem to the clozapine, which is new to her. We discuss the benefits of taking clozapine (lack of suicidal thoughts at a higher dose) vs. the negative side effects that she is experiencing and is not enjoying. At this time, she is motivated to not feel suicidal thoughts and so will for now continue the medication. Objective - General Observations Appearance: Disheveled Appears Stated Age: Yes Stature: Thin Posture: WNL Eye Contact: Intermittent Behavior/Activity: WNL - Interaction Observations Attitude Towards Examiner: Cooperative, Mistrustful Stated Mood: Dysphoric Affect: Blunted Speech Pattern/Tone: Clear, Quiet Volume Thought Process: Coherent Perception: WNL Thought Content: Preoccupation/Ruminations, Obsessional, Self-Deprecatory Thought Process: Lethality: Passive Wish, Suicidal Planning Hallucination Type: None Delusion Type: None - Cognitive Function Orientation: A&O x 4 Level of Consciousness: Alert, Appropriate, Drowsy Cognition: Impaired Attention/Concentration Estimated Intelligence: Normal Insight: Mostly Blames Others for Problems Judgment Within Normal Limits: No Ability to Make Reasonable Decisions: Moderately Impaired - Medication Compliance Cooperative with Inpatient Medication Regimen: Yes - Group Participation Participates in Group Activities: Partial Assessment - Assessment Merits Inpatient Hospitalization: For Immediate Safety, To Initiate Treatment Inpatient DSM-V Dx: F33.9 Clinical Impression: 28 year old female with history of ADHD, Major Depressive Disorder, Tourette's disorder, and history of substance use disorder presented with suicidal ideation with plan to jump off of [facility]. Plan - Plan Treatment Plan: Name: KARINE DOS SANTOS Birthdate: 1990 [id number] # Q30 staff pass #Encourage participation in activities on the milieu. # The patient requires inpatient admission at this time to assure safety, receive treatment and work toward stabilization. # Collaboration with Social Work. #Retracted 72 hour notice Epi pen for bee allergy to have on staff pass, pharmacy verified #Increase effexor to 150mg daily decrease prazosin to 1mg qhs start ambien 5mg qhs #Goals before discharge include: Eradicate suicidal ideation, Safety plan. Sodium 137 mmol/L (135-145) 07/03/18 11:16 Potassium 4.2 mmol/L (3.5-5.0) 07/03/18 11:16 BUN 14 mg/dL (6-24) 07/03/18 11:16 Creatinine 0.79 mg/dL (0.51-0.95) 07/03/18 11:16 Hemoglobin A1c 4.8 % (4.0-5.6) 07/04/18 07:28 Calcium 9.6 mg/dL (8.6-10.3) 07/03/18 11:16 AST 17 U/L (13-39) 07/03/18 11:16 ALT 8 U/L (7-52) 07/03/18 11:16 Triglycerides 54 mg/dL 07/04/18 07:28 Cholesterol 145 mg/dL 07/04/18 07:28 LDL Cholesterol 78 mg/dL 07/04/18 07:28 Laboratory Results - last 24 hr 07/04/18 07:28 Triglycerides 54 Cholesterol 145 LDL Cholesterol 78 HDL Cholesterol 56.1 Beta HCG, Quant < 0.60 Vital Signs Temp Pulse Resp BP Pulse Ox 98.2 F 78 15 103/64 100 07/05/18 07:42 07/05/18 07:42 07/05/18 07:42 07/05/18 07:42 07/05/18 07:42 07/09/18 Yadira will be referred to ECT. Ativan will be schedculed to help her sleep at night, and reduce agitation and anxiety PRN. A family meeting is planned for tomorrow with her mother. Yadira is in possession of a bag of pills that I would like her to discard, but she doesn't want to. That is to be worked on, too. 07/11/18 Yadira's mother agreed to discard the bag of medications. Ativan PRN is increased to 2 mg. Has been accepted to ECT treatment. Dr. Oconnell notified of self injurious behavior. Await insurance precertification. 07/13/18 Yadira is not appropriate for ECT despite having been precertified. Sedating PRNs are in place for the weekend and may be used together or separately. She is staying the weekend, with plans to be made in the next week to determine next steps. 07/18/18 Clozapine has begun. REMS entered. ANC calculated and entered. Referral to [facility] complete. We are waiting for decision. Clozapine will be titrated upward. Medications: Current Medications Al Hydrox/Mg Hydrox/Simethicone (Maalox Plus*) 30 ml PO Q4H PRN PRN Reason: INDIGESTION Albuterol (Ventolin Hfa Inhaler*) 1 puff INH Q4H PRN PRN Reason: SOB/WHEEZING Cetirizine HCl (Zyrtec*) 10 mg PO DAILY [facility]; Protocol Last Admin: 07/18/18 10:01 Dose: 10 mg Clozapine (Clozapine Tab*) 25 mg PO BID [facility] Last Admin: 07/18/18 10:01 Dose: 25 mg Epinephrine HCl (Epipen Adult(Nf)) 0.3 mg IM ONCE PRN PRN Reason: ALLERGIEC RXN Hydroxyzine HCl (Atarax Tab*) 50 mg PO Q6H PRN PRN Reason: ANXIETY Last Admin: 07/10/18 18:00 Dose: 50 mg Ibuprofen (Motrin Tab*) 400 mg PO Q6H PRN PRN Reason: HEADACHE/PAIN Last Admin: 07/11/18 17:45 Dose: 400 mg Lisdexamfetamine Dimesylate (Vyvanse(Nf)) 50 mg PO DAILY [facility] Last Admin: 07/18/18 10:00 Dose: 50 mg Lorazepam (Ativan Tab(*)) 1 mg PO BEDTIME [facility] Last Admin: 07/17/18 20:49 Dose: 1 mg Lorazepam (Ativan Tab(*)) 2 mg PO Q4H PRN PRN Reason: Anxiety/agitation Last Admin: 07/17/18 17:01 Dose: 2 mg Miscellaneous (Ativan Pyxis Tejeda) 1 ea N/A .ATIVAN IV TEJDEA PRN PRN Reason: PYXIS TEJEDA Nicotine (Nicotine Patch 14 Mg/24 Hr*) 1 patch TRANSDERM DAILY@0800 [facility] Last Admin: 07/18/18 09:57 Dose: Not Given Nicotine Polacrilex (Nicotine Gum*) 2 mg PO Q2H PRN PRN Reason: CRAVING Last Admin: 07/17/18 13:12 Dose: 2 mg Pharmacy Profile Note (Nicotine Patch Removal Note*) 1 note PATCH OFF 2100 [facility] Last Admin: 07/17/18 22:06 Dose: Not Given Prazosin HCl (Minipress Cap*) 1 mg PO BEDTIME [facility] Last Admin: 07/17/18 20:49 Dose: 1 mg Venlafaxine HCl (Effexor Xr Cap*) 150 mg PO DAILY [facility] Last Admin: 07/18/18 10:01 Dose: 150 mg - Discharge Plan Discharge Plan: Consider Longer Term Tx
[2018-07-18] MEDS: Nicotine* 2MG (FRUIT FLAVOR) GUM PO PRN (14:12)
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
[2018-07-18] MEDS: Prazosin CAP* 1 MG PO SCH (19:42)
[2018-07-18] MEDS: LORazepam TAB(*) 1 MG PO SCH (19:42)
[2018-07-18] MEDS: Nicotine Patch Removal NOTE PATCH OFF SCH (19:45)
[2018-07-19] MEDS: Cetirizine* 10 MG TAB PO SCH (08:29)
[2018-07-19] MEDS: CloZAPine TAB* 25 MG TAB PO SCH ×2 (08:29→21:27)
[2018-07-19] MEDS: Lisdexamfetamine(NF) 10 MG CAP PO SCH (08:29)
[2018-07-19] MEDS: Nicotine* 2MG (FRUIT FLAVOR) GUM PO PRN ×3 (08:29→16:00)
[2018-07-19] MEDS: Venlafaxine EXT RELEASE CAP* 75 MG PO SCH (08:29)
--- NOTE | 2018-07-19 11:20 | PN ---
BSU: Group Therapy Note - Service Type Service Type: [id number] Group Psychotherapy - Cognitive Behavioral Group Therapy ( CBT):Patient was attentive and participatory in CBT programming this morning, and remained in good behavioral control. Patient expressed positive insights regarding relevant treatment interventions and goals.
[2018-07-19] MEDS: Nicotine PATCH 14 MG/24 HR* PATCH TRANSDERM SCH (11:29)
[2018-07-19] MEDS: LORazepam TAB(*) 1 MG PO PRN (14:19)
[2018-07-19] MEDS ORDERED: Calcium Carbonate CHEW TAB* 500 MG (TUMS) PO PRN (14:50)
[2018-07-19] MEDS: LORazepam TAB(*) 1 MG PO SCH (21:27)
[2018-07-19] MEDS: Prazosin CAP* 1 MG PO SCH (21:38)
[2018-07-19] MEDS: Nicotine Patch Removal NOTE PATCH OFF SCH (21:39)
[2018-07-20] MEDS: Cetirizine* 10 MG TAB PO SCH (09:36)
[2018-07-20] MEDS: Lisdexamfetamine(NF) 10 MG CAP PO SCH (09:36)
[2018-07-20] MEDS: CloZAPine TAB* 25 MG TAB PO SCH ×2 (09:36→21:04)
[2018-07-20] MEDS: Venlafaxine EXT RELEASE CAP* 75 MG PO SCH (09:36)
[2018-07-20] MEDS: Nicotine PATCH 14 MG/24 HR* PATCH TRANSDERM SCH (09:37)
[2018-07-20] MEDS: Nicotine* 2MG (FRUIT FLAVOR) GUM PO PRN ×3 (09:37→18:07)
[2018-07-20] MEDS: LORazepam TAB(*) 1 MG PO PRN (13:18)
[2018-07-20] MEDS: clonazePAM TAB(*) 1 MG PO PRN (15:06)
[2018-07-20] MEDS: LORazepam TAB(*) 1 MG PO SCH (21:03)
[2018-07-20] MEDS: Prazosin CAP* 1 MG PO SCH (21:04)
[2018-07-20] MEDS: Nicotine Patch Removal NOTE PATCH OFF SCH (21:05)
--- NOTE | 2018-07-20 21:19 | PN ---
Subjective - Subjective Date of Service: 07/20/18 Service Type: 44492 Hosp care 35 min high complexity Subjective: Yadira continues on clozapine, although the dose has not been increased due to her difficulty tolerating sedation of the initial 25 mg BID. Yadira describes feeling as though she is changing "on the inside of my body" and it is unpleasant for her. Nevertheless, she is encouraged to see whether the promise of feeling different might become feeling better. She is staying the weekend despite her desire to be discharged due to her recent statements that she would not be safe over the weekend as well as the recurring nature of her suicidality. Her behavior has been different over the past week in that she has been more subdued and less impulsive. Objective - General Observations Appearance: Disheveled Appears Stated Age: Yes Stature: Thin Posture: WNL Eye Contact: Intermittent Behavior/Activity: Peculiar - Interaction Observations Attitude Towards Examiner: Cooperative, Defensive, Mistrustful Stated Mood: Dysphoric, Irritable, Anxious Affect: Blunted Speech Pattern/Tone: Clear Thought Process: Coherent, Tangential Perception: WNL Thought Content: Paranoid Thought Process: Lethality: Passive Wish, Suicidal Planning Hallucination Type: None Delusion Type: None - Cognitive Function Orientation: A&O x 4 Level of Consciousness: Awake, Alert, Appropriate Cognition: Impaired Attention/Concentration Estimated Intelligence: Borderline Range Insight: Mostly Blames Others for Problems Judgment Within Normal Limits: No Ability to Make Reasonable Decisions: Moderately Impaired - Medication Compliance Cooperative with Inpatient Medication Regimen: Yes - Group Participation Participates in Group Activities: Partial Assessment - Assessment Inpatient DSM-V Dx: F33.9 Clinical Impression: 28 year old female with history of ADHD, Major Depressive Disorder, Tourette's disorder, and history of substance use disorder presented with suicidal ideation with plan to [facility]. Plan - Plan Treatment Plan: Name: KARINE DOS SANTOS Birthdate: 1990 [id number] # Q30 staff pass #Encourage participation in activities on the milieu. # The patient requires inpatient admission at this time to assure safety, receive treatment and work toward stabilization. # Collaboration with Social Work. #Retracted 72 hour notice Epi pen for bee allergy to have on staff pass, pharmacy verified #Increase effexor to 150mg daily decrease prazosin to 1mg qhs start ambien 5mg qhs #Goals before discharge include: Eradicate suicidal ideation, Safety plan. Sodium 137 mmol/L (135-145) 07/03/18 11:16 Potassium 4.2 mmol/L (3.5-5.0) 07/03/18 11:16 BUN 14 mg/dL (6-24) 07/03/18 11:16 Creatinine 0.79 mg/dL (0.51-0.95) 07/03/18 11:16 Hemoglobin A1c 4.8 % (4.0-5.6) 07/04/18 07:28 Calcium 9.6 mg/dL (8.6-10.3) 07/03/18 11:16 AST 17 U/L (13-39) 07/03/18 11:16 ALT 8 U/L (7-52) 07/03/18 11:16 Triglycerides 54 mg/dL 07/04/18 07:28 Cholesterol 145 mg/dL 07/04/18 07:28 LDL Cholesterol 78 mg/dL 07/04/18 07:28 Laboratory Results - last 24 hr 07/04/18 07:28 Triglycerides 54 Cholesterol 145 LDL Cholesterol 78 HDL Cholesterol 56.1 Beta HCG, Quant < 0.60 Vital Signs Temp Pulse Resp BP Pulse Ox 98.2 F 78 15 103/64 100 07/05/18 07:42 07/05/18 07:42 07/05/18 07:42 07/05/18 07:42 07/05/18 07:42 07/09/18 Yadira will be referred to ECT. Ativan will be schedculed to help her sleep at night, and reduce agitation and anxiety PRN. A family meeting is planned for tomorrow with her mother. Yadira is in possession of a bag of pills that I would like her to discard, but she doesn't want to. That is to be worked on, too. 07/11/18 Yadira's mother agreed to discard the bag of medications. Ativan PRN is increased to 2 mg. Has been accepted to ECT treatment. Dr. Oconnell notified of self injurious behavior. Await insurance precertification. 07/13/18 Yadira is not appropriate for ECT despite having been precertified. Sedating PRNs are in place for the weekend and may be used together or separately. She is staying the weekend, with plans to be made in the next week to determine next steps. 07/18/18 Clozapine has begun. REMS entered. ANC calculated and entered. [facility]. We are waiting for decision. Clozapine will be titrated upward. 07/20/18 Clozapine has not been increased due to tolerability problems. Referral to critical access hospital has been completed, but decision has been delayed pending [facility]'s response to clozapine. Continue to monitor. Medications: Current Medications Al Hydrox/Mg Hydrox/Simethicone (Maalox Plus*) 30 ml PO Q4H PRN PRN Reason: INDIGESTION Albuterol (Ventolin Hfa Inhaler*) 1 puff INH Q4H PRN PRN Reason: SOB/WHEEZING Calcium Carbonate (Tums*) 1,000 mg PO Q2H PRN PRN Reason: INDIGESTION/ UPSET STOMACH Cetirizine HCl (Zyrtec*) 10 mg PO DAILY [facility]; Protocol Last Admin: 07/20/18 09:36 Dose: 10 mg Clonazepam (Klonopin Tab(*)) 2 mg PO Q6H PRN PRN Reason: anxiety/agitation Last Admin: 07/20/18 15:06 Dose: 2 mg Clozapine (Clozapine Tab*) 25 mg PO BID [facility] Last Admin: 07/20/18 21:04 Dose: 25 mg Epinephrine HCl (Epipen Adult(Nf)) 0.3 mg IM ONCE PRN PRN Reason: ALLERGIEC RXN Hydroxyzine HCl (Atarax Tab*) 50 mg PO Q6H PRN PRN Reason: ANXIETY Last Admin: 07/10/18 18:00 Dose: 50 mg Ibuprofen (Motrin Tab*) 400 mg PO Q6H PRN PRN Reason: HEADACHE/PAIN Last Admin: 07/11/18 17:45 Dose: 400 mg Lisdexamfetamine Dimesylate (Vyvanse(Nf)) 50 mg PO DAILY [facility] Last Admin: 07/20/18 09:36 Dose: 50 mg Lorazepam (Ativan Tab(*)) 1 mg PO BEDTIME [facility] Last Admin: 07/20/18 21:03 Dose: 1 mg Miscellaneous (Ativan Pyxis Tejeda) 1 ea N/A .ATIVAN IV TEJEDA PRN PRN Reason: PYXIS TEJEDA Nicotine (Nicotine Patch 14 Mg/24 Hr*) 1 patch TRANSDERM DAILY@0800 [facility] Last Admin: 07/20/18 09:37 Dose: Not Given Nicotine Polacrilex (Nicotine Gum*) 2 mg PO Q2H PRN PRN Reason: CRAVING Last Admin: 07/20/18 18:07 Dose: 2 mg Pharmacy Profile Note (Nicotine Patch Removal Note*) 1 note PATCH OFF 2100 [facility] Last Admin: 07/20/18 21:05 Dose: 1 note Prazosin HCl (Minipress Cap*) 1 mg PO BEDTIME [facility] Last Admin: 07/20/18 21:04 Dose: 1 mg Venlafaxine HCl (Effexor Xr Cap*) 150 mg PO DAILY [facility] Last Admin: 07/20/18 09:36 Dose: 150 mg - Discharge Plan Discharge Plan: Consider Longer Term Tx
[2018-07-21] MEDS: Lisdexamfetamine(NF) 10 MG CAP PO SCH (09:44)
[2018-07-21] MEDS: Venlafaxine EXT RELEASE CAP* 75 MG PO SCH (09:44)
[2018-07-21] MEDS: Cetirizine* 10 MG TAB PO SCH (09:44)
[2018-07-21] MEDS: CloZAPine TAB* 25 MG TAB PO SCH ×2 (09:44→21:11)
[2018-07-21] MEDS: Nicotine PATCH 14 MG/24 HR* PATCH TRANSDERM SCH (09:45)
[2018-07-21] MEDS: Nicotine* 2MG (FRUIT FLAVOR) GUM PO PRN ×3 (10:15→17:12)
[2018-07-21] MEDS: clonazePAM TAB(*) 1 MG PO PRN ×2 (13:20→19:38)
[2018-07-21] MEDS: Nicotine Patch Removal NOTE PATCH OFF SCH (21:11)
[2018-07-21] MEDS: LORazepam TAB(*) 1 MG PO SCH (21:11)
[2018-07-21] MEDS: Prazosin CAP* 1 MG PO SCH (21:11)
[2018-07-22] MEDS: CloZAPine TAB* 25 MG TAB PO SCH ×2 (11:53→20:26)
[2018-07-22] MEDS: Cetirizine* 10 MG TAB PO SCH (11:54)
[2018-07-22] MEDS: Venlafaxine EXT RELEASE CAP* 75 MG PO SCH (11:54)
[2018-07-22] MEDS: Nicotine* 2MG (FRUIT FLAVOR) GUM PO PRN (11:54)
[2018-07-22] MEDS: clonazePAM TAB(*) 1 MG PO PRN (12:23)
[2018-07-22] MEDS: Nicotine PATCH 14 MG/24 HR* PATCH TRANSDERM SCH (12:29)
[2018-07-22] MEDS: Lisdexamfetamine(NF) 10 MG CAP PO SCH (12:29)
[2018-07-22] MEDS: LORazepam TAB(*) 1 MG PO SCH (20:26)
[2018-07-22] MEDS: Prazosin CAP* 1 MG PO SCH (20:26)
[2018-07-22] MEDS: Nicotine Patch Removal NOTE PATCH OFF SCH (20:27)
[2018-07-23] MEDS: Venlafaxine EXT RELEASE CAP* 75 MG PO SCH (08:23)
[2018-07-23] MEDS: Cetirizine* 10 MG TAB PO SCH (08:23)
[2018-07-23] MEDS: CloZAPine TAB* 25 MG TAB PO SCH ×2 (08:23→20:21)
[2018-07-23] MEDS: Lisdexamfetamine(NF) 10 MG CAP PO SCH (08:24)
[2018-07-23] MEDS: Nicotine PATCH 14 MG/24 HR* PATCH TRANSDERM SCH (08:25)
[2018-07-23] MEDS: Nicotine* 2MG (FRUIT FLAVOR) GUM PO PRN (10:00)
--- NOTE | 2018-07-23 12:21 | PN ---
Subjective - Subjective Date of Service: 07/23/18 Service Type: 49037 Hosp care 15 min low complexity Subjective: Johnny is seen in Holiday coverage for NPP, Arlen Baca. The patient remains suicidal and states that the clozapine is not working. "All it does is make me hungry. I can't stop eating." Patient appears psychomotor activated, bouncing a tennis ball wherever she goes on the unit. Objective - General Observations Appearance: Well Groomed Appears Stated Age: Yes Stature: WNL Posture: WNL Eye Contact: Average Behavior/Activity: Accelerated - Interaction Observations Attitude Towards Examiner: Cooperative Stated Mood: Dysphoric Affect: Restricted Speech Pattern/Tone: Clear, Appropriate, Normal Volume Thought Process: Coherent Perception: WNL Thought Content: WNL Thought Process: Lethality: Passive Wish Hallucination Type: None Delusion Type: None - Cognitive Function Orientation: A&O x 4 Level of Consciousness: Awake Cognition: WNL Estimated Intelligence: Normal Insight: WNL Judgment Within Normal Limits: Yes - Medication Compliance Cooperative with Inpatient Medication Regimen: Yes - Group Participation Participates in Group Activities: Yes Assessment - Assessment Merits Inpatient Hospitalization: For Immediate Safety, For Stabilization Inpatient DSM-V Dx: F33.9 Clinical Impression: 28 year old female with history of ADHD, Major Depressive Disorder, Tourette's disorder, and history of substance use disorder presented with [facility] ideation [facility]. BSU: Problem List - Patient Problems (1) MDD (major depressive disorder), recurrent episode Current Visit: Yes Status: Acute Priority: High Code(s): F33.9 - MAJOR DEPRESSIVE DISORDER, RECURRENT, UNSPECIFIED SNOMED Code(s): 283450291 Plan - Plan Treatment Plan: Name: KARINE DOS SANTOS Birthdate: 1990 [id number] # Q30 staff pass #Encourage participation in activities on the milieu. # The patient requires inpatient admission at this time to assure safety, receive treatment and work toward stabilization. # Collaboration with Social Work. #Retracted 72 hour notice Epi pen for bee allergy to have on staff pass, pharmacy verified #Increase effexor to 150mg daily decrease prazosin to 1mg qhs start ambien 5mg qhs #Goals before discharge include: Eradicate suicidal ideation, Safety plan. Sodium 137 mmol/L (135-145) 07/03/18 11:16 Potassium 4.2 mmol/L (3.5-5.0) 07/03/18 11:16 BUN 14 mg/dL (6-24) 07/03/18 11:16 Creatinine 0.79 mg/dL (0.51-0.95) 07/03/18 11:16 Hemoglobin A1c 4.8 % (4.0-5.6) 07/04/18 07:28 Calcium 9.6 mg/dL (8.6-10.3) 07/03/18 11:16 AST 17 U/L (13-39) 07/03/18 11:16 ALT 8 U/L (7-52) 07/03/18 11:16 Triglycerides 54 mg/dL 07/04/18 07:28 Cholesterol 145 mg/dL 07/04/18 07:28 LDL Cholesterol 78 mg/dL 07/04/18 07:28 Laboratory Results - last 24 hr 07/04/18 07:28 Triglycerides 54 Cholesterol 145 LDL Cholesterol 78 HDL Cholesterol 56.1 Beta HCG, Quant < 0.60 Vital Signs Temp Pulse Resp BP Pulse Ox 98.2 F 78 15 103/64 100 07/05/18 07:42 07/05/18 07:42 07/05/18 07:42 07/05/18 07:42 07/05/18 07:42 07/09/18 Yadira will be referred to ECT. Ativan will be schedculed to help her sleep at night, and reduce agitation and anxiety PRN. A family meeting is planned for tomorrow with her mother. Yadira is in possession of a bag of pills that I would like her to discard, but she doesn't want to. That is to be worked on, too. 07/11/18 Yadira's mother agreed to discard the bag of medications. Ativan PRN is increased to 2 mg. Has been accepted to ECT treatment. Dr. Oconnell notified of self injurious behavior. Await insurance precertification. 07/13/18 Yadira is not appropriate for ECT despite having been precertified. Sedating PRNs are in place for the weekend and may be used together or separately. She is staying the weekend, with plans to be made in the next week to determine next steps. 07/18/18 Clozapine has begun. REMS entered. ANC calculated and entered. Referral to [facility] hospital complete. We are waiting for decision. Clozapine will be titrated upward. 07/20/18 Clozapine has not been increased due to tolerability problems. Referral to [facility] has been completed, but decision has been delayed pending [facility]'s response to clozapine. Continue to monitor. Continued Medication Management: Different Medication Medications: Current Medications Al Hydrox/Mg Hydrox/Simethicone (Maalox Plus*) 30 ml PO Q4H PRN PRN Reason: INDIGESTION Albuterol (Ventolin Hfa Inhaler*) 1 puff INH Q4H PRN PRN Reason: SOB/WHEEZING Calcium Carbonate (Tums*) 1,000 mg PO Q2H PRN PRN Reason: INDIGESTION/ UPSET STOMACH Cetirizine HCl (Zyrtec*) 10 mg PO DAILY [facility]; Protocol Last Admin: 07/23/18 08:23 Dose: 10 mg Clonazepam (Klonopin Tab(*)) 2 mg PO Q6H PRN PRN Reason: anxiety/agitation Last Admin: 07/22/18 12:23 Dose: 2 mg Clozapine (Clozapine Tab*) 25 mg PO BID [facility] Last Admin: 07/23/18 08:23 Dose: 25 mg Epinephrine HCl (Epipen Adult(Nf)) 0.3 mg IM ONCE PRN PRN Reason: ALLERGIEC RXN Hydroxyzine HCl (Atarax Tab*) 50 mg PO Q6H PRN PRN Reason: ANXIETY Last Admin: 07/10/18 18:00 Dose: 50 mg Ibuprofen (Motrin Tab*) 400 mg PO Q6H PRN PRN Reason: HEADACHE/PAIN Last Admin: 07/11/18 17:45 Dose: 400 mg Lisdexamfetamine Dimesylate (Vyvanse(Nf)) 50 mg PO DAILY [facility] Last Admin: 07/23/18 08:24 Dose: 50 mg Lorazepam (Ativan Tab(*)) 1 mg PO BEDTIME [facility] Last Admin: 07/22/18 20:26 Dose: 1 mg Miscellaneous (Ativan Pyxis Tejeda) 1 ea N/A .ATIVAN IV TEJEDA PRN PRN Reason: PYXIS TEJEDA Nicotine (Nicotine Patch 14 Mg/24 Hr*) 1 patch TRANSDERM DAILY@0800 [facility] Last Admin: 07/23/18 08:25 Dose: Not Given Nicotine Polacrilex (Nicotine Gum*) 2 mg PO Q2H PRN PRN Reason: CRAVING Last Admin: 07/23/18 10:00 Dose: 2 mg Pharmacy Profile Note (Nicotine Patch Removal Note*) 1 note PATCH OFF 2100 [facility] Last Admin: 07/22/18 20:27 Dose: 1 note Prazosin HCl (Minipress Cap*) 1 mg PO BEDTIME [facility] Last Admin: 07/22/18 20:26 Dose: 1 mg Venlafaxine HCl (Effexor Xr Cap*) 150 mg PO DAILY [facility] Last Admin: 07/23/18 08:23 Dose: 150 mg - Discharge Plan Discharge Plan: Consider Longer Term Tx
[2018-07-23] MEDS: clonazePAM TAB(*) 1 MG PO PRN (15:10)
[2018-07-23] MEDS: LORazepam TAB(*) 1 MG PO SCH (20:20)
[2018-07-23] MEDS: Prazosin CAP* 1 MG PO SCH (20:21)
[2018-07-24] MEDS: Nicotine Patch Removal NOTE PATCH OFF SCH ×2 (00:48→20:33)
[2018-07-24] MEDS: Lisdexamfetamine(NF) 10 MG CAP PO SCH (08:29)
[2018-07-24] MEDS: Venlafaxine EXT RELEASE CAP* 75 MG PO SCH (08:29)
[2018-07-24] MEDS: Cetirizine* 10 MG TAB PO SCH (08:29)
[2018-07-24] MEDS: CloZAPine TAB* 25 MG TAB PO SCH (08:29)
[2018-07-24] MEDS: Nicotine* 2MG (FRUIT FLAVOR) GUM PO PRN ×2 (08:31→18:55)
[2018-07-24] MEDS ORDERED: Docusate CAP* 100 MG PO PRN (10:24)
[2018-07-24] MEDS: Nicotine PATCH 14 MG/24 HR* PATCH TRANSDERM SCH (11:12)
--- NOTE | 2018-07-24 13:22 | PN ---
BSU: Group Therapy Note - Service Type Service Type: [id number] Group Psychotherapy - Cognitive Behavioral Group Therapy ( CBT):Patient was attentive and participatory in CBT programming this morning, and remained in good behavioral control. Patient expressed positive insights regarding relevant treatment interventions and goals.
[2018-07-24] MEDS: clonazePAM TAB(*) 1 MG PO PRN (14:19)
--- NOTE | 2018-07-24 15:23 | PN ---
Subjective - Subjective Date of Service: 07/24/18 Service Type: 95082 Hosp care 25 min moderate complexity Subjective: Yadira's behavior has improved significantly over time although she is still bouncing a ball in the brunson and pacing at times. She's been compliant with medications, including tonight's increase in clozapine, although she's reluctant because she doesn't want to be on too much medication. She is upset today because she worries that she will be misinterpreted in future hospitalizations. She worries that she will be diagnosed with bipolar disorder again, when this has been established as a mistaken diagnosis multiple times. She remains in despair, still thinking of suicide, still depressed and tearful every day. Objective - General Observations Appearance: Neat Appears Stated Age: Yes Stature: Thin Posture: WNL Eye Contact: Intermittent Behavior/Activity: WNL, Peculiar - Interaction Observations Attitude Towards Examiner: Cooperative, Anxious, Defensive, Mistrustful Stated Mood: Dysphoric, Irritable, Anxious Affect: Blunted Speech Pattern/Tone: Clear Thought Process: Coherent Perception: WNL Thought Content: Preoccupation/Ruminations Thought Process: Lethality: Passive Wish, Suicidal Planning Hallucination Type: None Delusion Type: None - Cognitive Function Orientation: A&O x 4 Level of Consciousness: Awake, Alert, Appropriate Cognition: Impaired Attention/Concentration Estimated Intelligence: Normal Insight: WNL Judgment Within Normal Limits: No Ability to Make Reasonable Decisions: Moderately Impaired - Medication Compliance Cooperative with Inpatient Medication Regimen: Yes - Group Participation Participates in Group Activities: Yes Assessment - Assessment Merits Inpatient Hospitalization: For Immediate Safety Inpatient DSM-V Dx: F33.9 Clinical Impression: 28 year old female with history of ADHD, Major Depressive Disorder, Tourette's disorder, and history of substance use disorder presented with suicidal ideation with plan to jump off of train [facility] in [facility]. Plan - Plan Treatment Plan: Name: KARINE DOS SANTOS Birthdate: 1990 [id number] # Q30 staff pass #Encourage participation in activities on the milieu. # The patient requires inpatient admission at this time to assure safety, receive treatment and work toward stabilization. # Collaboration with Social Work. #Retracted 72 hour notice Epi pen for bee allergy to have on staff pass, pharmacy verified #Increase effexor to 150mg daily decrease prazosin to 1mg qhs start ambien 5mg qhs #Goals before discharge include: Eradicate suicidal ideation, Safety plan. Sodium 137 mmol/L (135-145) 07/03/18 11:16 Potassium 4.2 mmol/L (3.5-5.0) 07/03/18 11:16 BUN 14 mg/dL (6-24) 07/03/18 11:16 Creatinine 0.79 mg/dL (0.51-0.95) 07/03/18 11:16 Hemoglobin A1c 4.8 % (4.0-5.6) 07/04/18 07:28 Calcium 9.6 mg/dL (8.6-10.3) 07/03/18 11:16 AST 17 U/L (13-39) 07/03/18 11:16 ALT 8 U/L (7-52) 07/03/18 11:16 Triglycerides 54 mg/dL 07/04/18 07:28 Cholesterol 145 mg/dL 07/04/18 07:28 LDL Cholesterol 78 mg/dL 07/04/18 07:28 Laboratory Results - last 24 hr 07/04/18 07:28 Triglycerides 54 Cholesterol 145 LDL Cholesterol 78 HDL Cholesterol 56.1 Beta HCG, Quant < 0.60 Vital Signs Temp Pulse Resp BP Pulse Ox 98.2 F 78 15 103/64 100 07/05/18 07:42 07/05/18 07:42 07/05/18 07:42 07/05/18 07:42 07/05/18 07:42 07/09/18 Yadira will be referred to ECT. Ativan will be schedculed to help her sleep at night, and reduce agitation and anxiety PRN. A family meeting is planned for tomorrow with her mother. Yadira is in possession of a bag of pills that I would like her to discard, but she doesn't want to. That is to be worked on, too. 07/11/18 Yadira's mother agreed to discard the bag of medications. Ativan PRN is increased to 2 mg. Has been accepted to ECT treatment. Dr. Oconnell notified of self injurious behavior. Await insurance precertification. 07/13/18 Yadira is not appropriate for ECT despite having been precertified. Sedating PRNs are in place for the weekend and may be used together or separately. She is staying the weekend, with plans to be made in the next week to determine next steps. 07/18/18 Clozapine has begun. REMS entered. ANC calculated and entered. Referral to [facility] complete. We are waiting for decision. Clozapine will be titrated upward. 07/20/18 Clozapine has not been increased due to tolerability problems. Referral to [facility] has been completed, but decision has been delayed pending [facility]'s response to clozapine. Continue to monitor. 07/24/18 Clozapine to be increased tonight to 25 mg QAM and 50 mg QHS. Contact will continue to be made with Yadira's mother, Bee. Continued correspondence with [facility] will occur. Continued Medication Management: Start Medication Medications: Current Medications Al Hydrox/Mg Hydrox/Simethicone (Maalox Plus*) 30 ml PO Q4H PRN PRN Reason: INDIGESTION Albuterol (Ventolin Hfa Inhaler*) 1 puff INH Q4H PRN PRN Reason: SOB/WHEEZING Calcium Carbonate (Tums*) 1,000 mg PO Q2H PRN PRN Reason: INDIGESTION/ UPSET STOMACH Last Admin: 07/23/18 16:56 Dose: 1,000 mg Cetirizine HCl (Zyrtec*) 10 mg PO DAILY [facility]; Protocol Last Admin: 07/24/18 08:29 Dose: 10 mg Clonazepam (Klonopin Tab(*)) 2 mg PO Q6H PRN PRN Reason: anxiety/agitation Last Admin: 07/24/18 14:19 Dose: 2 mg Clozapine (Clozapine Tab*) 25 mg PO DAILY [facility] Clozapine (Clozapine Tab*) 50 mg PO BEDTIME [facility] Docusate Sodium (Colace Cap*) 100 mg PO BID PRN PRN Reason: CONSTIPATION Epinephrine HCl (Epipen Adult(Nf)) 0.3 mg IM ONCE PRN PRN Reason: ALLERGIEC RXN Hydroxyzine HCl (Atarax Tab*) 50 mg PO Q6H PRN PRN Reason: ANXIETY Last Admin: 07/10/18 18:00 Dose: 50 mg Ibuprofen (Motrin Tab*) 400 mg PO Q6H PRN PRN Reason: HEADACHE/PAIN Last Admin: 07/11/18 17:45 Dose: 400 mg Lisdexamfetamine Dimesylate (Vyvanse(Nf)) 50 mg PO DAILY [facility] Last Admin: 07/24/18 08:29 Dose: 50 mg Lorazepam (Ativan Tab(*)) 1 mg PO BEDTIME [facility] Last Admin: 07/23/18 20:20 Dose: 1 mg Miscellaneous (Ativan Pyxis Tejeda) 1 ea N/A .ATIVAN IV TEJEDA PRN PRN Reason: PYXIS TEJEDA Nicotine (Nicotine Patch 14 Mg/24 Hr*) 1 patch TRANSDERM DAILY@0800 [facility] Last Admin: 07/24/18 11:12 Dose: Not Given Nicotine Polacrilex (Nicotine Gum*) 2 mg PO Q2H PRN PRN Reason: CRAVING Last Admin: 07/24/18 08:31 Dose: 2 mg Pharmacy Profile Note (Nicotine Patch Removal Note*) 1 note PATCH OFF 2100 [facility] Last Admin: 07/24/18 00:48 Dose: Not Given Prazosin HCl (Minipress Cap*) 1 mg PO BEDTIME [facility] Last Admin: 07/23/18 20:21 Dose: 1 mg Venlafaxine HCl (Effexor Xr Cap*) 150 mg PO DAILY [facility] Last Admin: 07/24/18 08:29 Dose: 150 mg - Discharge Plan Discharge Plan: Consider Longer Term Tx
[2018-07-24] MEDS: LORazepam TAB(*) 1 MG PO SCH (20:02)
[2018-07-24] MEDS: Prazosin CAP* 1 MG PO SCH (20:02)
[2018-07-24] MEDS ORDERED: CloZAPine TAB* 25 MG TAB PO SCH (21:00)
[2018-07-25] MEDS: Lisdexamfetamine(NF) 10 MG CAP PO SCH (09:33)
[2018-07-25] MEDS: Cetirizine* 10 MG TAB PO SCH (09:33)
[2018-07-25] MEDS: Venlafaxine EXT RELEASE CAP* 75 MG PO SCH (09:33)
[2018-07-25] MEDS: CloZAPine TAB* 25 MG TAB PO SCH (09:33)
[2018-07-25] MEDS: Nicotine* 2MG (FRUIT FLAVOR) GUM PO PRN ×3 (09:35→18:00)
[2018-07-25] MEDS: Nicotine PATCH 14 MG/24 HR* PATCH TRANSDERM SCH (09:36)
[2018-07-25] MEDS: clonazePAM TAB(*) 1 MG PO PRN (15:28)
[2018-07-25] MEDS ORDERED: Haloperidol TAB* 5 MG ONE (16:55)
[2018-07-25] MEDS ORDERED: Haloperidol TAB* 5 MG PO ONE (17:00)
[2018-07-25 19:31] LABS: ABS Eosinophils 0.1 10^3/ul (0-0.6); ABS Lymphocytes 2.1 10^3/ul (1.0-4.8); ABS Monocytes 0.6 10^3/ul (0-0.8); Hematocrit 38 % (35-47); Hemoglobin 12.7 g/dL (12.0-16.0); Lymphocyte % 27.1 %; Mean Corpuscular HGB Conc 33 g/dL (31-36); Mean Corpuscular Hemoglobin 31 pg (27-31); Mean Corpuscular Volume 93 fL (80-97); Mean Platelet Volume 7.6 fL (7.4-10.4); Nucleated Red Blood Cells % 0.1; Platelet Count 264 10^3/uL (150-450); Red Cell Distribution Width 13 % (10.5-15); White Blood Count 7.8 10^3/uL (3.5-10.8)
[2018-07-25] MEDS: LORazepam TAB(*) 1 MG PO SCH (19:55)
[2018-07-25] MEDS: Prazosin CAP* 1 MG PO SCH (19:56)
[2018-07-25] MEDS: Nicotine Patch Removal NOTE PATCH OFF SCH (19:56)
[2018-07-25] MEDS ORDERED: CloZAPine TAB* 25 MG TAB PO SCH (21:00)
[2018-07-26] MEDS: Nicotine PATCH 14 MG/24 HR* PATCH TRANSDERM SCH (09:36)
[2018-07-26] MEDS: Cetirizine* 10 MG TAB PO SCH (09:36)
[2018-07-26] MEDS: Lisdexamfetamine(NF) 10 MG CAP PO SCH (09:36)
[2018-07-26] MEDS: Venlafaxine EXT RELEASE CAP* 75 MG PO SCH (09:37)
[2018-07-26] MEDS: CloZAPine TAB* 25 MG TAB PO SCH (09:38)
[2018-07-26] MEDS: Nicotine* 2MG (FRUIT FLAVOR) GUM PO PRN (10:14)
--- NOTE | 2018-07-26 14:27 | PN ---
BSU: Group Therapy Note - Service Type Service Type: [id number] Group Psychotherapy - Cognitive Behavioral Group Therapy ( CBT):Patient was attentive and participatory in CBT programming this morning, and remained in good behavioral control. Patient expressed positive insights regarding relevant treatment interventions and goals.
[2018-07-26] MEDS: clonazePAM TAB(*) 1 MG PO PRN (16:01)
[2018-07-26] MEDS: LORazepam TAB(*) 1 MG PO SCH (20:12)
[2018-07-26] MEDS: Prazosin CAP* 1 MG PO SCH (20:12)
[2018-07-26] MEDS: Nicotine Patch Removal NOTE PATCH OFF SCH (20:13)
[2018-07-27] MEDS: Lisdexamfetamine(NF) 10 MG CAP PO SCH (08:29)
[2018-07-27] MEDS: Venlafaxine EXT RELEASE CAP* 75 MG PO SCH (08:30)
[2018-07-27] MEDS: Cetirizine* 10 MG TAB PO SCH (08:30)
[2018-07-27] MEDS: Nicotine PATCH 14 MG/24 HR* PATCH TRANSDERM SCH (08:30)
[2018-07-27] MEDS: Nicotine* 2MG (FRUIT FLAVOR) GUM PO PRN ×4 (08:32→21:13)
[2018-07-27] MEDS ORDERED: clonazePAM TAB(*) 1 MG PO PRN (13:09)
--- NOTE | 2018-07-27 17:42 | PN ---
Subjective - Subjective Date of Service: 07/27/18 Service Type: 63825 Hosp care 15 min low complexity Subjective: Yadira was informed yesterday that she would be staying until Monday as long as she can have a good weekend. She is struggling with the idea of staying, but she is certainly future oriented and making plans to find activities and purpose in the outpatient setting. One specific plan includes traveling to [place] or [place] to be with her sister. She [place] looking forward to that plan. Yadira requested an increase in Klonopin to help her stay calm. Objective - General Observations Appearance: Neat Appears Stated Age: Yes Stature: Thin Posture: WNL Eye Contact: Intermittent Behavior/Activity: WNL, Peculiar - Interaction Observations Attitude Towards Examiner: Cooperative, Demanding Stated Mood: Dysphoric, Irritable, Anxious Affect: Blunted Speech Pattern/Tone: Clear Thought Process: Coherent Perception: WNL Thought Content: WNL Hallucination Type: None Delusion Type: None - Cognitive Function Orientation: A&O x 4 Level of Consciousness: Awake, Alert, Appropriate Cognition: WNL, Impaired Attention/Concentration Estimated Intelligence: Normal Insight: Mostly Blames Others for Problems Judgment Within Normal Limits: No Ability to Make Reasonable Decisions: Mildly Impaired - Medication Compliance Cooperative with Inpatient Medication Regimen: Yes - Group Participation Participates in Group Activities: Yes Assessment - Assessment Merits Inpatient Hospitalization: For Immediate Safety, For Discharge Planning, Pending Safe DC Plan Inpatient DSM-V Dx: F33.9 Clinical Impression: 28 year old female with history of ADHD, Major Depressive Disorder, Tourette's disorder, and history of substance use disorder presented with suicidal ideation with plan to jump off of [facility] in [facility]. Plan - Plan Treatment Plan: Name: KARINE DOS SANTOS Birthdate: 1990 [id number] # Q30 staff pass #Encourage participation in activities on the milieu. # The patient requires inpatient admission at this time to assure safety, receive treatment and work toward stabilization. # Collaboration with Social Work. #Retracted 72 hour notice Epi pen for bee allergy to have on staff pass, pharmacy verified #Increase effexor to 150mg daily decrease prazosin to 1mg qhs start ambien 5mg qhs #Goals before discharge include: Eradicate suicidal ideation, Safety plan. Sodium 137 mmol/L (135-145) 07/03/18 11:16 Potassium 4.2 mmol/L (3.5-5.0) 07/03/18 11:16 BUN 14 mg/dL (6-24) 07/03/18 11:16 Creatinine 0.79 mg/dL (0.51-0.95) 07/03/18 11:16 Hemoglobin A1c 4.8 % (4.0-5.6) 07/04/18 07:28 Calcium 9.6 mg/dL (8.6-10.3) 07/03/18 11:16 AST 17 U/L (13-39) 07/03/18 11:16 ALT 8 U/L (7-52) 07/03/18 11:16 Triglycerides 54 mg/dL 07/04/18 07:28 Cholesterol 145 mg/dL 07/04/18 07:28 LDL Cholesterol 78 mg/dL 07/04/18 07:28 Laboratory Results - last 24 hr 07/04/18 07:28 Triglycerides 54 Cholesterol 145 LDL Cholesterol 78 HDL Cholesterol 56.1 Beta HCG, Quant < 0.60 Vital Signs Temp Pulse Resp BP Pulse Ox 98.2 F 78 15 103/64 100 07/05/18 07:42 07/05/18 07:42 07/05/18 07:42 07/05/18 07:42 07/05/18 07:42 07/09/18 Yadira will be referred to ECT. Ativan will be schedculed to help her sleep at night, and reduce agitation and anxiety PRN. A family meeting is planned for tomorrow with her mother. Yadira is in possession of a bag of pills that I would like her to discard, but she doesn't want to. That is to be worked on, too. 07/11/18 Yadira's mother agreed to discard the bag of medications. Ativan PRN is increased to 2 mg. Has been accepted to ECT treatment. Dr. Oconnell notified of self injurious behavior. Await insurance precertification. 07/13/18 Yadira is not appropriate for ECT despite having been precertified. Sedating PRNs are in place for the weekend and may be used together or separately. She is staying the weekend, with plans to be made in the next week to determine next steps. 07/18/18 Clozapine has begun. REMS entered. ANC calculated and entered. Referral to [facility] complete. We are waiting for decision. Clozapine will be titrated upward. 07/20/18 Clozapine has not been increased due to tolerability problems. Referral to [facility] has been completed, but decision has been delayed pending Yadira's response to clozapine. Continue to monitor. 07/24/18 Clozapine to be increased tonight to 25 mg QAM and 50 mg QHS. Contact will continue to be made with Yadira's mother, Bee. [facility]ued [facility] occur. 07/27/18 Yadira will be discharged Monday to home as long as she has a positive experience this weekend as [facility] declined to take Same. Yadira has self-discontinued clozapine. She has plans to go to [facility] upon discharge. Medications: Current Medications Al Hydrox/Mg Hydrox/Simethicone (Maalox Plus*) 30 ml PO Q4H PRN PRN Reason: INDIGESTION Albuterol (Ventolin Hfa Inhaler*) 1 puff INH Q4H PRN PRN Reason: SOB/WHEEZING Calcium Carbonate (Tums*) 1,000 mg PO Q2H PRN PRN Reason: INDIGESTION/ UPSET STOMACH Last Admin: 07/23/18 16:56 Dose: 1,000 mg Cetirizine HCl (Zyrtec*) 10 mg PO DAILY ALEX; Protocol Last Admin: 07/27/18 08:30 Dose: 10 mg Clonazepam (Klonopin Tab(*)) 3 mg PO Q8H PRN PRN Reason: ANXIETY/AGITATION Docusate Sodium (Colace Cap*) 100 mg PO BID PRN PRN Reason: CONSTIPATION Epinephrine HCl (Epipen Adult(Nf)) 0.3 mg IM ONCE PRN PRN Reason: ALLERGIEC RXN Hydroxyzine HCl (Atarax Tab*) 50 mg PO Q6H PRN PRN Reason: ANXIETY Last Admin: 07/10/18 18:00 Dose: 50 mg Ibuprofen (Motrin Tab*) 400 mg PO Q6H PRN PRN Reason: HEADACHE/PAIN Last Admin: 07/11/18 17:45 Dose: 400 mg Lisdexamfetamine Dimesylate (Vyvanse(Nf)) 50 mg PO DAILY ALEX Last Admin: 07/27/18 08:29 Dose: 50 mg Lorazepam (Ativan Tab(*)) 1 mg PO BEDTIME ALEX Last Admin: 07/26/18 20:12 Dose: 1 mg Miscellaneous (Ativan Pyxis Tejeda) 1 ea N/A .ATIVAN IV TEJEDA PRN PRN Reason: PYXIS TEJEDA Nicotine (Nicotine Patch 14 Mg/24 Hr*) 1 patch TRANSDERM DAILY@[address] [facility] Last Admin: 07/27/18 08:30 Dose: Not Given Nicotine Polacrilex (Nicotine Gum*) 2 mg PO Q2H PRN PRN Reason: CRAVING Last Admin: 07/27/18 17:23 Dose: 2 mg Pharmacy Profile Note (Nicotine Patch Removal Note*) 1 note PATCH OFF [address] [facility] Last Admin: 07/26/18 20:13 Dose: Not Given Prazosin HCl (Minipress Cap*) 1 mg PO BEDTIME ALEX Last Admin: 07/26/18 20:12 Dose: 1 mg Venlafaxine HCl (Effexor Xr Cap*) 150 mg PO DAILY [facility] Last Admin: 07/27/18 08:30 Dose: 150 mg - Discharge Plan Discharge Plan: Outpatient Follow Up Outpatient Program: [facility]
[2018-07-27] MEDS: clonazePAM TAB(*) 1 MG PO PRN (18:15)
[2018-07-27] MEDS: Prazosin CAP* 1 MG PO SCH (21:10)
[2018-07-27] MEDS: LORazepam TAB(*) 1 MG PO SCH (21:10)
[2018-07-27] MEDS: Nicotine Patch Removal NOTE PATCH OFF SCH (21:11)
[2018-07-28] MEDS: Venlafaxine EXT RELEASE CAP* 75 MG PO SCH (08:35)
[2018-07-28] MEDS: Lisdexamfetamine(NF) 10 MG CAP PO SCH (08:35)
[2018-07-28] MEDS: Cetirizine* 10 MG TAB PO SCH (08:36)
[2018-07-28] MEDS: Nicotine* 2MG (FRUIT FLAVOR) GUM PO PRN ×4 (08:36→17:29)
[2018-07-28] MEDS: Nicotine PATCH 14 MG/24 HR* PATCH TRANSDERM SCH (08:47)
[2018-07-28] MEDS: clonazePAM TAB(*) 1 MG PO PRN (15:14)
[2018-07-28] MEDS: Ibuprofen TAB* 400 MG PO PRN (15:15)
[2018-07-28] MEDS ORDERED: Haloperidol TAB* 5 MG PO ONE (18:00)
[2018-07-28] MEDS ORDERED: Haloperidol TAB* 5 MG ONE (18:57)
[2018-07-28] MEDS: LORazepam TAB(*) 1 MG PO SCH (19:55)
[2018-07-28] MEDS: Prazosin CAP* 1 MG PO SCH (19:56)
[2018-07-28] MEDS: Nicotine Patch Removal NOTE PATCH OFF SCH (20:20)
[2018-07-29] MEDS: Nicotine PATCH 14 MG/24 HR* PATCH TRANSDERM SCH (08:15)
[2018-07-29] MEDS: Lisdexamfetamine(NF) 10 MG CAP PO SCH (08:15)
[2018-07-29] MEDS: Cetirizine* 10 MG TAB PO SCH (09:03)
[2018-07-29] MEDS: Venlafaxine EXT RELEASE CAP* 75 MG PO SCH (09:03)
[2018-07-29] MEDS: Nicotine* 2MG (FRUIT FLAVOR) GUM PO PRN ×3 (09:03→18:04)
[2018-07-29] MEDS: clonazePAM TAB(*) 1 MG PO PRN ×2 (09:13→18:04)
[2018-07-29] MEDS: Prazosin CAP* 1 MG PO SCH (20:29)
[2018-07-29] MEDS: LORazepam TAB(*) 1 MG PO SCH (20:29)
[2018-07-29] MEDS: Nicotine Patch Removal NOTE PATCH OFF SCH (20:33)
[2018-07-30] MEDS: Nicotine PATCH 14 MG/24 HR* PATCH TRANSDERM SCH (09:50)
[2018-07-30] MEDS: Venlafaxine EXT RELEASE CAP* 75 MG PO SCH (09:51)
[2018-07-30] MEDS: Cetirizine* 10 MG TAB PO SCH (09:51)
[2018-07-30] MEDS: Nicotine* 2MG (FRUIT FLAVOR) GUM PO PRN (09:51)
[2018-07-30] MEDS: Lisdexamfetamine(NF) 10 MG CAP PO SCH (09:51)
[2018-07-30 09:54] VITALS: BP 110/65
--- NOTE | 2018-07-30 12:57 | PN ---
BSU: Group Therapy Note - Service Type Service Type: [id number] Group Psychotherapy - Cognitive Behavioral Group Therapy ( CBT):Patient was attentive and participatory in CBT programming this morning, and remained in good behavioral control. Patient expressed positive insights regarding relevant treatment interventions and goals.
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
== END 2018-07-30 11:40 | disposition home or self-care (01) | DRG 751 ==
LOC: ED 09:52 → BSU 12:04
PROVIDERS: ADMIT Psychiatry & Neurology Psychiatry; ATTEND Psychiatry & Neurology Psychiatry
PROC: GZHZZZZ Group Psychotherapy (ICD-10-PCS; principal; 2018-07-05)
DX: F33.2 Major depressive disorder, recurrent severe without psychotic features (principal); F90.9 Attention-deficit hyperactivity disorder, unspecified type; G89.29 Other chronic pain; M54.9 Dorsalgia, unspecified; F95.2 Tourette's disorder; F43.10 Post-traumatic stress disorder, unspecified; J45.909 Unspecified asthma, uncomplicated; F41.0 Panic disorder [episodic paroxysmal anxiety]; F17.210 Nicotine dependence, cigarettes, uncomplicated; H57.89 Other specified disorders of eye and adnexa; S05.11XA Contusion of eyeball and orbital tissues, right eye, initial encounter; Y04.2XXA Assault by strike against or bumped into by another person, initial encounter; Y92.239 Unspecified place in hospital as the place of occurrence of the external cause; Z91.5 Personal history of self-harm; Z78.1 Physical restraint status; Z88.0 Allergy status to penicillin; Z91.030 Bee allergy status; Z91.018 Allergy to other foods; Z81.1 Family history of alcohol abuse and dependence; Z81.8 Family history of other mental and behavioral disorders; Z56.0 Unemployment, unspecified; Z87.820 Personal history of traumatic brain injury
CPT/HCPCS: 36415; 70450; 80053; 80061; 80307; 80320; 80329; 81003; 83036; 84443; 84702; 85025; 90853; 93005; 99222; 99231; 99232; 99233; 99238; 99284; A9270-GY; G0480; J1630

== ENCOUNTER 2019-02-15 19:01 | Inpatient (IN) | payer OTHER ==
--- OUTSIDE RECORDS SUMMARY | 2019-02-15 19:24 | XMS REPORT ---
:1990 Author Organization [facility] Care Team Providers Name Role Phone Sumi Buitrago Primary Care Physician Unavailable Allergies, Adverse Reactions, Alerts Allergy Code CodeSystem Reaction Severity Criticality Status Start Substance Date amoxicillin Rash Moderate Active Medications Medication Medication Medication Start Stop Route Dose Status Fill Code CodeSystem Date Date Instructions venlafaxine 102400 RxNorm 2019- oral 150 mg 1 completed Take 1 6-25 10-24 capsule, capsule by extended mouth once a release day for 30 24hr day(s) once a day venlafaxine 741428 RxNorm 2018- oral 25 mg 1 active Take 1 tablet 1-21 tablet by mouth twice a twice a day day for 30 day(s) benztropine 978781 RxNorm 2019- oral 0.5 mg completed for 30 04-24 tablet day(s) Vyvanse 900740 RxNorm 2019- oral 30 mg 1 active Take 1 8-06 12-21 capsule capsule by every mouth every morning morning for 30 day(s) Vyvanse 211534 RxNorm 2019- oral 20 mg 2 completed Take 2 6-06 06-20 capsule capsule by once a mouth once a day day as needed for 30 day(s) prazosin 500101 RxNorm 2020- oral 1 mg 1 active Take 1 9 01-20 capsule capsule by at mouth at bedtime bedtime for 30 day(s) sertraline 992174 RxNorm 2018-02 oral 100 mg 1 active 1 tablet 2-04 tablet once a day once a for 30 day(s) day venlafaxine 072906 RxNorm 2019- oral 75 mg completed for 15 06-25 capsule, day(s) extended release 24hr Vyvanse 211366 RxNorm 2019- oral 20 mg 1 completed Take 1 4-24 05-24 capsule capsule every every morning morning for 30 day(s) Ventolin HFA 187525 RxNorm inhl 90 active for 16 mcg/actu day(s) ation HFA aerosol inhaler Vyvanse 258970 RxNorm 2019- oral 20 mg 1 completed Take 1 6 08- capsule capsule by every mouth every morning morning for 30 day(s) prazosin 610696 RxNorm 2019- oral 1 mg completed for 30 06-06- capsule day(s) venlafaxine 061938 RxNorm 2018-02 oral 75 mg 1 active Take 1 0-24 capsule, capsule by extended mouth once a release day for 30 24hr day(s) once a day alprazolam 811805 RxNorm 2019- oral 0.5 mg 1 active 1 tablet 10-30 tablet twice a day twice a as needed for day 30 day(s) Vyvanse 441695 RxNorm 2019- oral 20 mg completed for 30 06-20 capsule day(s) lorazepam RxNorm 2019- oral 0.5 mg completed Take /09-18/2 tablet by tablet mouth twice a twice a day as needed day for 30 day(s) escitalopram 491499 RxNorm 2019- oral 10 mg completed for 30 - tablet day(s) diazepam 377781 RxNorm 2019- oral 5 mg completed for 15 - tablet day(s) lorazepam 507058 RxNorm 2019- oral 1 mg completed for 30 09-18 tablet day(s) haloperidol 550583 RxNorm 2019- oral 5 mg completed for 30 09-18 tablet day(s) prazosin 000527 RxNorm 2019- oral 1 mg 1 completed Take 1 06-06 capsule capsule at at bedtime for bedtime 30 day(s) haloperidol 972260 RxNorm 2019- oral 5 mg completed for 30 - tablet day(s) sertraline 087076 RxNorm 2018-02 2019- oral 50 mg completed for 30 024 12- tablet day(s) escitalopram 750242 RxNorm 2019- oral 20 mg 1 completed Take 1 tablet oxalate 06-06 tablet once a day once a for 30 day(s) day prazosin 723397 RxNorm 2019- oral 1 mg completed for 30 4-24 07-23 capsule day(s) Vyvanse 908432 RxNorm 2019- oral 50 mg completed for 30 -06 capsule day(s) diazepam 202175 RxNorm 2018- oral 5 mg completed for 15 - tablet day(s) Vyvanse 212955 RxNorm 2019- oral 20 mg 1 completed Take 1 6-20 - capsule capsule by once a mouth once a day day as needed for 30 day(s) hydroxyzine 695887 RxNorm 2019- oral 50 mg completed for 30 HCl - tablet day(s) Problems Problem Name Code CodeSystem Alternate Alternate Start End Status Narrative Code CodeSystem Date Date 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] Post-traumat 48598802 SNOMED-CT 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, unspecified Post-traumat 90119776 SNOMED-CT 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, unspecified Major 57790833 SNOMED-CT Active 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, recurrent, in partial remission 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 Generalized [id number] SNOMED-CT 2018-02 Active anxiety -27 disorder Post-traumat 46911893 SNOMED-CT 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, unspecified Major 13463996 SNOMED-CT Active 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, recurrent, in partial remission Alcohol 59768660 SNOMED-CT 2018-02 Active dependence, 03-25 in remission Relevant diagnostic tests/laboratory data Narrative No Information Procedures Procedure Code CodeSystem Target Date of Status Service Device Device Device Name Site Procedure Delivery Code Name UID Location SNOMED-CT () 2019-01-02 complete Mental d [address], [id number] SNOMED-CT () 2019-01-04 complete Mental d [address], [id number] SNOMED-CT () 2019-01-02 complete Mental d [address], [id number] SNOMED-CT () 2019-01-17 complete Mental d Health- [address], [id number] [phone] Psychotherap [id number] SNOMED-CT () 2019-01-30 complete Mental y, 45 04 d Health- minutes with [facility] patient [address], [id number] [phone] Psychotherap [id number] SNOMED-CT () 2019-01-23 complete Mental y, 45 04 d Health- minutes with [facility] patient [address], [id number] [phone] Psychotherap [id number] SNOMED-CT () 2019-01-10 complete Mental y, 45 04 d Health- minutes with [facility] patient [address], [id number] [phone] Group [id number] SNOMED-CT () 2019-01-30 complete Mental psychotherap 8 d Health- y (other [facility] than [place] multiple-[address], [id number] [phone] SNOMED-CT () 2018-06-26 complete Mental d Health- [address], [id number] SNOMED-CT () 2018-08-26 complete Mental d Health- [address], [id number] SNOMED-CT () 2018-10-27 complete Mental d Health- [address], [id number] SNOMED-CT () 2018-07-27 complete Mental d Health- [address], [id number] [id number] SNOMED-CT () 2018-12-27 complete Mental d Health- [address], [id number] SNOMED-CT () 2018-09-26 complete Mental d Health[address], [id number] SNOMED-CT () 2018-11-26 complete Mental d Health- [address], [id number] [id number] SNOMED-CT () 2018-11-26 complete Mental d Health[address], [id number] SNOMED-CT () 2018-08-26 complete Mental d Health- [address], [id number] SNOMED-CT () 2018-06-26 complete Mental d Health- [address], [id number] SNOMED-CT () 2018-12-27 complete Mental d Health[address], [id number] SNOMED-CT () 2018-10-27 complete Mental d Health- [address], [id number] [id number] SNOMED-CT () 2018-09-26 complete Mental d Health- [address], [id number] [id number] Office or [id number] SNOMED-CT () 2019-01-30 complete Mental other 7 d Health- outpatient [facility] visit for [address], [place] [place] [id number] patient, [id number] which requires at least 2 of these 3 watts components: An expanded problem focused history; An expanded problem focused examination; Medical decision making of low SNOMED-CT () 2018-07-27 complete Mental d Health- [address], [id number] [phone] SNOMED-CT () 2018-07-27 complete Mental d Health[address], [id number] SNOMED-CT () 2018-07-27 complete Mental d Health[address], [id number] SNOMED-CT () 2018-09-26 complete Mental d [address], [id number] SNOMED-CT () 2018-09-26 complete Mental d Health[address], [id number] SNOMED-CT () 2018-09-26 complete Mental d [address], [id number] SNOMED-CT () 2018-09-26 complete Mental d Health[address], [id number] SNOMED-CT () 2018-09-26 complete Mental d [address], [id number] SNOMED-CT () 2018-09-26 complete Mental d [address], [id number] SNOMED-CT () 2018-09-26 complete Mental d Health[address], [id number] SNOMED-CT () 2018-09-26 complete Mental d [address], [id number] [id number] SNOMED-CT () 2018-09-26 complete Mental d [address], [id number] SNOMED-CT () 2018-09-26 complete Mental d Health[address], [id number] SNOMED-CT () 2018-09-26 complete Mental d Health[address], [id number] SNOMED-CT () 2018-10-27 complete Mental d Health[address], [id number] SNOMED-CT () 2018-10-27 complete Mental d Health[address], [id number] SNOMED-CT () 2018-10-27 complete Mental d Health[address], [id number] SNOMED-CT () 2018-10-27 complete Mental d Health[address], [id number] SNOMED-CT () 2018-10-27 complete Mental d [address], [id number] SNOMED-CT () 2018-10-27 complete Mental d Health[address], [id number] SNOMED-CT () 2018-10-27 complete Mental d [address], [id number] SNOMED-CT () 2018-10-27 complete Mental d [address], [id number] SNOMED-CT () 2018-10-27 complete Mental d Health[address], [id number] [id number] SNOMED-CT () 2018-10-27 complete Mental d [address], [id number] SNOMED-CT () 2018-10-27 complete Mental d [address], [id number] SNOMED-CT () 2018-10-27 complete Mental d Health[address], [id number] SNOMED-CT () 2018-10-27 complete Mental d Health[address], [id number] SNOMED-CT () 2018-10-27 complete Mental d [address], [id number] SNOMED-CT () 2018-10-27 complete Mental d [address], [id number] SNOMED-CT () 2018-10-27 complete Mental d [address], [id number] [id number] SNOMED-CT () 2018-10-27 complete Mental d [address], [id number] SNOMED-CT () 2018-10-27 complete Mental d [address], [id number] SNOMED-CT () 2018-10-27 complete Mental d [address], [id number] SNOMED-CT () 2018-10-27 complete Mental d [address], [id number] SNOMED-CT () 2018-10-27 complete Mental d [address], [id number] SNOMED-CT () 2018-11-26 complete Mental d [address], [id number] [id number] SNOMED-CT () 2018-11-26 complete Mental d [address], [id number] [id number] SNOMED-CT () 2018-11-26 complete Mental d [address], [id number] [id number] SNOMED-CT () 2018-11-26 complete Mental d Health[address], [id number] [id number] SNOMED-CT () 2018-11-26 complete Mental d [address], [id number] [id number] SNOMED-CT () 2018-11-26 complete Mental d [address], [id number] [id number] SNOMED-CT () 2018-11-26 complete Mental d [address], [id number] [id number] SNOMED-CT () 2018-11-26 complete Mental d [address], [id number] SNOMED-CT () 2018-11-26 complete Mental d [address], [id number] [id number] SNOMED-CT () 2018-11-26 complete Mental d [address], [id number] [id number] SNOMED-CT () 2018-11-26 complete Mental d [address], [id number] SNOMED-CT () 2018-11-26 complete Mental d [address], [id number] SNOMED-CT () 2018-11-26 complete Mental d [address], [id number] SNOMED-CT () 2018-11-26 complete Mental d [address], [id number] SNOMED-CT () 2018-11-26 complete Mental d [address], [id number] SNOMED-CT () 2018-11-26 complete Mental d [address], [id number] SNOMED-CT () 2018-11-26 complete Mental d [address], [id number] SNOMED-CT () 2018-11-26 complete Mental d [address], [id number] SNOMED-CT () 2018-11-26 complete Mental d [address], [id number] SNOMED-CT () 2018-11-26 complete Mental d [address], [id number] SNOMED-CT () 2018-11-26 complete Mental d [address], [id number] SNOMED-CT () 2018-11-26 complete Mental d [address], [id number] SNOMED-CT () 2018-11-26 complete Mental d Health[address], [id number] SNOMED-CT () 2018-08-26 complete Mental d [address], [id number] SNOMED-CT () 2018-08-26 complete Mental d [address], [id number] SNOMED-CT () 2018-08-26 complete Mental d Health[address], [id number] SNOMED-CT () 2018-08-26 complete Mental d [address], [id number] SNOMED-CT () 2018-08-26 complete Mental d [address], [id number] SNOMED-CT () 2018-08-26 complete Mental d [address], [id number] SNOMED-CT () 2018-08-26 complete Mental d [address], [id number] SNOMED-CT () 2018-08-26 complete Mental d Health[address], [id number] SNOMED-CT () 2018-08-26 complete Mental d [address], [id number] SNOMED-CT () 2018-08-26 complete Mental d [address], [place], [id number] [id number] SNOMED-CT () 2018-08-26 complete Mental d [address], [id number] SNOMED-CT () 2018-08-26 complete Mental d [address], [id number] SNOMED-CT () 2018-08-26 complete Mental d Health[address], [id number] [id number] SNOMED-CT () 2018-08-26 complete Mental d [address], [id number] SNOMED-CT () 2018-08-26 complete Mental d [address], [id number] SNOMED-CT () 2018-06-26 complete Mental d Health[address], [id number] SNOMED-CT () 2018-06-26 complete Mental d [address], [id number] SNOMED-CT () 2018-06-26 complete Mental d [address], [id number] SNOMED-CT () 2018-06-26 complete Mental d [address], [id number] SNOMED-CT () 2018-06-26 complete Mental d [address], [id number] SNOMED-CT () 2018-06-26 complete Mental d [address], [id number] SNOMED-CT () 2018-06-26 complete Mental d [address], [id number] SNOMED-CT () 2018-06-26 complete Mental d Health[address], [id number] SNOMED-CT () 2018-06-26 complete Mental d Health[address], [id number] SNOMED-CT () 2018-06-26 complete Mental d Health[address], [id number] SNOMED-CT () 2018-06-26 complete Mental d Health[address], [id number] SNOMED-CT () 2018-06-26 complete Mental d [address], [id number] SNOMED-CT () 2018-06-26 complete Mental d [address], [id number] SNOMED-CT () 2018-06-26 complete Mental d Health[address], [id number] SNOMED-CT () 2018-06-26 complete Mental d [address], [id number] SNOMED-CT () 2018-06-26 complete Mental d [address], [id number] SNOMED-CT () 2018-12-27 complete Mental d Health[address], [id number] SNOMED-CT () 2018-12-27 complete Mental d Health[address], [id number] SNOMED-CT () 2018-12-27 complete Mental d Health[address], [id number] SNOMED-CT () 2018-12-27 complete Mental d Health[address], [id number] SNOMED-CT () 2018-12-27 complete Mental d [address], [id number] SNOMED-CT () 2018-12-27 complete Mental d Health[address], [id number] SNOMED-CT () 2018-12-27 complete Mental d Health[address], [id number] SNOMED-CT () 2018-12-27 complete Mental d Health[address], [id number] [id number] SNOMED-CT () 2018-12-27 complete Mental d [address], [id number] SNOMED-CT () 2018-12-27 complete Mental d [address], [id number] SNOMED-CT () 2018-12-27 complete Mental d Health[address], [id number] SNOMED-CT () 2018-12-27 complete Mental d [address], [id number] SNOMED-CT () 2018-12-27 complete Mental d [address], [id number] SNOMED-CT () 2018-12-27 complete Mental d Health[address], [id number] SNOMED-CT () 2018-12-27 complete Mental d Health[address], [id number] [id number] SNOMED-CT () 2018-12-27 complete Mental d [address], 332374594 [id number] SNOMED-CT () 2018-12-27 complete Mental d [address], [id number] SNOMED-CT () 2018-12-27 complete Mental d [address], [id number] SNOMED-CT () 2018-12-27 complete Mental d [address], [id number] SNOMED-CT () 2018-12-27 complete Mental d [address], [id number] SNOMED-CT () 2018-12-27 complete Mental d [address], [id number] [id number] SNOMED-CT () 2018-12-27 complete Mental d [address], [id number] [id number] SNOMED-CT () 2018-12-27 complete Mental d [address], [id number] SNOMED-CT () 2018-12-27 complete Mental d [address], 239747530 [id number] SNOMED-CT () 2018-12-27 complete Mental d [address], [id number] SNOMED-CT () 2018-12-27 complete Mental d [address], 199481256 [id number] SNOMED-CT () 2018-12-27 complete Mental d Health[address], 452393906 [id number] SNOMED-CT () 2018-12-27 complete Mental d [address], [id number] [id number] SNOMED-CT () 2018-12-27 complete Mental d [address], 247342644 [id number] SNOMED-CT () 2018-12-27 complete Mental d [address], [id number] SNOMED-CT () 2018-12-27 complete Mental d Health- [address], [id number] SNOMED-CT () 2018-12-27 complete Mental d Health- [address], [id number] [phone] Office or [id number] SNOMED-CT () 2019-01-17 complete Mental other 6 d Health- outpatient [facility] visit for [address], [place], [place] [place] [id number] patient, [id number] which requires at least 2 of these 3 watts components: A problem focused history; A problem focused examination; Straightforw kev medical decision making. Counselin Encounters/Encounter Diagnoses Encounter Name Encounter Diagnosis Diagnosis Diagnosis Date of Service Code Code Name CodeSystem Diagnosis Delivery Location [facility] - [id number] Major SNOMED-CT 2019-02-01 Behavioral Individual 30 depressive Health min disorder, Clinic , , recurrent, , in partial remission Vital Signs No Information Social History Element Description Description Start End Code CodeSystem AdditionalInfo Date Date SexAssignedAtBirth Female F AdministrativeGender 2-15 Hospital Discharge Instructions Reason For Referral Medical Equipment FDA Assessments
--- OUTSIDE RECORDS SUMMARY | 2019-02-15 19:24 | XMS REPORT | Continuity of Care Document ---
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 Onset: 05/17/2016 Rickie de la Tourette's syndrome Rosalinda Villareal M.D. Onset: 05/17/2016 Adult attention deficit hyperactivity Rosalinda Villareal M.D. Onset: 2016 disorder Closed traumatic dislocation Ilia Stern MD Onset: 01/27/2017 acromioclavicular joint Glenoid labrum tear Ilia Stern MD Onset: 01/27/2017 Traumatic rupture of rotator cuff Ilia Stern MD Onset: 03/21/2017 Allergy to bee venom Napoleon Batres MD Onset: 02/08/2019 Mild intermittent asthma Carmen Turner MD Onset: 01/09/2019 Social History Type Date Description Comments Sex Unknown Tobacco Use Start: Unknown currently smokes 1/2 Pack since age 14 Daily ETOH Use Denies alcohol use Recreational Drug Use Regularly uses Marijuana daily Tobacco Use Start: Unknown Heavy tobacco smoker (more than 10 cigarettes/day) Smoking Status Reviewed: 02/08/19 Heavy tobacco smoker (more than 10 cigarettes/day) Exercise Type/Frequency Exercises regularly Allergies, Adverse Reactions, Alerts Active Allergies Reaction Severity Comments Date Amoxicillin rash 06/23/2008 Medications Active Medications SIG Qnty Indications Ordering Provider Date Ventolin HFA take every 6 hours 18gm J45.20 Napoleon Batres MD 02/08/2019 as needed for 108(90Base) mcg/Act shortness of Aerosol breath or wheezing. Epinephrine 1 injection as 2units Z91.030 Napoleon Batres MD 02/08/2019 needed allergic 0.3mg/0.3ML Solution reaction Auto-Inject Albuterol Sulfate Use every 6 hours 15ml J45.20 Napoleon Batres MD 02/08/2019 as needed for 1.25mg/3ML Nebulizer wheezing or SOB not relieved with ventolin Venlafaxine HCL 1/2 tab daily J45.20 Other Ordering 02/08/2019 25mg Provider Tablets Qvar Redihaler 2 puff twice a day 21.2gm Napoleon Batres MD 80mcg/Act Aerosol Nebulizer Unknown Kit/Tubing/Mouthpiec e Kit Prazosin HCL Unknown 1mg Capsules Fluticasone Unknown Propionate 50mcg/Act Suspension Montelukast Sodium 1 by mouth every 30tabs Napoleon Batres MD day 10mg Tablets Xyzal Allergy 24HR 1 by mouth every 30tabs Shellie Martines MD day 5mg Tablets Sertraline HCL 1 by mouth every Unknown 50mg day Tablets Omeprazole 1 by mouth every Unknown 20mg day Capsules DR Anderson take 1 tab daily J45.20 Unknown 30mg Capsules Alprazolam take 1 tablet by J45.20 Unknown 0.5mg mouth once twice a Tablets day as needed for anxiety Medications Administered in Office Medication SIG Qnty Indications Ordering Provider Date Celestone 3 mg and 3mg Ilia Stern MD 01/27/2017 Injection Immunizations CPT Code Status Date Vaccine Reaction Lot # [id number] Given 01/09/2019 Influenza Virus Vaccine, pt. tolerated well. [id number] Quadrivalent, Split, Preservative Free Vital Signs Date Vital Result Comment 02/08/2019 8:34am Height 65 inches 5'5" Weight 149.00 lb Heart Rate 86 /min BP Systolic 111 mmHg BP Diastolic 64 mmHg O2 % BldC Oximetry 98 % BMI (Body Mass Index) 24.8 kg/m2 01/09/2019 10:01am Height 65 inches 5'5" Weight 141.00 lb Heart Rate 68 /min BP Systolic Sitting 115 mmHg BP Diastolic Sitting 75 mmHg Body Temperature 98.4 F O2 % BldC Oximetry 97 % BMI (Body Mass Index) 23.5 kg/m2 Results Description No Information Available Procedures Description No Information Available Medical Devices Description No Information Available Encounters Type Date Location Provider Dx Diagnosis Office Visit 01/09/2019 [employer] Internal Carmen Turner MD M79.674 Pain in right 10:00a Medicine - Suite R toe(s) J45.20 Mild intermittent asthma, uncomplicated R53.82 Chronic fatigue, unspecified Z23 Encounter for immunization F90.2 Attention-deficit hyperactivity disorder, combined type F95.2 Tourette's disorder F31.9 Bipolar disorder, unspecified Assessments Date Code Description Provider 02/08/2019 J45.20 Mild intermittent asthma, uncomplicated Napoleon Batres MD 02/08/2019 Z91.030 Bee allergy status Napoleon Batres MD 01/09/2019 M79.674 Pain in right toe(s) Carmen Turner MD 01/09/2019 J45.20 Mild intermittent asthma, uncomplicated Carmen Turner MD 01/09/2019 R53.82 Chronic fatigue, unspecified Carmen Turner MD 01/09/2019 Z23 Encounter for immunization Carmen Turner MD 01/09/2019 F90.2 Attention-deficit hyperactivity disorder, combined Carmen Turner MD type 01/09/2019 F95.2 Tourette's disorder Carmen Turner MD 01/09/2019 F31.9 Bipolar disorder, unspecified Carmen Turner MD Plan of Treatment 02/08/2019 - Napoleon Batres MDJ45.20 Mild intermittent asthma, uncomplicatedNew Medication:Ventolin HFA 108(90 Base) mcg/Act - take every 6 hours as needed for shortness of breath or wheezing.Albuterol Sulfate 1.25 mg/3ML - Use every 6 hours as needed for wheezing or SOB not relieved with ventolinVenlafaxine HCL 25 mg - 1/2 tab kpulhF84.030 Bee allergy statusNew Medication:Epinephrine 0.3 mg /0.3ML - 1 injection as needed allergic reaction Functional Status Description No Information Available Mental Status Description No Information Available Referrals Refer to Reason for Referral Status Appt Date Sven Castaneda MD Sent 01/21/2019 [address] [place] [address] [phone]
--- OUTSIDE RECORDS SUMMARY | 2019-02-15 19:25 | XMS REPORT | Continuity of Care Document ---
:1990 External Reference #:[id number] Author Name ANNAMARIE Mauricio (transmitted by agent of provider Gumaro Ibarra) Address [address] [address] [place] [address] Care Team Providers Name Role Phone Google/Search-Referral Care Team Information Commercial Representative Unavailable Zenobia Meléndez M.D. - Family Care Team Information Commercial Representative [phone] Medicine Problems Active Problems Provider Date Mild intermittent asthma ANNAMARIE Mauricio Onset: 11/26/2018 Allergic rhinitis ANNAMARIE Mauricio Onset: 11/26/2018 Allergic rhinitis due to pollen ANNAMARIE Mauricio Onset: 2018 Social History Type Date Description Comments Sex Unknown Tobacco Use Start: Unknown Patient is a current smoker, smokes every day Tobacco Use Start: Unknown Smokes marijuana 2x/week Smoking Status Reviewed: 12/24/18 Smokes marijuana 2x/week Allergies, Adverse Reactions, Alerts Active Allergies Reaction Severity Comments Date Amoxicillin 11/26/2018 Medications Active Medications SIG Qnty Indications Ordering Provider Date Qvar Redihaler inhale 2 puffs 10.600gm J45.20 Gumaro Cortez 11/26/2018 80mcg/Act twice a day. MD Fred Aerosol rinse mouth after use. Fluticasone Propionate spray 2 sprays 16gm J30.1 Gumaro Cortez 11/26/2018 in each MD Fred 50mcg/Act Suspension nostril daily Levocetirizine take one 30tabs J30.1 Gumaro Cortez 11/26/2018 Dihydrochloride tablet by MD Fred 5mg mouth daily at Tablets bedtime Venlafaxine HCL ER Unknown 150mg Caps ER 24HR Vyvanse Unknown 30mg Capsules Alprazolam Unknown 0.5mg Tablets Montelukast Sodium Unknown 10mg Tablets Omeprazole Unknown 20mg Capsules DR Lorazepam Unknown 0.5mg Tablets Ventolin HFA Unknown 108(90Base) mcg/Act Aerosol Immunizations Description No Information Available Vital Signs Date Vital Result Comment 12/24/2018 11:11am BP Systolic 120 mmHg BP Diastolic 84 mmHg Height 65 inches 5'5" Weight 142.00 lb BMI (Body Mass Index) 23.6 kg/m2 Heart Rate 72 /min Respiratory Rate 16 /min Body Temperature 98.3 F O2 % BldC Oximetry 98 % 11/26/2018 11:00am BP Systolic 141 mmHg BP Diastolic 92 mmHg Height 65 inches 5'5" Weight 142.00 lb BMI (Body Mass Index) 23.6 kg/m2 Heart Rate 82 /min O2 % BldC Oximetry 98 % Results Test Acquired Date Facility Test Result H/L Range Note Order 11/26/2018 [facility] Skin Test Seasonal < pending> and Environmental Procedures Date Code Description Status 11/26/2018 52631 Nitric Oxide Gas Determination Completed 11/26/2018 93149 Allergy Tests Percutaneous W/ Allergenic Extracts Completed 11/26/2018 65644 Allergy Tests Percutaneous W/ Allergenic Extracts Completed 11/26/2018 91646 Bronchodilation Responsiveness Spirometry Pre/Post Completed Bronchodil Adm Medical Devices Description No Information Available Encounters Type Date Location Provider Dx Diagnosis Office Visit 12/24/2018 José Schwarz J30.89 Other allergic 11:00a [place]rer[place], RPA-C rhinitis J45.20 Mild intermittent asthma, uncomplicated Office Visit 11/26/2018 11:00a Heidy Rodriguez30.1 Allergic rhinitis RPA-C due to pollen J30.89 Other allergic rhinitis J45.20 Mild intermittent asthma, uncomplicated Assessments Date Code Description Provider 12/24/2018 J30.89 Other allergic rhinitis Shawna Álvarez RPA-C 12/24/2018 J45.20 Mild intermittent asthma, Shawna Álvarez RPA-C uncomplicated 11/26/2018 J30.1 Allergic rhinitis due to pollen Shawna S. Henri, RPA -C 11/26/2018 J30.89 Other allergic rhinitis Shawna Karishma Herrerar, RPA-C 11/26/2018 J45.20 Mild intermittent asthma, Shawna Minalillier, RPA-C uncomplicated 11/26/2018 J30.1 Allergic rhinitis due to pollen Gumaro Ibarra MD Plan of Treatment Future Appointment(s):06/24/2019 2:30 pm - Shawna NullBronson Álvarez, BRANDAN-C at [id number]/24/2018 - Shawna S. Henri, BRANDAN-CJ30.89 Other allergic rhinitisComments:Patient minimally reactive to the following; sweet vernal grass , dust mite, cockroach, rabbit, mouse, horse and several mold spores. She had a strong positive to corn smut. Total IgE level is 13.5 kU/l. I have discussed environmental controls for common indoor allergens. I have advised patient to continue Fluticasone and Levocetirizine as prescribed. If patient remains symptomatic despite above treatment plan, she should contact the office, otherwise follow-up in 6 months.Follow up:6 months.J45.20 Mild intermittent asthma, uncomplicatedComments:Use Qvar twice a day as directed. Continue Ventolin as needed for breakthrough asthma symptoms. Patient advised to contact the office if she continues to have respiratory symptoms despite medications.Follow up:6 months - w/PFT and NIOX Functional Status Description No Information Available Mental Status Description No Information Available Referrals Description No Information Available
--- OUTSIDE RECORDS SUMMARY | 2019-02-15 19:25 | XMS REPORT | Continuity of Care Document ---
:1990 External Reference #:[id number] Author Name Carmen Turner MD (transmitted by agent of provider Kaur Lemus) Address [address] [place] [address] Care Team Providers Name Role Phone Shellie Martines MD - Internal Medicine Care Team Information Swing Tender Problems Active Problems Provider Date Attention deficit [...] rotator cuff Ilia Stern MD Onset: 03/21/2017 Mild intermittent asthma Carmen Turner MD Onset: 01/09/2019 Social History Type Date Description Comments Sex Unknown Tobacco Use Start: Unknown currently smokes 1/2 Pack since age 14 Daily ETOH Use Denies alcohol use Recreational Drug Use Regularly uses Marijuana daily Tobacco Use Start: Unknown Heavy tobacco smoker (more than 10 cigarettes/day) Smoking Status Reviewed: 01/09/19 Heavy tobacco smoker (more than 10 cigarettes/day) Exercise Type/Frequency Exercises regularly Allergies, Adverse Reactions, Alerts Active Allergies Reaction Severity Comments Date Amoxicillin rash 06/23/2008 Medications Active Medications SIG Qnty Indications Ordering Provider Date Qvar Redihaler 2 puff twice a Unknown 80mcg/Act day Aerosol Nebulizer Unknown Kit/Tubing/Mouthpiece Kit Prazosin HCL Unknown 1mg Capsules Fluticasone Propionate Unknown 50mcg/Act Suspension Montelukast Sodium 1 by mouth Unknown 10mg every day Tablets Venlafaxine HCL 1 by mouth Unknown 75mg every day Tablets Xyzal Allergy 24HR 1 by mouth 30tabs Shellie Martines MD 5mg every day Tablets Sertraline HCL 1 by mouth Unknown 50mg every day Tablets Omeprazole 1 by mouth Unknown 20mg Capsules every day Amphetamine-Dextroamph 1 by mouth Unknown et ER every day, prn 30mg Caps ER 24HR Medications Administered in Office Medication SIG Qnty Indications Ordering Provider Date Celestone 3 mg and 3mg Ilia Stern MD 01/27/2017 Injection Immunizations CPT Code Status Date Vaccine Reaction Lot # 46488 Given 01/09/2019 Influenza Virus Vaccine, pt. tolerated well. [id number] Quadrivalent, Split, Preservative Free Vital Signs Date Vital Result Comment 01/09/2019 10:01am Height 65 inches 5'5" Weight 141.00 lb Heart Rate 68 /min BP Systolic Sitting 115 mmHg BP Diastolic Sitting 75 mmHg Body Temperature 98.4 F O2 % BldC Oximetry 97 % BMI (Body Mass Index) 23.5 kg/m2 01/02/2018 9:39am Weight 120.00 lb Heart Rate 73 /min Respiratory Rate 16 /min Body Temperature 97.9 F Pain Level 4 O2 % BldC Oximetry 99 % Results Description No Information Available Procedures Date Code Description Status 07/28/2018 03422 EKG, Interpretation Only Completed Medical Devices Description No Information Available Encounters Description No Information Available Assessments Date Code Description Provider 01/09/2019 M79.674 Pain in right toe(s) Carmen Turner MD 01/09/2019 J45.20 Mild intermittent asthma, uncomplicated Carmen Turner MD 01/09/2019 R53.82 Chronic fatigue, unspecified Carmen Turner MD 01/09/2019 Z23 Encounter for immunization Carmen Turner MD 07/28/2018 F32.9 Major depressive disorder, single José Peter M.D. episode, unspecified Plan of Treatment 01/09/2019 - Carmen Turner, MDM79.674 Pain in right toe(s)J45.20 Mild intermittent asthma, uncomplicatedComments:We refilled Xyzal for you today.Please call our office if you need further refill.Follow up:ADAM from her databases software consultant Dr. Crump53.82 Chronic fatigue, unspecifiedComments:Advise to take vitamin B complex, it can help with your numbness and fatigue.Z23 Encounter for immunization Functional Status Description No Information Available Mental Status Description No Information Available Referrals Description No Information Available
--- NOTE | 2019-02-15 19:43 | ED ---
Psychiatric Complaint - HPI Summary HPI Summary: 28-year-old female with a significant past medical history of polysubstance abuse, past attempts at self-harm and suicide, major depressive disorder presents to emergency department today with suicidal ideation. Patient states she has had thoughts of killing herself recently and has multiple plans. Patient denies homicidal ideation. Patient has recently not exhibited any acts of self-harm. Patient states she does see a counselor which does not help. Patient states she takes no medications on daily basis. Patient endorses no pain at this time or physical symptoms such as fever, chest pain, abdominal pain compared with urination or rash. Patient is uncooperative with interview and history is difficult to obtain. Patient makes poor eye contact and is very anxious and fidgety in the room. - History Of Current Complaint Chief Complaint: EDMentalHealth Time Seen by Provider: 02/15/19 19:26 Hx Obtained From: Patient Hx Last Menstrual Period: "Last week" Onset/Duration: Gradual Onset Timing: Constant Severity Initially: Severe Severity Currently: Severe Character: Depressed, Anxious Has Suicidal: Reports: Thoughts, With A Plan, Has Prior Attempt(s). Denies: Demonstrates Gesture Has Homicidal: Denies: Thoughts - Allergies/Home Medications Allergies/Adverse Reactions: Allergies Allergy/AdvReac Type Severity Reaction Status Date / Time Tree Nuts Allergy Severe Rash and Verified 02/15/19 19:10 tongue swelling amoxicillin Allergy Rash Verified 02/15/19 19:10 bee venom protein (honey bee) Allergy Anaphylatic Verified 02/15/19 19:10 Shock Home Medications: Home Medications ALPRAZolam TAB* [Xanax TAB*] 0.5 mg PO BID PRN 02/15/19 [History Confirmed 02/15] Albuterol Sulfate 1.25 mg INH Q6HR PRN 02/15/19 [History Confirmed 02/15/19] Albuterol inh POWDER (NF) [Proair Respiclick] 1 puff INH Q6HR PRN 02/15/19 [ History Confirmed 02/15/19] Beclomethasone 80 MCG MDI(NF) [Qvar 80 MCG MDI(NF)] 2 puff INH BID 02/15/19 [ History Confirmed 02/15/19] EPINEPHrine [Epipen 2-Maykel] 0.3 mg INJ ONCE PRN 02/15/19 [History Confirmed 02/15] Lisdexamfetamine Dimesylate [Vyvanse] 30 mg PO DAILY 02/15/19 [History Confirmed 02/15/19] Montelukast Sodium TAB* [Singulair TAB*] 10 mg PO DAILY 02/15/19 [History Confirmed 02/15/19] Omeprazole CAP (NF) [Prilosec CAP* 20 MG] 20 mg PO DAILY 02/15/19 [History Confirmed 02/15/19] Sertraline* [Zoloft*] 25 mg PO DAILY 02/15/19 [History Confirmed 02/15/19] Venlafaxine TAB (NF) [Effexor TAB (NF)] 12.5 mg PO DAILY 02/15/19 [History Confirmed 02/15/19] PMH/Surg Hx/FS Hx/Imm Hx Endocrine/Hematology History: Reports: Hx Anemia Denies: Hx Diabetes Cardiovascular History: Reports: Hx Hypotension - s/p O/D of clonidine. Denies: Hx Hypertension, Hx Pacemaker/ICD, Other Cardiovascular Problems/ Disorders Respiratory History: Reports: Hx Asthma, Hx Pneumonia GI History: Reports: Hx Ulcer - reports couple years ago Denies: Other GI Disorders History: Reports: Other Problems/Disorders - hx of frequent UTI's - last 4 months ago Denies: Hx Renal Disease Musculoskeletal History: Reports: Hx Back Problems - Chronic lower back pain, Hx Tendonitis, Other Musculoskeletal History - left shoulder rotator cuff repaired, left index finger fx Sensory History: Reports: Hx Contacts or Glasses Denies: Hx Hearing Aid Opthamlomology History: Reports: Hx Contacts or Glasses Neurological History: Reports: Hx Headaches, Hx Seizures - reports last one in 2014, Other Neuro Impairments/Disorders - tourette's, adhd, reports concussions x5, ptsd Psychiatric History: Reports: Hx Anxiety, Hx Attention Deficit Hyperactivity Disorder, Hx Depression, Hx Panic Disorder, Hx Post Traumatic Stress Disorder, Hx Inpatient Treatment, Hx Community Mental Health Tx, Hx Bipolar Disorder, Hx Suicide Attempt, Hx of Violent Episodes Against Others, Hx Substance Abuse Denies: Hx Eating Disorder, Hx Schizophrenia, Other Psychiatric Issues/ Disorders - Surgical History Surgery Procedure, Year, and Place: Tonsillectomy 2005, [facility] [place]. left index finger fx repair 2015 - [facility] [place]. left shoulder rotator cuff repair 2018 - [facility] [place] Hx Anesthesia Reactions: No - Immunization History Date of Tetanus Vaccine: unk Date of Influenza Vaccine: unk Infectious Disease History: No Infectious Disease History: Denies: History Other Infectious Disease, Traveled Outside the [place] in Last 30 Days - Family History Known Family History: Positive: Other - Schizophrenia, depression, alcohol abuse - Social History Alcohol Use: Rare Alcohol Amount: hx alcohol abuse in past - reports none in one year 10 months Hx Substance Use: Yes Substance Use Type: Reports: Marijuana Substance Use Comment - Amount & Last Used: reports marijuana 3x week - hx drug abuse in past - reports last used 2013 Hx Tobacco Use: Yes Smoking Status (MU): Heavy Every Day Tobacco Smoker Type: Cigarettes Amount Used/How Often: reports 2 cigs a day currently, down from 1/2-1ppd for 10 yrs Length of Time of Smoking/Using Tobacco: 6YRS Have You Smoked in the Last Year: Yes Review of Systems Constitutional: Negative Eyes: Negative ENT: Negative Cardiovascular: Negative Respiratory: Negative Gastrointestinal: Negative Genitourinary: Negative Musculoskeletal: Negative Skin: Negative Neurological: Negative Psychological: Normal All Other Systems Reviewed And Are Negative: Yes Physical Exam - Summary Physical Exam Summary: Patient is in the right sided cam boot from previous injury. Patient is poor eye contact and is very anxious and fidgety in conversation. Patient has a flat affect. Triage Information Reviewed: Yes Vital Signs On Initial Exam: Initial Vitals Temp Pulse Resp BP Pulse Ox 98.7 F 110 20 140/83 100 02/15/19 19:02 02/15/19 19:02 02/15/19 19:02 02/15/19 19:02 02/15/19 19:02 Vital Signs Reviewed: Yes Appearance: Positive: Well-Appearing, No Pain Distress, Well-Nourished Skin: Positive: Warm, Skin Color Reflects Adequate Perfusion Eyes: Positive: EOMI, MICHELLE ENT: Positive: Hearing grossly normal Neck: Positive: Nontender Respiratory/Lung Sounds: Positive: Clear to Auscultation, Breath Sounds Present Cardiovascular: Positive: RRR, S1, S2 Abdomen Description: Positive: Nontender, Soft. Negative: Distended, Guarding Bowel Sounds: Positive: Present Musculoskeletal: Positive: Strength/ROM Intact Neurological: Positive: Sensory/Motor Intact, Alert, Oriented to Person Place, Time, Speech Normal Psychiatric: Positive: Normal AVPU Assessment: Alert Procedures - Sedation Patient Received Moderate/Deep Sedation with Procedure: No Diagnostics - Vital Signs Vital Signs Temp Pulse Resp BP Pulse Ox 02/15/19 19:02 98.7 F 110 20 140/83 100 - Laboratory Result Diagrams: 02/15/19 19:50 02/15/19 19:50 Lab Statement: Any lab studies that have been ordered have been reviewed, and results considered in the medical decision making process. Course/Dx - Course Course Of Treatment: Patient was evaluated in the emergency department today for suicidal ideation. Patient was seen and examined their vital signs are stable and they were afebrile. Upon arrival to emergency department the patient was placed in a safe room, placed under observation and changed into hospital scrubs. Their belongings were collected and placed in a locked box. Laboratory studies were ordered for mental health clearance including urinalysis and toxicology. Labs returned showing Labs show mild leukocytosis with white blood count 13.1. No significant electrolyte abnormalities. Urine toxicology shows positive benzodiazepines and cannabis. Patient was cleared for mental health evaluation and disposition by psychiatric services. Dr. Mike psychiatrist felt the patient needed to be hospitalized for further evaluation and management. - Differential Dx/Clinical Impression Differential Diagnosis/HQI/PQRI: Positive: Acute Psychosis, Anxiety, Bipolar Disorder, Depression, Schizophrenia, Suicide Attempt, Suicidal Ideation, Suicidal Gesture Provider Diagnosis: MDD (major depressive disorder), recurrent episode - Physician Notifications Discussed Care Of Patient With: Karin Mike - felt the need to admit patient for further evaluation and management Time Discussed With Above Provider: 21:39 Instructed by Provider To: Admit As Inpatient Patient Is Medically Stable For: Psych Evaluation Admit/Transition Orders Completed By ED Provider: No Discharge ED - Sign-Out/Discharge Documenting (check all that apply): Patient Departure - Discharge Plan Condition: Stable Disposition: PSYCHIATRIC FACILITY-[facility] [place] Referrals: Carmen Turner MD [Primary Care Provider] - - Billing Disposition and Condition Condition: STABLE Disposition: Psychiatric Facility [facility] [place]
[2019-02-15 19:57] LABS: ABS Basophils 0.1 10^3/ul (0-0.2); ABS Lymphocytes 2.7 10^3/ul (1.0-4.8); ABS Monocytes 0.7 10^3/ul (0-0.8); ABS Neutrophils 9.6 10^3/ul (1.5-7.7); Eosinophil % 0.3 %; Hematocrit 38 % (35-47); Lymphocyte % 20.5 %; Mean Corpuscular HGB Conc 34 g/dL (31-36); Mean Corpuscular Hemoglobin 32 pg (27-31); Mean Corpuscular Volume 93 fL (80-97); Mean Platelet Volume 7.7 fL (7.4-10.4); Platelet Count 320 10^3/uL (150-450); Red Blood Count 4.09 10^6 /uL (3.70-4.87); Red Cell Distribution Width 14 % (10-15); White Blood Count 13.1 10^3/uL (3.5-10.8)
[2019-02-15 20:06] LABS: Urine Appearance Clear; Urine Bilirubin Negative (Negative); Urine Blood Negative (Negative); Urine Color Yellow; Urine Glucose Negative (Negative); Urine Ketones Trace (Negative); Urine Nitrite Negative (Negative); Urine Protein Negative (Negative); Urine Specific Gravity 1.014 (1.010-1.030); Urine Urobilinogen Negative (Negative)
[2019-02-15 20:29] LABS: ALT 12 U/L (7-52); AST 21 U/L (13-39); Albumin 4.7 g/dL (3.2-5.2); Albumin/Globulin Ratio 2.1 (1-3); Alkaline Phosphatase 42 U/L (34-104); Anion Gap 6 mmol/L (2-11); BUN/Creatinine Ratio 8.5 (8-20); Blood Urea Nitrogen 7 mg/dL (6-24); CO2 Carbon Dioxide 28 mmol/L (22-32); Chloride 105 mmol/L (101-111); EGFR African American 100.4 (>60); Globulin 2.2 g/dL (2-4); Glucose 106 mg/dL (70-100); Potassium 3.5 mmol/L (3.5-5.0); Sodium 139 mmol/L (135-145); Total Protein 6.9 g/dL (6.4-8.9)
[2019-02-15 20:33] LABS: Urine Benzodiazepine Screen Presumptive Positive (None Detect); Urine Opiates Screen None Detected (None Detect)
[2019-02-15 21:02] LABS: Acetaminophen 15 mcg/mL; Alcohol < 10 mg/dL (<10); Salicylate < 2.50 mg/dL (<30)
[2019-02-15 21:18] LABS: TSH (Thyroid Stimulating Horm) 2.52 mcIU/mL (0.34-5.60)
[2019-02-15] MEDS ORDERED: Al Hydrox/Mg Hydrox/Simet LIQ* 30 ML UDC PO PRN (22:13)
[2019-02-15] MEDS ORDERED: Nicotine Patch Removal NOTE PATCH OFF SCH (22:13)
[2019-02-15] MEDS ORDERED: Acetaminophen TAB* 325 MG PO PRN (22:13)
[2019-02-16] MEDS ORDERED: Albuterol HFA INHALER* 8 gm MDI INH PRN (01:16)
[2019-02-16] MEDS ORDERED: Sertraline* 25 MG TAB PO SCH (09:00)
[2019-02-16] MEDS ORDERED: Nicotine PATCH 14 MG/24 HR* PATCH TRANSDERM SCH (09:00)
[2019-02-16] MEDS: Pantoprazole TAB * 40 MG TAB PO SCH (10:15)
[2019-02-16] MEDS: Montelukast Sodium TAB* 10 MG PO SCH (10:15)
[2019-02-16] MEDS: CMCS: Venlafaxine TAB (NF) 25 MG TAB PO SCH (10:15)
[2019-02-16] MEDS: Nicotine PATCH 14 MG/24 HR* PATCH TRANSDERM SCH (10:18)
[2019-02-16] MEDS: Mometasone 220 MCG MDI INH SCH (10:19)
[2019-02-16] MEDS: Vitamin THERAPEUTIC TAB PO SCH (10:19)
[2019-02-16] MEDS: Nicotine* 2MG (FRUIT FLAVOR) GUM PO PRN ×2 (10:21→15:08)
[2019-02-16] MEDS: Sertraline* 100 MG TAB PO SCH (15:08)
[2019-02-16] MEDS ORDERED: BISACODYL 5 MG PO PRN (18:57)
[2019-02-16] MEDS ORDERED: EPINEPHRINE 0.3 MG IM PRN (18:57)
[2019-02-16] MEDS: clonazePAM TAB(*) 0.5 MG PO SCH (19:03)
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
[2019-02-16] MEDS: hydrOXYzine HCL TAB* 25 MG PO PRN (21:03)
[2019-02-16] MEDS: PTO: Beclomethasone 80 MCG MDI(NF) 80 MCG/PUFF MDI INH SCH (21:05)
[2019-02-16] MEDS ORDERED: chlorproMAZINE TAB* 50 MG ONE (21:07)
[2019-02-16] MEDS ORDERED: chlorproMAZINE INJ* 25 MG/ML 2 ML (50 MG) ONE (21:12)
[2019-02-16] MEDS ORDERED: chlorproMAZINE INJ* 25 MG/ML 2 ML (50 MG) IM ONE (22:00)
[2019-02-16] MEDS ORDERED: chlorproMAZINE TAB* 50 MG PO ONE (22:00)
[2019-02-16] MEDS: Nicotine Patch Removal NOTE PATCH OFF SCH (23:32)
[2019-02-17] MEDS: Mometasone 220 MCG MDI INH SCH (14:13)
[2019-02-17] MEDS: CMCS: Venlafaxine TAB (NF) 25 MG TAB PO SCH (14:13)
[2019-02-17] MEDS: Montelukast Sodium TAB* 10 MG PO SCH (18:25)
[2019-02-17] MEDS: clonazePAM TAB(*) 0.5 MG PO SCH (18:25)
[2019-02-17] MEDS: Sertraline* 100 MG TAB PO SCH (18:26)
[2019-02-17] MEDS: Pantoprazole TAB * 40 MG TAB PO SCH (18:26)
[2019-02-17] MEDS: PTO: Beclomethasone 80 MCG MDI(NF) 80 MCG/PUFF MDI INH SCH ×2 (18:28→20:49)
[2019-02-17] MEDS: Vitamin THERAPEUTIC TAB PO SCH (18:28)
[2019-02-17] MEDS: Nicotine PATCH 14 MG/24 HR* PATCH TRANSDERM SCH (18:28)
[2019-02-17] MEDS: Nicotine Patch Removal NOTE PATCH OFF SCH (19:19)
[2019-02-18] MEDS: Montelukast Sodium TAB* 10 MG PO SCH (08:33)
[2019-02-18] MEDS: Vitamin THERAPEUTIC TAB PO SCH (08:33)
[2019-02-18] MEDS: clonazePAM TAB(*) 0.5 MG PO SCH (08:33)
[2019-02-18] MEDS: Pantoprazole TAB * 40 MG TAB PO SCH (08:33)
[2019-02-18] MEDS: Sertraline* 100 MG TAB PO SCH (08:33)
[2019-02-18] MEDS: PTO: Beclomethasone 80 MCG MDI(NF) 80 MCG/PUFF MDI INH SCH ×2 (08:34→22:00)
[2019-02-18] MEDS: Nicotine PATCH 14 MG/24 HR* PATCH TRANSDERM SCH (08:48)
[2019-02-18] MEDS: Nicotine* 2MG (FRUIT FLAVOR) GUM PO PRN ×3 (09:02→19:43)
--- NOTE | 2019-02-18 11:15 | PN ---
BSU: Group Therapy Note - Service Type Service Type: 60594 Psychotherapy - Individual psychotherapy note: Marion presents with fair affect this morning, expressing relief from intrusive thoughts about suicide since admission. She continues to express concerns regarding possible safety today when questioned about thoughts regarding discharge. Discussion addressed her ambivalance about complying with recommended medication, with educational discussion addressing intended benefit from utilizing a mood stabilizer. She continues to describe feelings related to poor self esteem, and perceived lack of social support.
[2019-02-18] MEDS: Venlafaxine EXT RELEASE CAP* 37.5 MG PO SCH (13:03)
[2019-02-18] MEDS: ALPRAZolam TAB* 0.5 MG PO PRN ×2 (13:03→20:23)
[2019-02-18] MEDS ORDERED: clonazePAM TAB(*) 0.5 MG PO PRN (14:00)
--- NOTE | 2019-02-18 15:08 | PN ---
Subjective - Subjective Date of Service: 02/18/19 Service Type: 34304 Hosp care 25 min moderate complexity Subjective: Yadira endorses suicidal ideation with intent to suicide by jumping from a bridge , which is an old plan, or climbing an electric pole or tower and attempting to electrocute herself. Yadira is frightened by her ability to find new ways to end her life everywhere she goes. When asked if she should be worried about by others, she did not answer in a straightforward fashion. Rather, she looked sadly at me and said, "I'm scared." Yadira describes a feeling of dread in her body that is not soothed by Klonopin. She declines to change to Ativan because she's lost memory that way. She is prescribed Xanax outpatient and we will change to that and allow PRN dosing while she is in the hospital. Objective - General Observations Appearance: Well Groomed Appears Stated Age: Yes Stature: WNL Posture: Atypical Eye Contact: Intermittent Behavior/Activity: Accelerated, Peculiar, Impulsive, Agitated - Interaction Observations Attitude Towards Examiner: Cooperative, Anxious, Defensive Stated Mood: Dysphoric Affect: Labile Speech Pattern/Tone: Clear, Normal Volume, Pressured, Perseverating Thought Process: Tangential, Flight of Ideas, Racing Thought Content: Preoccupation/Ruminations, Depressive, Self-Deprecatory Thought Process: Lethality: Suicidal Planning Hallucination Type: None Delusion Type: None - Cognitive Function Orientation: A&O x 4 Level of Consciousness: Awake, Alert, Appropriate Cognition: Impaired Cognition, Impaired Attention/Concentration Estimated Intelligence: Normal Insight: Difficulty Acknowledging Presence of Psyciatric Problems Judgment Within Normal Limits: No Ability to Make Reasonable Decisions: Serverely Impaired - Medication Compliance Cooperative with Inpatient Medication Regimen: Yes - Group Participation Participates in Group Activities: Partial Assessment - Assessment Merits Inpatient Hospitalization: For Immediate Safety Clinical Impression: Marion ("Yadira") is a 28-year-old woman diagnosed with major depressive disorder, Tourette's, ADHD, and asthma with a history of TBI who comes to the hospital with plans to end her life by jumping from a train trestle or electrocuting herself. Plan - Plan Treatment Plan: Name: MARION DOS SANTOS Birthdate: 1990 [id number] 02/18/19 Restart Xanax. Start Effexor 37.5 to address withdrawal symptoms like dread feelings and instability. Continued Medication Management: Different Medication Medications: Current Medications Acetaminophen (Tylenol Tab*) 650 mg PO Q4H PRN PRN Reason: PAIN or TEMP > 101 F Al Hydrox/Mg Hydrox/Simethicone (Maalox Plus*) 30 ml PO Q4H PRN PRN Reason: INDIGESTION Albuterol (Ventolin Hfa Inhaler*) 1 puff INH Q6H PRN PRN Reason: SOB/WHEEZING Alprazolam (Xanax Tab*) 0.5 mg PO Q6H PRN PRN Reason: AGITATION/ANXIETY Last Admin: 02/18/19 13:03 Dose: 0.5 mg Beclomethasone Dipropionate (Qvar 80 Mcg Mdi(Nf)) 2 puff INH BID [facility] Last Admin: 02/18/19 08:34 Dose: 2 puff Bisacodyl (Dulcolax Ec Tab*) 5 mg PO DAILY PRN PRN Reason: CONSTIPATION Epinephrine HCl (Epipen Adult(Nf)) 0.3 mg IM DAILY PRN PRN Reason: ANAPHYLAXIS Fluvoxamine Maleate (Fluvoxamine (Nf)) 50 mg PO DAILY [facility] Hydroxyzine HCl (Atarax Tab*) 25 mg PO Q4H PRN PRN Reason: ANXIETY Last Admin: 02/16/19 21:03 Dose: 25 mg Montelukast Sodium (Singulair Tab*) 10 mg PO DAILY [facility] Last Admin: 02/18/19 08:33 Dose: 10 mg Multivitamins (Theragran Tab*) 1 tab PO DAILY [facility] Last Admin: 02/18/19 08:33 Dose: 1 tab Nicotine (Nicotine Patch 14 Mg/24 Hr*) 1 patch TRANSDERM DAILY [facility] Last Admin: 02/18/19 08:48 Dose: Not Given Nicotine Polacrilex (Nicotine Gum*) 2 mg PO Q2H PRN PRN Reason: CRAVINGS Last Admin: 02/18/19 09:02 Dose: 2 mg Pantoprazole Sodium (Protonix Tab*) 40 mg PO DAILY [facility] Last Admin: 02/18/19 08:33 Dose: 40 mg Pharmacy Profile Note (Nicotine Patch Removal Note*) 1 note PATCH OFF 2100 [facility] Last Admin: 02/17/19 19:19 Dose: Not Given Venlafaxine HCl (Effexor Xr Cap*) 37.5 mg PO DAILY [facility] Last Admin: 02/18/19 13:03 Dose: 37.5 mg - Discharge Plan Discharge Plan: Outpatient Follow Up
[2019-02-18] MEDS ORDERED: ALPRAZolam TAB* 0.5 MG ONE (16:00)
[2019-02-18] MEDS ORDERED: ALPRAZolam TAB* 0.5 MG PO ONE (17:00)
[2019-02-18] MEDS: hydrOXYzine HCL TAB* 25 MG PO PRN (17:32)
[2019-02-18] MEDS: Nicotine Patch Removal NOTE PATCH OFF SCH (19:32)
[2019-02-19 08:14] LABS: HDL Cholesterol 66.8 mg/dL
[2019-02-19] MEDS: Venlafaxine EXT RELEASE CAP* 37.5 MG PO SCH (09:54)
[2019-02-19] MEDS: PTO: Beclomethasone 80 MCG MDI(NF) 80 MCG/PUFF MDI INH SCH ×2 (09:54→19:42)
[2019-02-19] MEDS: CMC:FluvoxaMINE (NF) 50 MG TAB PO SCH (09:54)
[2019-02-19] MEDS: Vitamin THERAPEUTIC TAB PO SCH (09:54)
[2019-02-19] MEDS: Pantoprazole TAB * 40 MG TAB PO SCH (09:55)
[2019-02-19] MEDS: Montelukast Sodium TAB* 10 MG PO SCH (09:55)
[2019-02-19] MEDS: Nicotine* 2MG (FRUIT FLAVOR) GUM PO PRN ×2 (09:57→17:49)
[2019-02-19] MEDS: Nicotine PATCH 14 MG/24 HR* PATCH TRANSDERM SCH (10:00)
[2019-02-19] MEDS ORDERED: chlorproMAZINE INJ* 25 MG/ML 2 ML (50 MG) ONE (11:11)
[2019-02-19] MEDS ORDERED: chlorproMAZINE INJ* 25 MG/ML 2 ML (50 MG) IM ONE (11:50)
[2019-02-19] MEDS: Ibuprofen TAB* 600 MG PO PRN ×2 (11:58→17:49)
[2019-02-19] MEDS: ALPRAZolam TAB* 0.5 MG PO PRN ×2 (13:50→19:40)
--- NOTE | 2019-02-19 14:00 | PN ---
Subjective - Subjective Date of Service: 02/19/19 Service Type: 05841 Hosp care 35 min high complexity Subjective: Yadira has had a difficult day. She has dissolved into tears and shouting at some points and at another, she forced her way through the first set of doors and attempted to get through the second. She was given an IM injection of 50 mg of Thorazine following that. She responded quite intensely to being held by a specific male. Yadira states she can't control the way she feels. Later in the day she asserts she wants to go home, but she is clearly unable to maintain safety. Objective - General Observations Appearance: Disheveled Appears Stated Age: Yes Stature: WNL Posture: Atypical Eye Contact: Intermittent Behavior/Activity: Accelerated, Peculiar, Impulsive, Agitated - Interaction Observations Attitude Towards Examiner: Anxious, Defensive, Demanding, Hostile Stated Mood: Dysphoric, Irritable, Anxious, Angry, Silly Affect: Labile Speech Pattern/Tone: Clear, Rambling, Loud Volume Thought Process: Loose Associations, Tangential, Flight of Ideas, Racing Perception: Depersonalization Thought Content: Preoccupation/Ruminations, Depressive, Paranoid, Self- Deprecatory Thought Process: Lethality: Suicidal Planning Hallucination Type: None Delusion Type: Denies - Cognitive Function Orientation: A&O x 4 Level of Consciousness: Awake, Alert, Appropriate Cognition: Impaired Cognition, Impaired Attention/Concentration Estimated Intelligence: Borderline Range Insight: Difficulty Acknowledging Presence of Psyciatric Problems Judgment Within Normal Limits: No Ability to Make Reasonable Decisions: Serverely Impaired - Medication Compliance Cooperative with Inpatient Medication Regimen: Yes - Group Participation Participates in Group Activities: Partial Assessment - Assessment Merits Inpatient Hospitalization: For Immediate Safety Clinical Impression: Marion ("Yadira") is a 28-year-old woman diagnosed with major depressive disorder, Tourette's, ADHD, and asthma with a history of TBI who comes to the hospital with plans to end her life by jumping from a train trestle or electrocuting herself. Plan - Plan Treatment Plan: Name: MARION DOS SANTOS Birthdate: 1990 [id number] 02/18/19 Restart Xanax. Start Effexor 37.5 to address withdrawal symptoms like dread feelings and instability. 02/19/19 Start Trileptal 300 mg BID. Continue to offer Xanax 0.5 PRN despite her assertion that it impairs her memory. Continued Medication Management: Different Medication Medications: Current Medications Acetaminophen (Tylenol Tab*) 650 mg PO Q4H PRN PRN Reason: PAIN or TEMP > 101 F Al Hydrox/Mg Hydrox/Simethicone (Maalox Plus*) 30 ml PO Q4H PRN PRN Reason: INDIGESTION Albuterol (Ventolin Hfa Inhaler*) 1 puff INH Q6H PRN PRN Reason: SOB/WHEEZING Alprazolam (Xanax Tab*) 0.5 mg PO Q6H PRN PRN Reason: AGITATION/ANXIETY Last Admin: 02/19/19 13:50 Dose: 0.5 mg Beclomethasone Dipropionate (Qvar 80 Mcg Mdi(Nf)) 2 puff INH BID [facility] Last Admin: 02/19/19 09:54 Dose: 2 puff Bisacodyl (Dulcolax Ec Tab*) 5 mg PO DAILY PRN PRN Reason: CONSTIPATION Epinephrine HCl (Epipen Adult(Nf)) 0.3 mg IM DAILY PRN PRN Reason: ANAPHYLAXIS Fluvoxamine Maleate (Fluvoxamine (Nf)) 50 mg PO DAILY [facility] Last Admin: 02/19/19 09:54 Dose: 50 mg Hydroxyzine HCl (Atarax Tab*) 25 mg PO Q4H PRN PRN Reason: ANXIETY Last Admin: 02/18/19 17:32 Dose: 25 mg Ibuprofen (Motrin Tab*) 600 mg PO Q6H PRN PRN Reason: .PAIN Last Admin: 02/19/19 11:58 Dose: 600 mg Montelukast Sodium (Singulair Tab*) 10 mg PO DAILY [facility] Last Admin: 02/19/19 09:55 Dose: 10 mg Multivitamins (Theragran Tab*) 1 tab PO DAILY [facility] Last Admin: 02/19/19 09:54 Dose: 1 tab Nicotine (Nicotine Patch 14 Mg/24 Hr*) 1 patch TRANSDERM DAILY [facility] Last Admin: 02/19/19 10:00 Dose: Not Given Nicotine Polacrilex (Nicotine Gum*) 2 mg PO Q2H PRN PRN Reason: CRAVINGS Last Admin: 02/19/19 09:57 Dose: 2 mg Oxcarbazepine (Trileptal Tab(*)) 300 mg PO BID [facility] Pantoprazole Sodium (Protonix Tab*) 40 mg PO DAILY [facility] Last Admin: 02/19/19 09:55 Dose: 40 mg Pharmacy Profile Note (Nicotine Patch Removal Note*) 1 note PATCH OFF 2099 [facility] Last Admin: 02/18/19 19:32 Dose: Not Given Venlafaxine HCl (Effexor Xr Cap*) 37.5 mg PO DAILY [facility] Last Admin: 02/19/19 09:54 Dose: 37.5 mg
[2019-02-19] MEDS: OXcarbazepine TAB(*) 300 MG PO SCH (19:40)
[2019-02-19] MEDS: Nicotine Patch Removal NOTE PATCH OFF SCH (19:44)
[2019-02-20] MEDS: Pantoprazole TAB * 40 MG TAB PO SCH (08:58)
[2019-02-20] MEDS: Vitamin THERAPEUTIC TAB PO SCH (08:58)
[2019-02-20] MEDS: Venlafaxine EXT RELEASE CAP* 37.5 MG PO SCH (08:58)
[2019-02-20] MEDS: CMC:FluvoxaMINE (NF) 50 MG TAB PO SCH (08:58)
[2019-02-20] MEDS: OXcarbazepine TAB(*) 300 MG PO SCH ×2 (08:58→22:52)
[2019-02-20] MEDS: Montelukast Sodium TAB* 10 MG PO SCH (08:58)
[2019-02-20] MEDS: PTO: Beclomethasone 80 MCG MDI(NF) 80 MCG/PUFF MDI INH SCH ×2 (09:00→22:50)
[2019-02-20] MEDS: Nicotine PATCH 14 MG/24 HR* PATCH TRANSDERM SCH (09:00)
[2019-02-20] MEDS: Ibuprofen TAB* 600 MG PO PRN (12:31)
[2019-02-20] MEDS: Nicotine* 2MG (FRUIT FLAVOR) GUM PO PRN ×2 (12:31→15:30)
[2019-02-20] MEDS: ALPRAZolam TAB* 0.5 MG PO PRN ×2 (15:02→23:17)
[2019-02-20] MEDS ORDERED: OLANzapine TAB*ODT* 10 MG TAB ONE (15:18)
[2019-02-20] MEDS ORDERED: OLANzapine TAB*ODT* 10 MG TAB PO PRN (15:53)
[2019-02-20] MEDS: Nicotine PATCH 7 MG/24 HR* PATCH TRANSDERM SCH (17:36)
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
[2019-02-20] MEDS ORDERED: Nicotine Patch Removal NOTE PATCH OFF SCH (21:00)
[2019-02-20] MEDS: hydrOXYzine HCL TAB* 25 MG PO PRN (23:17)
[2019-02-21] MEDS: ALPRAZolam TAB* 0.5 MG PO PRN (06:50)
[2019-02-21 07:50] VITALS: BP 114/72
[2019-02-21] MEDS: Vitamin THERAPEUTIC TAB PO SCH (09:43)
[2019-02-21] MEDS: Venlafaxine EXT RELEASE CAP* 37.5 MG PO SCH (09:43)
[2019-02-21] MEDS: Montelukast Sodium TAB* 10 MG PO SCH (09:43)
[2019-02-21] MEDS: OXcarbazepine TAB(*) 300 MG PO SCH (09:43)
[2019-02-21] MEDS: CMC:FluvoxaMINE (NF) 50 MG TAB PO SCH (09:43)
[2019-02-21] MEDS: Nicotine PATCH 7 MG/24 HR* PATCH TRANSDERM SCH (09:43)
[2019-02-21] MEDS: Pantoprazole TAB * 40 MG TAB PO SCH (09:43)
[2019-02-21] MEDS: PTO: Beclomethasone 80 MCG MDI(NF) 80 MCG/PUFF MDI INH SCH (09:44)
[2019-02-21] MEDS: Nicotine* 2MG (FRUIT FLAVOR) GUM PO PRN (12:32)
--- NOTE | 2019-02-25 13:43 | DS ---
DISCHARGE SUMMARY: DATE OF ADMISSION: 02/16/19 DATE OF DISCHARGE: 02/21/19 PROVIDER: Arlen Baca NP in Psychiatry. SUPERVISING PHYSICIAN: Howard Motley MD* (dictated by Arlen Baca NP). DIAGNOSIS: Major depressive disorder. CONDITION AT THE TIME OF DISCHARGE: Improved. Psychiatrically, cleared and stable. Participated in a few groups and was minimally social with peers. Her mother, Jose is agreeable to her discharge. Marion is advocating strongly and angrily for discharge. She has improved here psychiatrically. There was a medication change. We started Trileptal and she tolerated that fine. She will be attending [facility]. MSE at the time of discharge, Marion is superficially calm, superficially cooperative, and makes good eye contact. She is alert and oriented x4. Her grooming is good. Her speech pace is rapid. Her thought processes are logical. She is not psychotic or delusional. She denies AH, VH, SI and HI. Her insight and judgment are fair. She is willing to follow up and she is urged to see a therapist. DISCHARGE INSTRUCTIONS TO THE PATIENT: A. Medications. She has taken during this trip: 1. Zyprexa as a p.r.n. 2. Thorazine as a p.r.n. 3. Xanax as a p.r.n. 4. Haldol as a p.r.n. 5. Lorazepam as a p.r.n. 6. Lexapro. B. Diet is regular. C. Activity is as tolerated. She is smoker but she has declined a referral with [place] [employer] quit[facility] at this time. If she decides to access this free service in the future, she can contact the quitline toll free at . There are no studies pending at the time of discharge. D. Followup care. She has an appointment with Katy Long to her. She also already has an appointment set up with Song Ramirez. E. Disposition. She is being sent home with her mom to stay there for a few days. F. Substance abuse followup is not indicated. HOSPITAL COURSE: Part A. Chief complaint: "I have been severely depressed and thought about multiple methods to commit suicide and told my therapist to send me here." Marion is known to this unit from repeated hospitalizations on this unit with her last hospitalization here on 07/03/18. She came to the emergency department today after her therapist recommended her to come to the emergency room for help. During the evaluation, Marion reports that she could not stop crying yesterday and was feeling overwhelmed. She drove around and wherever she went she found some place where she could kill herself of those. [place] mentioning are two that are lethal like going to the railway bridge and thinking about climbing an electric pole to electrocute herself or jump off. Marion has a history of trying to commit suicide in the past, some of them were very serious, however, she denied any thoughts of harming herself since she came to the unit, although her thoughts and behavior remain scattered. She states that she does not understand why all of a sudden yesterday she got so sad that she could not stop crying. She became so overwhelmed that she did not want to live anymore. Part B. Psychiatric treatment was rendered. Marion was admitted to the adult behavioral unit and was placed on 15 minute checks for safety. Chris did well on the unit most of the time. She did struggle. She did go to groups. She interacted with peers minimally. She tolerated the addition of Trileptal although she was angry about it and was curious if it was because she had bipolar disorder. Rather the thought behind the Trileptal administration is to reduce mood instability and also in my experience it has reduced anger and impulsivity. She is not on an antipsychotic at this time. Nevertheless, her hemoglobin A1c is 5.0, triglycerides are 80, cholesterol 179, LDL cholesterol 96 , HDL cholesterol 66.8, her TSH is 2.52. I did meet with her mother, Jose. Jose understands that Marion is very impulsive and angry person at this time, although Marion denies the assessment that she is an angry person, she states rather that she considers herself a happy person. Jose agrees with the assessment that she is more impulsive, more violent. One precipitant to her being discharged even while she is in this terrible mood, is that she threatens to dash her head into a door, window or the wall until she . Marion is impulsive and oppositional and has almost broken bones on the unit before by engaging in self-harming and angry behaviors, thus it was thought that she would be safer leaving the unit. No consults were entered for Marion. She is improved. She no longer wants to be here which she did at the beginning of her stay and that is notable and she very rarely wants to be admitted to this unit. She is future oriented and she did tell me that the day after discharge, she sounded better, she was happy to be with her dog and was looking forward enough to make sure that all of her medications were sent to the appropriate pharmacy. ARLEN BACA, [place] [id number]/CPS #: [id number] ZENAIDA
== END 2019-02-21 14:15 | disposition home or self-care (01) | DRG 753 ==
LOC: ED 19:01 → BSU 02-16 00:10 → ED 02-16 00:10 → BSU 02-16 01:29
PROVIDERS: ADMIT Psychiatry & Neurology Psychiatry; ATTEND Psychiatry & Neurology Psychiatry
PROC: GZHZZZZ Group Psychotherapy (ICD-10-PCS; principal; 2019-02-18)
DX: F39 Unspecified mood [affective] disorder (principal); R45.851 Suicidal ideations; F31.9 Bipolar disorder, unspecified; J45.909 Unspecified asthma, uncomplicated; F95.2 Tourette's disorder; F90.9 Attention-deficit hyperactivity disorder, unspecified type; F43.10 Post-traumatic stress disorder, unspecified; F41.0 Panic disorder [episodic paroxysmal anxiety]; F17.210 Nicotine dependence, cigarettes, uncomplicated; Z88.0 Allergy status to penicillin; Z91.030 Bee allergy status; Z91.018 Allergy to other foods; Z87.440 Personal history of urinary (tract) infections; Z87.820 Personal history of traumatic brain injury; Z91.5 Personal history of self-harm
CPT/HCPCS: 36415; 80053; 80061; 80307; 80320; 80329; 81003; 83036; 84443; 85025; 90853; 99222; 99232; 99233; 99238; 99285; A9270-GY; G0480

== ENCOUNTER 2019-03-12 16:54 | Inpatient (IN) | payer OTHER ==
--- OUTSIDE RECORDS SUMMARY | 2019-03-12 17:17 | XMS REPORT | Continuity of Care Document ---
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 [phone] Organized Health Care Education/Training Program Problems Active Problems Provider Date Attention deficit [...] uses Marijuana daily Tobacco Use Start: Unknown Light tobacco smoker (10 or fewer cigarettes/day) Smoking Status Reviewed: 03/11/19 Light tobacco smoker (10 or fewer cigarettes/day) Exercise Type/Frequency Exercises regularly Allergies, Adverse Reactions, Alerts Active Allergies Reaction Severity Comments Date Amoxicillin rash 06/23/2008 Medications Active Medications SIG Qnty Indications Ordering Date Provider Nicotrol use every 2 hours 168units F17.210 Napoleon Batres MD 03/11/2019 10mg as needed for Inhaler nicotine cravings. Symbicort 2 inhalations twice 6.900gm Camila Sullivan, 03/07/2019 a day DO 80-4.5mcg/Act Aerosol Ventolin HFA take every 6 hours 18gm J45.20 Napoleon Batres MD 02/08/2019 as needed for 108(90Base) mcg/Act shortness of breath Aerosol or wheezing. Epinephrine 1 injection as 2units Z91.030 Napoleon Batres MD 02/08/2019 needed allergic 0.3mg/0.3ML reaction Solution Auto-Inject Albuterol Sulfate Use every 6 hours 15ml J45.20 Napoleon Batres MD 02/08/2019 as needed for 1.25mg/3ML wheezing or SOB not Nebulizer relieved with ventolin Nebulizer Unknown Kit/Tubing/Mouthpie ce Kit Prazosin HCL Unknown 1mg Capsules Fluticasone Unknown Propionate 50mcg/Act Suspension Montelukast Sodium 1 by mouth every 30tabs Napoleon Batres MD day 10mg Tablets Xyzal Allergy 24HR 1 by mouth every 30tabs Shellie Martines MD day 5mg Tablets Omeprazole 1 by mouth every Unknown 20mg day Capsules DR Alprazolam take 1 tablet by J45.20 Unknown 0.5mg mouth once twice a Tablets day as needed for anxiety Venlafaxine HCL once a day, as Unknown directed 37.5mg Tablets Luvox 1 po daily Unknown History Medications Venlafaxine HCL 1/2 tab daily J45.20 Other Ordering 02/08/2019 - 25mg Provider 03/10/2019 Tablets Medications Administered in Office Medication SIG Qnty Indications Ordering Provider Date Celestone 3 mg and 3mg Ilia Stern MD 01/27/2017 Injection Immunizations CPT Code Status Date Vaccine Reaction Lot # [id number] Given 01/09/2019 Influenza Virus Vaccine, pt. tolerated well. [id number] Quadrivalent, Split, Preservative Free Vital Signs Date Vital Result Comment 03/11/2019 3:05pm Height 65 inches 5'5" Weight 151.38 lb Heart Rate 76 /min BP Systolic 120 mmHg BP Diastolic 60 mmHg Body Temperature 98.7 F O2 % BldC Oximetry 99 % BMI (Body Mass Index) 25.2 kg/m2 02/08/2019 8:34am Height 65 inches 5'5" Weight 149.00 lb Heart Rate 86 /min BP Systolic 111 mmHg BP Diastolic 64 mmHg O2 % BldC Oximetry 98 % BMI (Body Mass Index) 24.8 kg/m2 Results Test Acquired Date Facility Test Result H/L Range Note Urinalysis Profile 02/15/2019 [facility] Urine Color Yellow [address] [place] [address] [phone] Urine Appearance Clear Urine Specific [place] 1.014 Normal 1.010-1.030 Urine pH 7.0 Normal 5-9 Urine Urobilinogen Negative Negative Urine Ketones Trace Abnormal Negative Urine Protein Negative Negative Urine Leukocytes Negative Negative Urine Blood Negative Negative * * Abnormal Negative 1 Urine Nitrite Negative Negative Urine Bilirubin Negative Negative Urine Glucose Negative Negative CBC Auto 02/15/2019 [facility] White Blood 13.1 10^3/uL High 3.5-10.[address] Count [place], [place] [id number] [phone] Red Blood Count 4.09 10^6/uL Normal 3.70-4.87 Hemoglobin 13.0 g/dL Normal 12.0-16.0 Hematocrit 38 % Normal 35-47 Mean Corpuscular Volume 93 fL Normal 80-97 Mean Corpuscular Hemoglobin 32 pg High 27-31 Mean Corpuscular HGB Conc 34 g/dL Normal 31-36 Red Cell Distribution Width 14 % Normal 10-15 Platelet Count 320 10^3/uL Normal 150-450 Mean Platelet Volume 7.7 fL Normal 7.4-10.4 Abs Neutrophils 9.6 10^3/uL High 1.5-7.7 Abs Lymphocytes 2.7 10^3/uL Normal 1.0-4.8 Abs Monocytes 0.7 10^3/uL Normal 0-0.8 Abs Eosinophils 0.0 10^3/uL Normal 0-0.6 Abs Basophils 0.1 10^3/uL Normal 0-0.2 Abs Nucleated RBC 0.0 10^3/uL Granulocyte % 73.1 % Lymphocyte % 20.5 % Monocyte % 5.5 % Eosinophil % 0.3 % Basophil % 0.6 % Nucleated Red Blood Cells % 0.0 Urine Drug 02/15/2019 [facility] Urine None Detected None Detect SCR ED & [address] [place] [address] Screen [phone] Urine Barbiturates Screen None Detected None Detect Urine Benzodiazepine Screen Presumptive Posi <SEE NOTE> Abnormal None Detect 2 Urine Cannabinoids Screen Presumptive Posi <SEE NOTE> Abnormal None Detect 3 Urine Cocaine Screen None Detected None Detect Urine Opiates Screen None Detected None Detect Urine Phencyclidine Screen None Detected None Detect 4 Comp Metabolic 02/15/2019 [facility] Sodium 139 mmol/L Normal 135-[address] [place] [address] [phone] Potassium 3.5 mmol/L Normal 3.5-5.0 Chloride 105 mmol/L Normal 101-111 Co2 Carbon Dioxide 28 mmol/L Normal 22-32 Anion Gap 6 mmol/L Normal 2-11 Glucose 106 mg/dL High 70-100 Blood Urea Nitrogen 7 mg/dL Normal 6-24 Creatinine 0.82 mg/dL Normal 0.51-0.95 BUN/Creatinine Ratio 8.5 Normal 8-20 Calcium 9.0 mg/dL Normal 8.6-10.3 Total Protein 6.9 g/dL Normal 6.4-8.9 Albumin 4.7 g/dL Normal 3.2-5.2 Globulin 2.2 g/dL Normal 2-4 Albumin/Globulin Ratio 2.1 Normal 1-3 Total Bilirubin 0.30 mg/dL Normal 0.2-1.0 Alkaline Phosphatase 42 U/L Normal 34-104 Alt 12 U/L Normal 7-52 Ast 21 U/L Normal 13-39 Egfr Non- 83.0 >60 Egfr 100.4 >60 5 Laboratory test 02/15/2019 [facility] Acetaminophen 15 g/mL [address] [place] [address] [phone] Alcohol < 10 mg/dL Normal <10 Salicylate < 2.50 mg/dL <30 TSH (Thyroid Stim Horm) 2.52 mcIU/mL Normal 0.34-5.60 1 *Ascorbic acid is present which may interfere with detection of blood. 2 Presumptive Positive Presumptive positive results are unconfirmed. 3 Presumptive Positive Presumptive positive results are unconfirmed. 4 The urine specimen was tested at the listed cutoffs: Drug class test level (ng/mL) Amphetamines 500 Barbiturates 200 Benzodiazepine metabolites 200 Cocaine metabolites 150 Cannabinoids 50 Opiates 300 Pcp 25 Specimen was received without chain of custody. Results should be used for medical purposes only. 5 Because ethnic data is not always readily [...] 15-29 5 Kidney failure <15 (or dialysis) 6 Therapeutic concentration: <50 ug/mL Toxic concentration: >120 ug/mL Procedures Description No Information Available Medical Devices Description No Information Available Encounters Type Date Location Provider Dx Diagnosis Office Visit 02/08/2019 [facility] Internal Napoleon Batres MD J45.20 Mild intermittent 8:20a Medicine - Suite asthma, uncomplicated R Z91.030 Bee allergy status Office Visit 01/09/2019 10:00a [facility] Internal Carmen Turner MD M79.674 Pain in right Medicine - Suite R toe(s) J45.20 Mild intermittent asthma, uncomplicated R53.82 Chronic fatigue, unspecified Z23 Encounter for immunization F90.2 Attention-deficit hyperactivity disorder, combined type F95.2 Tourette's disorder F31.9 Bipolar disorder, unspecified Assessments Date Code Description Provider 03/11/2019 J45.20 Mild intermittent asthma, uncomplicated Napoleon Batres MD 03/11/2019 F32.9 Major depressive disorder, single episode, Napoleon Batres MD unspecified 03/11/2019 F90.2 Attention-deficit hyperactivity disorder, combined Napoleon Batres MD type 03/11/2019 F17.210 Nicotine dependence, cigarettes, uncomplicated Napoleon Batres MD 03/11/2019 M25.512 Pain in left shoulder Napoleon Batres MD 02/08/2019 J45.20 Mild intermittent asthma, uncomplicated Napoleon [...] unspecified Carmen Turner MD Plan of Treatment 03/11/2019 - Napoleon Batres MDJ45.20 Mild intermittent asthma, uncomplicatedReferral :Jo Pratt MD, Pulmonary DiseasesFollow up:as [id number] Major depressive disorder, single episode, [id number] Attention-deficit hyperactivity disorder, combined typeF17.210 Nicotine dependence, cigarettes, uncomplicatedNew Medication:Nicotrol 10 mg - use every 2 hours as needed for nicotine cravings.M25.512 Pain in left shoulderNew Therapy:Physical Therapy Functional Status Description No Information Available Mental Status Description No Information Available Referrals Refer to Reason for Referral Status Appt Date oJ Pratt MD asthma, smoker Created [address] [place] [id number] [phone] Sven Castaneda MD Sent 01/21/2019 [address] [facility] [address] [place], [place] [id number] [phone]
--- OUTSIDE RECORDS SUMMARY | 2019-03-12 17:17 | XMS REPORT ---
:1990 Author Organization [facility] Care Team Providers Name Role Phone Sumi Buitrago Primary Care Physician Unavailable Allergies, Adverse Reactions, Alerts Allergy Code CodeSystem Reaction Severity Criticality Status Start Substance Date amoxicillin Rash Moderate Active Medications Medication Medication Medication Start Stop Route Dose Status Fill Code CodeSystem Date Date Instructions Vyvanse 556441 RxNorm 2019- oral 20 mg 1 completed Take 1 6-20 06-21 capsule capsule by once a mouth once a day day as needed for 30 day(s) Vyvanse 710866 RxNorm 2019- oral 20 mg completed for 30 04-24 capsule day(s) sertraline 585487 RxNorm 2018-02 2019- oral 50 mg completed for 30 0-24 12-04 tablet day(s) prazosin 292837 RxNorm 2018- oral 1 mg 1 completed Take 1 4-24 capsule capsule at at bedtime for bedtime 30 day(s) haloperidol 328876 RxNorm 2019- oral 5 mg completed for 30 07-23 tablet day(s) venlafaxine 306061 RxNorm 2019- oral 75 mg completed for 15 06-25 capsule, day(s) extended release 24hr sertraline 570935 RxNorm 2018-02 oral 100 mg 1 active 1 tablet 2-04 tablet once a day once a for 30 day(s) day Ventolin HFA 073592 RxNorm inhl 90 active for 16 mcg/actu day(s) ation HFA aerosol inhaler alprazolam 541948 RxNorm 2019- oral 0.5 mg 1 active 1 tablet 10-30 12-21 tablet twice a day twice a as needed for day 30 day(s) escitalopram 639990 RxNorm 2019- oral 20 mg 1 completed Take 1 tablet oxalate 06-06-23 tablet once a day once a for 30 day(s) day prazosin 681213 RxNorm 2019-0 2019- oral 1 mg completed for 30 06-20- capsule day(s) benztropine 452291 RxNorm 2019- oral 0.5 mg completed for 30 06-20 tablet day(s) hydroxyzine 391760 RxNorm 2019- oral 50 mg completed for 30 HCl 09-18 tablet day(s) Vyvanse 390777 RxNorm 2019- oral 50 mg completed for 30 08-02 capsule day(s) Vyvanse 694850 RxNorm 2019-0 2019- oral 20 mg 2 completed Take 2 08-02- capsule capsule by once a mouth once a day day as needed for 30 day(s) haloperidol 704255 RxNorm 2019- oral 5 mg completed for 30 09-18 tablet day(s) Vyvanse 674469 RxNorm 2019-0 2019- oral 20 mg 1 completed Take 1 06-20-24 capsule capsule every every morning morning for 30 day(s) diazepam 19741028 RxNorm 2019- oral 5 mg completed for 09-18 tablet day(s) Vyvanse 593632 RxNorm 2018-0 2019- oral 20 mg 1 completed Take 1 08-17- capsule capsule by every mouth every morning morning for 30 day(s) prazosin 877288 RxNorm 2019-0 2019- oral 1 mg completed for 30 06-06- capsule day(s) venlafaxine 378984 RxNorm 2018-1 oral 25 mg 1 active Take 1 tablet 1-21 tablet by mouth twice a twice a day day for 30 day(s) prazosin 176287 RxNorm 2019-0 2020- oral 1 mg 1 active Take 1 10-30-20 capsule capsule by at mouth at bedtime bedtime for 30 day(s) Vyvanse 810000 RxNorm 2019-0 2019- oral 30 mg 1 active Take 1 10-02- capsule capsule by every mouth every morning morning for 30 day(s) escitalopram 664272 RxNorm 2019- oral 10 mg completed for 30 oxalate 06-06 tablet day(s) lorazepam 234943 RxNorm 2019- oral 1 mg completed for 30 09-18 tablet day(s) diazepam 529849 RxNorm 2019- oral 5 mg completed for 15 09-18 tablet day(s) lorazepam RxNorm 2019- oral 0.5 mg completed Take 02/28 tablet by tablet mouth twice a twice a day as needed day for 30 day(s) venlafaxine 633291 RxNorm 2018-02 oral 75 mg 1 active Take 1 0-24 capsule, capsule by extended mouth once a release day for 30 24hr day(s) once a day venlafaxine 744657 RxNorm 2019- oral 150 mg 1 completed Take 1 6-25 10-24 capsule, capsule by extended mouth once a release day for 30 24hr day(s) once a day Problems Problem Name Code CodeSystem Alternate Alternate Start End Status Narrative Code CodeSystem Date Date 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 Generalized 06607304 SNOMED-CT 2018-02 Active anxiety 1-27 disorder Post-traumat 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 SNOMED-CT 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, unspecified 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, recurrent, 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] Alcohol 69054518 SNOMED-CT 2018-02 Active dependence, 03-25 in remission Post-traumat 74215396 SNOMED-CT 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, unspecified Post-traumat 37149462 SNOMED-CT 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, unspecified Major 08515765 SNOMED-CT Active 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, recurrent, in partial remission Relevant diagnostic tests/laboratory data Narrative No Information Procedures Procedure Code CodeSystem Target Date of Status Service Device Device Device Name Site Procedure Delivery Code Name UID Location Psychotherap [id number] SNOMED-CT () 2019-01-30 complete Mental y, 45 04 d Health- minutes with [place] patient [address], [id number] [phone] Psychotherap [id number] SNOMED-CT () 2019-02-06 complete Mental y, 45 04 d Health- minutes with [place] patient [address], [id number] [id number] Psychotherap [id number] SNOMED-CT () 2019-02-12 complete Mental y, 45 04 d Health- minutes with [place] patient [address], [id number] [id number] Psychotherap [id number] SNOMED-CT () 2019-01-23 complete Mental y, 45 04 d Health- minutes with [place] patient [address], [id number] Psychotherap [id number] SNOMED-CT () 2019-01-10 complete Mental y, 45 04 d Health- minutes with [place] patient [address], [id number] [id number] Group [id number] SNOMED-CT () 2019-01-30 complete Mental psychotherap 8 d Health- y (other [place] than of a [address] group) [place], [place], [id number] [phone] Group [id number] SNOMED-CT () 2019-02-06 complete Mental psychotherap 8 d Health- y (other [place] than of a [address] group) [place], [place], [id number] [phone] Office [place] [id number] SNOMED-CT () 2019-01-30 complete Mental other 7 d Health- outpatient [place] visit for [address], established [id number] patient, [id number] which requires at least 2 of these 3 watts components: An expanded problem focused history; An expanded problem focused examination; Medical decision making [facility] [place] [id number] SNOMED-CT () 2019-01-17 complete Mental other 6 d Health- outpatient [place] visit for [address], established [id number] patient, [id number] which requires at least 2 of these 3 watts components: A problem focused history; A problem focused examination; Straightforw kev medical decision making. Counselin Office or [id number] SNOMED-CT () 2019-01-31 complete Mental other 6 d Health- outpatient [place] visit for [address], established [id number] patient, [id number] which requires at least 2 of these 3 watts components: A problem focused history; A problem focused examination; [place]ight[place] kev medical decision making. [place] Office [place] [id number] SNOMED-CT () 2019-02-12 complete Mental other 6 d Health- outpatient [place] visit for [facility] the [address] [place] [address], of [facility], established [id number] patient, [id number] which requires at least 2 of these 3 watts components: A problem focused history; A problem focused examination; Straightforw kev medical decision making. Mark SNOMED-CT () 2018-11-26 complete Mental d Health[address], [id number] [id number] SNOMED-CT () 2019-01-26 complete Mental d Health[address], [id number] [phone] SNOMED-CT () 2018-06-26 complete Mental d Health- [address], [id number] [phone] SNOMED-CT () 2018-08-26 complete Mental d Health- [address], [id number] SNOMED-CT () 2018-10-27 complete Mental d [facility], [id number] SNOMED-CT () 2018-07-27 complete Mental d Health- [address], [id number] SNOMED-CT () 2018-12-27 complete Mental d [facility], [id number] SNOMED-CT () 2018-09-26 complete Mental d [facility], [id number] SNOMED-CT () 2019-01-17 complete Mental d Health[address], [id number] SNOMED-CT () 2019-02-26 complete Mental d [facility], [id number] SNOMED-CT () 2019-02-01 complete Mental d Health[address], [id number] SNOMED-CT () 2019-01-26 complete Mental d [facility], [id number] SNOMED-CT () 2019-01-26 complete Mental d [facility], [id number] SNOMED-CT () 2019-01-26 complete Mental d [address], [id number] SNOMED-CT () 2018-07-27 complete Mental d [address], [id number] SNOMED-CT () 2018-07-27 complete Mental d [facility], [id number] SNOMED-CT () 2018-07-27 complete Mental d [address], [id number] SNOMED-CT () 2018-12-27 complete Mental d [address], [id number] SNOMED-CT () 2018-12-27 complete Mental d Health[address], [id number] SNOMED-CT () 2018-12-27 complete Mental d Health[address], [id number] SNOMED-CT () 2018-12-27 complete Mental d Health[address], [id number] SNOMED-CT () 2018-12-27 complete Mental d Health[address], [id number] SNOMED-CT () 2018-12-27 complete Mental d [address], [id number] SNOMED-CT () 2018-12-27 complete Mental d Health[address], [id number] SNOMED-CT () 2018-12-27 complete Mental d [facility], [id number] SNOMED-CT () 2018-12-27 complete Mental d [facility], [id number] SNOMED-CT () 2018-12-27 complete Mental d [address], [id number] SNOMED-CT () 2018-12-27 complete Mental d [address], [id number] SNOMED-CT () 2018-12-27 complete Mental d [facility], [id number] SNOMED-CT () 2018-12-27 complete Mental d [address], [id number] SNOMED-CT () 2018-12-27 complete Mental d [address], [id number] SNOMED-CT () 2018-12-27 complete Mental d [facility], [id number] SNOMED-CT () 2018-12-27 complete Mental d [facility], [id number] SNOMED-CT () 2018-12-27 complete Mental d [address], [id number] SNOMED-CT () 2018-12-27 complete Mental d [address], [id number] SNOMED-CT () 2018-12-27 complete Mental d [address], [id number] SNOMED-CT () 2018-12-27 complete Mental d [address], [id number] [id number] SNOMED-CT () 2018-12-27 complete Mental d [address], [id number] SNOMED-CT () 2018-12-27 complete Mental d [address], [id number] [id number] SNOMED-CT () 2018-12-27 complete Mental d [address], [id number] [id number] SNOMED-CT () 2018-12-27 complete Mental d [address], [id number] [id number] SNOMED-CT () 2018-12-27 complete Mental d [address], [id number] [id number] SNOMED-CT () 2018-12-27 complete Mental d [address], [id number] SNOMED-CT () 2018-12-27 complete Mental d [address], [id number] SNOMED-CT () 2018-12-27 complete Mental d [address], [id number] [id number] SNOMED-CT () 2018-06-26 complete Mental d [address], [id number] [id number] SNOMED-CT () 2018-06-26 complete Mental d [address], [id number] SNOMED-CT () 2018-12-27 complete Mental d [address], [id number] SNOMED-CT () 2018-12-27 complete Mental d [address], [id number] SNOMED-CT () 2018-12-27 complete Mental d [address], [id number] [id number] SNOMED-CT () 2018-12-27 complete Mental d [address], [id number] SNOMED-CT () 2018-06-26 complete Mental d [address], [id number] SNOMED-CT () 2018-06-26 complete Mental d [address], [id number] SNOMED-CT () 2018-06-26 complete Mental d [address], [id number] SNOMED-CT () 2018-06-26 complete Mental d [address], [id number] SNOMED-CT () 2018-06-26 complete Mental d [address], [id number] [id number] SNOMED-CT () 2018-06-26 complete Mental d [address], [id number] [id number] SNOMED-CT () 2018-06-26 complete Mental d [facility], [id number] SNOMED-CT () 2018-06-26 complete Mental d [address], [id number] SNOMED-CT () 2018-06-26 complete Mental d [address], [id number] SNOMED-CT () 2018-06-26 complete Mental d [address], [id number] [id number] SNOMED-CT () 2018-06-26 complete Mental d [address], [id number] SNOMED-CT () 2018-06-26 complete Mental d [address], [id number] SNOMED-CT () 2018-08-26 complete Mental d [facility], [id number] SNOMED-CT () 2018-08-26 complete Mental d [address], [id number] [id number] SNOMED-CT () 2018-08-26 complete Mental d [address], [id number] SNOMED-CT () 2018-08-26 complete Mental d [facility], [id number] SNOMED-CT () 2018-06-26 complete Mental d [facility], [id number] SNOMED-CT () 2018-06-26 complete Mental d [address], [id number] SNOMED-CT () 2018-08-26 complete Mental d [address], [id number] SNOMED-CT () 2018-08-26 complete Mental d [address], [id number] SNOMED-CT () 2018-08-26 complete Mental d [facility], [id number] SNOMED-CT () 2018-08-26 complete Mental d [address], [id number] SNOMED-CT () 2018-08-26 complete Mental d [address], [id number] [id number] SNOMED-CT () 2018-08-26 complete Mental d [facility], [id number] SNOMED-CT () 2018-11-26 complete Mental d [address], [id number] SNOMED-CT () 2018-08-26 complete Mental d [facility], [id number] SNOMED-CT () 2018-08-26 complete Mental d [address], [id number] SNOMED-CT () 2018-08-26 complete Mental d [address], [id number] [id number] SNOMED-CT () 2018-08-26 complete Mental d [facility], [id number] SNOMED-CT () 2018-08-26 complete Mental d [address], [id number] SNOMED-CT () 2018-11-26 complete Mental d [address], [id number] SNOMED-CT () 2018-11-26 complete Mental d [facility], [id number] SNOMED-CT () 2018-11-26 complete Mental d [address], [id number] [id number] SNOMED-CT () 2018-11-26 complete Mental d [facility], [id number] SNOMED-CT () 2018-11-26 complete Mental d [address], [id number] SNOMED-CT () 2018-11-26 complete Mental d [address], [id number] SNOMED-CT () 2018-11-26 complete Mental d [facility], [id number] [id number] SNOMED-CT () 2018-11-26 complete Mental d [address], [id number] SNOMED-CT () 2018-11-26 complete Mental d [address], [id number] SNOMED-CT () 2018-11-26 complete Mental d [address], [id number] SNOMED-CT () 2018-11-26 complete Mental d [address], [id number] SNOMED-CT () 2018-11-26 complete Mental d [facility], [id number] [id number] SNOMED-CT () 2018-11-26 complete Mental d [address], [id number] SNOMED-CT () 2018-11-26 complete Mental d [address], [id number] SNOMED-CT () 2018-11-26 complete Mental d [facility], [id number] SNOMED-CT () 2018-11-26 complete Mental d [facility], [id number] SNOMED-CT () 2018-11-26 complete Mental d [address], [id number] SNOMED-CT () 2018-11-26 complete Mental d [address], [id number] SNOMED-CT () 2018-10-27 complete Mental d [address], [id number] SNOMED-CT () 2018-10-27 complete Mental d [address], [id number] SNOMED-CT () 2018-11-26 complete Mental d [address], [id number] [id number] SNOMED-CT () 2018-11-26 complete Mental d [address], [id number] SNOMED-CT () 2018-11-26 complete Mental d [address], [id number] SNOMED-CT () 2018-11-26 complete Mental d [address], [id number] SNOMED-CT () 2018-10-27 complete Mental d [address], [id number] SNOMED-CT () 2018-10-27 complete Mental d [address], [id number] SNOMED-CT () 2018-10-27 complete Mental d [address], [id number] SNOMED-CT () 2018-10-27 complete Mental d [facility], [id number] [id number] SNOMED-CT () 2018-10-27 complete Mental d [address], [id number] SNOMED-CT () 2018-10-27 complete Mental d [address], [id number] SNOMED-CT () 2018-10-27 complete Mental d [address], [id number] SNOMED-CT () 2018-10-27 complete Mental d [address], [id number] SNOMED-CT () 2018-10-27 complete Mental d [address], [id number] SNOMED-CT () 2018-10-27 complete Mental d [address], [id number] SNOMED-CT () 2018-10-27 complete Mental d [address], [id number] SNOMED-CT () 2018-10-27 complete Mental d [address], [id number] [id number] SNOMED-CT () 2018-10-27 complete Mental d [address], [id number] SNOMED-CT () 2018-10-27 complete Mental d [address], [id number] SNOMED-CT () 2018-10-27 complete Mental d [address], [id number] SNOMED-CT () 2018-10-27 complete Mental d [address], [id number] SNOMED-CT () 2018-10-27 complete Mental d [address], [id number] SNOMED-CT () 2018-10-27 complete Mental d [address], [id number] SNOMED-CT () 2018-09-26 complete Mental d [address], [id number] SNOMED-CT () 2018-09-26 complete Mental d [address], [id number] [id number] SNOMED-CT () 2018-09-26 complete Mental d [address], [id number] [id number] SNOMED-CT () 2018-09-26 complete Mental d [address], [id number] SNOMED-CT () 2018-09-26 complete Mental d [facility], [id number] [id number] SNOMED-CT () 2018-10-27 complete Mental d [address], [id number] SNOMED-CT () 2018-09-26 complete Mental d [address], [id number] SNOMED-CT () 2018-09-26 complete Mental d [facility], [id number] [id number] SNOMED-CT () 2018-09-26 complete Mental d [address], [id number] SNOMED-CT () 2018-09-26 complete Mental d [address], [id number] SNOMED-CT () 2018-09-26 complete Mental d [address], [id number] SNOMED-CT () 2018-09-26 complete Mental d [facility], [id number] [id number] SNOMED-CT () 2018-11-26 complete Mental d [facility], [id number] SNOMED-CT () 2018-08-26 complete Mental d [address], [id number] SNOMED-CT () 2018-06-26 complete Mental d [address] [place], [id number] [id number] SNOMED-CT () 2018-12-27 complete Mental d [address], [id number] SNOMED-CT () 2018-10-27 complete Mental d [address], [id number] [id number] SNOMED-CT () 2018-09-26 complete Mental d [address], [id number] SNOMED-CT () 2019-01-02 complete Mental d [address], [id number] SNOMED-CT () 2019-01-04 complete Mental d [address], [id number] [id number] SNOMED-CT () 2019-01-02 complete Mental d [address], [id number] [id number] SNOMED-CT () 2019-01-31 complete Mental d [address], [id number] Encounters/Encounter Diagnoses Encounter Name Encounter Diagnosis Diagnosis Diagnosis Date of Service Code Code Name CodeSystem Diagnosis Delivery Location [facility] [id number] Major SNOMED-CT 2019-03-01 Behavioral Individual 30 depressive Health min disorder, Clinic , , recurrent, , in partial remission Vital Signs No Information Social History Element Description Description Start End Code CodeSystem AdditionalInfo Date Date SexAssignedAtBirth Female F AdministrativeGender 2-15 Hospital Discharge Instructions Reason For Referral Medical Equipment FDA Assessments
--- OUTSIDE RECORDS SUMMARY | 2019-03-12 17:17 | XMS REPORT ---
:1990 Author Organization [facility] Care Team Providers Name Role Phone Sumi Buitrago Primary Care Physician Unavailable Allergies, Adverse Reactions, Alerts Allergy Code CodeSystem Reaction Severity Criticality Status Start Substance Date amoxicillin Rash Moderate Active Medications Medication Medication Medication Start Stop Route Dose Status Fill Code CodeSystem Date Date Instructions prazosin 836459 RxNorm 2018- 2019- oral 1 mg 1 completed Take 1 4-24 capsule capsule at at bedtime for bedtime 30 day(s) escitalopram 441137 RxNorm 2019- oral 10 mg completed for 30 oxalate - tablet day(s) prazosin 221913 RxNorm 2020- oral 1 mg 1 active Take 1 10-30 01-20 capsule capsule by at mouth at bedtime bedtime for 30 day(s) Vyvanse 256979 RxNorm 2018- 2019- oral 20 mg 1 completed Take 1 6- 06-21 capsule capsule by once a mouth once a day day as needed for 30 day(s) benztropine 240317 RxNorm 2019- oral 0.5 mg completed for 30 -24 tablet day(s) Vyvanse 003576 RxNorm 2019- oral 20 mg 2 completed Take 2 - 06-20 capsule capsule by once a mouth once a day day as needed for 30 day(s) haloperidol 499645 RxNorm 2019- oral 5 mg completed for 30 - tablet day(s) diazepam 573657 RxNorm 2019- oral 5 mg completed for 15 - tablet day(s) Vyvanse 738325 RxNorm 2019-0 2019- oral 30 mg 1 active Take 1 10-02 12-21 capsule capsule by every mouth every morning morning for 30 day(s) diazepam 268745 RxNorm 2019- oral 5 mg completed for 15 - tablet day(s) sertraline 635267 RxNorm 2018- oral 100 mg 1 active 1 tablet 2-04 tablet once a day once a for 30 day(s) day Ventolin HFA 627550 RxNorm inhl 90 active for 16 mcg/actu day(s) ation HFA aerosol inhaler alprazolam 342106 RxNorm 2019- oral 0.5 mg 1 active 1 tablet 10-30 12- tablet twice a day twice a as needed for day 30 day(s) Vyvanse 433327 RxNorm 2019- oral 20 mg 1 completed Take 1 06-20 05-24 capsule capsule every every morning morning for 30 day(s) venlafaxine 604100 RxNorm 2018- oral 75 mg completed for 15 - capsule, day(s) extended release 24hr hydroxyzine 512974 RxNorm 2018- oral 50 mg completed for 30 HCl - tablet day(s) Vyvanse 896995 RxNorm 2019- oral 50 mg completed for 30 - capsule day(s) prazosin 317482 RxNorm 2019- oral 1 mg completed for 30 06-20- capsule day(s) venlafaxine 671108 RxNorm 2018-02 oral 75 mg 1 active Take 1 0-24 capsule, capsule by extended mouth once a release day for 30 24hr day(s) once a day lorazepam RxNorm 2019- oral 0.5 mg completed Take /09-18- 1/2 tablet by tablet mouth twice a twice a day as needed day for 30 day(s) Vyvanse 711110 RxNorm 2019- oral 20 mg 1 completed Take 1 08-17- capsule capsule by every mouth every morning morning for 30 day(s) prazosin 014662 RxNorm 2018- 2019- oral 1 mg completed for 30 06-06- capsule day(s) Vyvanse 720707 RxNorm 2019- oral 20 mg completed for 30 06-20 capsule day(s) escitalopram 063850 RxNorm 2019- oral 20 mg 1 completed Take 1 tablet oxalate 06-06 tablet once a day once a for 30 day(s) day lorazepam RxNorm 2019- oral 1 mg completed for 30 09-18 tablet day(s) venlafaxine 454766 RxNorm 2018-02 oral 25 mg 1 active Take 1 tablet 1-21 tablet by mouth twice a twice a day day for 30 day(s) venlafaxine 690630 RxNorm 2018- oral 150 mg 1 completed Take 1 6-25 10-24 capsule, capsule by extended mouth once a release day for 30 24hr day(s) once a day haloperidol 032231 RxNorm 2018- oral 5 mg completed for 30 09-18 tablet day(s) sertraline 285588 RxNorm 2018-02- oral 50 mg completed for 30 0-24 12-04 tablet day(s) Problems Problem Name Code CodeSystem Alternate Alternate Start End Status Narrative Code CodeSystem Date Date 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, unspecified Alcohol 80775142 SNOMED-CT 2018-02 Active dependence, 03-25 in remission 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 27380980 SNOMED-CT 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, unspecified Major 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 SNOMED-CT Active 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, recurrent, in partial 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 Generalized 21445851 SNOMED-CT 2018-02 Active anxiety -27 disorder Post-traumat 88084888 SNOMED-CT 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, unspecified Major 88847705 SNOMED-CT Active 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, recurrent, in partial remission Relevant diagnostic tests/laboratory data Narrative No Information Procedures Procedure Code CodeSystem Target Date of Status Service Device Device Device Name Site Procedure Delivery Code Name UID Location Psychotherap [id number] SNOMED-CT () 2019-01-30 complete Mental y, 45 04 d Health- minutes with Emiliano patient [address], [id number] [id number] Psychotherap [id number] SNOMED-CT () 2019-02-06 complete Mental y, 45 04 d Health- minutes with [facility] patient [address], [id number] Psychotherap [id number] SNOMED-CT () 2019-02-12 complete Mental y, 45 04 d Health- minutes with [place] patient [address], [id number] [id number] Psychotherap [id number] SNOMED-CT () 2019-01-23 complete Mental y, 45 04 d Health- minutes with Emiliano patient [address], [id number] [id number] Psychotherap [id number] SNOMED-CT () 2019-01-10 complete Mental y, 45 04 d Health- minutes with [facility] patient [address], [id number] [id number] Group [id number] SNOMED-CT () 2019-01-30 complete Mental psychotherap 8 d Health- y (other [place] than of a [address] group) [place], [place], [id number] [phone] Group [id number] SNOMED-CT () 2019-02-06 complete Mental psychotherap 8 d Health- y (other Emiliano than of a [address] group) [place], [place], [id number] [id number] Office or [id number] SNOMED-CT () 2019-01-30 complete Mental other 7 d Health- outpatient Emiliano visit for [address], established [id number] patient, [id number] which requires at least 2 of these 3 watts components: An expanded problem focused history; An expanded problem focused examination; Medical decision making of [facility] Office or [id number] SNOMED-CT () 2019-01-17 complete Mental other 6 d Health- outpatient Dickens visit for [address], established [id number] patient, [id number] which requires at least 2 of these 3 watts components: A problem focused history; A problem focused examination; [place] medical decision making. [place] Office or [id number] SNOMED-CT () 2019-01-31 complete Mental other 6 d Health- outpatient Emiliano visit for [address], established [id number] patient, [id number] which requires at least 2 of these 3 awtts components: A problem focused history; A problem focused examination; [place] medical decision making. [place] Office or [id number] SNOMED-CT () 2019-02-12 complete Mental other 6 d Health- outpatient Emiliano visit for [facility] the [address] [place] [address], of [facility], established [phone] patient, [id number] which requires at least 2 of these 3 watts components: A problem focused history; A problem focused examination; [place] medical decision making. Mark SNOMED-CT () 2018-11-26 complete Mental d Health[address], [id number] SNOMED-CT () 2019-01-26 complete Mental d Health[address], [id number] SNOMED-CT () 2018-06-26 complete Mental d Health- [address], [id number] SNOMED-CT () 2018-08-26 complete Mental d Health- [address], [id number] SNOMED-CT () 2018-10-27 complete Mental d [facility], [id number] SNOMED-CT () 2018-07-27 complete Mental d Health- [address], [id number] SNOMED-CT () 2018-12-27 complete Mental d [facility], [id number] SNOMED-CT () 2018-09-26 complete Mental d [facility], [id number] SNOMED-CT () 2019-01-17 complete Mental d Health[address], [id number] SNOMED-CT () 2019-02-01 complete Mental d Health[address], [id number] SNOMED-CT () 2019-01-26 complete Mental d [facility], [id number] SNOMED-CT () 2019-01-26 complete Mental d [facility], [id number] SNOMED-CT () 2019-01-26 complete Mental d [facility], [id number] SNOMED-CT () 2018-07-27 complete Mental d [address], [id number] SNOMED-CT () 2018-07-27 complete Mental d [address], [id number] SNOMED-CT () 2018-07-27 complete Mental d [facility], [id number] SNOMED-CT () 2018-12-27 complete Mental d [address], [id number] SNOMED-CT () 2018-12-27 complete Mental d [address], [id number] SNOMED-CT () 2018-12-27 complete Mental d Health[address], [id number] SNOMED-CT () 2018-12-27 complete Mental d Health[address], [id number] SNOMED-CT () 2018-12-27 complete Mental d Health[address], [id number] SNOMED-CT () 2018-12-27 complete Mental d [facility], [id number] SNOMED-CT () 2018-12-27 complete Mental d [address], [id number] SNOMED-CT () 2018-12-27 complete Mental d [facility], [id number] SNOMED-CT () 2018-12-27 complete Mental d [facility], [id number] SNOMED-CT () 2018-12-27 complete Mental d [facility], [id number] SNOMED-CT () 2018-12-27 complete Mental d [address], [id number] SNOMED-CT () 2018-12-27 complete Mental d [address], [id number] SNOMED-CT () 2018-12-27 complete Mental d [facility], [id number] SNOMED-CT () 2018-12-27 complete Mental d [address], [id number] SNOMED-CT () 2018-12-27 complete Mental d [address], [id number] SNOMED-CT () 2018-12-27 complete Mental d [facility], [id number] SNOMED-CT () 2018-12-27 complete Mental d [facility], [id number] SNOMED-CT () 2018-12-27 complete Mental d [address], [id number] SNOMED-CT () 2018-12-27 complete Mental d [address], [id number] SNOMED-CT () 2018-12-27 complete Mental d [address], [id number] SNOMED-CT () 2018-12-27 complete Mental d [address], [id number] SNOMED-CT () 2018-12-27 complete Mental d [address], [id number] SNOMED-CT () 2018-12-27 complete Mental d [address], [id number] SNOMED-CT () 2018-12-27 complete Mental d [address], [id number] SNOMED-CT () 2018-12-27 complete Mental d [address], [id number] SNOMED-CT () 2018-12-27 complete Mental d [address], [id number] SNOMED-CT () 2018-12-27 complete Mental d [address], [id number] SNOMED-CT () 2018-12-27 complete Mental d [address], [id number] SNOMED-CT () 2018-06-26 complete Mental d [facility], [id number] SNOMED-CT () 2018-06-26 complete Mental d [address], [id number] SNOMED-CT () 2018-12-27 complete Mental d [address], [id number] SNOMED-CT () 2018-12-27 complete Mental d [address], [id number] SNOMED-CT () 2018-12-27 complete Mental d [address], [id number] SNOMED-CT () 2018-12-27 complete Mental d [address], [id number] SNOMED-CT () 2018-06-26 complete Mental d [facility], [id number] SNOMED-CT () 2018-06-26 complete Mental d [address], [id number] SNOMED-CT () 2018-06-26 complete Mental d [address], [id number] SNOMED-CT () 2018-06-26 complete Mental d [address], [id number] SNOMED-CT () 2018-06-26 complete Mental d [address], [id number] SNOMED-CT () 2018-06-26 complete Mental d [address], [id number] SNOMED-CT () 2018-06-26 complete Mental d [address], [id number] SNOMED-CT () 2018-06-26 complete Mental d [facility], [id number] SNOMED-CT () 2018-06-26 complete Mental d [address], [id number] SNOMED-CT () 2018-06-26 complete Mental d [address], [id number] SNOMED-CT () 2018-06-26 complete Mental d [address], [id number] SNOMED-CT () 2018-06-26 complete Mental d [address], [id number] SNOMED-CT () 2018-08-26 complete Mental d [address], [id number] SNOMED-CT () 2018-08-26 complete Mental d [facility], [id number] SNOMED-CT () 2018-08-26 complete Mental d [address], [id number] SNOMED-CT () 2018-08-26 complete Mental d [address], [id number] SNOMED-CT () 2018-06-26 complete Mental d [facility], [id number] SNOMED-CT () 2018-06-26 complete Mental d [address], [id number] SNOMED-CT () 2018-08-26 complete Mental d [address], [id number] SNOMED-CT () 2018-08-26 complete Mental d [facility], [id number] SNOMED-CT () 2018-08-26 complete Mental d [address], [id number] SNOMED-CT () 2018-08-26 complete Mental d [facility], [id number] SNOMED-CT () 2018-08-26 complete Mental d [address], [id number] SNOMED-CT () 2018-08-26 complete Mental d [address], [id number] SNOMED-CT () 2018-11-26 complete Mental d [facility], [id number] SNOMED-CT () 2018-08-26 complete Mental d [address], [id number] SNOMED-CT () 2018-08-26 complete Mental d [facility], [id number] SNOMED-CT () 2018-08-26 complete Mental d [address], [id number] SNOMED-CT () 2018-08-26 complete Mental d [address], [id number] SNOMED-CT () 2018-08-26 complete Mental d [facility], [id number] SNOMED-CT () 2018-11-26 complete Mental d [address], [id number] SNOMED-CT () 2018-11-26 complete Mental d [address], [id number] SNOMED-CT () 2018-11-26 complete Mental d [facility], [id number] SNOMED-CT () 2018-11-26 complete Mental d [address], [id number] SNOMED-CT () 2018-11-26 complete Mental d [facility], [id number] SNOMED-CT () 2018-11-26 complete Mental d [address], [id number] SNOMED-CT () 2018-11-26 complete Mental d [address], [id number] SNOMED-CT () 2018-11-26 complete Mental d [facility], [id number] SNOMED-CT () 2018-11-26 complete Mental d [address], [id number] SNOMED-CT () 2018-11-26 complete Mental d [address], [id number] SNOMED-CT () 2018-11-26 complete Mental d [address], [id number] SNOMED-CT () 2018-11-26 complete Mental d [address], [id number] SNOMED-CT () 2018-11-26 complete Mental d [facility], [id number] SNOMED-CT () 2018-11-26 complete Mental d [address], [id number] SNOMED-CT () 2018-11-26 complete Mental d [address], [id number] SNOMED-CT () 2018-11-26 complete Mental d [facility], [id number] SNOMED-CT () 2018-11-26 complete Mental d [facility], [id number] SNOMED-CT () 2018-11-26 complete Mental d [address], [id number] SNOMED-CT () 2018-10-27 complete Mental d [address], [id number] SNOMED-CT () 2018-10-27 complete Mental d [address], [id number] SNOMED-CT () 2018-11-26 complete Mental d [address], [id number] SNOMED-CT () 2018-11-26 complete Mental d [address], [id number] SNOMED-CT () 2018-11-26 complete Mental d [address], [id number] SNOMED-CT () 2018-11-26 complete Mental d [address], [id number] SNOMED-CT () 2018-10-27 complete Mental d [address], [id number] SNOMED-CT () 2018-10-27 complete Mental d [address], [id number] SNOMED-CT () 2018-10-27 complete Mental d [address], [id number] SNOMED-CT () 2018-10-27 complete Mental d [address], [id number] SNOMED-CT () 2018-10-27 complete Mental d [facility], [id number] SNOMED-CT () 2018-10-27 complete Mental d [address], [id number] SNOMED-CT () 2018-10-27 complete Mental d [address], [id number] SNOMED-CT () 2018-10-27 complete Mental d [address], [id number] SNOMED-CT () 2018-10-27 complete Mental d [address], [id number] SNOMED-CT () 2018-10-27 complete Mental d [address], [id number] SNOMED-CT () 2018-10-27 complete Mental d [address], [id number] SNOMED-CT () 2018-10-27 complete Mental d [address], [id number] SNOMED-CT () 2018-10-27 complete Mental d [address], [id number] SNOMED-CT () 2018-10-27 complete Mental d [address], [id number] SNOMED-CT () 2018-10-27 complete Mental d [address], [id number] SNOMED-CT () 2018-10-27 complete Mental d [address], [id number] SNOMED-CT () 2018-10-27 complete Mental d [address], [id number] SNOMED-CT () 2018-10-27 complete Mental d [address], [id number] SNOMED-CT () 2018-09-26 complete Mental d [address], [id number] SNOMED-CT () 2018-09-26 complete Mental d [address], [id number] SNOMED-CT () 2018-09-26 complete Mental d [address], [id number] SNOMED-CT () 2018-09-26 complete Mental d [address], [id number] [id number] SNOMED-CT () 2018-09-26 complete Mental d [address], [id number] SNOMED-CT () 2018-10-27 complete Mental d [facility], [id number] SNOMED-CT () 2018-09-26 complete Mental d [address], [id number] SNOMED-CT () 2018-09-26 complete Mental d [address], [id number] SNOMED-CT () 2018-09-26 complete Mental d [facility], [id number] SNOMED-CT () 2018-09-26 complete Mental d [address], [id number] SNOMED-CT () 2018-09-26 complete Mental d [address], [id number] SNOMED-CT () 2018-09-26 complete Mental d [address], [id number] SNOMED-CT () 2018-11-26 complete Mental d [facility], [id number] SNOMED-CT () 2018-08-26 complete Mental d [facility], [id number] SNOMED-CT () 2018-06-26 complete Mental d [address], [id number] SNOMED-CT () 2018-12-27 complete Mental d [address] [place], [address] [id number] SNOMED-CT () 2018-10-27 complete Mental d [address], [id number] SNOMED-CT () 2018-09-26 complete Mental d [address], [id number] SNOMED-CT () 2019-01-02 complete Mental d [address], [id number] SNOMED-CT () 2019-01-04 complete Mental d [address], [id number] SNOMED-CT () 2019-01-02 complete Mental d [address], [id number] SNOMED-CT () 2019-01-31 complete Mental d [address], [id number] Encounters/Encounter Diagnoses Encounter Name Encounter Diagnosis Diagnosis Diagnosis Date of Service Code Code Name CodeSystem Diagnosis Delivery Location - 77084 [id number] Major SNOMED-CT 2019-02-12 Behavioral Established depressive Health patient 10 disorder, Clinic , , Minutes recurrent, , in partial remission Vital Signs No Information Social History Element Description Description Start End Code CodeSystem AdditionalInfo Date Date SexAssignedAtBirth Female 1990- F AdministrativeGender 2-15 Hospital Discharge Instructions Reason For Referral Medical Equipment FDA Assessments
--- OUTSIDE RECORDS SUMMARY | 2019-03-12 17:17 | XMS REPORT ---
:1990 Author Organization [facility] Care Team Providers Name Role Phone Sumi Buitrago Primary Care Physician Unavailable Allergies, Adverse Reactions, Alerts Allergy Code CodeSystem Reaction Severity Criticality Status Start Substance Date amoxicillin Rash Moderate Active Medications Medication Medication Medication Start Stop Route Dose Status Fill Code CodeSystem Date Date Instructions prazosin 233335 RxNorm 2019- oral 1 mg 1 active Take 1 10-30 01-20 capsule capsule by at mouth at bedtime bedtime for 30 day(s) Vyvanse 032570 RxNorm 2018- oral 30 mg 1 active Take 1 10-02-21 capsule capsule by every mouth every morning morning for 30 day(s) alprazolam 939926 RxNorm 2019- oral 0.5 mg 1 active 1 tablet 10-30- tablet twice a day twice a as needed for day 30 day(s) lorazepam 170343 RxNorm 2019- oral 0.5 mg completed Take 1/09-18 08- 1/2 tablet by tablet mouth twice a twice a day as needed day for 30 day(s) prazosin 002797 RxNorm 2019- oral 1 mg 1 completed Take 1 4- 04-24 capsule capsule at at bedtime for bedtime 30 day(s) venlafaxine 783081 RxNorm 2019- oral 150 mg 1 completed Take 1 6-25 10-24 capsule, capsule by extended mouth once a release day for 30 24hr day(s) once a day Vyvanse 775397 RxNorm 2018- 2019- oral 20 mg 2 completed Take 2 6- 06-20 capsule capsule by once a mouth once a day day as needed for 30 day(s) venlafaxine 507320 RxNorm 2019- oral 75 mg completed for 15 06-25 capsule, day(s) extended release 24hr Vyvanse 532047 RxNorm 2019- 2019- oral 20 mg 1 completed Take 1 08-16- capsule capsule by once a mouth once a day day as needed for 30 day(s) diazepam 366523 RxNorm 2019- oral 5 mg completed for 15 - tablet day(s) Vyvanse 764227 RxNorm 2018- 2019- oral 20 mg 1 completed Take 1 06-20-24 capsule capsule every every morning morning for 30 day(s) Vyvanse 893068 RxNorm 2019- oral 50 mg completed for 30 - capsule day(s) escitalopram 966585 RxNorm 2019- oral 10 mg completed for 30 oxalate 04- tablet day(s) Ventolin HFA 338157 RxNorm inhl 90 active for 16 mcg/actu day(s) ation HFA aerosol inhaler venlafaxine 459863 RxNorm 2018- oral 25 mg 1 active Take 1 tablet 1-21 tablet by mouth twice a twice a day day for 30 day(s) lorazepam 205838 RxNorm 2019- oral 1 mg completed for 30 09-18 tablet day(s) sertraline 312701 RxNorm 2018- oral 100 mg 1 active 1 tablet 2-04 tablet once a day once a for 30 day(s) day haloperidol 637938 RxNorm 2019- oral 5 mg completed for 30 09-18 tablet day(s) Vyvanse 278175 RxNorm 2019- oral 20 mg completed for 30 24 capsule day(s) prazosin 512571 RxNorm 2019- oral 1 mg completed for 30 06-20-23 capsule day(s) sertraline 384559 RxNorm 2018- 2019- oral 50 mg completed for 30 024 12-04 tablet day(s) prazosin 104972 RxNorm 2018-0 2019- oral 1 mg completed for 30 06-06 09-03 capsule day(s) Vyvanse 856213 RxNorm 2019-0 2019- oral 20 mg 1 completed Take 1 08-17 08-06 capsule capsule by every mouth every morning morning for 30 day(s) haloperidol 721505 RxNorm 2019- oral 5 mg completed for 30 09-18 tablet day(s) hydroxyzine 729346 RxNorm 2019- oral 50 mg completed for 30 HCl 07- tablet day(s) diazepam 618054 RxNorm 2018- oral 5 mg completed for 15 - tablet day(s) venlafaxine 407036 RxNorm 2018-02 oral 75 mg 1 active Take 1 0-24 capsule, capsule by extended mouth once a release day for 30 24hr day(s) once a day benztropine 170992 RxNorm 2018- oral 0.5 mg completed for 30 04-24 tablet day(s) escitalopram 533222 RxNorm 2019- oral 20 mg 1 completed Take 1 tablet oxalate 4-10 - tablet once a day once a for 30 day(s) day Problems Problem Name Code CodeSystem Alternate Alternate Start End Status Narrative Code CodeSystem Date Date Generalized [id number] SNOMED-CT 2018-02 Active anxiety -27 disorder 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, recurrent, 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 SNOMED-CT 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, unspecified Post-traumat 65723099 SNOMED-CT 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, unspecified 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] Major 71989340 SNOMED-CT Active 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, recurrent, in partial remission Alcohol 23574033 SNOMED-CT 2018-02 Active dependence, 03-25 in remission 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 Post-traumat 89708609 SNOMED-CT 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, unspecified Relevant diagnostic tests/laboratory data Narrative No Information Procedures Procedure Code CodeSystem Target Date of Status Service Device Device Device Name Site Procedure Delivery Code Name UID Location Psychotherap [id number] SNOMED-CT () 2019-01-30 complete Mental y, 45 04 d Health- minutes with [place] patient [address], [id number] [id number] Psychotherap [id number] SNOMED-CT () 2019-01-23 complete Mental y, 45 04 d Health- minutes with [place] patient [address], [id number] [phone] Psychotherap [id number] SNOMED-CT () 2019-02-06 complete Mental y, 45 04 d Health- minutes with [place] patient [address], [id number] [id number] Psychotherap [id number] SNOMED-CT () 2019-01-10 complete Mental y, 45 04 d Health- minutes with [place] patient [address], [id number] Group [id number] SNOMED-CT () 2019-02-06 complete Mental psychotherap 8 d Health- y (other [place] than of a [address] group) [place], [place], [id number] [phone] Group [id number] SNOMED-CT () 2019-01-30 complete Mental psychotherap 8 d Health- y (other [place] than of a [address] group) [place], [place], [id number] [phone] Office [place] [id number] SNOMED-CT () 2019-01-30 complete Mental other 7 d Health- outpatient [place] visit for [address], [facility] [id number] patient, [id number] which requires at least 2 of these 3 watts components: An expanded problem focused history; An expanded problem focused examination; Medical decision making of low Office or [id number] SNOMED-CT () 2019-01-17 complete Mental other 6 d Health- outpatient [place] visit for [address], established [id number] patient, [id number] which requires at least 2 of these 3 watts components: A problem focused history; A problem focused examination; Straightforw kev medical decision making. Counsel[place] Office [place] [id number] SNOMED-CT () 2019-01-31 complete Mental other 6 d Health- outpatient [place] visit for [address], established [id number] patient, [id number] which requires at least 2 of these 3 watts components: A problem focused history; A problem focused examination; Straightforw kev medical decision making. Counselin SNOMED-CT () 2019-01-26 complete Mental d [address], [id number] SNOMED-CT () 2018-06-26 complete Mental d [address], [id number] SNOMED-CT () 2018-08-26 complete Mental d [address], [id number] SNOMED-CT () 2018-10-27 complete Mental d [address], [id number] SNOMED-CT () 2018-07-27 complete Mental d [address], [id number] SNOMED-CT () 2018-12-27 complete Mental d [address], [id number] SNOMED-CT () 2018-09-26 complete Mental d [address], [id number] SNOMED-CT () 2018-11-26 complete Mental d [address], [id number] SNOMED-CT () 2019-01-17 complete Mental d [address], [id number] SNOMED-CT () 2019-02-01 complete Mental d [facility], [id number] SNOMED-CT () 2019-01-26 complete Mental d [facility], [id number] SNOMED-CT () 2019-01-26 complete Mental d [address], [id number] SNOMED-CT () 2019-01-26 complete Mental d [address], [id number] SNOMED-CT () 2018-07-27 complete Mental d [address], [id number] SNOMED-CT () 2018-07-27 complete Mental d [address], [id number] SNOMED-CT () 2018-07-27 complete Mental d [facility], [id number] SNOMED-CT () 2018-12-27 complete Mental d [address], [id number] SNOMED-CT () 2018-12-27 complete Mental d [address], [id number] SNOMED-CT () 2018-12-27 complete Mental d [address], [id number] SNOMED-CT () 2018-12-27 complete Mental d [address], [id number] SNOMED-CT () 2018-12-27 complete Mental d [address], [id number] SNOMED-CT () 2018-12-27 complete Mental d [address], [id number] [id number] SNOMED-CT () 2018-12-27 complete Mental d [facility], [id number] SNOMED-CT () 2018-12-27 complete Mental d [facility], [id number] SNOMED-CT () 2018-12-27 complete Mental d [address], [id number] SNOMED-CT () 2018-12-27 complete Mental d [address], [id number] SNOMED-CT () 2018-12-27 complete Mental d [address], [id number] SNOMED-CT () 2018-12-27 complete Mental d [address], [id number] SNOMED-CT () 2018-12-27 complete Mental d [facility], [id number] SNOMED-CT () 2018-12-27 complete Mental d [address], [id number] SNOMED-CT () 2018-12-27 complete Mental d [address], [id number] SNOMED-CT () 2018-12-27 complete Mental d [address], [id number] [id number] SNOMED-CT () 2018-12-27 complete Mental d [address], [id number] SNOMED-CT () 2018-12-27 complete Mental d [address], [id number] SNOMED-CT () 2018-12-27 complete Mental d [address], [id number] [id number] SNOMED-CT () 2018-12-27 complete Mental d [address], [id number] SNOMED-CT () 2018-12-27 complete Mental d [address], [id number] SNOMED-CT () 2018-12-27 complete Mental d [address], [id number] SNOMED-CT () 2018-12-27 complete Mental d [address], [id number] SNOMED-CT () 2018-12-27 complete Mental d [address], [id number] SNOMED-CT () 2018-12-27 complete Mental d [address], [id number] SNOMED-CT () 2018-12-27 complete Mental d [address], [id number] [id number] SNOMED-CT () 2018-12-27 complete Mental d [address], [id number] SNOMED-CT () 2018-12-27 complete Mental d [address], [id number] SNOMED-CT () 2018-06-26 complete Mental d [facility], 886357082 [id number] SNOMED-CT () 2018-06-26 complete Mental d [address], [id number] SNOMED-CT () 2018-12-27 complete Mental d [address], [id number] SNOMED-CT () 2018-12-27 complete Mental d [facility], [id number] [id number] SNOMED-CT () 2018-12-27 complete Mental d [facility], [id number] SNOMED-CT () 2018-12-27 complete Mental d [facility], [id number] [id number] SNOMED-CT () 2018-06-26 complete Mental d [address], [id number] [id number] SNOMED-CT () 2018-06-26 complete Mental d [address], [id number] SNOMED-CT () 2018-06-26 complete Mental d [facility], [id number] SNOMED-CT () 2018-06-26 complete Mental d [address], [id number] SNOMED-CT () 2018-06-26 complete Mental d [facility], [id number] SNOMED-CT () 2018-06-26 complete Mental d [address], [id number] SNOMED-CT () 2018-06-26 complete Mental d [address], [id number] SNOMED-CT () 2018-06-26 complete Mental d [facility], [id number] SNOMED-CT () 2018-06-26 complete Mental d [address], [id number] [id number] SNOMED-CT () 2018-06-26 complete Mental d [address], [id number] SNOMED-CT () 2018-06-26 complete Mental d [facility], [id number] SNOMED-CT () 2018-06-26 complete Mental d [facility], [id number] SNOMED-CT () 2018-08-26 complete Mental d [facility], [id number] SNOMED-CT () 2018-08-26 complete Mental d [facility], [id number] SNOMED-CT () 2018-08-26 complete Mental d [facility], [id number] SNOMED-CT () 2018-08-26 complete Mental d [facility], [id number] SNOMED-CT () 2018-06-26 complete Mental d [facility], [id number] SNOMED-CT () 2018-06-26 complete Mental d [facility], [id number] SNOMED-CT () 2018-08-26 complete Mental d [address], [id number] SNOMED-CT () 2018-08-26 complete Mental d [address], [id number] SNOMED-CT () 2018-08-26 complete Mental d [facility], [id number] SNOMED-CT () 2018-08-26 complete Mental d [address], [id number] SNOMED-CT () 2018-08-26 complete Mental d [address], [id number] SNOMED-CT () 2018-08-26 complete Mental d [facility], [id number] SNOMED-CT () 2018-11-26 complete Mental d [facility], [id number] SNOMED-CT () 2018-08-26 complete Mental d [facility], [id number] SNOMED-CT () 2018-08-26 complete Mental d [address], [id number] SNOMED-CT () 2018-08-26 complete Mental d [address], [id number] SNOMED-CT () 2018-08-26 complete Mental d [address], [id number] SNOMED-CT () 2018-08-26 complete Mental d [address], [id number] SNOMED-CT () 2018-11-26 complete Mental d [address], [id number] SNOMED-CT () 2018-11-26 complete Mental d [address], [id number] SNOMED-CT () 2018-11-26 complete Mental d [address], [id number] SNOMED-CT () 2018-11-26 complete Mental d [address], [id number] [id number] SNOMED-CT () 2018-11-26 complete Mental d [address], [id number] SNOMED-CT () 2018-11-26 complete Mental d [address], [id number] SNOMED-CT () 2018-11-26 complete Mental d [facility], [id number] [id number] SNOMED-CT () 2018-11-26 complete Mental d [address], [id number] SNOMED-CT () 2018-11-26 complete Mental d [address], [id number] [id number] SNOMED-CT () 2018-11-26 complete Mental d [address], [id number] SNOMED-CT () 2018-11-26 complete Mental d [address], [id number] SNOMED-CT () 2018-11-26 complete Mental d [address], [id number] SNOMED-CT () 2018-11-26 complete Mental d [address], [id number] SNOMED-CT () 2018-11-26 complete Mental d [address], [id number] SNOMED-CT () 2018-11-26 complete Mental d [address], [id number] SNOMED-CT () 2018-11-26 complete Mental d [address], [id number] [id number] SNOMED-CT () 2018-11-26 complete Mental d [address], [id number] SNOMED-CT () 2018-11-26 complete Mental d [address], [id number] SNOMED-CT () 2018-10-27 complete Mental d [address], [id number] SNOMED-CT () 2018-10-27 complete Mental d [address], [id number] SNOMED-CT () 2018-11-26 complete Mental d [address], [id number] SNOMED-CT () 2018-11-26 complete Mental d [address], [id number] SNOMED-CT () 2018-11-26 complete Mental d [address], [id number] SNOMED-CT () 2018-11-26 complete Mental d [address], [id number] SNOMED-CT () 2018-10-27 complete Mental d [address], [id number] SNOMED-CT () 2018-10-27 complete Mental d [facility], [id number] SNOMED-CT () 2018-10-27 complete Mental d [address], [id number] SNOMED-CT () 2018-10-27 complete Mental d [address], [id number] SNOMED-CT () 2018-10-27 complete Mental d [facility], [id number] SNOMED-CT () 2018-10-27 complete Mental d [address], [id number] SNOMED-CT () 2018-10-27 complete Mental d [address], [id number] SNOMED-CT () 2018-10-27 complete Mental d [address], [id number] SNOMED-CT () 2018-10-27 complete Mental d [address], [id number] SNOMED-CT () 2018-10-27 complete Mental d [facility], [id number] SNOMED-CT () 2018-10-27 complete Mental d [address], [id number] SNOMED-CT () 2018-10-27 complete Mental d [address], [place], [address] [id number] SNOMED-CT () 2018-10-27 complete Mental d [address], [id number] SNOMED-CT () 2018-10-27 complete Mental d [address], [id number] SNOMED-CT () 2018-10-27 complete Mental d [facility], 689705066 [id number] SNOMED-CT () 2018-10-27 complete Mental d [address], [id number] SNOMED-CT () 2018-10-27 complete Mental d [address], [id number] SNOMED-CT () 2018-10-27 complete Mental d [address], [id number] SNOMED-CT () 2018-09-26 complete Mental d [address], [id number] SNOMED-CT () 2018-09-26 complete Mental d [address], [id number] SNOMED-CT () 2018-09-26 complete Mental d [address], [id number] [id number] SNOMED-CT () 2018-09-26 complete Mental d [address], [id number] SNOMED-CT () 2018-09-26 complete Mental d [address], [id number] SNOMED-CT () 2018-10-27 complete Mental d [address], 821751494 [id number] SNOMED-CT () 2018-09-26 complete Mental d [address], [id number] [id number] SNOMED-CT () 2018-09-26 complete Mental d [address], 472300789 [id number] SNOMED-CT () 2018-09-26 complete Mental d [facility], [id number] SNOMED-CT () 2018-09-26 complete Mental d [facility], [id number] [id number] SNOMED-CT () 2018-09-26 complete Mental d [address], [id number] SNOMED-CT () 2018-09-26 complete Mental d [address], [id number] SNOMED-CT () 2018-11-26 complete Mental d [facility], [id number] SNOMED-CT () 2018-08-26 complete Mental d [address], [id number] SNOMED-CT () 2018-06-26 complete Mental d [address], [id number] SNOMED-CT () 2018-12-27 complete Mental d [facility], [id number] [id number] SNOMED-CT () 2018-10-27 complete Mental d [facility], 147842570 [id number] SNOMED-CT () 2018-09-26 complete Mental d [address], 422947788 [id number] SNOMED-CT () 2019-01-02 complete Mental d [address], [id number] SNOMED-CT () 2019-01-04 complete Mental d [address], [id number] SNOMED-CT () 2019-01-02 complete Mental d [facility] [address] [place], [place], [id number] SNOMED-CT () 2019-01-31 complete Mental d [address], [id number] Encounters/Encounter Diagnoses Encounter Name Encounter Diagnosis Diagnosis Diagnosis Date of Service Code Code Name CodeSystem Diagnosis Delivery Location - [id number] Major SNOMED-CT 2019-02-12 Behavioral Established depressive Health patient 10 disorder, Clinic , , Minutes recurrent, , in partial remission Vital Signs No Information Social History Element Description Description Start End Code CodeSystem AdditionalInfo Date Date SexAssignedAtBirth Female F AdministrativeGender 2-15 Hospital Discharge Instructions Reason For Referral Medical Equipment FDA Assessments
--- NOTE | 2019-03-12 18:10 | ED ---
Psychiatric Complaint - HPI Summary HPI Summary: This pt is a 28 y/o female presenting to [facility] for increased depression and SI for the past 2 weeks. Pt reports she was admitted to [facility] and discharged home 2 weeks ago. Pt notes she has been having suicidal thoughts since she was discharged. She endorses SI plan of going on top of an electrical pole so she can be electrocuted and wanting to get hands on a gun and swallow a lot of pills. Pt reports she has SI thoughts and plan "often." Denies HI. Denies any other symptoms or complaints. Pt states she spoke with [facility] staff and they recommended for the patient to come to the ED. PMHx includes anxiety, depression, PTSD, panic disorder, bipolar disorder. - History Of Current Complaint Chief Complaint: EDSuicidal Time Seen by Provider: 03/12/19 18:06 Hx Obtained From: Patient Hx Last Menstrual Period: "Last week" Onset/Duration: Lasting Weeks, Still Present Timing: Weeks Severity Currently: Severe Character: Depressed Aggravating Factor(s): Nothing Alleviating Factor(s): Nothing Associated Signs And Symptoms: Positive: Negative Related History: Positive For: Prior Psychiatric Issues Has Suicidal: Reports: Thoughts, With A Plan Has Homicidal: Denies: Thoughts, With A Plan - Allergies/Home Medications Allergies/Adverse Reactions: Allergies Allergy/AdvReac Type Severity Reaction Status Date / Time Tree Nuts Allergy Severe Rash and Verified 02/15/19 19:10 tongue swelling amoxicillin Allergy Rash Verified 02/15/19 19:10 bee venom protein (honey bee) Allergy Anaphylatic Verified 02/15/19 19:10 Shock Home Medications: Home Medications Budesonide/Formote 80/4.5(NF) [Symbicort 80/4.5 (NF)] 2 puff INH BID 03/12/19 [ History Confirmed 03/12/19] Nicotine [Nicotrol Ns] 10 mg BOTH NARES SEE INSTRUCTIONS 03/12/19 [History Confirmed 03/12/19] PMH/Surg Hx/FS Hx/Imm Hx Endocrine/Hematology History: Reports: Hx Anemia Denies: Hx Diabetes Cardiovascular History: Reports: Hx Hypotension - s/p O/D of clonidine. Denies: Hx Hypertension, Hx Pacemaker/ICD, Other Cardiovascular Problems/ Disorders Respiratory History: Reports: Hx Asthma, Hx Pneumonia GI History: Reports: Hx Ulcer - reports couple years ago Denies: Other GI Disorders History: Reports: Other Problems/Disorders - hx of frequent UTI's - last 4 months ago Denies: Hx Renal Disease Musculoskeletal History: Reports: Hx Back Problems - Chronic lower back pain, Hx Tendonitis, Other Musculoskeletal History - currently wearing an orthopedic boot for broken bone in her right foot Sensory History: Reports: Hx Contacts or Glasses Denies: Hx Hearing Aid Opthamlomology History: Reports: Hx Contacts or Glasses Neurological History: Reports: Hx Headaches, Hx Seizures - reports last one in 2014, Other Neuro Impairments/Disorders - tourette's, adhd, reports concussions x5, ptsd Psychiatric History: Reports: Hx Anxiety, Hx Attention Deficit Hyperactivity Disorder, Hx Depression, Hx Panic Disorder, Hx Post Traumatic Stress Disorder, Hx Inpatient Treatment, Hx Community Mental Health Tx, Hx Bipolar Disorder, Hx Suicide Attempt, Hx of Violent Episodes Against Others, Hx Substance Abuse Denies: Hx Eating Disorder, Hx Schizophrenia, Other Psychiatric Issues/ Disorders - Surgical History Surgical History: Yes Surgery Procedure, Year, and Place: [place]onsil[place] 2004, [place], [place] [facility] [place] [facility] [place] Anesthesia Reactions: No - Immunization History Date of Tetanus Vaccine: unk Date of Influenza Vaccine: unk Infectious Disease History: No Infectious Disease History: Denies: History Other Infectious Disease, Traveled Outside the in Last 30 Days - Family History Known Family History: Positive: Other - Schizophrenia, depression, alcohol abuse - Social History Alcohol Use: Rare Alcohol Amount: hx alcohol abuse in past - reports none in one year 10 months Hx Substance Use: Yes Substance Use Type: Reports: Marijuana Substance Use Comment - Amount & Last Used: reports marijuana 3x week - hx drug abuse in past - reports last used 2013 Hx Tobacco Use: Yes Smoking Status (MU): Heavy Every Day Tobacco Smoker Type: Cigarettes Amount Used/How Often: reports 2 cigs a day currently, down from 1/2-1ppd for 10 yrs Length of Time of Smoking/Using Tobacco: 6YRS Have You Smoked in the Last Year: Yes Review of Systems Negative: Fever Cardiovascular: Negative Respiratory: Negative Gastrointestinal: Negative Psychological: Other - POSITIVE: SI thoughts and plan Negative: Other - NEGATIVE: HI All Other Systems Reviewed And Are Negative: Yes Physical Exam - Summary Physical Exam Summary: VITAL SIGNS: Reviewed. GENERAL: Patient is a well-developed and nourished female. Patient is not in any acute respiratory distress. HEAD AND FACE: No signs of trauma. No ecchymosis, hematomas or skull depressions. No sinus tenderness. EYES: PERRLA, EOMI x 2, No injected conjunctiva, no nystagmus. EARS: Hearing grossly intact. Ear canals and tympanic membranes are within normal limits. MOUTH: Oropharynx within normal limits. NECK: Supple, trachea is midline, no adenopathy, no JVD, no carotid bruit, no c- spine tenderness, neck with full ROM. CHEST: Symmetric, no tenderness at palpation LUNGS: Clear to auscultation bilaterally. No wheezing or crackles. CVS: Regular rate and rhythm, S1 and S2 present, no murmurs or gallops appreciated. ABDOMEN: Soft, non-tender. No signs of distention. No rebound, no guarding, and no masses palpated. Bowel sounds are normal. EXTREMITIES: FROM in all major joints, no edema, no cyanosis or clubbing. NEURO: Alert and oriented x 3. No acute neurological deficits. Speech is normal and follows commands. SKIN: Dry and warm Triage Information Reviewed: Yes Vital Signs On Initial Exam: Initial Vitals Temp Pulse Resp BP Pulse Ox 98.7 F 88 18 139/85 99 03/12/19 17:03 03/12/19 17:03 03/12/19 17:03 03/12/19 17:03 03/12/19 17:03 Vital Signs Reviewed: Yes Procedures - Sedation Patient Received Moderate/Deep Sedation with Procedure: No Diagnostics - Vital Signs Vital Signs Temp Pulse Resp BP Pulse Ox 03/12/19 17:03 98.7 F 88 18 139/85 99 - Laboratory Result Diagrams: 03/12/19 18:33 03/12/19 18:33 Lab Statement: Any lab studies that have been ordered have been reviewed, and results considered in the medical decision making process. Re-Evaluation - Re-Evaluation First Eval Re-Evaluation Time: 18:16 Comment: Pt is medically cleared. Course/Dx - Course Assessment/Plan: This pt is a 28 y/o female presenting to [facility] for increased depression and SI for the past 2 weeks. Pt reports she was admitted to [facility] and discharged home 2 weeks ago. Pt notes she has been having suicidal thoughts since she was discharged. She endorses SI plan of going on top of an electrical pole so she can be electrocuted and wanting to get hands on a gun and swallow a lot of pills. Pt reports she has SI thoughts and plan "often." Denies HI. Denies any other symptoms or complaints. Pt states she spoke with [facility] staff and they recommended for the patient to come to the ED. PMHx includes anxiety, depression, PTSD, panic disorder, bipolar disorder. Blood work w/o a significant abnormality. She is medically cleared. She is waiting for a MHE. Patient is hemodynamically stable and A+O x 3. Patient had a mental health evaluation and her case was reviewed by Dr. Mike, psychiatrist. Per mental health plastics repairer, Dr. Mike will admit the pt on a voluntary status with dx depressive disorder NOS. - Differential Dx/Clinical Impression Differential Diagnosis/HQI/PQRI: Positive: Anxiety, Depression, Suicidal Ideation Provider Diagnosis: Depressive disorder Discharge ED - Sign-Out/Discharge Documenting (check all that apply): Patient Departure - Admit to [facility] [facility] - Discharge Plan Condition: Stable Disposition: PSYCHIATRIC FACILITY-[facility] [place] Referrals: Napoleon Batres MD [Primary Care Provider] - - Billing Disposition and Condition Condition: STABLE Disposition: Psychiatric Facility [facility] [place] - Attestation Statements Document Initiated by Scribe: Yes Documenting Scribe: Carolyn Rios Provider For Whom Andres is Documenting (Include Credential): Narendra Maria MD Scribe Attestation: Carolyn Christie, scribed for Narendra Maria MD on 03/12/19 at 2153. Scribe Documentation Reviewed: Yes Provider Attestation: The documentation as recorded by the Carolyn barber accurately reflects the service I personally performed and the decisions made by me, Narendra Maria MD Status of Scribe Document: Viewed
[2019-03-12 18:45] LABS: ABS Lymphocytes 2.2 10^3/ul (1.0-4.8); ABS Monocytes 0.4 10^3/ul (0-0.8); Eosinophil % 0.1 %; Hematocrit 40 % (35-47); Hemoglobin 13.5 g/dL (12.0-16.0); Mean Corpuscular HGB Conc 34 g/dL (31-36); Mean Corpuscular Hemoglobin 32 pg (27-31); Mean Corpuscular Volume 93 fL (80-97); Mean Platelet Volume 7.6 fL (7.4-10.4); Platelet Count 360 10^3/uL (150-450); Red Blood Count 4.28 10^6 /uL (3.70-4.87); Red Cell Distribution Width 14 % (10-15); White Blood Count 9.7 10^3/uL (3.5-10.8)
[2019-03-12 18:51] LABS: Urine Appearance Clear; Urine Bilirubin Negative (Negative); Urine Blood 1+ (Negative); Urine Color Yellow; Urine Glucose Negative (Negative); Urine Ketones Negative (Negative); Urine Nitrite Negative (Negative); Urine Protein Negative (Negative); Urine Specific Gravity 1.009 (1.010-1.030); Urine Urobilinogen Negative (Negative)
[2019-03-12 18:58] LABS: Urine Bacteria Absent (Absent); Urine Red Blood Cell Absent (Absent); Urine Squamous Epithelial Cell Present (Absent); Urine White Blood Cell Absent (Absent)
[2019-03-12 19:01] LABS: ALT 12 U/L (7-52); AST 17 U/L (13-39); Albumin 4.8 g/dL (3.2-5.2); Albumin/Globulin Ratio 1.9 (1-3); Alkaline Phosphatase 54 U/L (34-104); Anion Gap 8 mmol/L (2-11); BUN/Creatinine Ratio 6.2 (8-20); Blood Urea Nitrogen 5 mg/dL (6-24); CO2 Carbon Dioxide 26 mmol/L (22-32); Calcium 9.4 mg/dL (8.6-10.3); Chloride 101 mmol/L (101-111); EGFR African American 101.9 (>60); EGFR Non-African American 84.2 (>60); Globulin 2.5 g/dL (2-4); Glucose 116 mg/dL (70-100); Potassium 3.8 mmol/L (3.5-5.0); Sodium 135 mmol/L (135-145); Total Protein 7.3 g/dL (6.4-8.9)
[2019-03-12 19:22] LABS: Urine Benzodiazepine Screen Presumptive Positive (None Detect); Urine Opiates Screen None Detected (None Detect)
[2019-03-12 19:35] LABS: Acetaminophen < 15 mcg/mL; Alcohol < 10 mg/dL (<10); Salicylate < 2.50 mg/dL (<30)
[2019-03-12 19:50] LABS: TSH (Thyroid Stimulating Horm) 1.54 mcIU/mL (0.34-5.60)
[2019-03-12] MEDS ORDERED: OLANzapine TAB*ODT* 5 MG PO ONE (21:58)
[2019-03-12] MEDS ORDERED: OLANzapine TAB*ODT* 10 MG TAB PO ONE (22:02)
[2019-03-12 23:59] VITALS: BP 102/57
[2019-03-13] MEDS ORDERED: Al Hydrox/Mg Hydrox/Simet LIQ* 30 ML UDC PO PRN (01:16)
[2019-03-13] MEDS ORDERED: Acetaminophen TAB* 325 MG PO PRN (01:16)
[2019-03-13] MEDS ORDERED: Nicotine* 2MG (FRUIT FLAVOR) GUM PO PRN (01:17)
[2019-03-13] MEDS ORDERED: Nicotine PATCH 21 MG/24 HR* PATCH TRANSDERM SCH (09:00)
[2019-03-13] MEDS ORDERED: Vitamin THERAPEUTIC TAB PO SCH (09:00)
[2019-03-13] MEDS ORDERED: Albuterol HFA INHALER* 8 gm MDI INH PRN (12:40)
[2019-03-13] MEDS ORDERED: ALPRAZolam TAB* 0.5 MG PO PRN (12:40)
[2019-03-13] MEDS ORDERED: Lithium Carbonate TAB* 300 MG PO SCH (13:00)
[2019-03-13] MEDS: Montelukast Sodium TAB* 10 MG PO SCH ×2 (13:43→13:45)
[2019-03-13] MEDS ORDERED: FluvoxaMINE (NF) 50 MG TAB PO SCH (14:00)
[2019-03-13] MEDS ORDERED: Pantoprazole TAB * 40 MG TAB PO SCH (14:00)
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
[2019-03-13] MEDS ORDERED: Mometasone 220 MCG MDI INH SCH (18:00)
[2019-03-13] MEDS ORDERED: Nicotine Patch Removal NOTE PATCH OFF SCH (21:00)
[2019-03-14] MEDS ORDERED: Omeprazole CAP (NF) 20 MG CAP.DR PO SCH (09:00)
[2019-03-14] MEDS ORDERED: Lisdexamfetamine(NF) 10 MG CAP PO SCH (09:00)
== END 2019-03-13 14:09 | disposition home or self-care (01) | DRG 755 ==
LOC: ED 16:54 → BSU 23:33
PROVIDERS: ADMIT Psychiatry & Neurology Psychiatry; ATTEND Psychiatry & Neurology Psychiatry
DX: F43.10 Post-traumatic stress disorder, unspecified (principal); R45.851 Suicidal ideations; F95.2 Tourette's disorder; F39 Unspecified mood [affective] disorder; J45.909 Unspecified asthma, uncomplicated; F17.210 Nicotine dependence, cigarettes, uncomplicated; Z81.8 Family history of other mental and behavioral disorders; Z88.1 Allergy status to other antibiotic agents; Z91.030 Bee allergy status; Z91.018 Allergy to other foods; Z79.899 Other long term (current) drug therapy
CPT/HCPCS: 36415; 80053; 80307; 80320; 80329; 81003; 81015; 84443; 85025; 99238; 99284; A9270-GY; G0480

== ENCOUNTER 2019-07-01 14:46 | Inpatient (IN) ==
[2019-07-01 15:55] LABS: Urine Appearance Clear; Urine Bilirubin Negative (Negative); Urine Blood 1+ (Negative); Urine Color Colorless; Urine Glucose Negative (Negative); Urine Ketones Negative (Negative); Urine Nitrite Negative (Negative); Urine Protein Negative (Negative); Urine Specific Gravity 1.002 (1.010-1.030); Urine Urobilinogen Negative (Negative)
[2019-07-01 15:56] LABS: Urine Bacteria Absent (Absent); Urine Red Blood Cell Absent (Absent); Urine Squamous Epithelial Cell Present (Absent); Urine White Blood Cell Absent (Absent)
[2019-07-01 16:03] LABS: Urine Benzodiazepine Screen None Detected (None Detect); Urine Opiates Screen None Detected (None Detect)
[2019-07-01 16:36] LABS: ABS Basophils 0.1 10^3/ul (0-0.2); ABS Lymphocytes 1.8 10^3/ul (1.0-4.8); ABS Monocytes 0.5 10^3/ul (0-0.8); Eosinophil % 0.3 %; Hematocrit 40 % (35-47); Hemoglobin 13.5 g/dL (12.0-16.0); Lymphocyte % 18.3 %; Mean Corpuscular HGB Conc 34 g/dL (31-36); Mean Corpuscular Hemoglobin 32 pg (27-31); Mean Corpuscular Volume 94 fL (80-97); Mean Platelet Volume 7.6 fL (7.4-10.4); Platelet Count 360 10^3/uL (150-450); Red Blood Count 4.26 10^6 /uL (3.70-4.87); Red Cell Distribution Width 14 % (10-15)
[2019-07-01 17:02] LABS: ALT 9 U/L (7-52); AST 16 U/L (13-39); Albumin 4.9 g/dL (3.2-5.2); Alkaline Phosphatase 47 U/L (34-104); Anion Gap 6 mmol/L (2-11); BUN/Creatinine Ratio 9.5 (8-20); Blood Urea Nitrogen 8 mg/dL (6-24); CO2 Carbon Dioxide 28 mmol/L (22-32); Calcium 10.1 mg/dL (8.6-10.3); Chloride 106 mmol/L (101-111); EGFR Non-African American 80.2 (>60); Globulin 2.5 g/dL (2-4); Glucose 92 mg/dL (70-100); Potassium 4.2 mmol/L (3.5-5.0); Sodium 140 mmol/L (135-145); Total Protein 7.4 g/dL (6.4-8.9)
[2019-07-01 17:25] LABS: Acetaminophen < 15 mcg/mL; Alcohol, S < 10 mg/dL (<10); Salicylate < 2.50 mg/dL (<30)
[2019-07-01 17:41] LABS: TSH (Thyroid Stimulating Horm) 2.75 mcIU/mL (0.34-5.60)
[2019-07-01] MEDS ORDERED: Al Hydrox/Mg Hydrox/Simet LIQ 30 ML UDC PO PRN (21:45)
[2019-07-01] MEDS ORDERED: LORazepam 0.5 mg TAB (*) PO PRN (21:56)
[2019-07-02 07:57] VITALS: BP 99/58
[2019-07-02] MEDS ORDERED: Vitamin THERAPEUTIC TAB PO SCH (09:00)
[2019-07-02] MEDS ORDERED: clonazePAM 1 mg TAB(*) PO PRN (10:30)
[2019-07-02] MEDS ORDERED: Nicotine GUM 2MG FRUIT FLAVOR PO PRN (10:39)
== END 2019-07-02 16:00 | disposition home or self-care (01) | DRG 755 ==
LOC: ED 14:46 → BSU 20:41
PROVIDERS: ADMIT Psychiatry & Neurology Psychiatry; ATTEND Psychiatry & Neurology Psychiatry

== ENCOUNTER 2019-07-12 11:08 | Inpatient (IN) ==
[2019-07-12 12:16] LABS: Urine Benzodiazepine Screen None Detected (None Detect); Urine Opiates Screen None Detected (None Detect)
[2019-07-12 12:19] LABS: Urine Appearance Clear; Urine Bilirubin Negative (Negative); Urine Blood Negative (Negative); Urine Color Colorless; Urine Glucose Negative (Negative); Urine Ketones Negative (Negative); Urine Nitrite Negative (Negative); Urine Protein Negative (Negative); Urine Specific Gravity 1.002 (1.010-1.030); Urine Urobilinogen Negative (Negative)
[2019-07-12] MEDS ORDERED: Al Hydrox/Mg Hydrox/Simet LIQ 30 ML UDC PO PRN (13:03)
[2019-07-12] MEDS ORDERED: A lbuterol Hfa (PREPAK) 1 MDI - ED TAKE HOME DISPENSING ONLY INHH PRN (13:04)
[2019-07-12 13:20] LABS: ABS Lymphocytes 1.4 10^3/ul (1.0-4.8); ABS Monocytes 0.4 10^3/ul (0-0.8); Eosinophil % 0.3 %; Hematocrit 40 % (35-47); Hemoglobin 13.2 g/dL (12.0-16.0); Lymphocyte % 13.8 %; Mean Corpuscular HGB Conc 33 g/dL (31-36); Mean Corpuscular Hemoglobin 31 pg (27-31); Mean Corpuscular Volume 94 fL (80-97); Mean Platelet Volume 7.9 fL (7.4-10.4); Nucleated Red Blood Cells % 0.1; Platelet Count 313 10^3/uL (150-450); Red Blood Count 4.22 10^6 /uL (3.70-4.87); Red Cell Distribution Width 14 % (10-15)
[2019-07-12 13:39] LABS: ALT 10 U/L (7-52); AST 17 U/L (13-39); Albumin 4.7 g/dL (3.2-5.2); Alkaline Phosphatase 50 U/L (34-104); Anion Gap 5 mmol/L (2-11); BUN/Creatinine Ratio 7.4 (8-20); Blood Urea Nitrogen 7 mg/dL (6-24); CO2 Carbon Dioxide 28 mmol/L (22-32); Chloride 104 mmol/L (101-111); EGFR African American 85.2 (>60); EGFR Non-African American 70.4 (>60); Globulin 2.4 g/dL (2-4); Glucose 93 mg/dL (70-100); Potassium 3.8 mmol/L (3.5-5.0); Sodium 137 mmol/L (135-145); Total Protein 7.1 g/dL (6.4-8.9)
[2019-07-12 14:13] LABS: Acetaminophen < 15 mcg/mL; Alcohol, S < 10 mg/dL (<10); Lithium 0.72 mmol/L (0.6-1.2); Salicylate < 2.50 mg/dL (<30)
[2019-07-12 14:28] LABS: TSH (Thyroid Stimulating Horm) 2.91 mcIU/mL (0.34-5.60)
[2019-07-12] MEDS ORDERED: Albuterol 2.5mg/3 ml (0.083%) NEB.SOLN INH PRN (15:36)
[2019-07-12] MEDS: Nicotine GUM 4MG FRUIT FLAVOR PO PRN ×2 (17:09→19:48)
[2019-07-12] MEDS: Mometasone/Formoter 100/5 MDI INH SCH (19:48)
[2019-07-13] MEDS: Nicotine GUM 4MG FRUIT FLAVOR PO PRN ×3 (08:21→20:13)
[2019-07-13] MEDS: Mometasone/Formoter 100/5 MDI INH SCH ×2 (08:23→20:11)
[2019-07-14] MEDS: Nicotine GUM 4MG FRUIT FLAVOR PO PRN ×4 (08:16→20:07)
[2019-07-14] MEDS: Mometasone/Formoter 100/5 MDI INH SCH ×2 (09:30→20:12)
[2019-07-15] MEDS: Nicotine GUM 4MG FRUIT FLAVOR PO PRN ×3 (09:37→19:36)
[2019-07-15] MEDS: Mometasone/Formoter 100/5 MDI INH SCH ×2 (11:51→20:27)
[2019-07-16] MEDS: Mometasone/Formoter 100/5 MDI INH SCH ×2 (09:09→20:15)
[2019-07-17] MEDS: Mometasone/Formoter 100/5 MDI INH SCH ×2 (09:05→20:13)
[2019-07-17] MEDS: Nicotine GUM 4MG FRUIT FLAVOR PO PRN ×3 (09:21→15:32)
[2019-07-18 08:21] VITALS: BP 103/52
[2019-07-18] MEDS: Mometasone/Formoter 100/5 MDI INH SCH (09:17)
[2019-07-18] MEDS: Nicotine GUM 4MG FRUIT FLAVOR PO PRN (09:22)
== END 2019-07-18 12:45 | disposition home or self-care (01) | DRG 755 ==
LOC: ED 11:08 → BSU 13:03
PROVIDERS: ADMIT Psychiatry & Neurology Psychiatry; ATTEND Psychiatry & Neurology Psychiatry

== ENCOUNTER 2019-10-13 15:32 | Inpatient (IN) ==
[2019-10-13 16:15] LABS: ABS Lymphocytes 2.5 10^3/ul (1.0-4.8); ABS Monocytes 0.7 10^3/ul (0-0.8); ABS Neutrophils 7.5 10^3/ul (1.5-7.7); Eosinophil % 0.2 %; Hematocrit 39 % (35-47); Hemoglobin 13.3 g/dL (12.0-16.0); Lymphocyte % 23.3 %; Mean Corpuscular HGB Conc 35 g/dL (31-36); Mean Corpuscular Hemoglobin 31 pg (27-31); Mean Corpuscular Volume 90 fL (80-97); Mean Platelet Volume 8.1 fL (7.4-10.4); Nucleated Red Blood Cells % 0.1; Platelet Count 277 10^3/uL (150-450); Red Blood Count 4.26 10^6 /uL (3.70-4.87); Red Cell Distribution Width 13 % (10-15); White Blood Count 10.8 10^3/uL (3.5-10.8)
[2019-10-13 16:18] LABS: Urine Appearance Clear; Urine Bilirubin Negative (Negative); Urine Blood 1+ (Negative); Urine Color Yellow; Urine Glucose Negative (Negative); Urine Ketones Negative (Negative); Urine Nitrite Negative (Negative); Urine Protein Negative (Negative); Urine Specific Gravity 1.008 (1.010-1.030); Urine Urobilinogen Negative (Negative)
[2019-10-13 16:20] LABS: Urine Bacteria 1+ (Absent); Urine Red Blood Cell Trace(0-2/hpf) (Absent); Urine Squamous Epithelial Cell Present (Absent); Urine White Blood Cell Trace(0-5/hpf) (Absent)
[2019-10-13 16:23] LABS: Urine Benzodiazepine Screen None Detected (None Detect); Urine Cannabinoids Screen Presumptive Positive (None Detect); Urine Opiates Screen None Detected (None Detect)
[2019-10-13 16:30] LABS: ALT 7 U/L (7-52); AST 14 U/L (13-39); Albumin 4.6 g/dL (3.2-5.2); Alkaline Phosphatase 50 U/L (34-104); Anion Gap 6 mmol/L (2-11); Blood Urea Nitrogen 12 mg/dL (6-24); CO2 Carbon Dioxide 25 mmol/L (22-32); Calcium 9.5 mg/dL (8.6-10.3); Chloride 107 mmol/L (101-111); EGFR African American 102.6 (>60); EGFR Non-African American 84.8 (>60); Globulin 2.3 g/dL (2-4); Glucose 117 mg/dL (70-100); Potassium 3.7 mmol/L (3.5-5.0); Sodium 138 mmol/L (135-145); Total Protein 6.9 g/dL (6.4-8.9)
[2019-10-13 16:53] LABS: Acetaminophen < 15 mcg/mL; Alcohol, S < 10 mg/dL (<10); Salicylate < 2.50 mg/dL (<30)
[2019-10-13 17:08] LABS: TSH Ultra Thyroid Stim Horm 1.88 mcIU/mL (0.34-5.60)
[2019-10-13] MEDS ORDERED: Al Hydrox/Mg Hydrox/Simet LIQ 30 ML UDC PO PRN (17:19)
[2019-10-13] MEDS ORDERED: Albuterol 2.5mg/3 ml (0.083%) NEB.SOLN INH PRN (17:20)
[2019-10-13] MEDS ORDERED: Albuterol HFA INHALER 8 gm MDI INH PRN (17:25)
[2019-10-13] MEDS: Mometasone/Formoter 100/5 MDI INH SCH (21:53)
[2019-10-14] MEDS ORDERED: Vitamin THERAPEUTIC TAB PO SCH (09:00)
[2019-10-14] MEDS: Nicotine GUM 2MG FRUIT FLAVOR PO PRN ×2 (09:27→12:43)
[2019-10-14] MEDS: Mometasone/Formoter 100/5 MDI INH SCH (10:43)
[2019-10-14 11:29] VITALS: BP 106/68
== END 2019-10-14 16:00 | disposition home or self-care (01) | DRG 755 ==
LOC: ED 15:32 → BSU 16:58
PROVIDERS: ADMIT Psychiatry & Neurology Psychiatry; ATTEND Psychiatry & Neurology Psychiatry

== ENCOUNTER 2019-12-12 15:26 | Inpatient (IN) ==
[2019-12-12 16:38] LABS: Urine Benzodiazepine Screen Presumptive Positive (None Detect); Urine Cannabinoids Screen Presumptive Positive (None Detect); Urine Opiates Screen None Detected (None Detect)
[2019-12-12 16:38] LABS: ABS Lymphocytes 2.2 10^3/ul (1.0-4.8); ABS Monocytes 0.5 10^3/ul (0-0.8); ABS Neutrophils 6.7 10^3/ul (1.5-7.7); Eosinophil % 0.4 %; Hematocrit 42 % (35-47); Hemoglobin 14.4 g/dL (12.0-16.0); Lymphocyte % 23.2 %; Mean Corpuscular HGB Conc 34 g/dL (31-36); Mean Corpuscular Hemoglobin 32 pg (27-31); Mean Corpuscular Volume 92 fL (80-97); Mean Platelet Volume 8.2 fL (7.4-10.4); Platelet Count 256 10^3/uL (150-450); Red Blood Count 4.55 10^6 /uL (3.70-4.87); Red Cell Distribution Width 14 % (10-15); White Blood Count 9.5 10^3/uL (3.5-10.8)
[2019-12-12 16:58] LABS: ALT 12 U/L (7-52); AST 19 U/L (13-39); Albumin 4.9 g/dL (3.2-5.2); Albumin/Globulin Ratio 1.8 (1-3); Alkaline Phosphatase 54 U/L (34-104); Anion Gap 8 mmol/L (2-11); BUN/Creatinine Ratio 12.5 (8-20); Blood Urea Nitrogen 11 mg/dL (6-24); CO2 Carbon Dioxide 25 mmol/L (22-32); Chloride 104 mmol/L (101-111); EGFR African American 91.9 (>60); Globulin 2.7 g/dL (2-4); Glucose 85 mg/dL (70-100); Potassium 3.5 mmol/L (3.5-5.0); Sodium 137 mmol/L (135-145); Total Protein 7.6 g/dL (6.4-8.9)
[2019-12-12 17:16] LABS: Acetaminophen < 15 mcg/mL; Alcohol, S < 10 mg/dL (<10)
[2019-12-12 17:35] LABS: Salicylate < 2.50 mg/dL (<30)
[2019-12-12 19:25] LABS: Urine Appearance Cloudy; Urine Bilirubin Negative (Negative); Urine Blood Negative (Negative); Urine Color Amber; Urine Glucose Negative (Negative); Urine Ketones 1+ (Negative); Urine Nitrite Negative (Negative); Urine Protein Negative (Negative); Urine Specific Gravity 1.025 (1.010-1.030); Urine Urobilinogen Negative (Negative)
[2019-12-12] MEDS ORDERED: Nicotine GUM 2MG FRUIT FLAVOR PO PRN (23:00)
[2019-12-12] MEDS ORDERED: Al Hydrox/Mg Hydrox/Simet LIQ 30 ML UDC PO PRN (23:16)
[2019-12-13] MEDS ORDERED: Nicotine PATCH 7 MG/24 HR PATCH TRANSDERM SCH (09:00)
[2019-12-13] MEDS ORDERED: Vitamin THERAPEUTIC TAB PO SCH (09:00)
[2019-12-13] MEDS: VILAZODONE 10 MG PO SCH ×2 (10:24→10:59)
[2019-12-13 10:27] VITALS: BP 98/63
[2019-12-13] MEDS ORDERED: chlorproMAZINE 25 MG/ML 2 ML (50 MG) ONE (11:40)
== END 2019-12-13 13:15 | disposition home or self-care (01) | DRG 752 ==
LOC: ED 15:26 → BSU 20:55
PROVIDERS: ADMIT Psychiatry & Neurology Psychiatry; ATTEND Psychiatry & Neurology Psychiatry

== ENCOUNTER 2023-08-07 21:58 | Inpatient (IN) ==
[2023-08-07 23:06] LABS: ABS Basophils 0.1 10^3/uL (0.0-0.1); ABS Eosinophils 0.2 10^3/uL (0.0-0.5); ABS Monocytes 0.9 10^3/uL (0.0-0.9); ABS Neutrophils 10.5 10^3/uL (1.5-7.6); Eosinophil % 1.2 %; Hematocrit 39.1 % (35-45); Lymphocyte % 25.4 %; Mean Corpuscular Hemoglobin 30.3 pg (27-33); Mean Corpuscular Hgb Conc 33.3 g/dL (31-36); Mean Corpuscular Volume 90.9 fL (80-97); Mean Platelet Volume 7.5 fL (7.5-11.2); Platelet Count 416 10^3/uL (150-450); Red Blood Count 4.31 10^6/uL (3.63-4.92); White Blood Count 15.7 10^3/uL (3.8-11.8)
[2023-08-07 23:07] LABS: Urine Appearance Clear; Urine Bilirubin Negative (Negative); Urine Blood Trace (Negative); Urine Color Light-Yellow; Urine Glucose Negative (Negative); Urine Ketones Negative (Negative); Urine Nitrite Negative (Negative); Urine Protein Negative (Negative); Urine Specific Gravity 1.013 (1.002-1.030); Urine Urobilinogen Negative (Negative)
[2023-08-07 23:40] LABS: Urine Benzodiazepine Screen None Detected (None Detect); Urine Cannabinoids Screen Presumptive Positive (None Detect); Urine Opiates Screen None Detected (None Detect)
[2023-08-07 23:48] LABS: ALT 10 U/L (7-52); AST 16 U/L (13-39); Albumin 4.6 g/dL (3.2-5.2); Albumin/Globulin Ratio 2.6 (1-3); Alkaline Phosphatase 77 U/L (35-149); Anion Gap 9 mmol/L (2-16); Blood Urea Nitrogen 8 mg/dL (6-24); CO2 Carbon Dioxide 23 mmol/L (22-32); Calcium 9.8 mg/dL (8.6-10.3); Chloride 103 mmol/L (101-111); Creatinine, Serum 0.92 mg/dL (0.51-0.95); Globulin 1.8 g/dL (2-4); Glucose 115 mg/dL (70-100); Potassium 3.8 mmol/L (3.5-5.0); Sodium 135 mmol/L (135-145); Total Bilirubin 0.3 mg/dL (0.2-1.0); Total Protein 6.4 g/dL (6.4-8.9); eGFR CKD-EPI 84.3 (>60)
[2023-08-07 23:54] LABS: HCG Pregnancy < 0.60 mIU/mL
[2023-08-07 23:56] LABS: Acetaminophen < 15 mcg/mL; Alcohol, S < 13 mg/dL (<13); Salicylate < 2.50 mg/dL (<30)
[2023-08-08 00:02] LABS: TSH Ultra Thyroid Stim Horm 10.58 mcIU/mL (0.34-5.60)
[2023-08-08] MEDS: Lactated Ringers 1000 ml BAG 1,000 ML IV ONE (00:10)
[2023-08-08 02:30] LABS: Free T4 0.86 ng/dL (0.61-1.12)
[2023-08-08] MEDS ORDERED: Al Hydrox/Mg Hydrox/Simet LIQ 30 ML UDC PO PRN (09:07)
[2023-08-08] MEDS ORDERED: Albuterol HFA INHALER 8 gm MDI INH PRN (09:09)
[2023-08-08] MEDS: Lithium Carb ER 300 mg TAB(NF) PO SCH (20:49)
[2023-08-08] MEDS: Lithium Carbonate ER 450mg TAB PO SCH (20:49)
[2023-08-08] MEDS: Mometasone/Formoter 200/5 MDI INH SCH (20:50)
[2023-08-08] MEDS: CMCS: ZOLMitriptan 5 mg ODT (NF) PO PRN (21:26)
[2023-08-09 11:08] LABS: HDL Cholesterol 49.7 mg/dL
[2023-08-09] MEDS ORDERED: EPINEPHrine Anaphylaxis SYR CERTADOSE SYR KIT IM PRN ×2 (13:14→13:50)
[2023-08-09] MEDS: Nicotine GUM 4MG FRUIT FLAVOR PO PRN (19:38)
[2023-08-11 10:41] VITALS: BP 101/71
== END 2023-08-11 15:20 | disposition home or self-care (01) | DRG 752 ==
LOC: ED 21:58 → EDHOLD 08-08 09:07 → BSU 08-08 09:50
PROVIDERS: ADMIT Psychiatry & Neurology Psychiatry; ATTEND Student in an Organized Health Care Education/Training Program